=== PATIENT | male | born 1970 | race Caucasian/White ===

== ENCOUNTER 2020-10-14 11:17 | Emergency (ER) | payer OTHER, SELFPAY ==
[2020-10-14] VITALS (16 sets, daily range): BP systolic 148–230; BP diastolic 91–131; PULSE 76–99; RESP 12–18; TEMP 36.6; O2SAT 94–99; BMI 32.8
--- NOTE | ~2020-10-14 | CT_ITS ---
EXAMINATION: CT CERVICAL SPINE WITHOUT CONTRAST CLINICAL INFORMATION: Fall with intracranial bleed COMPARISON: None TECHNIQUE: CT cervical spine without intrathecal contrast This CT examination was performed using dose optimization techniques as appropriate, variously including the following: *Automated exposure control *Adjustment of mA and/or kV according to patient size (this includes techniques or standardized protocols for targeted exams where dose is matched to indication/reason for exam; i.e. extremities or head) *Use of iterative reconstruction technique DLP: 793 mGy-cm FINDINGS: No abnormal prevertebral soft tissue swelling is seen. Paraspinal muscle planes are maintained. No acute cervical spine fractures identified. There is some narrowing of the C5-C6 and C6-C7 disc spaces with some marginal spurring. No significant neural foramina bony encroachment is seen. Pterygoid plates intact. Temporomandibular joints appear unremarkable. CT/CT cervical spine wo con IMPRESSION: Mild cervical spondylosis without evidence of acute fracture.
--- NOTE | ~2020-10-14 | XR_ITS ---
EXAMINATION: XR CHEST CLINICAL INFORMATION: Stroke COMPARISON: None TECHNIQUE: Frontal view of the chest was obtained. FINDINGS: The cardiac silhouette is enlarged. Hilar and mediastinal contours are unremarkable. The lungs are clear. There is no pleural effusion or pneumothorax. Bony structures are unremarkable. XR/XR chest 1V IMPRESSION: Enlarged cardiac silhouette. No evidence for acute disease in the chest.
--- NOTE | ~2020-10-14 | CT_ITS ---
EXAMINATION: CT HEAD WITHOUT CONTRAST (STROKE PROTOCOL) CLINICAL INFORMATION: Stroke protocol. COMPARISON: None TECHNIQUE: Contiguous axial imaging was performed from the skull base to vertex without intravenous administration of contrast. This CT examination was performed using dose optimization techniques as appropriate, variously including the following: *Automated exposure control *Adjustment of mA and/or kV according to patient size (this includes techniques or standardized protocols for targeted exams where dose is matched to indication/reason for exam; i.e. extremities or head) *Use of iterative reconstruction technique DLP: 861 mGy-cm FINDINGS: There is a region of hemorrhage seen within the region of the right basal ganglia and external capsule measuring approximately 4.4 x 2.6 x 4.3 cm in size with some surrounding edema there is mild midline structure shift to the left of approximately 2 mm. No evidence of uncal herniation appreciated. The hemorrhage appears to lie superior to the right middle cerebral artery with no definite right middle cerebral artery aneurysm appreciated. There is an old infarct seen involving the region of the anterior limb of the right internal capsule extending to the posterior limb. Suprasellar cistern appears unremarkable. The calvarium appears intact. There is no pneumocephalus or orbital emphysema. There is mucosal thickening seen within the ethmoid air cells bilaterally. Large amount of cerumen is seen within the left external auditory canal. There are no air-fluid levels. CT/CT head for stroke IMPRESSION: Right basal ganglia hemorrhage with mild midline structure shift to the left. No evidence of uncal herniation. This critical result was discussed with Dr. Morales at 1135 hours on October 14, 2020. It was ascertained that the content and urgency of the report was understood at the time of direct communication.
--- NOTE | 2020-10-14 11:21 | ECG_ITS ---
Test Reason : STROKE Blood Pressure : / mmHG Vent. Rate : 094 BPM Atrial Rate : 094 BPM P-R Int : 182 ms QRS Dur : 098 ms QT Int : 370 ms P-R-T Axes : 033 023 -07 degrees QTc Int : 462 ms Normal sinus rhythm Normal ECG No previous ECGs available Referred By: Anival Morales Electronically Signed By:HUMBERTO DELACRUZ
[2020-10-14 11:23] LABS: Glucose, Whole Blood 140 mg/dL (60-115)
[2020-10-14] MEDS: Labetalol HCL 100 MG/20 ML VIAL 20 MG IVPUSH (11:35)
[2020-10-14 11:38] LABS: Basophils Percent Auto 0.5 % (0-2); Eosinophils Absolute Auto 0.2 X10*3/uL (0.0-0.4); Eosinophils Percent Auto 3.1 % (0-4); Hematocrit 45.2 % (42-52); Imm Gran Abs Auto 0.04 X10*3/uL (0.00-0.03); Imm Gran Pct Auto 0.7 % (0.0-0.4); Lymphocytes Absolute Auto 1.8 X10*3/uL (1.2-4.9); Lymphocytes Percent Auto 29.9 % (20-40); MANUAL DIFF FLAG NO; Mean Corpuscular HGB Conc 35.4 g/dl (31.0-36.0); Mean Corpuscular Hemoglobin 30.2 pg (27.0-33.0); Mean Corpuscular Volume 85.3 fL (80-98); Mean Platelet Volume 9.8 fL (9.4-12.4); Monocytes Absolute Auto 0.3 X10*3/uL (0.1-1.2); Monocytes Percent Auto 5.5 % (2-11); Neutrophils Absolute Auto 3.5 X10*3/uL (2.0-8.3); Neutrophils Percent Auto 60.3 % (45-73); Platelet Count 208 X10*3/uL (160-400); Red Cell Distribution Width 11.9 % (11.0-16.0); White Blood Count 5.9 X10*3/uL (4.8-10.8)
[2020-10-14 11:41] LABS: Prothrombin Time Whole Bld POC 12.3 sec (11.1-13.5)
[2020-10-14 11:43] LABS: Prothrombin Time 11.4 SEC (9.9-13.0)
[2020-10-14] MEDS: niCARdipine HCL 25 MG in 0.9 % Sodium Chloride 250 ML 52 MG IVCONT (11:44)
--- NOTE | 2020-10-14 11:59 | ED.NEUROSD ---
HPI - Neuro Symptoms/Deficit General Chief Complaint: Stroke Stated Complaint: stroke alert Time Seen by Provider: 10/14/20 11:20 Source: patient, family ( Spouse) and EMS Mode of arrival: EMS Limitations: no limitations History of Present Illness HPI Narrative: 51-year-old male came in for evaluation of stroke. This is a 51-year-old male with history of hypertension came in by ambulance after was found by his son on the floor in the bathroom, patient has right visual gaze, left hemiparesis and garbled speech, patient last was normal but 1 hour before arrival, patient is still able to give partial history stated that he went to the bathroom felt sick then he fell down and lost consciousness. Son called 911 and patient was transported to the hospital, there is a on arrival patient with right visual gaze on left hemipareses able to give history, GCS of 15. Related Data Previous Rx's Medication Instructions Recorded lisinopril 40 mg tablet 40 mg PO DAILY #30 tab 04/12/20 sertraline 50 mg tablet 50 mg PO DAILY #30 tab 06/03/20 Allergies Allergy/AdvReac Type Severity Reaction Status Date / Time No Known Allergies Allergy Verified 10/14/20 11:21 Review of Systems Review of Systems: Yes all other systems are reviewed and are negative [facility] Past Medical History Medical History Anxiety HTN (hypertension) Social History Social History Alcohol intake: never Patient Tobacco Use Status: Never used Tobacco Advance Directives: No Advance Directives Information Provided: No Physical Exam Vital Signs: Vital Signs: Last Vital Signs Temp 98 F 10/14/20 11:28 Pulse 87 10/14/20 13:17 Resp 17 10/14/20 13:17 BP 148/91 H 10/14/20 13:17 Pulse Ox 95 10/14/20 13:17 Body Mass Index 32.8 vital signs have been reviewed as appeared to be correct. Blood pressure severely elevated. Heart rate normal. Respiration rate normal. Temperature normal. Oxygen saturation normal. Appearance: Alert. Oriented X3. No acute distress, GCS of 15 Head: Normal external exam. Normocephalic. Atraumatic. No [place] signs noted. No raccoon eyes noted Eyes: PERRLA. EOMI. Conjunctiva and sclera normal. Eyelids normal. ENT: TM's Normal. Pharynx normal. Uvula midline. Moist mucous membranes. No trismus noted. No drooling noted. No muffled voice noted. Neck: Normal inspection. Neck supple. FROM. No adenopathy. Thyroid Normal. No meningeal signs. No neck mass noted. CVS: Normal heart rate and rhythm. Heart sound normal. No murmurs noted. Pulses normal throughout. Respiratory: No respiratory distress. Painless inspiration. Breath sounds normal. No wheezes/rales/rhonchi noted. Chest nontender. No accessory muscle usage noted or decreased air movement noted. Abdomen: Soft and nontender. Bowel sounds normal in all 4 quadrants. No distention noted. No organomegaly noted. No visible injury noted. Back: No CVA tenderness. Full range of motion noted. Skin: Skin warm and dry. Normal skin color. Normal skin turgor. No rashes/lesions/lacerations noted. Extremities: No lower extremity edema. Extremities exhibit normal range of motion. Extremities nontender. Neuro: Oriented X 3. please refer to NIH stroke scale Course Course Course Narrative: assessment and plan. 51-year-old male with history of high blood pressure came in with left hemiparesis and right visual gaze, patient found to have right thalamic/basal ganglia bleed more than likely to be hypertensive bleed. 1. Case discussed with Dr. Gan who recommended to transfer the patient to [facility]. 2. high blood pressure patient was given labetalol 1 time IV and patient was put on nicardipine IV drip, current blood pressure is 166/102 goal is to bring systolic blood pressure 150. 3. the case was discussed with Dr. Aayla from Neurology at [facility] who is reviewing the images. patient to be admitted to ICU. 4. patient was GCS of 15 with good mentation, no sign of herniation on the CT at this point would not consider intubation but will keep monitoring the patient. Reevaluation(s) Reevaluation #1: patient still GCS of 15, positive gag reflex, CT showing no herniation, blood pressure under better control, await for the final call from [facility] to transfer. Time: 12:35 Reevaluation #2: unchanged neurological exam, able to protect his airway, talking to his family, case discussed with from ICU at [facility] who accepted the patient. Keep the head of the bed elevated 30 degree. Still await for the transfer. Time: 13:30 MDM - Neuro Symptoms/Deficit Lab Data Attestation: I reviewed the patient's lab results. Result diagrams: 10/14/20 11:31 10/14/20 11:31 Labs: Lab Results 10/14/20 10/14/20 10/14/20 Range/Units 11:19 11:30 11:31 WBC 5.9 (4.8-10.8) X10*3/uL RBC 5.30 (4.60-5.80) X10*6/uL Hgb 16.0 (14.0-18.0) g/dl Hct 45.2 (42-52) % MCV 85.3 (80-98) fL MCH 30.2 (27.0-33.0) pg MCHC 35.4 (31.0-36.0) g/dl RDW 11.9 (11.0-16.0) % Plt Count 208 (160-400) X10*3/uL MPV 9.8 (9.4-12.4) fL Immature Gran % (Auto) 0.7 H (0.0-0.4) % Neut % (Auto) 60.3 (45-73) % Lymph % (Auto) 29.9 (20-40) % Cavalier % (Auto) 5.5 (2-11) % Eos % (Auto) 3.1 (0-4) % Baso % (Auto) 0.5 (0-2) % Lymph # (Auto) 1.8 (1.2-4.9) X10*3/uL Cavalier # (Auto) 0.3 (0.1-1.2) X10*3/uL Eos # (Auto) 0.2 (0.0-0.4) X10*3/uL Baso # (Auto) 0.0 (0.0-0.2) X10*3/uL Abs Immat Gran (auto) 0.04 H (0.00-0.03) X10*3/uL Absolute Neuts (auto) 3.5 (2.0-8.3) X10*3/uL Absolute Nucleated RBC 0.000 (0.0-0.012) X10*3/uL Nucleated RBC % (auto) 0.0 (0.0-0.2) /100WBC PT (9.9-13.0) SEC Whole Blood PT 12.3 (11.1-13.5) sec INR (0.9-1.1) Whole Blood INR 1.0 (0.9-1.1) APTT (24.1-38.0) SEC Sodium (135-145) mmol/L Potassium (3.3-5.1) mmol/L Chloride (96-108) mmol/L Carbon Dioxide (22-29) mmol/L Anion Gap (12-20) BUN (9-16) mg/dL Creatinine (0.5-1.4) mg/dL Estim Creat Clear Calc Estimated GFR POC Glucose 140 H (60-115) mg/dL Random Glucose (60-115) mg/dL Calcium (8.4-10.2) mg/dL Total Creatine Kinase (38-174) U/L Troponin I High Sens (<3.5-35.0) ng/L 10/14/20 10/14/20 10/14/20 Range/Units 11:31 11:31 11:31 WBC (4.8-10.8) X10*3/uL RBC (4.60-5.80) X10*6/uL Hgb (14.0-18.0) g/dl Hct (42-52) % MCV (80-98) fL MCH (27.0-33.0) pg MCHC (31.0-36.0) g/dl RDW (11.0-16.0) % Plt Count (160-400) X10*3/uL MPV (9.4-12.4) fL Immature Gran % (Auto) (0.0-0.4) % Neut % (Auto) (45-73) % Lymph % (Auto) (20-40) % Cavalier % (Auto) (2-11) % Eos % (Auto) (0-4) % Baso % (Auto) (0-2) % Lymph # (Auto) (1.2-4.9) X10*3/uL Cavalier # (Auto) (0.1-1.2) X10*3/uL Eos # (Auto) (0.0-0.4) X10*3/uL Baso # (Auto) (0.0-0.2) X10*3/uL Abs Immat Gran (auto) (0.00-0.03) X10*3/uL Absolute Neuts (auto) (2.0-8.3) X10*3/uL Absolute Nucleated RBC (0.0-0.012) X10*3/uL Nucleated RBC % (auto) (0.0-0.2) /100WBC PT 11.4 (9.9-13.0) SEC Whole Blood PT (11.1-13.5) sec INR 1.0 (0.9-1.1) Whole Blood INR (0.9-1.1) APTT 34.0 (24.1-38.0) SEC Sodium 140 (135-145) mmol/L Potassium 3.8 (3.3-5.1) mmol/L Chloride 103 (96-108) mmol/L Carbon Dioxide 28 (22-29) mmol/L Anion Gap 13 (12-20) BUN 16 (9-16) mg/dL Creatinine 1.38 (0.5-1.4) mg/dL Estim Creat Clear Calc 77.3 Estimated GFR 55 POC Glucose (60-115) mg/dL Random Glucose 143 H (60-115) mg/dL Calcium 9.6 (8.4-10.2) mg/dL Total Creatine Kinase 111 (38-174) U/L Troponin I High Sens < 3.5 (<3.5-35.0) ng/L Imaging Data CT scan - head: Radiologist's impression: Right basal ganglia hemorrhage with mild midline structure shift to the left. No evidence of uncal herniation. Cervical spine CT: Radiologist's impression: no acute fracture. ECG Data Interpretation: Normal sinus rhythm at 95 beats per minutes, normal axis deviation, normal intervals, no ST-T changes. NIH Stroke Scale Level of Consciousness: Alert Level of Consciousness Questions: Answers both questions correctly Level of Consciousness Commands: Performs both tasks correctly Best Gaze: Forced deviation Visual: No visual loss Facial Palsy: Normal Motor Arm (Right): No drift Motor Arm (Left): No effort against gravity Motor Leg (Right): No drift Motor Leg (Left): No effort against gravity Limb Ataxia: Absent Sensory: Mild to moderate sensory loss Best Language: No aphasia Dysarthia: Normal Extinction and Inattention: No abnormality Score: 9 Critical Care Time Critical Care Time Critical Care Time: Yes Total Critical Care Time: 60 Attestation: I spent 60 minutes providing critical care service to the patient, this including time spent at the bedside to evaluate the patient, reassess the patient, monitoring vital signs, review labs, and radiographic studies, counseling the patient/family, discussing the case with consultants, disposition the patient. Discharge Plan Discharge Clinical Impression: Hemorrhagic stroke Cerebrovascular accident Qualifiers: CVA mechanism: unspecified Qualified Code(s): I63.9 - Cerebral infarction, unspecified Patient Disposition: [facility] Transfer Details: [facility] intermediate care Prescriptions: No Action lisinopril 40 mg tablet 40 mg PO DAILY Qty: 30 RF: 0 sertraline 50 mg tablet 50 mg PO DAILY Qty: 30 RF: 0
[2020-10-14 12:04] LABS: Anion Gap 13 (12-20); Blood Urea Nitrogen 16 mg/dL (9-16); Calcium 9.6 mg/dL (8.4-10.2); Carbon Dioxide 28 mmol/L (22-29); Chloride 103 mmol/L (96-108); Creatinine Clr Calc Pharmacy 77.3; Estimated Glomerular Filt Rate 55; Glucose Random 143 mg/dL (60-115); Potassium 3.8 mmol/L (3.3-5.1); Sodium 140 mmol/L (135-145)
[2020-10-14 12:09] LABS: Troponin-I High Sensitivity < 3.5 ng/L (<3.5-35.0)
--- NOTE | 2020-10-14 12:12 | PC.NURSE ---
Patient is lying in bed resting quietly. Pt says no when asked if he is hurting and shakes head no. pt occasionally moves right arm.
--- NOTE | 2020-10-14 12:43 | PC.NURSE ---
Doctor at bedside. Pt awaked with name being called and opened eyes. Patient asked by doctor how he is feeling. Pt answered feel better but patient studdarded and took several attempts to say the word better. Pt asked to hold right arm up and show two fingers. Pt is able to do as instructed without hesitation or difficulty. Doctor then asked pt to identify who is at bedside. Pt is able to state her name. Pt then asked to name his son, who is no present. Pt named son without difficulty.
[2020-10-14 12:54] LABS: Stroke Lab Use COMPLETE
--- NOTE | 2020-10-14 12:55 | PC.NURSE ---
Patient recognizes father who is at bedside. Doctor at bedside and removed c-collar.
--- NOTE | 2020-10-14 13:34 | PC.NURSE ---
Report called to the nurse at [facility] ICU
--- NOTE | 2020-10-14 13:39 | PC.NURSE ---
[facility] ems here to transport patient to [facility] 4B room 19. Pt is awake and in no acute distress
--- NOTE | 2020-10-14 13:49 | MHC.STROKE ---
1115 on 10/14/20, EMS PRE-NOTIFIED STROKE ALERT , LEFT HEMIPARESIS, RIGHT GAZE, GARBLED SPEECH, NIHSS = 9, ONSET 1015, FOUND BY HIS SON. STAT CTH + ICH, BP 230/131. I MET WITH THE SON AND , HE IS LEONORA ANXIOUS PERSON, SHE SAID HE WILL NOT LET HER TAKE HIS BP. I REVIEWED THE PLAN OF CARE WITH THEM, DR NEIL COORDINATED TRANSFER TO [facility]. EMS AT BEDSIDE AT 1339.
[2020-10-14 13:51] LABS: COVID-19 Test Negative (Negative)
== END 2020-10-14 13:46 | disposition short-term general hospital (02) ==
PROVIDERS: Emergency Provider Emergency Medicine; PCP Family Medicine
DX: I61.8 Other nontraumatic intracerebral hemorrhage (principal); G81.94 Hemiplegia, unspecified affecting left nondominant side; H53.8 Other visual disturbances; R29.709 NIHSS score 9; I10 Essential (primary) hypertension; Z20.822 Contact with and (suspected) exposure to COVID-19
CPT/HCPCS: 36415; 70450; 71045; 72125; 80048; 82550; 82947; 84484; 85025; 85610; 85730; 87635; 93005; 96365; 96366; 96368; 99285; 99291

== ENCOUNTER 2021-02-20 01:10 | Emergency (ER) | payer OTHER, SELFPAY ==
--- NOTE | ~2021-02-20 | CT_ITS ---
EXAMINATION: CT ABDOMEN AND PELVIS WITHOUT CONTRAST CLINICAL INFORMATION: Flank pain COMPARISON: None TECHNIQUE: Multidetector volumetric imaging was performed from the superior aspect of the liver through the pubic symphysis. Sagittal and coronal reformatted images were obtained on the technologist's workstation. This CT examination was performed using dose optimization techniques as appropriate, variously including the following: *Automated exposure control *Adjustment of mA and/or kV according to patient size (this includes techniques or standardized protocols for targeted exams where dose is matched to indication/reason for exam; i.e. extremities or head) *Use of iterative reconstruction technique DLP: 596 mGy-cm FINDINGS: LUNG BASES: Bibasilar atelectasis. The visualized cardiac structures are unremarkable. LIVER, GALLBLADDER, AND BILIARY TREE: The liver is normal in size, shape, and attenuation. No focal hepatic lesion or biliary ductal dilatation is present. The gallbladder is unremarkable with no evidence of radiopaque gallstones, gallbladder wall thickening, or obvious pericholecystic inflammatory changes. PANCREAS: Unremarkable. SPLEEN: Unremarkable. ADRENAL GLANDS: Unremarkable. KIDNEYS AND URETERS: The kidneys are normal in size, shape, and attenuation. No hydronephrosis or hydroureter. 0.2 cm right upper pole calculus is 9 cm from the posterior axillary line. Exophytic simple cyst at the midpole of the left kidney. No follow-up imaging recommended. BLADDER: Decompressed with Mitchell catheter in place. GASTROINTESTINAL TRACT: The stomach is unremarkable. Normal caliber of the small bowel. There is no obstruction. Normal appendix. No colonic wall thickening or inflammatory change. No free air or free fluid. ABDOMINAL WALL: No significant hernia is appreciated. LYMPH NODES: Normal. VASCULAR: Unremarkable. PELVIC VISCERA: Unremarkable. OSSEOUS STRUCTURES: No acute or suspicious osseous abnormality. Mild degenerative change of the spine and hips. CT/CT abdomen pelvis wo con IMPRESSION: No acute finding. No hydronephrosis. Nonobstructing right renal calculus.
[2021-02-20 01:23] VITALS: BP 113/82; BP 118/89; PULSE 80; PULSE 86; RESP 18; TEMP 37.2; O2SAT 95; O2SAT 96; BMI 24.0
--- NOTE | 2021-02-20 02:13 | ED.GENADULT ---
HPI - General Adult General Chief complaint: General Medical Stated complaint: FLANK PAIN Time Seen by Provider: 02/20/21 01:35 Source: family () Mode of arrival: EMS History of Present Illness HPI narrative: 51-year-old male with history of CVA and residual left-sided hemiparesis as well as right-sided mouth droop and indwelling Mitchell catheter presents via EMS for significant flank pain that was 10/10 earlier in the evening and would not resolve. This was not associated with fever, chills, nausea, but patient had an episode of vomiting that states is consistent with his prior response to pain. On arrival patient's pain has reduced to 2/10. Related Data Previous Rx's Medication Instructions Recorded hydrocolloid dressing 2 X 4 #20 ea 01/13/21 amlodipine 10 mg tablet 10 mg PO DAILY #30 tab 01/20/21 dronabinol 2.5 mg capsule 2.5 mg PO BID #60 cap 01/20/21 mirtazapine 15 mg tablet 15 mg PO BEDTIME #30 tab 01/20/21 tamsulosin 0.4 mg capsule (Flomax) 0.4 mg PO DAILY #30 cap 01/20/21 baclofen 5 mg tablet 5 mg PO TID 30 Days #90 tab 02/03/21 labetalol 200 mg tablet 400 mg PO BID 30 Days #120 tab 02/03/21 lisinopril 40 mg tablet 40 mg PO DAILY #30 tab 02/03/21 sertraline 50 mg tablet 50 mg PO DAILY #30 tab 02/03/21 cefixime 400 mg capsule 400 mg PO DAILY 7 Days #7 cap 02/20/21 Allergies Allergy/AdvReac Type Severity Reaction Status Date / Time No Known Allergies Allergy Verified 02/03/21 14:30 Review of Systems Review of Systems: Pertinent positives and negatives as stated in HPI 10 point review of systems is otherwise negative. [facility] Past Medical History Source: nursing notes reviewed Medical History Anxiety HTN (hypertension) Social History Social History Alcohol intake: never Patient Tobacco Use Status: Never used Tobacco Advance Directives: No Advance Directives Information Provided: No Current occupational status: disabled Physical Exam Vital Signs: Vital Signs: Last Vital Signs Temp 99.0 F 02/20/21 01:23 Pulse 80 02/20/21 01:23 Resp 18 02/20/21 01:23 BP 118/89 02/20/21 01:23 Pulse Ox 96 02/20/21 01:23 Body Mass Index 24.0 VITAL SIGNS: Reviewed. GENERAL: Well developed, well nourished, in no acute distress. HEAD: Normocephalic/atraumatic EYES: PERRLA, EOMI OROPHARYNX: no oral lesions noted, posterior pharynx clear NECK: Supple, no adenopathy LUNGS: Normal breath sounds. No adventitious sounds or accessory muscle use. SpO2<96> CARDIOVASCULAR: Regular rate and rhythm without noted murmurs ABDOMEN: Soft, non-tender, non-distended with bowel sounds. : Mitchell catheter in place SKIN: Inspection of the skin reveals no rashes NEUROLOGIC: Alert and oriented x 4. Course Course Course Narrative: 51-year-old male with history and clinical presentation suggestive of possible spasm versus renal colic, UTI. Review of all investigations consistent with UTI/pyelonephritis and on reassessment after patient received pain medication is had complete resolution of his symptoms. He received initial antibiotics here in the emergency room and will be discharged with remaining course. Medical Decision Making Lab Data Labs: Lab Results 02/20/21 Range/Units 02:34 Urine Color YELLOW Urine Appearance HAZY Urine pH 6.0 (5.0-8.0) Ur Specific Cisco >= 1.030 H (1.005-1.025) Urine Protein 2+ H (NEG-TRACE) MG/DL Urine Glucose (UA) NEG (NEG) MG/DL Urine Ketones NEG (NEG) MG/DL Urine Blood 2+ H (NEG) Urine Nitrite POS H (NEG) Ur Leukocyte Esterase 3+ H (NEG) Urine RBC 10-14 H (0) /HPF Urine WBC 50-75 H (0-4) /HPF Ur Squamous Epith Cells 1+ /LPF Urine Bacteria 4+ /LPF Urine Mucus 1+ /LPF Discharge Plan Discharge Clinical Impression: Pyelonephritis Patient Disposition: Home, Self-Care Instructions: Kidney Infection (ED), Catheter-associated Urinary Tract Infection (ED) Additional Instructions: 1. Resume all home medications as prescribed. 2. Recommend [id number] Tylenol/ibuprofen as needed for additional pain relief. 3. Complete the entire course of antibiotics. 4. Follow-up with your primary care provider on Sunday morning to arrange for an appointment for re-evaluation. Return to the ER for acute worsening of symptoms. Prescriptions: New cefixime 400 mg capsule 400 mg PO DAILY 7 Days Qty: 7 RF: 0 No Action (DME) hydrocolloid dressing 2 X 4 bandage See Rx Instructions .Route Qty: 20 RF: 1 lisinopril 40 mg tablet 40 mg PO DAILY Qty: 30 RF: 0 sertraline 50 mg tablet 50 mg PO DAILY Qty: 30 RF: 0 labetalol 200 mg tablet 400 mg PO BID 30 Days Qty: 120 RF: 2 baclofen 5 mg tablet 5 mg PO TID 30 Days Qty: 90 RF: 0
[2021-02-20] MEDS: oxyCODONE HCl Immed Release 5 MG TABLET PO (02:31)
[2021-02-20 02:41] LABS: Appearance Urine HAZY; Color Urine YELLOW; Glucose Urine UA NEG (NEG); Leukocyte Esterase Urine 3+ (NEG); Nitrite Urine POS (NEG); Specific Gravity - Urine >= 1.030 (1.005-1.025); UACC Culture Trigger YES; Urine Blood 2+ (NEG); Urine Ketones NEG (NEG); Urine Protein 2+ MG/DL (NEG-TRACE)
[2021-02-20 02:51] LABS: Bacteria Urine 4+ /LPF; Mucus Urine 1+ /LPF; Squamous Epithelial Cell Urine 1+ /LPF; WBC Urine 50-75 /HPF (0-4)
[2021-02-20] MEDS: cefTRIAXone sodium 1 GM in 0.9 % Sodium Chloride 50 ML IV (03:50)
== END 2021-02-20 04:18 | disposition home or self-care (01) ==
PROVIDERS: Emergency Provider Student in an Organized Health Care Education/Training Program
DX: N12 Tubulo-interstitial nephritis, not specified as acute or chronic (principal); I10 Essential (primary) hypertension; I69.354 Hemiplegia and hemiparesis following cerebral infarction affecting left non-dominant side; Z96.0 Presence of urogenital implants
CPT/HCPCS: 74176; 81001; 87086; 87088; 87186; 96365; 99284; J0696

== ENCOUNTER 2021-03-01 18:46 | Inpatient (IN) | payer OTHER, SELFPAY ==
--- NOTE | ~2021-03-01 | CT_ITS ---
EXAMINATION: CT HEAD WITHOUT CONTRAST CLINICAL INFORMATION: Reported seizure activity. COMPARISON: CT head dated from 10/14/2020. TECHNIQUE: Contiguous axial imaging was performed from the skull base to vertex without intravenous administration of contrast. This CT examination was performed using dose optimization techniques as appropriate, variously including the following: *Automated exposure control *Adjustment of mA and/or kV according to patient size (this includes techniques or standardized protocols for targeted exams where dose is matched to indication/reason for exam; i.e. extremities or head) *Use of iterative reconstruction technique DLP: 855 mGy-cm FINDINGS: Examination is limited by motion. There is encephalomalacia/gliosis within the area of the previously visualized intraparenchymal hemorrhage within the right basal ganglia. There are some residual hyperattenuating blood products on image 20 of series 3. There is no evidence of acute edematous territorial infarction. A few foci of hypoattenuation in the periventricular and deep white matter are consistent with mild microangiopathy. There are chronic bilateral lacunar infarcts. Proportional prominence of the ventricles and sulcal spaces. No evidence for obstructive hydrocephalus. No abnormal mass effect or midline shift. No extra-axial fluid collections. No acute soft tissue or osseous abnormalities. The mastoid air cells and paranasal sinuses are clear. CT/CT head/brain wo con IMPRESSION: Evaluation is markedly limited by motion. There are hyperattenuating blood products adjacent to an area of encephalomalacia/gliosis from a prior intraparenchymal hemorrhage within the right insular region. No acute edematous territorial infarction. This critical result was discussed with Dr. Palomino at 03/01/2021 8:14 PM and it was ascertained that the content and urgency of the report was understood at the time of direct communication.
--- NOTE | ~2021-03-01 | CT_ITS ---
EXAMINATION: CT ABDOMEN AND PELVIS WITHOUT CONTRAST CLINICAL INFORMATION: New onset renal failure. COMPARISON: CT abdomen/pelvis dated from 02/20/2021. TECHNIQUE: Multidetector volumetric imaging was performed from the superior aspect of the liver through the pubic symphysis. Sagittal and coronal reformatted images were obtained on the technologist's workstation. This CT examination was performed using dose optimization techniques as appropriate, variously including the following: *Automated exposure control *Adjustment of mA and/or kV according to patient size (this includes techniques or standardized protocols for targeted exams where dose is matched to indication/reason for exam; i.e. extremities or head) *Use of iterative reconstruction technique DLP: 814 mGy-cm FINDINGS: LUNG BASES: Bibasilar dependent opacities. No pleural effusion. Small amount of pericardial fluid. LIVER, GALLBLADDER, AND BILIARY TREE: The noncontrast liver is normal in size, shape, and attenuation. No focal hepatic lesion or biliary ductal dilatation is present. The gallbladder is unremarkable with no evidence of radiopaque gallstones, gallbladder wall thickening, or obvious pericholecystic inflammatory changes. PANCREAS: Unremarkable. SPLEEN: Unremarkable. ADRENAL GLANDS: Unremarkable. KIDNEYS AND URETERS: The kidneys are normal in size, shape, and attenuation. No hydronephrosis, hydroureter, or calculi seen. No perinephric stranding. BLADDER: Underdistended with a Mitchell and balloon in place. There are hyperattenuating debris posteriorly within the lumen of the bladder, possibly representing intraluminal calculi and unchanged. GASTROINTESTINAL TRACT: The stomach is moderately distended. The small bowel is nondilated. The appendix is unremarkable. There are no pericolic inflammatory changes. Sigmoid diverticuli. No bowel obstruction. ABDOMINAL WALL: Small fat-containing umbilical hernia and left-sided inguinal hernia. LYMPH NODES: No lymphadenopathy by size criteria. VASCULAR: Scattered atherosclerotic disease. The infrarenal abdominal aorta measures up to 2.3 cm, unchanged. PELVIC VISCERA: Unremarkable. OSSEOUS STRUCTURES: No acute or suspicious osseous abnormalities. CT/CT abdomen pelvis wo con IMPRESSION: Evaluation is limited by motion. Accounting for these limitations, there are no acute intra-abdominal or pelvic abnormalities to explain the patient's symptoms. A previously described punctate calculus in the upper pole of the right kidney is not well identified in this study. Moderate distention of the stomach uncertain significance and possibly related with patient's postprandial state. However, gastroparesis could be considered in the appropriate clinical context. Intraluminal urinary bladder calculi without significant perivesical fat stranding. The prostate gland is not significantly enlarged There are dependent opacities in the lung bases, likely subsegmental atelectasis. Although, early infiltrates are difficult to exclude. Correlate clinically for pneumonia.
--- NOTE | ~2021-03-01 | XR_ITS ---
EXAMINATION: XR CHEST CLINICAL INFORMATION: Seizure like activity COMPARISON: 10/14/2020 TECHNIQUE: Frontal view of the chest was obtained. FINDINGS: Normal cardiomediastinal silhouette. Adequate expansion of the lungs. No focal consolidation. No pleural effusion or pneumothorax. No acute osseous abnormality. XR/XR chest 1V IMPRESSION: No acute disease within the chest.
[2021-03-01 18:59] VITALS: BP 107/80; BP 137/85; PULSE 96; RESP 16; TEMP 35.4; O2SAT 95; O2SAT 98; BMI 23.6
--- NOTE | 2021-03-01 19:05 | ECG_ITS ---
Test Reason : SEIZURE Blood Pressure : / mmHG Vent. Rate : 121 BPM Atrial Rate : 121 BPM P-R Int : 154 ms QRS Dur : 080 ms QT Int : 312 ms P-R-T Axes : -12 031 -24 degrees QTc Int : 443 ms Sinus tachycardia Nonspecific T wave abnormality Inferior leads Abnormal ECG When compared with ECG of 14-OCT-2020 11:33, Inverted T waves have replaced nonspecific T wave abnormality in Inferior leads Heart rate has increased Referred By: Stacey Palomino Electronically Signed By:JOSE G WAER MD
--- NOTE | 2021-03-01 19:25 | PHA.MEDREC ---
Pharmacy Consult ? Medication Reconciliation Pharmacy has completed the medication reconciliation.
--- NOTE | 2021-03-01 19:30 | ED.SEIZURE ---
HPI - Seizure General Chief Complaint: Seizure Stated Complaint: altered mental Time Seen by Provider: 03/01/21 19:04 Source: patient and EMS Mode of arrival: EMS Limitations: no limitations History of Present Illness MD complaint: seizure Onset (ago): minute(s) Description of Episode: loss of consciousness and tonic-clonic movement Duration of episode: 2 -: minutes(s) Witnessed: Yes - by Bystander Trauma: No Seizure History: No Place: Home Possible Precipitating Event: other (has UTI/pyelo on levofloxacin since 02/25) Associated symptoms: denies other symptoms Treatments prior to arrival: none Related Data Home Medications Medication Instructions Recorded Confirmed oxybutynin chloride 10 mg 1 tab PO DAILY 03/01/21 03/01/21 tablet,extended release 24 hr Previous Rx's Medication Instructions Recorded hydrocolloid dressing 2 X 4 #20 ea 01/13/21 baclofen 5 mg tablet 5 mg PO TID 30 Days #90 tab 02/03/21 labetalol 200 mg tablet 400 mg PO BID 30 Days #120 tab 02/03/21 sertraline 50 mg tablet 50 mg PO DAILY #30 tab 02/03/21 cefixime 400 mg capsule 400 mg PO DAILY 7 Days #7 cap 02/20/21 levofloxacin 750 mg tablet 750 mg PO DAILY 7 Days #7 tab 02/25/21 lisinopril 40 mg tablet 40 mg PO DAILY #30 tab 02/27/21 Allergies Allergy/AdvReac Type Severity Reaction Status Date / Time No Known Allergies Allergy Verified 02/03/21 14:30 Review of Systems Review of Systems: Constitutional : No Weight loss, No Fever, No Chills, No Fatigue, No Malaise ENT/Mouth : No sore throat, No Rhinorrhea Eyes: No Eye Pain, No Swelling, No Redness Cardiovascular : No Chest Pain, No SOB, No Dyspnea on Exertion, No Orthopnea, No Edema, No Palpitations Respiratory : No Cough, No Sputum, No Wheezing Gastrointestinal : No Nausea, No Vomiting, No Diarrhea, No Constipation, No abdominal Pain, No Hematochezia, No Melena Genitourinary : No Dysuria, No Urinary Frequency, No Hematuria, Musculoskeletal : No joint pain, No Myalgias, No Joint Swelling Skin : No Skin Lesions, No rash Neuro : No Weakness, No Numbness, No Dizziness, No Headache, pos seizure Psych : No Anxiety/Panic, No Depression Heme/Lymph: No Bruising, No Bleeding,No Lymphadenopathy Endocrine : No Polyuria, No Polydipsia All other systems reviewed and are negative [facility] Past Medical History Attestation statement: The following information was validated with the patient. Medical History (Updated 03/01/21 @ 21:02 by Stacey Palomino DO) Anxiety Hemorrhagic stroke HTN (hypertension) Social History Social History Alcohol intake: never Patient Tobacco Use Status: Never used Tobacco Advance Directives: No Advance Directives Information Provided: No Current occupational status: disabled Physical Exam Vital Signs: Vital Signs: Last Vital Signs Temp 98.9 F 03/01/21 20:25 Pulse 95 03/01/21 20:52 Resp 14 03/01/21 20:52 BP 84/56 L 03/01/21 20:52 Pulse Ox 99 03/01/21 20:52 Body Mass Index 23.6 Appearance: Alert. Oriented X3. No acute distress. Anxious states he felt fine earlier today Eyes: Pupils equal, round and reactive to light. ENT: Pharynx normal. Neck: Normal inspection. Neck supple. CVS: Normal heart rate and rhythm. Pulses normal. Respiratory: No respiratory distress. Breath sounds normal. Abdomen: Soft and nontender. Skin: Skin warm and dry. pale skin color. Normal skin turgor. Extremities: No lower extremity edema. Neuro: Oriented X 3. R sided hemiparesis Course Course Course Narrative: GTC seizure 30 seconds IV ativan and IV keppra ordered, requesting stat head CT repeat IV ativan for 30 sec GCT seizure - IV keppra infusing after second dose of ativan no further seizure noted 758pm call from Radiology 816pm - subtle linear area of blood products acute bleed [facility] October near area of prior bleed has deep cavity and encepholomalacia - CTA would be of no benefit no mass effect no hydrocephalus no fever, 113/85 message sent to Neurology 832pm given recent infection - empiric cefepime ordered patient is very somnolent from ativan at this time lactic acidosis from seizure activity 3L of IVF signed out to Dr. Stover pending further workup, repeat call to Neurology pending - Dr. Gan aware of hyperattenuating area - load with keppra nothing to do at this time will consult MDM - Seizure MDM Narrative Medical decision making narrative: 51 yo male with hx of HTN, hemorrhagic stroke L sided weakness and indwelling catheter, MARIZA, pyelonephritis - recently tx on 02/20 with levofloxacin (02/25) initially was on cefixime which grew out pseudomonas and citrobacter S to Cefepime / Levofloxacin and Meropenem - at this time he had reported GCT seizure at home on arrival to ED he is at baseline, will need labs, cultures, UA, CT head for ICH, CXR dispo per results and findings. Lab Data Result diagrams: 03/01/21 20:22 03/01/21 20:22 Labs: Lab Results 03/01/21 03/01/21 03/01/21 Range/Units 19:56 20:22 20:22 WBC 6.3 (4.8-10.8) X10*3/uL RBC 4.44 L (4.60-5.80) X10*6/uL Hgb 12.7 L (14.0-18.0) g/dl Hct 39.0 L (42.0-52.0) % MCV 87.8 (80.0-98.0) fL MCH 28.6 (27.0-33.0) pg MCHC 32.6 (31.0-36.0) g/dl RDW 12.9 (11.0-16.0) % Plt Count 215 (160-400) X10*3/uL MPV 10.6 (9.4-12.4) fL Immature Gran % (Auto) 1.0 H (0.0-0.4) % Neut % (Auto) 76.6 H (45-73) % Lymph % (Auto) 12.8 L (20-40) % [place] % (Auto) 5.1 (2-11) % Eos % (Auto) 4.2 H (0-4) % Baso % (Auto) 0.3 (0-2) % Lymph # (Auto) 0.8 L (1.2-4.9) X10*3/uL [place] # (Auto) 0.3 (0.1-1.2) X10*3/uL Eos # (Auto) 0.3 (0.0-0.4) X10*3/uL Baso # (Auto) 0.0 (0.0-0.2) X10*3/uL Abs Immat Gran (auto) 0.06 H (0.00-0.03) X10*3/uL Absolute Neuts (auto) 4.8 (2.0-8.3) x10*3/uL Absolute Nucleated RBC 0.000 (0.0-0.012) X10*3/uL Nucleated RBC % (auto) 0.0 (0.0-0.2) /100WBC VBG pH (7.32-7.43) VBG pCO2 mmHg VBG pO2 mmHg VBG HCO3 (22-26) mmol/L VBG O2 Saturation % VBG Base Excess mmol/L Sodium 142 (135-145) mmol/L Potassium 4.5 (3.3-5.1) mmol/L Chloride 101 (96-108) mmol/L Carbon Dioxide 20 L (22-29) mmol/L Anion Gap 26 H (12-20) BUN 43 H D (9-16) mg/dL Creatinine 3.52 H (0.5-1.4) mg/dL Estim Creat Clear Calc 25.6 Estimated GFR 18 POC Glucose 136 H (60-115) mg/dL Random Glucose 129 H (60-115) mg/dL Lactic Acid (0.5-2.0) mmol/L Calcium 10.1 (8.4-10.2) mg/dL Magnesium 2.2 (1.6-2.6) mg/dL Total Bilirubin 0.3 (0.0-1.0) mg/dL Direct Bilirubin 0.2 (0.0-0.5) mg/dL AST 16 (5-37) U/L ALT 12 (0-40) U/L Alkaline Phosphatase 59 (39-117) U/L Ammonia (13-55) umol/L Troponin I High Sens (<3.5-35.0) ng/L Total Protein 7.0 (6.5-8.0) g/dL Albumin 3.9 (3.5-5.0) g/dL Lipase 30 (8-78) U/L 03/01/21 03/01/21 03/01/21 Range/Units 20:22 20:22 20:22 WBC (4.8-10.8) X10*3/uL RBC (4.60-5.80) X10*6/uL Hgb (14.0-18.0) g/dl Hct (42.0-52.0) % MCV (80.0-98.0) fL MCH (27.0-33.0) pg MCHC (31.0-36.0) g/dl RDW (11.0-16.0) % Plt Count (160-400) X10*3/uL MPV (9.4-12.4) fL Immature Gran % (Auto) (0.0-0.4) % Neut % (Auto) (45-73) % Lymph % (Auto) (20-40) % [place] % (Auto) (2-11) % Eos % (Auto) (0-4) % Baso % (Auto) (0-2) % Lymph # (Auto) (1.2-4.9) X10*3/uL [place] # (Auto) (0.1-1.2) X10*3/uL Eos # (Auto) (0.0-0.4) X10*3/uL Baso # (Auto) (0.0-0.2) X10*3/uL Abs Immat Gran (auto) (0.00-0.03) X10*3/uL Absolute Neuts (auto) (2.0-8.3) x10*3/uL Absolute Nucleated RBC (0.0-0.012) X10*3/uL Nucleated RBC % (auto) (0.0-0.2) /100WBC VBG pH (7.32-7.43) VBG pCO2 mmHg VBG pO2 mmHg VBG HCO3 (22-26) mmol/L VBG O2 Saturation % VBG Base Excess mmol/L Sodium (135-145) mmol/L Potassium (3.3-5.1) mmol/L Chloride (96-108) mmol/L Carbon Dioxide (22-29) mmol/L Anion Gap (12-20) BUN (9-16) mg/dL Creatinine (0.5-1.4) mg/dL Estim Creat Clear Calc Estimated GFR POC Glucose (60-115) mg/dL Random Glucose (60-115) mg/dL Lactic Acid 11.2 H* (0.5-2.0) mmol/L Calcium (8.4-10.2) mg/dL Magnesium (1.6-2.6) mg/dL Total Bilirubin (0.0-1.0) mg/dL Direct Bilirubin (0.0-0.5) mg/dL AST (5-37) U/L ALT (0-40) U/L Alkaline Phosphatase (39-117) U/L Ammonia 61 H (13-55) umol/L Troponin I High Sens 6.0 D (<3.5-35.0) ng/L Total Protein (6.5-8.0) g/dL Albumin (3.5-5.0) g/dL Lipase (8-78) U/L // Range/Units 20:26 WBC (4.8-10.8) X10*3/uL RBC (4.60-5.80) X10*6/uL Hgb (14.0-18.0) g/dl Hct (42.0-52.0) % MCV (80.0-98.0) fL MCH (27.0-33.0) pg MCHC (31.0-36.0) g/dl RDW (11.0-16.0) % Plt Count (160-400) X10*3/uL MPV (9.4-12.4) fL Immature Gran % (Auto) (0.0-0.4) % Neut % (Auto) (45-73) % Lymph % (Auto) (20-40) % [place] % (Auto) (2-11) % Eos % (Auto) (0-4) % Baso % (Auto) (0-2) % Lymph # (Auto) (1.2-4.9) X10*3/uL [place] # (Auto) (0.1-1.2) X10*3/uL Eos # (Auto) (0.0-0.4) X10*3/uL Baso # (Auto) (0.0-0.2) X10*3/uL Abs Immat Gran (auto) (0.00-0.03) X10*3/uL Absolute Neuts (auto) (2.0-8.3) x10*3/uL Absolute Nucleated RBC (0.0-0.012) X10*3/uL Nucleated RBC % (auto) (0.0-0.2) /100WBC VBG pH 7.44 H (7.32-7.43) VBG pCO2 27 mmHg VBG pO2 103 mmHg VBG HCO3 19 L (22-26) mmol/L VBG O2 Saturation 98.0 % VBG Base Excess -3.6 mmol/L Sodium (135-145) mmol/L Potassium (3.3-5.1) mmol/L Chloride (96-108) mmol/L Carbon Dioxide (22-29) mmol/L Anion Gap (12-20) BUN (9-16) mg/dL Creatinine (0.5-1.4) mg/dL Estim Creat Clear Calc Estimated GFR POC Glucose (60-115) mg/dL Random Glucose (60-115) mg/dL Lactic Acid (0.5-2.0) mmol/L Calcium (8.4-10.2) mg/dL Magnesium (1.6-2.6) mg/dL Total Bilirubin (0.0-1.0) mg/dL Direct Bilirubin (0.0-0.5) mg/dL AST (5-37) U/L ALT (0-40) U/L Alkaline Phosphatase (39-117) U/L Ammonia (13-55) umol/L Troponin I High Sens (<3.5-35.0) ng/L Total Protein (6.5-8.0) g/dL Albumin (3.5-5.0) g/dL Lipase (8-78) U/L ECG Data Attestation: I personally reviewed and interpreted this ECG as follows: ECG interpretation date: 03/01/21 ECG interpretation time: 20:11 Interpretation: Rate: 121 Rhythm: sinus tachycardia [place]: normal Normal P waves. Normal CAYLA. Normal QRS complex. ST T wave : normal no [place] qTC: normal prior studies: no acute ischemia The study has been interpreted contemporaneously by me. . Discharge Plan Discharge Clinical Impression: New onset seizure, MAVERICK (acute kidney injury), Acidosis, lactic Patient Disposition: Admitted As Inpatient Prescriptions: No Action (DME) hydrocolloid dressing 2 X 4 bandage See Rx Instructions .Route Qty: 20 RF: 1 lisinopril 40 mg tablet 40 mg PO DAILY Qty: 30 RF: 2 oxybutynin chloride 10 mg tablet extended release 24hr 1 tab PO DAILY RF: 0 cefixime 400 mg capsule 400 mg PO DAILY 7 Days Qty: 7 RF: 0 levofloxacin 750 mg tablet 750 mg PO DAILY 7 Days Qty: 7 RF: 0 sertraline 50 mg tablet 50 mg PO DAILY Qty: 30 RF: 0 labetalol 200 mg tablet 400 mg PO BID 30 Days Qty: 120 RF: 2 baclofen 5 mg tablet 5 mg PO TID 30 Days Qty: 90 RF: 0
[2021-03-01] MEDS: LORazepam 2 MG/ML VIAL IVPUSH (19:35)
[2021-03-01] MEDS: levETIRAcetam in NaCl (iso-os) 1,000 MG/100 ML PIGGYBACK 400 MG IV (19:52)
[2021-03-01] MEDS: LORazepam 2 MG/ML VIAL 1 MG IVPUSH (19:53)
[2021-03-01] MEDS: 0.9 % Sodium Chloride 1,000 ML 999 ML IV ×2 (19:54→20:51)
[2021-03-01 19:59] LABS: Glucose, Whole Blood 136 mg/dL (60-115)
[2021-03-01 20:25] VITALS: BP 162/109; PULSE 102; RESP 14; TEMP 37.2; O2SAT 95
[2021-03-01 20:27] VITALS: BP 113/85
[2021-03-01] MEDS: 0.9 % Sodium Chloride 1,000 ML 999 ML IVCONT (20:28)
[2021-03-01 20:29] LABS: MANUAL DIFF FLAG NO
[2021-03-01 20:30] LABS: Basophils Percent Auto 0.3 % (0-2); Eosinophils Absolute Auto 0.3 X10*3/uL (0.0-0.4); Eosinophils Percent Auto 4.2 % (0-4); Hemoglobin 12.7 g/dl (14.0-18.0); Imm Gran Abs Auto 0.06 X10*3/uL (0.00-0.03); Lymphocytes Absolute Auto 0.8 X10*3/uL (1.2-4.9); Lymphocytes Percent Auto 12.8 % (20-40); Mean Corpuscular HGB Conc 32.6 g/dl (31.0-36.0); Mean Corpuscular Hemoglobin 28.6 pg (27.0-33.0); Mean Corpuscular Volume 87.8 fL (80.0-98.0); Mean Platelet Volume 10.6 fL (9.4-12.4); Monocytes Absolute Auto 0.3 X10*3/uL (0.1-1.2); Monocytes Percent Auto 5.1 % (2-11); Neutrophils Absolute Auto 4.8 x10*3/uL (2.0-8.3); Neutrophils Percent Auto 76.6 % (45-73); Platelet Count 215 X10*3/uL (160-400); Red Blood Count 4.44 X10*6/uL (4.60-5.80); Red Cell Distribution Width 12.9 % (11.0-16.0); White Blood Count 6.3 X10*3/uL (4.8-10.8)
[2021-03-01 20:32] LABS: VBG Base Excess -3.6 mmol/L; VBG HCO3 19 mmol/L (22-26); VBG pCO2 27 mmHg; VBG pH 7.44 (7.32-7.43); VBG pO2 103 mmHg
[2021-03-01 20:34] LABS: Venous Blood Gas Refer to POC result
[2021-03-01 20:38] LABS: Ammonia 61 umol/L (13-55)
--- NOTE | 2021-03-01 20:42 | PC.NURSE ---
pt began seizing at approx 1920 - IV ativan ordered, pt placed on his side, moved into a room and connected to a night monitor, SaO2 at 99% pt given supplemental oxygen via nasal cannula. pt second IV started in R hand. pt broguht over to CT to obtain Head Ct as pt has hx of stroke in past. outside of CT pt began seizing again, at bedside ordered Ativan IV and was given per JUN. Keppra given per JUN. New 18G inserted in L upper arm via U/s guidance. pt appears to be asleep at this time. VAA. Rectal temp 98.5. pt with rushing cath in place prior to arrivval at ED. all labs obtained. family at bedside at this time.. Dr. Palomino awaiting call back from neurology
[2021-03-01 20:48] LABS: Lactic Acid 11.2 mmol/L (0.5-2.0)
[2021-03-01 20:49] LABS: Alanine Aminotransferase 12 U/L (0-40); Albumin Level 3.9 g/dL (3.5-5.0); Alkaline Phosphatase 59 U/L (39-117); Anion Gap 26 (12-20); Aspartate Amino Transferase 16 U/L (5-37); Bilirubin Direct 0.2 mg/dL (0.0-0.5); Bilirubin Total 0.3 mg/dL (0.0-1.0); Blood Urea Nitrogen 43 mg/dL (9-16); Calcium 10.1 mg/dL (8.4-10.2); Carbon Dioxide 20 mmol/L (22-29); Chloride 101 mmol/L (96-108); Creatinine Clr Calc Pharmacy 25.6; Estimated Glomerular Filt Rate 18; Glucose Random 129 mg/dL (60-115); Lipase 30 U/L (8-78); Magnesium 2.2 mg/dL (1.6-2.6); Potassium 4.5 mmol/L (3.3-5.1); Sodium 142 mmol/L (135-145)
[2021-03-01 20:52] VITALS: BP 84/56; PULSE 95; RESP 14; O2SAT 99
[2021-03-01] MEDS: cefEPime HCl 2 GM in 0.9 % Sodium Chloride 50 ML IV (21:00)
[2021-03-01 21:07] LABS: TSH reflex Free T4 2.26 uIU/mL (0.32-4.0)
[2021-03-01 21:12] LABS: COVID-19 Test Negative (Negative)
--- NOTE | 2021-03-01 21:59 | PC.NURSE ---
UNABLE TO APPLY ALVAREZ CATH MEETING RESISTANCE ,DONAVON GAMBOA
[2021-03-01 22:08] VITALS: BP 116/78; PULSE 99; RESP 12; O2SAT 100
[2021-03-01 22:14] LABS: Appearance Urine CLEAR; Color Urine YELLOW; Glucose Urine UA NEG (NEG); Leukocyte Esterase Urine NEG (NEG); Nitrite Urine NEG (NEG); UACC Culture Trigger NO; Urine Blood 1+ (NEG); Urine Ketones NEG (NEG); Urine Protein 1+ MG/DL (NEG-TRACE)
[2021-03-01 22:26] LABS: Reflex Lactate? Lactic Acid Added
[2021-03-01 22:26] LABS: Mucus Urine 1+ /LPF; Renal Epithelial Cells Urine 1+ /LPF; Squamous Epithelial Cell Urine TRACE /LPF; WBC Urine 0-2 /HPF (0-4)
[2021-03-01] MEDS: 0.9 % Sodium Chloride 500 ML IV (22:26)
[2021-03-01 22:27] LABS: Granular Casts Urine 0-2 /LPF
[2021-03-01 22:30] LABS: Amphetamine Screen Urine Not Detected (Not Detect); Barbiturates, Urine Not Detected (Not Detect); Benzodiazepines Screen Urine Not Detected (Not Detect); Cannabinoid Screen Urine Not Detected (Not Detect); Cocaine Screen Urine Not Detected (Not Detect); Fentanyl, urine POSITIVE (Not Detect); Opiate Screen Urine Not Detected (Not Detect); Phencyclidine Screen Urine Not Detected (Not Detect)
[2021-03-01 23:33] LABS: ~Lactic Acid-LAB USE ONLY 2.8 mmol/L (0.5-2.0)
[2021-03-01 23:50] VITALS: BP 111/82; PULSE 98; RESP 12; O2SAT 100
--- NOTE | 2021-03-01 23:59 | PC.NURSE ---
Care assumed by this RN after report received from Pamela RAPHAEL. Pt found to be resting with eyes closed in stretcher, vitals stable at this time with spouse at bedside. Md Stover to bedside while this RN present to obtain an update on pt's status and alertness s/p previous seizure and medication administration. RN informed MD that pt has been sleep since arrival, with a question of how many mg of IV ativan were previously given. This RN can confirm that 3mg (1mg and then 2mg) were scanned in at 1900 however a separate dose of 1mg of ativan that is ordered has not be scanned although removed from the pyxis. Per MD Stover, pt should have be alert and awake at this time; assessed pupil response and tone. PT found to have a clenched jaw and MD questioning continued seizures... pt noted to have tremor/spasm to the left lower extremity which is reported to be baseline. 1mg IV ativan given per verbal order, new order to be obtained. Bedside visitor aware to notify staff immediately if the the patient begins to show signs/symptoms of repeated seizure activity
[2021-03-02] VITALS: BP 115/85; PULSE 97; RESP 17
[2021-03-02] MEDS: LORazepam 2 MG/ML VIAL 1 MG IVPUSH ×2 (00:03→17:35)
--- NOTE | 2021-03-02 01:13 | PC.NURSE ---
global upstream marketing manager/clinical coordinator consulted and confirmed that the patient only received a total of 3mg IV Ativan prior to this RN's arrival (1mg and 2mg dose both documented). The remaining 1mg Ativan order was never administered. This RN was not present but charted against the order per reports of discharge rn/clinical coordinator
[2021-03-02 01:19] LABS: Reflex Lactate? 2 Y
[2021-03-02 02:00] VITALS: PULSE 98; RESP 17
[2021-03-02 02:44] LABS: ~Lactic Acid-LAB USE ONLY 1.4 mmol/L (0.5-2.0)
--- NOTE | 2021-03-02 03:30 | P.HPHOSP_ITS ---
History of Present Illness Date of Service: 03/02/21 Chief Complaint: Seizure 51-year-old male with a past medical history of hypertension, history of hemorrhagic CVA, obstructive sleep apnea, anxiety, depression, MARIZA, history of pressure ulcers, insomnia, chronic Mitchell, recent history of UTI growing Pseudomonas and Citrobacter-on Levaquin day 3; presented to the hospital today with a chief complaint of seizure episode. Patient is drowsy and sleeping-> status post postictal state/Atrovent x3/Keppra in the ER. Spoke to the patient's at bedside. As per the patient's patient had episode of seizure at home, chronic in nature, denies any tongue biting or urinary accident; subsequently brought him to the ER by ambulance. Mentioned that patient was recently diagnosed with UTI and antibiotics were switched to Levaquin and received 3 doses; Denies any prior history of seizures. Reports that after hemorrhagic stroke patient is not ambulating; and has chronic Mitchell; but at baseline patient is alert awake, speaks normally, denies any patient have any cough or sputum production prior to the episode. Review of all other systems is limited as the patient is drowsy and sleepy ER ER course: Patient had an episode of a GTC seizure, received Ativan IV x4 and Keppra loading; CT head showed subtle linear area of blood products in the area of encephalomalacia/gliosis from prior intraparenchymal hemorrhage.Er team notified Dr Gan -> No acute intervention, keppra loading. CT abdomen was done which showed findings concerning for aspiration pneumonia. And also given recent UTI/pyelonephritis-patient was given IV cefepime. Patient had severe lactic acidosis in the setting of seizure, which improving with IV fluids. [facility] Medical History (Updated 03/01/21 @ 21:02 by Stacey Palomino DO) Anxiety Hemorrhagic stroke HTN (hypertension) Social History Alcohol intake: never Patient Tobacco Use Status: Never used Tobacco Advance Directives: No Advance Directives Information Provided: No Current occupational status: disabled Meds Allergies Allergy/AdvReac Type Severity Reaction Status Date / Time No Known Allergies Allergy Verified 02/03/21 14:30 Active Medications: Current Medications Acetaminophen (Acetaminophen 325 Mg Tablet) 650 mg PO Q6H PRN PRN Reason: Pain, Mild (Pain Scale 1-3) Baclofen (Baclofen 10 Mg Tablet) 5 mg PO TID [facility] Heparin Sodium (Porcine) (Heparin Sodium,Porcine 5,000 Unit/Ml Vial) 5,000 unit SUBCUT Q8H [facility] Dextrose/Sodium Chloride (D51/2ns) 1,000 mls @ 50 mls/hr IVCONT .Q20H [facility] Levetiracetam (Keppra) 1,000 mg in 100 mls @ 400 mls/hr IV Q12H [facility] Labetalol HCl (Labetalol Hcl 200 Mg Tablet) 400 mg PO BID [facility]; Protocol Lorazepam (Lorazepam 2 Mg/Ml Vial) 1 mg IVPUSH Q2H PRN PRN Reason: seizure Melatonin (Melatonin 3 Mg Tablet) 6 mg PO BEDTIME PRN PRN Reason: Insomnia Oxybutynin Chloride (Oxybutynin Chloride Er 5 Mg Tab.Er.24) 10 mg PO DAILY [facility] Pharmacy Consult (Consult Rx Perform Med Rec) 1 each MISCELLANE ONCE PRN PRN Reason: Consult order Senna (Sennosides 8.6 Mg Tablet) 17.2 mg PO BEDTIME PRN PRN Reason: Constipation Sertraline HCl (Sertraline Hcl 50 Mg Tablet) 50 mg PO DAILY [facility] Sodium Chloride (0.9 % Sodium Chloride Flush 3 Ml Syringe) 3 ml IVFLUSH QSHIFT [facility] Home Medications Medication Instructions Recorded Confirmed Last Taken Type oxybutynin chloride 10 mg 1 tab PO DAILY 03/01/21 03/01/21 Unknown History tablet,extended release 24 hr Physical Exam Vital Signs and Narrative: Vital Signs: Last Vital Signs Temp 98.9 F 03/01/21 20:25 Pulse 98 03/02/21 02:00 Resp 17 03/02/21 02:00 BP 115/85 03/02/21 00:00 Pulse Ox 100 03/01/21 23:50 Body Mass Index 23.6 Gen: Appears be in no acute distress HEENT: NCAT, Moist mucosa. Pulmonary: Vesicular breath sounds, fair air entry CVS: Normal S1-S2 Abdomen: BS+, Soft, Nontender Extremities: Warm well perfused Neuro: Drowsy, lethargic, protecting airways, on supplemental oxygen Results Labs CBC and Chem 7: 03/02/21 05:33 03/02/21 05:33 Labs: Laboratory Results - last 24 hr 03/01/21 03/01/21 03/01/21 19:56 20:06 20:20 MCV MCH MCHC RDW Plt Count MPV Immature Gran % (Auto) Neut % (Auto) Lymph % (Auto) [place] % (Auto) Eos % (Auto) Baso % (Auto) Lymph # (Auto) [place] # (Auto) Eos # (Auto) Baso # (Auto) Abs Immat Gran (auto) Absolute Neuts (auto) Absolute Nucleated RBC Nucleated RBC % (auto) VBG pH VBG pCO2 VBG pO2 VBG HCO3 VBG O2 Saturation VBG Base Excess Anion Gap Estim Creat Clear Calc Estimated GFR POC Glucose 136 H Random Glucose Lactic Acid Lactic Acid Fup @ 2Hr Lactic Acid Fup @ 4Hr Calcium Magnesium Total Bilirubin Direct Bilirubin AST ALT Alkaline Phosphatase Ammonia Total Creatine Kinase Troponin I High Sens Total Protein Albumin Lipase Procalcitonin 0.10 TSH Urine Color Urine Appearance Urine pH Ur Specific [place] Urine Protein Urine Glucose (UA) Urine Ketones Urine Blood Urine Nitrite Ur Leukocyte Esterase Urine RBC Urine WBC Ur Squamous Epith Cells Ur Renal Epithelial Cell Urine Bacteria Hyaline Casts Granular Casts Urine Mucus Urine Opiates Screen Urine Fentanyl Screen Ur Barbiturates Screen Ur Phencyclidine Scrn Ur Amphetamines Screen U Benzodiazepines Scrn Urine Cocaine Screen U Marijuana (THC) Screen COVID-19 (MARCIO) Negative COVID-19 Clin Com See Note 03/01/21 03/01/21 03/01/21 20:22 20:22 20:22 MCV 87.8 MCH 28.6 MCHC 32.6 RDW 12.9 Plt Count 215 MPV 10.6 Immature Gran % (Auto) 1.0 H Neut % (Auto) 76.6 H Lymph % (Auto) 12.8 L [place] % (Auto) 5.1 Eos % (Auto) 4.2 H Baso % (Auto) 0.3 Lymph # (Auto) 0.8 L [place] # (Auto) 0.3 Eos # (Auto) 0.3 Baso # (Auto) 0.0 Abs Immat Gran (auto) 0.06 H Absolute Neuts (auto) 4.8 Absolute Nucleated RBC 0.000 Nucleated RBC % (auto) 0.0 VBG pH VBG pCO2 VBG pO2 VBG HCO3 VBG O2 Saturation VBG Base Excess Anion Gap 26 H Estim Creat Clear Calc 25.6 Estimated GFR 18 POC Glucose Random Glucose 129 H Lactic Acid 11.2 H* Lactic Acid Fup @ 2Hr Lactic Acid Fup @ 4Hr Calcium 10.1 Magnesium 2.2 Total Bilirubin 0.3 Direct Bilirubin 0.2 AST 16 ALT 12 Alkaline Phosphatase 59 Ammonia Total Creatine Kinase Troponin I High Sens Total Protein 7.0 Albumin 3.9 Lipase 30 Procalcitonin TSH Urine Color Urine Appearance Urine pH Ur Specific [place] Urine Protein Urine Glucose (UA) Urine Ketones Urine Blood Urine Nitrite Ur Leukocyte Esterase Urine RBC Urine WBC Ur Squamous Epith Cells Ur Renal Epithelial Cell Urine Bacteria Hyaline Casts Granular Casts Urine Mucus Urine Opiates Screen Urine Fentanyl Screen Ur Barbiturates Screen Ur Phencyclidine Scrn Ur Amphetamines Screen U Benzodiazepines Scrn Urine Cocaine Screen U Marijuana (THC) Screen COVID-19 (MARCIO) [email or web address] 03/01/21 03/01/21 03/01/21 20:22 20:22 20:22 MCV MCH MCHC RDW Plt Count MPV Immature Gran % (Auto) Neut % (Auto) Lymph % (Auto) [place] % (Auto) Eos % (Auto) Baso % (Auto) Lymph # (Auto) [place] # (Auto) Eos # (Auto) Baso # (Auto) Abs Immat Gran (auto) Absolute Neuts (auto) Absolute Nucleated RBC Nucleated RBC % (auto) VBG pH VBG pCO2 VBG pO2 VBG HCO3 VBG O2 Saturation VBG Base Excess Anion Gap Estim Creat Clear Calc Estimated GFR POC Glucose Random Glucose Lactic Acid Lactic Acid Fup @ 2Hr Lactic Acid Fup @ 4Hr Calcium Magnesium Total Bilirubin Direct Bilirubin AST ALT Alkaline Phosphatase Ammonia 61 H Total Creatine Kinase 65 D Troponin I High Sens 6.0 D Total Protein Albumin Lipase Procalcitonin TSH 2.26 Urine Color Urine Appearance Urine pH Ur Specific [place] Urine Protein Urine Glucose (UA) Urine Ketones Urine Blood Urine Nitrite Ur Leukocyte Esterase Urine RBC Urine WBC Ur Squamous Epith Cells Ur Renal Epithelial Cell Urine Bacteria Hyaline Casts Granular Casts Urine Mucus Urine Opiates Screen Urine Fentanyl Screen Ur Barbiturates Screen Ur Phencyclidine Scrn Ur Amphetamines Screen U Benzodiazepines Scrn Urine Cocaine Screen U Marijuana (THC) Screen COVID-19 (MARCIO) COVID-19 [email or web address] Com 03/01/21 03/01/21 03/01/21 20:26 22:07 22:07 MCV MCH MCHC RDW Plt Count MPV Immature Gran % (Auto) Neut % (Auto) Lymph % (Auto) [place] % (Auto) Eos % (Auto) Baso % (Auto) Lymph # (Auto) [place] # (Auto) Eos # (Auto) Baso # (Auto) Abs Immat Gran (auto) Absolute Neuts (auto) Absolute Nucleated RBC Nucleated RBC % (auto) VBG pH 7.44 H VBG pCO2 27 VBG pO2 103 VBG HCO3 19 L VBG O2 Saturation 98.0 VBG Base Excess -3.6 Anion Gap Estim Creat Clear Calc Estimated GFR POC Glucose Random Glucose Lactic Acid Lactic Acid Fup @ 2Hr Lactic Acid Fup @ 4Hr Calcium Magnesium Total Bilirubin Direct Bilirubin AST ALT Alkaline Phosphatase Ammonia Total Creatine Kinase Troponin I High Sens Total Protein Albumin Lipase Procalcitonin TSH Urine Color YELLOW Urine Appearance CLEAR Urine pH 6.0 Ur Specific [place] 1.020 Urine Protein 1+ H Urine Glucose (UA) NEG Urine Ketones NEG Urine Blood 1+ H Urine Nitrite NEG Ur Leukocyte Esterase NEG Urine RBC 5-9 H Urine WBC 0-2 Ur Squamous Epith Cells TRACE Ur Renal Epithelial Cell 1+ Urine Bacteria NONE Hyaline Casts 1-4 Granular Casts 0-2 Urine Mucus 1+ Urine Opiates Screen Not Detected Urine Fentanyl Screen POSITIVE H Ur Barbiturates Screen Not Detected Ur Phencyclidine Scrn Not Detected Ur Amphetamines Screen Not Detected U Benzodiazepines Scrn Not Detected Urine Cocaine Screen Not Detected U Marijuana (THC) Screen Not Detected COVID-19 (MARCIO) COVID-19 Clin Com 03/01/21 03/02/21 23:16 02:28 MCV MCH MCHC RDW Plt Count MPV Immature Gran % (Auto) Neut % (Auto) Lymph % (Auto) [place] % (Auto) Eos % (Auto) Baso % (Auto) Lymph # (Auto) [place] # (Auto) Eos # (Auto) Baso # (Auto) Abs Immat Gran (auto) Absolute Neuts (auto) Absolute Nucleated RBC Nucleated RBC % (auto) VBG pH VBG pCO2 VBG pO2 VBG HCO3 VBG O2 Saturation VBG Base Excess Anion Gap Estim Creat Clear Calc Estimated GFR POC Glucose Random Glucose Lactic Acid Lactic Acid Fup @ 2Hr 2.8 H* Lactic Acid Fup @ 4Hr 1.4 Calcium Magnesium Total Bilirubin Direct Bilirubin AST ALT Alkaline Phosphatase Ammonia Total Creatine Kinase Troponin I High Sens Total Protein Albumin Lipase Procalcitonin TSH Urine Color Urine Appearance Urine pH Ur Specific [place] Urine Protein Urine Glucose (UA) Urine Ketones Urine Blood Urine Nitrite Ur Leukocyte Esterase Urine RBC Urine WBC Ur Squamous Epith Cells Ur Renal Epithelial Cell Urine Bacteria Hyaline Casts Granular Casts Urine Mucus Urine Opiates Screen Urine Fentanyl Screen Ur Barbiturates Screen Ur Phencyclidine Scrn Ur Amphetamines Screen U Benzodiazepines Scrn Urine Cocaine Screen U Marijuana (THC) Screen COVID-19 (MARCIO) COVID-19 Clin Com Imaging Radiologist's Impressions: Impressions Head CT 03/01/21 19:05 IMPRESSION: Evaluation is markedly limited by motion. There are hyperattenuating blood products adjacent to an area of encephalomalacia/gliosis from a prior intraparenchymal hemorrhage within the right insular region. No acute edematous territorial infarction. This critical result was discussed with Dr. Palomino at 03/01/2021 8:14 PM and it was ascertained that the content and urgency of the report was understood at the time of direct communication. Chest X-Ray 03/01/21 19:06 IMPRESSION: No acute disease within the chest. Abdomen/Pelvis CT 03/01/21 20:52 IMPRESSION: Evaluation is limited by motion. Accounting for these limitations, there are no acute intra-abdominal or pelvic abnormalities to explain the patient's symptoms. A previously described punctate calculus in the upper pole of the right kidney is not well identified in this study. Moderate distention of the stomach uncertain significance and possibly related with patient's postprandial state. However, gastroparesis could be considered in the appropriate clinical context. Intraluminal urinary bladder calculi without significant perivesical fat stranding. The prostate gland is not significantly enlarged There are dependent opacities in the lung bases, likely subsegmental atelectasis. Although, early infiltrates are difficult to exclude. Correlate clinically for pneumonia. Assessment and Plan (1) MAVERICK (acute kidney injury): Status: Acute (2) New onset seizure: Status: Acute (3) Acidosis, lactic: Status: Acute (4) Pyelonephritis: Status: Acute 51-year-old male with a past medical history of hypertension, history of hemorrhagic CVA, obstructive sleep apnea, anxiety, depression, MARIZA, history of pressure ulcers, insomnia, chronic Mitchell, recent history of UTI growing Pseudomonas and Citrobacter-on Levaquin day 3; presented to the hospital today with a chief complaint of seizure episode. Seizure: Generalized tonic clonic. Status post Ativan IV x4 and Keppra loading in the ER. Continue Keppra [address] head showed hyperattenuating blood products in the hold hemorrhagic stroke area. Neurology was notified, no intervention recommended except for continuing Keppra. Seizure precautions Ativan p.r.n. Aspiration precautions Patient is still drowsy/lethargic secondary to postictal state/Ativan. Monitor on telemetry. Continuous pulse oximetry. Supplemental oxygen. Currently protecting airways. Acute kidney injury: Likely prerenal. On IV fluids. CPK levels pending. Lactic acidosis: Improved with IV fluids. Pneumonia: Concern for aspiration. Continue IV cefepime. Recent UTI/pyelonephritis: Patient on Levaquin prior to coming to the hospital. Currently on cefepime. ID consult for further recommendations. ? Gastroparesis: As noted on CT abdomen. To be re-evaluated clinically once patient is more alert and awake. Nephrolithiasis: CT scan showed calculi in the bladder. Urology consult. hx Hemorrhagic CVA: CT head showed hypertension eating blood products in the old hemorrhagic stroke it diarrhea. Spoke to the radiologist spine surgeon who mentioned no new hemorrhage noted on current CT. History of decubitus ulcers: Pressure ulcer care per RN For all other chronic conditions, home medications will be continued once patient is more alert and awake. DVT prophylaxis: HEMAL ralph Full code: spoke to pt's at bedside. Off Note: Things to follow up by day hospitalist once Care taken over at 7AM on 03/02/21: -Neurology consult inputs ID consult Inputs Renal Function Swallow eval Quality Stroke Does the patient have a stroke diagnosis?: No VTE Prior VTE?: No VTE Risk Level:: Medical - moderate - high VTE Device Contraindication: Treatment Not Indicated VTE Drug Contraindication: N/A - Med Ordered
[2021-03-02] MEDS: Dextrose 5 % and 0.45 % NaCl 1,000 ML 50 ML IVCONT (03:58)
[2021-03-02] MEDS: Heparin Sodium,Porcine 5,000 UNIT/ML VIAL 5000 UNIT SUBCUT (03:58)
--- NOTE | 2021-03-02 04:00 | PC.NURSE ---
RN to bedside for medication administration per orders. Pt's spouse at bedside given a recliner for comfort as she remains at bedside with the patient. Spouse inquired as to when the patient would be transferred to the floor and education provided on room availability and boarding needs
[2021-03-02 06:03] LABS: MANUAL DIFF FLAG NO
[2021-03-02 06:20] LABS: Basophils Percent Auto 0.4 % (0-2); Eosinophils Absolute Auto 0.1 X10*3/uL (0.0-0.4); Hematocrit 33.8 % (42.0-52.0); Hemoglobin 10.9 g/dl (14.0-18.0); Imm Gran Abs Auto 0.01 X10*3/uL (0.00-0.03); Imm Gran Pct Auto 0.2 % (0.0-0.4); Lymphocytes Absolute Auto 0.9 X10*3/uL (1.2-4.9); Lymphocytes Percent Auto 18.6 % (20-40); Mean Corpuscular HGB Conc 32.2 g/dl (31.0-36.0); Mean Corpuscular Hemoglobin 28.2 pg (27.0-33.0); Mean Corpuscular Volume 87.3 fL (80.0-98.0); Mean Platelet Volume 11.2 fL (9.4-12.4); Monocytes Absolute Auto 0.4 X10*3/uL (0.1-1.2); Monocytes Percent Auto 8.3 % (2-11); Neutrophils Absolute Auto 3.3 x10*3/uL (2.0-8.3); Neutrophils Percent Auto 69.5 % (45-73); Platelet Count 157 X10*3/uL (160-400); Red Blood Count 3.87 X10*6/uL (4.60-5.80); Red Cell Distribution Width 13.1 % (11.0-16.0); White Blood Count 4.7 X10*3/uL (4.8-10.8)
[2021-03-02 06:26] VITALS: BP 110/83; PULSE 81; RESP 12; TEMP 36.9; O2SAT 100
[2021-03-02 06:27] LABS: Anion Gap 13 (12-20); Blood Urea Nitrogen 36 mg/dL (9-16); Calcium 8.7 mg/dL (8.4-10.2); Carbon Dioxide 24 mmol/L (22-29); Chloride 109 mmol/L (96-108); Creatinine Clr Calc Pharmacy 33.1; Estimated Glomerular Filt Rate 25; Glucose Random 101 mg/dL (60-115); Potassium 3.9 mmol/L (3.3-5.1); Sodium 142 mmol/L (135-145)
--- NOTE | 2021-03-02 08:42 | PC.NURSE ---
Patietnt alert and oriented x 3. left sided flaccid, does not walk at baseline due to hemorrhagic CVA. Patient denies any pain. left sided upper buttock stage 1 placed on bed taken off stretcher. tele: sinus rythym Patient takes medications with water. Will continue to monitor. Patient awaiting bed placement.
--- NOTE | 2021-03-02 08:59 | PC.NURSE ---
Patient npo tigered Dr. Zepeda patient has po meds due at 9am. asked if should hold PO meds or give after swallow evaluation. MD wants to hold po meds till after cleared. will continue to monitor.
[2021-03-02] MEDS: levETIRAcetam in NaCl (iso-os) 1,000 MG/100 ML PIGGYBACK 400 MG IV ×2 (09:08→22:22)
[2021-03-02] MEDS: 0.9 % Sodium Chloride Flush 3 ML SYRINGE IVFLUSH ×3 (09:09→22:24)
--- NOTE | 2021-03-02 12:04 | MHC.SL.SWA ---
Speech Pathologist Impression: Risk of Aspiration Oral Phase Dysphagia Risk of Aspiration Due to: Lethargy Neurological Condition Poor PO Intake Dysphasia Diet Status: UPGRADE from NPO to NDD1 PUREED solids with THIN liquids via cup sips (NO STRAWS) Liquid Consistency and Strategies for Safe Swallow: Liquid Intake Recommendation: Thin Liquid Intake Strategies: Small Sips No Straws Solid Food Consistency: Dietary Recommendations: Pureed (NDD1) Additional Modifications to Solid Foods: Oral Medication Intake: Whole with Puree Compensatory Strategies and Precautions to be Taken for Safe Swallow: Sitting Upright (90 deg) No Straw Liquids from Cup Small Bites and Sips Alternate Liquids/Solids Oral Check Supervision While Eating and Drinking for Safe Swallow: Total Assistance Swallowing Recommended Treatments: Compens. Strategy Educat. Recommendation for Speech: Inpatient Speech Therapy Comment: Pt required max verbal cues to remain alert in order to safely participate in a bedside swallow evaluation. He demonstrated a left facial droop and slow, mildly dysarthric speech. ? if pt's speech was slow due to lethargy or consistent with that of his baseline s/p CVA, as pt's reported that pt was previously discharged from due to WFL speech/language/cognitive/swallow functions. Pt demonstrated a slow but functional oral phase with intake of pureed solids. WFL oral clearance without overt s/s aspiration was noted. Pt demonstrated a mildly delayed onset of a pharyngeal swallow trigger across consistencies. Mild left sided labial loss of thin liquids was noted during intake via tsp and cup sip. Despite max encouragement for PO intake, pt accepted very limited quantities of PO intake. Updated with RD and RN. Recommend UPGRADE from NPO to NDD1 PUREED solids, THIN liquids, medications in puree, aspiration precautions, and 1:1 assist with all PO intake. INTERACTIVE MEDIA SPECIALIST will continue to follow pt throughout his stay to determine the safest and least restrictive diet consistency. Pt would also benefit from a speech, language, and cognitive assessment when more alert. Frequency/Duration: 1/x day M-F during pt's hospitalization Brusher Operator Clinican/Clinical Fellow: No Supervisory Statement: I have reviewed and agree with the student/clinical fellow's documentation: N/A Speech Language Pathologist: Sammi Arriaga M.A., CCC-INTERACTIVE MEDIA SPECIALIST
--- NOTE | 2021-03-02 14:52 | MHC.CM.PN ---
CM MET WITH PTS WHO WAS AT BEDSIDE PT LIVES AT HOME WITH WHO ASSISTS WITH HIS CARE SHE REPORTS HE HAS A WALKER AT HOME BUT HE HAS ONLY BEEN ABLE TO STAND SO FAR AND IS USUALLY USING A WHEEL CHAIR. HE ALSO HAS A CPAP. REPORTS PT IS ACTIVE WITH [facility] FOR SN, PT AND OT. PT IS VACCINATED, COPY OF CARD SENT TO [facility] CURRENT DC PLAN IS HOME WITH RESUMPTION OF [facility]. TO TRANSPORT
--- NOTE | 2021-03-02 16:16 | P.CNUR_ITS ---
History of Present Illness Consult details Consult date: 03/02/21 Narrative: Tonio is a 51-year-old male Seen in the emergency department accompanied by his Primary issue was recurring urinary tract infection Creatinine does show elevation at 2.7, WBC 4.7 According to the had a stroke back in October. Since then has had indwelling Mitchell catheter. Has recently had a series of UTIs with admission to [facility] for treatment. Bladder is currently managed with indwelling Mitchell catheter and leg bag Had previously had urinary retention with impaired renal function wall stone r ehabilitation Discussed different management options including clean intermittent catheterization. His does not think he has the dexterity to perform CIC and she is uncertain that she would be able to. A 2nd option would be to use a catheter cap on the current indwelling Mitchell and cycle to bladder. Typically this would reduce the risk of infection and bladder spasm. Another option would be suprapubic tube placement. Given he has had a Mitchell catheter for close to 6 months and it is uncertain how much recovery he will have the this would be a adequate option. Current Mitchell catheter was changed last night Has been seeing [facility] for urologic management since date of stroke Review of Systems Constitutional: Constitutional: Denies chills and Denies fever(s) Cardiovascular: Cardiovascular: Reports no additional cardiovascular complaints and Denies syncope Respiratory: Respiratory: Denies cough Gastrointestinal: Gastrointestinal: Denies abdominal pain and Denies heartburn Genitourinary: Genitourinary: Reports as per HPI and Denies change in libido Neurologic: Denies syncope Psychiatric: Psychiatric: Denies change in libido Endocrine: Endocrine: Denies change in libido [facility] Past Medical History Medical History (Updated 03/02/21 @ 16:19 by Justo Gaspar MD) Anxiety Hemorrhagic stroke HTN (hypertension) Social History Social History Alcohol intake: never Patient Tobacco Use Status: Former Tobacco user Use of substances other than those prescribed or required for medical reasons: No Advance Directives: No Advance Directives Information Provided: No service: No Current occupational status: disabled Meds Allergies Allergy/AdvReac Type Severity Reaction Status Date / Time No Known Allergies Allergy Verified 02/03/21 14:30 Active Medications: Current Medications Acetaminophen (Acetaminophen 325 Mg Tablet) 650 mg PO Q6H PRN PRN Reason: Pain, Mild (Pain Scale 1-3) Baclofen (Baclofen 10 Mg Tablet) 5 mg PO TID [facility] Last Admin: 03/02/21 09:09 Dose: Not Given Documented by: Dextrose/Sodium Chloride (D51/2ns) 1,000 mls @ 100 mls/hr IVCONT .Q10H [facility] Last Admin: 03/02/21 03:58 Dose: 50 mls/hr Documented by: Levetiracetam (Keppra) 1,000 mg in 100 mls @ 400 mls/hr IV Q12H [facility] Last Admin: 03/02/21 09:08 Dose: 400 mls/hr Documented by: Labetalol HCl (Labetalol Hcl 200 Mg Tablet) 400 mg PO BID [facility]; Protocol Last Admin: 03/02/21 09:09 Dose: Not Given Documented by: Lorazepam (Lorazepam 2 Mg/Ml Vial) 1 mg IVPUSH Q2H PRN PRN Reason: seizure Melatonin (Melatonin 3 Mg Tablet) 6 mg PO BEDTIME PRN PRN Reason: Insomnia Oxybutynin Chloride (Oxybutynin Chloride Er 5 Mg Tab.Er.24) 10 mg PO DAILY [facility] Last Admin: 03/02/21 09:09 Dose: Not Given Documented by: Pharmacy Consult (Consult Rx Perform Med Rec) 1 each MISCELLANE ONCE PRN PRN Reason: Consult order Senna (Sennosides 8.6 Mg Tablet) 17.2 mg PO BEDTIME PRN PRN Reason: Constipation Sertraline HCl (Sertraline Hcl 50 Mg Tablet) 50 mg PO DAILY [facility] Last Admin: 03/02/21 09:10 Dose: Not Given Documented by: Sodium Chloride (0.9 % Sodium Chloride Flush 3 Ml Syringe) 3 ml IVFLUSH QSHIFT [facility] Last Admin: 03/02/21 09:09 Dose: 3 ml Documented by: Home Medications Medication Instructions Recorded Confirmed Last Taken Type oxybutynin chloride 10 mg 1 tab PO DAILY 03/01/21 03/01/21 Unknown History tablet,extended release 24 hr Physical Exam Vital Signs: Vital Signs: Last Vital Signs Temp 98.4 F 03/02/21 06:26 Pulse 81 03/02/21 06:26 Resp 12 03/02/21 06:26 BP 110/83 03/02/21 06:26 Pulse Ox 100 03/02/21 06:26 Body Mass Index 23.6 Const: General: cooperative, healthy appearing, comfortable and no acute distress Orientation/consciousness: patient oriented x3 HENMT: Face and sinus: Yes normal facial exam Mouth: moist mucous membranes Neck: Neck: Yes normal visual inspection, Yes full ROM and Yes trachea midline Chest: Chest palpation & inspection: normal inspection of the chest Resp: Effort & Inspection: normal respiratory effort, able to speak in co mplete sentences and no respiratory distress GI: Inspection: Yes normal to inspection Back/Spine/Pelvis: Cervical Spine: normal cervical lordosis Thoracic/Lumbar Spine: thoracic and lumbar spine normal to inspection Skin: General skin exam: no rashes or lesions noted Neuro: General: patient oriented x3, tone normal and moves all extremities Extrem: General: Yes normal to inspection and Yes capillary refill normal Results Labs Result diagrams: 03/02/21 05:33 03/02/21 05:33 Labs: Abnormal lab results 03/01/21 03/01/21 03/01/21 Range/Units 19:56 20:22 20:22 WBC (4.8-10.8) X10*3/uL RBC 4.44 L (4.60-5.80) X10*6/uL Hgb 12.7 L (14.0-18.0) g/dl Hct 39.0 L (42.0-52.0) % Plt Count (160-400) X10*3/uL Immature Gran % (Auto) 1.0 H (0.0-0.4) % Neut % (Auto) 76.6 H (45-73) % Lymph % (Auto) 12.8 L (20-40) % Eos % (Auto) 4.2 H (0-4) % Lymph # (Auto) 0.8 L (1.2-4.9) X10*3/uL Abs Immat Gran (auto) 0.06 H (0.00-0.03) X10*3/uL VBG pH (7.32-7.43) VBG HCO3 (22-26) mmol/L Chloride (96-108) mmol/L Carbon Dioxide 20 L (22-29) mmol/L Anion Gap 26 H (12-20) BUN 43 H D (9-16) mg/dL Creatinine 3.52 H (0.5-1.4) mg/dL POC Glucose 136 H (60-115) mg/dL Random Glucose 129 H (60-115) mg/dL Lactic Acid (0.5-2.0) mmol/L Lactic Acid Fup @ 2Hr (0.5-2.0) mmol/L Ammonia (13-55) umol/L Urine Protein (NEG-TRACE) MG/DL Urine Blood (NEG) Urine RBC (0) /HPF Urine Fentanyl Screen (Not Detect) 03/01/21 03/01/21 03/01/21 Range/Units 20:22 20:22 20:26 WBC (4.8-10.8) X10*3/uL RBC (4.60-5.80) X10*6/uL Hgb (14.0-18.0) g/dl Hct (42.0-52.0) % Plt Count (160-400) X10*3/uL Immature Gran % (Auto) (0.0-0.4) % Neut % (Auto) (45-73) % Lymph % (Auto) (20-40) % Eos % (Auto) (0-4) % Lymph # (Auto) (1.2-4.9) X10*3/uL Abs Immat Gran (auto) (0.00-0.03) X10*3/uL VBG pH 7.44 H (7.32-7.43) VBG HCO3 19 L (22-26) mmol/L Chloride (96-108) mmol/L Carbon Dioxide (22-29) mmol/L Anion Gap (12-20) BUN (9-16) mg/dL Creatinine (0.5-1.4) mg/dL POC Glucose (60-115) mg/dL Random Glucose (60-115) mg/dL Lactic Acid 11.2 H* (0.5-2.0) mmol/L Lactic Acid Fup @ 2Hr (0.5-2.0) mmol/L Ammonia 61 H (13-55) umol/L Urine Protein (NEG-TRACE) MG/DL Urine Blood (NEG) Urine RBC (0) /HPF Urine Fentanyl Screen (Not Detect) 03/01/21 03/01/21 03/01/21 Range/Units 22:07 22:07 23:16 WBC (4.8-10.8) X10*3/uL RBC (4.60-5.80) X10*6/uL Hgb (14.0-18.0) g/dl Hct (42.0-52.0) % Plt Count (160-400) X10*3/uL Immature Gran % (Auto) (0.0-0.4) % Neut % (Auto) (45-73) % Lymph % (Auto) (20-40) % Eos % (Auto) (0-4) % Lymph # (Auto) (1.2-4.9) X10*3/uL Abs Immat Gran (auto) (0.00-0.03) X10*3/uL VBG pH (7.32-7.43) VBG HCO3 (22-26) mmol/L Chloride (96-108) mmol/L Carbon Dioxide (22-29) mmol/L Anion Gap (12-20) BUN (9-16) mg/dL Creatinine (0.5-1.4) mg/dL POC Glucose (60-115) mg/dL Random Glucose (60-115) mg/dL Lactic Acid (0.5-2.0) mmol/L Lactic Acid Fup @ 2Hr 2.8 H* (0.5-2.0) mmol/L Ammonia (13-55) umol/L Urine Protein 1+ H (NEG-TRACE) MG/DL Urine Blood 1+ H (NEG) Urine RBC 5-9 H (0) /HPF Urine Fentanyl Screen POSITIVE H (Not Detect) 03/02/21 03/02/21 Range/Units 05:33 05:33 WBC 4.7 L (4.8-10.8) X10*3/uL RBC 3.87 L (4.60-5.80) X10*6/uL Hgb 10.9 L (14.0-18.0) g/dl Hct 33.8 L (42.0-52.0) % Plt Count 157 L D (160-400) X10*3/uL Immature Gran % (Auto) (0.0-0.4) % Neut % (Auto) (45-73) % Lymph % (Auto) 18.6 L (20-40) % Eos % (Auto) (0-4) % Lymph # (Auto) 0.9 L (1.2-4.9) X10*3/uL Abs Immat Gran (auto) (0.00-0.03) X10*3/uL VBG pH (7.32-7.43) VBG HCO3 (22-26) mmol/L Chloride 109 H (96-108) mmol/L Carbon Dioxide (22-29) mmol/L Anion Gap (12-20) BUN 36 H (9-16) mg/dL Creatinine 2.72 H (0.5-1.4) mg/dL POC Glucose (60-115) mg/dL Random Glucose (60-115) mg/dL Lactic Acid (0.5-2.0) mmol/L Lactic Acid Fup @ 2Hr (0.5-2.0) mmol/L Ammonia (13-55) umol/L Urine Protein (NEG-TRACE) MG/DL Urine Blood (NEG) Urine RBC (0) /HPF Urine Fentanyl Screen (Not Detect) Short CBC 03/01/21 03/02/21 Range/Units 20:22 05:33 WBC 6.3 4.7 L (4.8-10.8) X10*3/uL Hgb 12.7 L 10.9 L (14.0-18.0) g/dl Hct 39.0 L 33.8 L (42.0-52.0) % Plt Count 215 157 L D (160-400) X10*3/uL BMP 03/01/21 03/02/21 20:22 05:33 Sodium 142 142 Potassium 4.5 3.9 Chloride 101 109 H Carbon Dioxide 20 L 24 BUN 43 H D 36 H Creatinine 3.52 H 2.72 H Calcium 10.1 8.7 D Cardiac Enzymes 03/01/21 03/02/21 Range/Units 20:22 05:33 Total Creatine Kinase 65 D 83 (38-174) U/L Liver Function 03/01/21 Range/Units 20:22 Total Bilirubin 0.3 (0.0-1.0) mg/dL Direct Bilirubin 0.2 (0.0-0.5) mg/dL AST 16 (5-37) U/L ALT 12 (0-40) U/L Alkaline Phosphatase 59 (39-117) U/L Albumin 3.9 (3.5-5.0) g/dL Urine 03/01/21 Range/Units 22:07 Urine Color YELLOW Urine Appearance CLEAR Urine pH 6.0 (5.0-8.0) Ur Specific [place] 1.020 (1.005-1.025) Urine Protein 1+ H (NEG-TRACE) MG/DL Urine Glucose (UA) NEG (NEG) MG/DL All other labs normal. Assessment and Plan (1) Hypotonic neurogenic bladder: Status: Acute Recommend use of catheter cap and bladder emptying every 3-4 hours rather than continuous drainage to bag No acute urologic issue Procedures Date of Service Date of Service: 03/02/21
[2021-03-02] MEDS: Baclofen 10 MG TABLET 5 MG PO ×2 (17:30→22:23)
[2021-03-02 19:10] VITALS: BP 115/82; PULSE 84; RESP 15; O2SAT 100
--- NOTE | 2021-03-02 19:13 | PC.NURSE ---
Pt asleep on HB in NAD, breathing with ease on 2L NC, VSS. Pt lethargic but arousable, returns to sleep quickly. Pt IVF infusing appropriately. Bed in low locked position, rails raised, call jerez within reach.
--- NOTE | 2021-03-02 21:06 | PC.NURSE ---
This RN notes that pt's D5 0.45NaCl infusing at 50mL/hr despite order for 100ml/hr. This RN contacted pharmacy to verify the proper rate. Correct rate is for 100 ml/hr. This RN to increase dose as ordered.
--- NOTE | 2021-03-02 22:02 | W.PM.IDCN ---
History of Present Illness Data of Consult Service Date: 03/02/21 Requesting physician: Mike Zepeda Primary Care Provider: Alphonso Marcum MD [facility] Reason for consult: seizure He presents after focal tonic seizure reported He has had elevated lactic acid and increased rhabdomyolysis. He has no fever or chills. He has prior encephalomalacia and basal ganglion bleed Review of Systems Review of Systems: Yes all other systems are reviewed and are negative PMF Past Medical History Medical History Anxiety Hemorrhagic stroke HTN (hypertension) Social History Social History Alcohol intake: never Patient Tobacco Use Status: Former Tobacco user service: No Current occupational status: [employer] Allergies Allergy/AdvReac Type Severity Reaction Status Date / Time No Known Allergies Allergy Verified 02/03/21 14:30 Active Medications: Current Medications Acetaminophen (Acetaminophen 325 Mg Tablet) 650 mg PO Q6H PRN PRN Reason: Pain, Mild (Pain Scale 1-3) Baclofen (Baclofen 10 Mg Tablet) 5 mg PO TID [facility] Last Admin: 03/02/21 17:30 Dose: 5 mg Documented by: Dextrose/Sodium Chloride (D51/2ns) 1,000 mls @ 100 mls/hr IVCONT .Q10H [facility] Last Infusion: 03/02/21 21:08 Dose: 100 mls/hr Documented by: Levetiracetam (Keppra) 1,000 mg in 100 mls @ 400 mls/hr IV Q12H [facility] Last Infusion: 03/02/21 21:04 Dose: Infused Documented by: Cefepime HCl 1 gm/ Sodium (Chloride) 50 mls @ 100 mls/hr IV Q8H [facility] Labetalol HCl (Labetalol Hcl 200 Mg Tablet) 400 mg PO BID [facility]; Protocol Last Admin: 03/02/21 09:09 Dose: Not Given Documented by: Lorazepam (Lorazepam 2 Mg/Ml Vial) 1 mg IVPUSH Q2H PRN PRN Reason: seizure Last Admin: 03/02/21 17:35 Dose: 1 mg Documented by: Melatonin (Melatonin 3 Mg Tablet) 6 mg PO BEDTIME PRN PRN Reason: Insomnia Oxybutynin Chloride (Oxybutynin Chloride Er 5 Mg Tab.Er.24) 10 mg PO DAILY [facility] Last Admin: 03/02/21 09:09 Dose: Not Given Documented by: Pharmacy Consult (Consult Rx Perform Med Rec) 1 each MISCELLANE ONCE PRN PRN Reason: Consult order Senna (Sennosides 8.6 Mg Tablet) 17.2 mg PO BEDTIME PRN PRN Reason: Constipation Sertraline HCl (Sertraline Hcl 50 Mg Tablet) 50 mg PO DAILY [facility] Last Admin: 03/02/21 09:10 Dose: Not Given Documented by: Sodium Chloride (0.9 % Sodium Chloride Flush 3 Ml Syringe) 3 ml IVFLUSH QSHIFT [facility] Last Admin: 03/02/21 17:30 Dose: 3 ml Documented by: Home Medications Medication Instructions Recorded Confirmed Last Taken Type oxybutynin chloride 10 mg 1 tab PO DAILY 03/01/21 03/01/21 Unknown History tablet,extended release 24 hr Physical Exam Vital Signs: Vital Signs: Last Vital Signs Temp 98.4 F 03/02/21 06:26 Pulse 84 03/02/21 19:10 Resp 15 03/02/21 19:10 BP 115/82 03/02/21 19:10 Pulse Ox 100 03/02/21 19:10 Body Mass Index 23.6 Const: General: cooperative Orientation/consciousness: patient oriented x3 Eyes: General: appearance normal, both eyes and all related structures Resp: Effort & Inspection: normal respiratory effort Cardio: Rate: regular rate Rhythm: regular rhythm GI: Palpation (GI): Soft to palpation and nontender Skin: General skin exam: no rashes or lesions noted Neuro: General: patient oriented x3 and CN's II-XI intact bilaterally Extrem: General: Yes normal to inspection Results Labs CBC & Chem 7: 03/02/21 05:33 03/02/21 05:33 Labs: Short CBC 03/02/21 Range/Units 05:33 WBC 4.7 L (4.8-10.8) X10*3/uL Hgb 10.9 L (14.0-18.0) g/dl Hct 33.8 L (42.0-52.0) % Plt Count 157 L D (160-400) X10*3/uL BMP 03/02/21 05:33 Sodium 142 Potassium 3.9 Chloride 109 H Carbon Dioxide 24 BUN 36 H Creatinine 2.72 H Calcium 8.7 D Cardiac Enzymes 03/02/21 Range/Units 05:33 Total Creatine Kinase 83 (38-174) U/L Urine 03/01/21 Range/Units 22:07 Urine Color YELLOW Urine Appearance CLEAR Urine pH 6.0 (5.0-8.0) Ur Specific [place] 1.020 (1.005-1.025) Urine Protein 1+ H (NEG-TRACE) MG/DL Urine Glucose (UA) NEG (NEG) MG/DL Assessment and Plan (1) New onset seizure: Status: Acute CT was unremarkable for acute illness There doesnt seem to be herpes simplex encephalitis There is focus seizure possibly from focus from prior encephalomalacia (2) MAVERICK (acute kidney injury): Status: Acute (3) Acidosis, lactic: Status: Acute Would evaluate Neurology seizures Would stop Cefepime as doesnt seem like aspiration at this time with atelectasis only and no fever or WBC elevation at this time and antibiotics will not prevent bacterial aspiration pneumonia
--- NOTE | 2021-03-02 22:05 | HE.PHANOTE ---
RE CEFEPIME Dose Contacted provider over Cefepime order in a patient with history of seizures, who presented to ED with seizures. Cefepime lowers seizure threshold. Recommended change to levofloxacin IV, but provider wanted a lower cefepime dose. For urinary infections, normal dosing is 1-2G IV Q12H...in the setting of CrCl of 33 ml/min, dose decreases to 1 g q12-q24. I recommended lowest dose 1G Q24H pending ID consult Thanks Chad Maddox D
[2021-03-02 22:11] VITALS: BMI 25.7
[2021-03-02 22:22] VITALS: BP 136/97; PULSE 85
[2021-03-02] MEDS: Labetalol HCL 200 MG TABLET 400 MG PO (22:22)
[2021-03-02] MEDS: Dextrose 5 % and 0.45 % NaCl 1,000 ML 100 ML IVCONT (22:22)
[2021-03-02 23:15] VITALS: BP 134/84; PULSE 87; RESP 18; TEMP 36.7; O2SAT 96
[2021-03-03] VITALS (10 sets, daily range): BP systolic 112–160; BP diastolic 71–98; PULSE 68–83; RESP 18–20; TEMP 36.1–37.1; O2SAT 95–100
--- NOTE | 2021-03-03 01:16 | CONS_ITS ---
DATE OF SERVICE: REASON FOR CONSULTATION: Consult requested by the medical team to evaluate and help in management of patient with acute kidney injury. HISTORY OF PRESENT ILLNESS: The patient is a 51-year-old male who is not able to give a good history and most of the history was obtained from the patient's medical record and at the bedside, past medical history of hypertension, history of hemorrhagic CVA, obstructive sleep apnea, baseline chronic kidney disease, stage III, who presented to the hospital with a seizure. He did receive Keppra in the ER and was postictal. He has had chronic seizures. There was no tongue biting or urinary accident. He was recently diagnosed to have UTI and antibiotics were given. There is no prior history of seizures. He had a history of a hemorrhagic stroke. The patient is presently bed-bound with a chronic Mitchell. At baseline, he is awake, alert, and speaks normally . In the ER, patient was given Ativan and Keppra, and CT head was done. He was seen by Neurology. CT of the abdomen did not show any hydronephrosis. He had lactic acidosis in the setting of seizure and improved with IV fluids. His creatinine on admission was 3.52, which is improved to 2.72 and hence renal consultation has been requested. PAST MEDICAL HISTORY: History of hemorrhagic stroke, hypertension, anxiety, obstructive sleep apnea, depression, history of pressure ulcers, insomnia, chronic Mitchell, recurrent UTI. PERSONAL AND SOCIAL HISTORY: Patient never used tobacco. Does not drink alcohol. Is disabled. ALLERGIES: PATIENT HAS NO KNOWN DRUG ALLERGIES. HOME MEDICATIONS: Include oxybutynin. PHYSICAL EXAMINATION: GENERAL: Patient is resting in the bed, lethargy, but arousable. VITAL SIGNS: Blood pressure was 115/85, pulse 98, afebrile. HEENT: Shows pupils equal bilaterally to light. No jugular venous distention noted. NECK: Supple. CARDIOVASCULAR SYSTEM: S1, S2 without rub or murmur. RESPIRATORY SYSTEM: Air entry decreased in the bases. No crepitation or rhonchi is noted. ABDOMEN: Obese, soft, nontender. Bowel sounds normal. EXTREMITIES: Showed no significant edema. There is no peripheral cyanosis or clubbing. LABS: Done today, Sodium 142, potassium 3.9, chloride 109, CO2 24, BUN 36, creatinine 2.72. Estimated GFR was 25. Lactic acid 2.8, which is improved to 1.4, calcium 8.7. Hemoglobin was 10.9, hematocrit 33.8, WBC is 4.7, platelets 157. Urinalysis shows yellow urine, clear. Specific gravity 1.020, protein 1+, rbc's 5-9, wbc's 0-2. CPK level of 83. IMPRESSION: 1. A 51-year-old male with acute kidney injury. Acute kidney injury in this patient is likely secondary to prerenal azotemia. He is clinically dehydrated, and his creatinine level has improved with IV fluids. The patient's also mentioned to me that he has not been taking adequate amount of p.o. fluid and has had some episodes of diarrhea. 2. Question of chronic kidney disease at baseline and I do not have the exact baseline creatinine, but his creatinine in October of 2020, was 1.38, which placed him a stage III chronic kidney disease. 3. Seizures, generalized tonic-clonic. 4. Lactic acidosis in the setting of seizure and renal failure. 5. Concern of aspiration pneumonia. 6. Hemorrhagic cerebrovascular accident. RECOMMENDATION: At this juncture, I recommend checking spot urine for electrolytes, protein and creatinine. I agree with intravenous hydration with normal saline. He is presently on Keppra as per Neurology. The patient did have an imaging study, i.e., CAT scan of the abdomen and pelvis without contrast and he did not have any obstructive uropathy. I would avoid using NSAIDs/VELEZ-2 inhibitors in this patient. I recommend checking his renal function again in a.m. Given normal CPK, I do not think the patient has rhabdo as a reason for elevated creatinine level. Thank you for allowing me to participate in medical management of the patient . MD WILMER Pretty/DARLENE / [phone]
[2021-03-03] MEDS: ondansetron HCL 4 MG/2 ML VIAL IVPUSH (02:52)
[2021-03-03 08:37] LABS: Hematocrit 35.6 % (42.0-52.0); Hemoglobin 11.5 g/dl (14.0-18.0); Mean Corpuscular HGB Conc 32.3 g/dl (31.0-36.0); Mean Corpuscular Volume 86.8 fL (80.0-98.0); Mean Platelet Volume 11.2 fL (9.4-12.4); Platelet Count 155 X10*3/uL (160-400); Red Cell Distribution Width 12.8 % (11.0-16.0); White Blood Count 4.1 X10*3/uL (4.8-10.8)
[2021-03-03 08:53] LABS: Anion Gap 11 (12-20); Blood Urea Nitrogen 23 mg/dL (9-16); Calcium 8.7 mg/dL (8.4-10.2); Carbon Dioxide 25 mmol/L (22-29); Chloride 108 mmol/L (96-108); Creatinine Clr Calc Pharmacy 42.5; Estimated Glomerular Filt Rate 33; Glucose Random 96 mg/dL (60-115); Potassium 3.4 mmol/L (3.3-5.1); Sodium 141 mmol/L (135-145)
[2021-03-03] MEDS: Dextrose 5 % and 0.45 % NaCl 1,000 ML 100 ML IVCONT ×2 (09:25→18:31)
[2021-03-03] MEDS: Labetalol HCL 200 MG TABLET 400 MG PO ×2 (09:26→20:40)
[2021-03-03] MEDS: levETIRAcetam in NaCl (iso-os) 1,000 MG/100 ML PIGGYBACK 400 MG IV ×2 (09:27→20:41)
[2021-03-03] MEDS: Baclofen 10 MG TABLET 5 MG PO ×3 (09:27→20:39)
[2021-03-03] MEDS: Sertraline HCL 50 MG TABLET PO (09:27)
--- NOTE | 2021-03-03 10:17 | PC.NURSE ---
When attempting to assist patient with taking medications this morning, patient coughing after swallowing water. This RN could hear the patient swallowing appropriately, throat appeared appropriate when swallowing as well. This RN asked the patient if he was coughing because it felt like the water was going down the wrong tube . Patient said yes. Swallow eval ordered. Spoke to RN quality assurance supervisor trim who reports there is no one hospice nurse practitioner for speech. Will avoid patient swallowing liquids until swallow eval. Previously on aspiration precautions.
--- NOTE | 2021-03-03 11:50 | P.PNIM_ITS ---
Subjective Subjective Date of Service: 03/03/21 Interval History: the patient was seen and evaluated this morning Laying in bed, feels confused about the reason he ended up in the hospital No reported seizures overnight Denies any fever, chills or shortness of breath No reported other overnight events. Systemic review: No fever, chills or weakness No chest pain, palpitation No shortness of breath or coughing No abdominal pain, nausea or vomiting No urinary symptoms No any rash or wounds Physical Exam Vital Signs: Vital Signs: Last Vital Signs Temp 97.8 F 03/03/21 07:57 Pulse 83 03/03/21 09:26 Resp 18 03/03/21 07:57 BP 118/85 03/03/21 09:26 Pulse Ox 97 03/03/21 07:57 Body Mass Index 25.7 Const: Other: Constitutional : Alert, oriented, not in distress Neck : Normal inspection, Supple Cardiovascular : RRR, S1 S2, no lower extremity edema Respiratory : Good bilateral air entry, no crackles, wheezes or rhonchi Gastrointestinal: soft, lax, Normal bowel sounds, Non tender Skin : Warm, Dry, decubitus ulcers covered with dressing Urology, Mitchell in place Neurological : Alert & oriented x3, left-sided hemiparesis Objective Data Active Medications Acetaminophen (Acetaminophen 325 Mg Tablet) 650 mg PO Q6H PRN PRN Reason: Pain, Mild (Pain Scale 1-3) Baclofen (Baclofen 10 Mg Tablet) 5 mg PO TID [facility] Last Admin: 03/03/21 09:27 Dose: 5 mg Documented by: AUTUMN Dextrose/Sodium Chloride (D51/2ns) 1,000 mls @ 100 mls/hr IVCONT .Q10H [facility] Last Admin: 03/03/21 09:25 Dose: 100 mls/hr Documented by: AUTUMN Levetiracetam (Keppra) 1,000 mg in 100 mls @ 400 mls/hr IV Q12H [facility] Last Infusion: 03/03/21 10:00 Dose: 0 mls/hr Documented by: AUTUMN Labetalol HCl (Labetalol Hcl 200 Mg Tablet) 400 mg PO BID [facility]; Protocol Last Admin: 03/03/21 09:26 Dose: 400 mg Documented by: AUTUMN Lorazepam (Lorazepam 2 Mg/Ml Vial) 1 mg IVPUSH Q2H PRN PRN Reason: seizure Last Admin: 03/02/21 17:35 Dose: 1 mg Documented by: ERVIN Melatonin (Melatonin 3 Mg Tablet) 6 mg PO BEDTIME PRN PRN Reason: Insomnia Oxybutynin Chloride (Oxybutynin Chloride Er 5 Mg Tab.Er.24) 10 mg PO DAILY [facility] Last Admin: 03/03/21 09:26 Dose: 10 mg Documented by: AUTUMN Pharmacy Consult (Consult Rx Perform Med Rec) 1 each MISCELLANE ONCE PRN PRN Reason: Consult order Senna (Sennosides 8.6 Mg Tablet) 17.2 mg PO BEDTIME PRN PRN Reason: Constipation Sertraline HCl (Sertraline Hcl 50 Mg Tablet) 50 mg PO DAILY [facility] Last Admin: 03/03/21 09:27 Dose: 50 mg Documented by: AUTUMN Sodium Chloride (0.9 % Sodium Chloride Flush 3 Ml Syringe) 3 ml IVFLUSH QSHIFT [facility] Last Admin: 03/03/21 07:23 Dose: Not Given Documented by: AUTUMN Non-Admin Reason: IV Running Labs CBC & Chem 7: 03/03/21 08:12 03/03/21 08:12 Labs: Laboratory Results - last 24 hr 03/03/21 03/03/21 08:12 08:12 MCV 86.8 MCH 28.0 MCHC 32.3 RDW 12.8 Plt Count 155 L MPV 11.2 Absolute Nucleated RBC 0.000 Nucleated RBC % (auto) 0.0 Anion Gap 11 L Estim Creat Clear Calc 42.5 Estimated GFR 33 Random Glucose 96 Calcium 8.7 Microbiology Microbiology Results: Microbiology 03/01/21 20:22 Blood Culture - Preliminary Blood - Venous No growth after 24 hours. 03/01/21 20:22 Blood Culture - Preliminary Blood - Venous No growth after 24 hours. Assessment and Plan (1) Hypotonic neurogenic bladder: Status: Acute (2) New onset seizure: Status: Acute (3) MAVERICK (acute kidney injury): Status: Acute Assessment and Plan: 51-year-old male with a past medical history of hypertension, history of hemorrhagic CVA, obstructive sleep apnea, anxiety, depression, MARIZA, history of pressure ulcers, insomnia, chronic Mitchell, recent history of UTI growing Pseudomonas and Citrobacter-on Levaquin day 3/7; presented to the hospital today with a chief complaint of seizure episode. Seizure, Generalized tonic clonic Likely related to old brain injury and to use age of Levaquin Continue Keppra [address] head showed hyperattenuating blood products in the hold hemorrhagic stroke area. Neurology was notified, advised to continuing Keppra. Seizure precautions Ativan p.r.n. Aspiration precautions Acute kidney injury Likely prerenal Improving slowly, On IV fluids. Lactic acidosis Resolved Concern for aspiration No respiratory symptoms Discontinue IV cefepime. Recent UTI/pyelonephritis Discontinue Levaquin prior to coming to the hospital. Id recommended holding antibiotics Gastroparesis noted on CT abdomen To be re-evaluated clinically once patient is more alert and awake. Nephrolithiasis CT scan showed calculi in the bladder Urology consult appreciated, to use cap on the Mitchell every 3-4 hours hx Hemorrhagic CVA CT head showed blood products in the old hemorrhagic stroke it diarrhea. History of decubitus ulcers Pressure ulcer care per RN DVT prophylaxis: SCD boots Quality Stroke Does the patient have a stroke diagnosis?: No VTE Prior VTE?: No VTE Risk Level:: Medical - moderate - high VTE Device Contraindication: Treatment Not Indicated VTE Drug Contraindication: N/A - Med Ordered
[2021-03-03] MEDS: 0.9 % Sodium Chloride Flush 3 ML SYRINGE IVFLUSH (20:42)
--- NOTE | 2021-03-03 21:32 | PM.PNNEP ---
Subjective Subjective Date of Service: 03/03/21 Interval history: the patient was seen and evaluated this morning Laying in bed, feels confused No reported seizures overnight Denies any fever, chills or shortness of breath No reported other overnight events. Systemic review: No fever, chills or weakness No chest pain, palpitation No shortness of breath or coughing No abdominal pain, nausea or vomiting No urinary symptoms No any rash or wounds Physical Exam Vital Signs: Vital Signs: Last Vital Signs Temp 98.7 F 03/03/21 19:58 Pulse 74 03/03/21 20:40 Resp 19 03/03/21 19:58 BP 147/90 H 03/03/21 20:40 Pulse Ox 98 03/03/21 19:58 Const Other:?Constitutional : Alert, oriented, not in distress Neck : Normal inspection, Supple Cardiovascular : RRR, S1 S2, no lower extremity edema Respiratory : Good bilateral air entry,? no crackles, wheezes or rhonchi Gastrointestinal:? soft, lax, Normal bowel sounds, Non tender Skin : Warm, Dry, decubitus ulcers covered with dressing Urology, Mitchell in place Neurological : Alert & oriented x3, left-sided hemiparesis Body Mass Index 25.7 Objective Data Labs CBC & Chem 7: 03/03/21 08:12 03/03/21 08:12 Labs: Laboratory Results - last 24 hr 03/03/21 03/03/21 08:12 08:12 WBC 4.1 L RBC 4.10 L Hgb 11.5 L Hct 35.6 L MCV 86.8 MCH 28.0 MCHC 32.3 RDW 12.8 Plt Count 155 L MPV 11.2 Absolute Nucleated RBC 0.000 Nucleated RBC % (auto) 0.0 Sodium 141 Potassium 3.4 Chloride 108 Carbon Dioxide 25 Anion Gap 11 L BUN 23 H Creatinine 2.12 H Estim Creat Clear Calc 42.5 Estimated GFR 33 Random Glucose 96 Calcium 8.7 Microbiology Microbiology Results: Microbiology 03/01/21 20:22 Blood - Venous Blood Culture - Preliminary No growth after 24 hours. 03/01/21 20:22 Blood - Venous Blood Culture - Preliminary No growth after 24 hours. Procedures Date of Service Date of Service: 03/03/21 Assessment & Plan Assessment and plan (1) MAVERICK (acute kidney injury): Status: Acute Assessment and Plan: 1. A 51-year-old male with acute kidney injury.? Acute kidney injury in this patient is likely secondary to prerenal azotemia.? He is clinically dehydrated, and his creatinine level has improved with IV fluids.? The patient's also mentioned to me that he has not been taking adequate amount of p.o. fluid and has had some episodes of diarrhea. 2. Question of chronic kidney disease at baseline and I do not have the exact baseline creatinine, but his creatinine in October of 2020, was 1.38, which placed him a stage III chronic kidney disease. 3. Seizures, generalized tonic-clonic. 4. Lactic acidosis in the setting of seizure and renal failure. 5. Concern of aspiration pneumonia. 6. Hemorrhagic cerebrovascular accident. ? RECOMMENDATION:? Continue intravenous hydration with normal saline.? He is presently on Keppra as per Neurology.? The patient did have an imaging study, i.e., CAT scan of the abdomen and pelvis without contrast and he did not have any obstructive uropathy.? I would avoid using NSAIDs/VELEZ-2 inhibitors in this patient.? I recommend checking his renal function again in a.m. ? ? Thank you for allowing me to participate in medical management of the patient Time Spent With Patient Time: Total time spent is greater than 50% in coordination of care (as documented) at patient's floor/unit and/or counseling patient: Progress Note: Quality Stroke Does the patient have a stroke diagnosis?: No
[2021-03-04 03:38] VITALS: BP 132/78; PULSE 69; RESP 20; TEMP 37
[2021-03-04] MEDS: Dextrose 5 % and 0.45 % NaCl 1,000 ML 100 ML IVCONT (04:25)
[2021-03-04 05:19] VITALS: PULSE 71; O2SAT 96
[2021-03-04 06:40] LABS: Anion Gap 9 (12-20); Blood Urea Nitrogen 15 mg/dL (9-16); Calcium 8.5 mg/dL (8.4-10.2); Carbon Dioxide 25 mmol/L (22-29); Chloride 109 mmol/L (96-108); Creatinine Clr Calc Pharmacy 52.4; Estimated Glomerular Filt Rate 42; Glucose Random 91 mg/dL (60-115); Sodium 140 mmol/L (135-145)
[2021-03-04 07:59] VITALS: BP 138/92; PULSE 75; RESP 18; TEMP 36.9; O2SAT 96
[2021-03-04 08:21] VITALS: BP 138/92; PULSE 75
[2021-03-04] MEDS: Baclofen 10 MG TABLET 5 MG PO ×2 (08:21→13:59)
[2021-03-04] MEDS: Sertraline HCL 50 MG TABLET PO (08:21)
[2021-03-04] MEDS: levETIRAcetam 500 MG TABLET PO (08:21)
[2021-03-04] MEDS: Labetalol HCL 200 MG TABLET 400 MG PO (08:21)
[2021-03-04] MEDS: 0.9 % Sodium Chloride Flush 3 ML SYRINGE IVFLUSH (08:22)
[2021-03-04] MEDS: Potassium Chloride/H20 10 MEQ/100 ML PIGGYBACK 100 MEQ IV ×2 (08:22→10:10)
--- NOTE | 2021-03-04 09:14 | MHC.SL.DTX ---
Dysphagia Diet modifications: Last documented Solid diet consistencies: Pureed (NDD1) Last documented Liquid consistency: Thin Last documented Medication Administration: whole with thin liquids, very small/large pills in puree as needed Changes made to current diet?: Yes Liquid Consistency and Strategies: Liquid Intake Recommendation: Thin Compensatory Strategies for Safe Swallow: No Straws Compensatory Strategies for Safe Swallow(b): Sitting Upright (90 deg) No Straw Liquids from Cup Small Bites and Sips Alternate Liquids/Solids Solid Food Consistency: Dietary Recommendations: Pureed (NDD1) Additional Modifications to Solids: Oral Medication Intake: Whole with Puree Strategies and Precautions to be Taken for Safe Swallow: Sitting Upright (90 deg) No Straw Liquids from Cup Small Bites and Sips Alternate Liquids/Solids Supervision While Eating and/Drinking: Total Assistance Swallowing Recommended Treatments: Compens. Strategy Educat. Level of Impact on: Daily activities: Moderate Community: Moderate Prognosis for Improvement: Good Recommendation for Speech: Inpatient Speech Therapy Additional Comments: Treatment: Pt was seen for dysphagia treatment with his present. Per RN's note and pt's 's report, pt coughed following medication administration 03/03. Pt's reported that pt always coughs when swallowing one particular, small medication. She denied any further overt s/s aspiration with intake of thin liquids aside from when swallowing that one particular medication. Discussed recommendation for placement of the small pill in puree vs with liquids. Pt declined intake of solids to determine appropriateness of an upgrade from pureed solids. Pt's stated he had just vomited phlegm. Pt tolerated cup sips of thin liquids without overt s/s aspiration. Left sided anterior loss of liquids noted. Reviewed recommendation for continued ST upon pt's return home to determine the safest and least restrictive diet consistency as [employer] unable to determine this date due to pt's declination of solids. Pt's stated pt to be discharged home this date. Court Transcriber Clinican/Clinical Fellow: No Supervisory Statement: I have reviewed and agree with the student/clinical fellow's documentation: N/A Speech Language Pathologist: Sammi Arriaga M.A., CCC-[employer]
[2021-03-04] MEDS: ondansetron HCL 4 MG/2 ML VIAL IVPUSH (09:21)
--- NOTE | 2021-03-04 10:04 | MHC.CDI.CONC ---
CDI Concurrent Query Documentation Clarification: PHYSICIAN'S DOCUMENTATION REQUEST Date of Query: 03/04/21 1004 Patient Name: Tonio Wright Admit Date: 03/02/21 Dear Doctor, A review of the medical record indicates additional documentation may be needed. Please review below and update the documentation accordingly. Risk Factors/Clinical Indicators/Treatments H&P: 03/02 - Assessment/plan: Pyelonephritis, acute. Chronic indwelling rushing catheter, changed. History of UTI's/pyelo on Levofloxin. Bedbound, clinically dehydrated. Based on the above, could you clarify in the Progress Notes the appropriate diagnosis, if significant, that supports the above abnormalities and additional evaluation, monitoring, and/or treatment rendered: Pyelonephritis, Treating, Rule out, POA, Resolved Other (please specify) Unable to determine Use of terms such as suspected, likely, concern for, or probable (associated with a specific diagnosis that is being evaluated, monitored, or treated as if it exists) are acceptable and can be coded in the inpatient setting, when documented at the time of discharge. Thank you, Heavenly Melendez [facility], CDIS Extension: [phone] Please use your independent medical judgment in providing your response. THIS QUERY IS PART OF THE PERMANENT MEDICAL RECORD Provider Response: Other Other Diagnosis: Pyelonephritis ruled out
--- NOTE | 2021-03-04 11:17 | P.DS_ITS ---
DS: Providers Provider Date of Service: 03/04/21 Date of admission: 03/02/21 03:20 Primary care physician: Alphonso Marcum MD Consults: 03/02/21 01:59 Consult to Infectious Diseases Routine Consulting Provider: Jolene Hallman Reason for consultation: UTI; was on levaquin for 3/7 days ; now p/w seizure. Abx coice? 03/02/21 03:20 Consult to Neurology Routine Consulting Provider: Stephanie Gan Reason for consultation: seizure 03/02/21 03:31 Consult to Nephrology Routine Consulting Provider: Demario Brown Reason for consultation: MAVERICK 03/02/21 04:14 Consult to Urology Routine Consulting Provider: Justo Gaspar Reason for consultation: Calculi in bladder; UTI/Pyelonephritis DS: Diagnosis Discharge Diagnosis (1) MAVERICK (acute kidney injury): Status: Acute (2) Hypotonic neurogenic bladder: Status: Acute (3) New onset seizure: Status: Acute (4) Acidosis, lactic: Status: Acute DS: Summary Hospital Course Hospital Course: Admission note HPI 51-year-old male with a past medical history of hypertension,? history of hemorrhagic CVA, obstructive sleep apnea, anxiety, depression, MARIZA, history of pressure ulcers, insomnia, chronic Mitchell, recent history of UTI growing Pseudomonas and Citrobacter-on Levaquin day 3; presented to the hospital today with a chief complaint of seizure episode.? Patient is drowsy and sleeping-> status post postictal state/Atrovent x3/Keppra in the ER. Spoke to the patient's at bedside.? As per the patient's patient had episode of seizure at home, chronic in nature, denies any tongue biting or urinary accident; subsequently brought him to the ER by ambulance. Mentioned that patient was recently diagnosed with UTI and antibiotics were switched to Levaquin and received 3 doses; Denies any prior history of seizures.? Reports that after hemorrhagic stroke patient is not ambulating; and has chronic Mitchell; but at baseline patient is alert awake, speaks normally, denies any patient have any cough or sputum production prior to the episode.? ER ER course: Patient had an episode of a GTC seizure, received Ativan IV x4 and Keppra loading; CT head showed subtle linear area of blood products in the area of encephalomalacia/gliosis from prior intraparenchymal hemorrhage.Er team notified Dr Gan -> No acute intervention, keppra loading. CT abdomen was done which showed findings concerning for aspiration pneumonia.? And also given recent UTI/pyelonephritis-patient was given IV cefepime. Patient had severe lactic acidosis in the setting of seizure, which improving with IV fluids. Hospital course The patient was admitted to the hospital after having seizure episode at home. CT scan was at time of presentation showed hyperattenuating blood products in the hold hemorrhagic stroke area. The patient started on Keppra with fair response as no recurrence of the seizures noted during the hospital stay. Neurology evaluated the patient Was noted to have acute kidney injury likely a result of prerenal dehydration. Evaluated by Nephrology team as the kidney function continue to improve during the hospital stay. Noted to have lactic acidosis which completely resolved. Likely from having seizure. Evaluated by infectious disease specialist who recommended to hold antibiotics for now as no source of infection identified. Repeat urinalysis showed no bacteria. CT scan of the abdomen and pelvis showed calculi in the bladder along with hydronephrosis and hydroureter. Evaluated by urologist who recommended capping the Mitchell catheter for 3-4 hours before emptying it and he sees his urologist as outpatient. Evaluated by speech therapy team who recommended pureed diet with thin liquids. Discontinue antibiotics for now Start Keppra 500 mg b.i.d. To check BMP in 1 week To follow with Urology as outpatient Time Spent with Patient Time attestation: Total time spent providing and/or coordinating discharge services: Discharge coordination time: Greater than 30 minutes Quality: Stroke Does the patient have a stroke diagnosis?: No Physical Exam Vital Signs: Vital Signs: Last Vital Signs Temp 98.4 F 03/04/21 07:59 Pulse 75 03/04/21 08:21 Resp 18 03/04/21 07:59 BP 138/92 H 03/04/21 08:21 Pulse Ox 96 03/04/21 07:59 Body Mass Index 25.7 Const: Other: Constitutional : Alert, oriented, not in distress Neck : Normal inspection, Supple Cardiovascular : RRR, S1 S2, no lower extremity edema Respiratory : Good bilateral air entry, no crackles, wheezes or rhonchi Gastrointestinal: soft, lax, Normal bowel sounds, Non tender Skin : Warm, Dry, decubitus ulcers covered with dressing Urology, Mitchell in place Neurological : Alert & oriented, left-sided hemiparesis DS: Data Data Completed and Pending Labs on day of discharge: Laboratory Results - last 24 hr 03/04/21 05:53 Sodium 140 Potassium 3.0 L Chloride 109 H Carbon Dioxide 25 Anion Gap 9 L BUN 15 Creatinine 1.72 H Estim Creat Clear Calc 52.4 Estimated GFR 42 Random Glucose 91 Calcium 8.5 Preliminary micro results at discharge 03/01/21 20:22 Blood Culture - Preliminary Blood - Venous No growth after 48 hours. 03/01/21 20:22 Blood Culture - Preliminary Blood - Venous No growth after 48 hours. Discharge Plan Discharge Patient Disposition: Home Health Service Discharge Diagnosis: New onset seizures Neurogenic bladder Referrals: Alphonso Marcum MD [Primary Care Provider] - 1 Week Discharge Medications: New levetiracetam 500 mg Tablet 500 mg PO BID Qty: 60 RF: 0 Continued (DME) hydrocolloid dressing 2 X 4 bandage See Rx Instructions .Route Qty: 20 RF: 1 lisinopril 40 mg tablet 40 mg PO DAILY Qty: 30 RF: 2 oxybutynin chloride 10 mg tablet extended release 24hr 1 tab PO DAILY RF: 0 sertraline 50 mg tablet 50 mg PO DAILY Qty: 30 RF: 0 labetalol 200 mg tablet 400 mg PO BID 30 Days Qty: 120 RF: 2 baclofen 5 mg tablet 5 mg PO TID 30 Days Qty: 90 RF: 0 Discontinued cefixime 400 mg capsule 400 mg PO DAILY 7 Days Qty: 7 RF: 0 levofloxacin 750 mg tablet 750 mg PO DAILY 7 Days Qty: 7 RF: 0 Discharge Orders: Discharge Order (Routine); Ordered 03/04/21 Ordered By: Mike Zepeda Diet: advance to usual diet Activity on Discharge: As tolerated Stand Alone Forms: Patient Portal Discharge page Care Plan Goals: Read below Health Concerns: Read below Plan of Treatment: Read below Assessment: You were admitted to the hospital after having an episode of seizure. Images for the brain did not reveal any new abnormalities. You were started on seizure medication with fair response as no recurrence of the seizures notified. You were evaluated by neurologist who recommended to go home with new medications called [facility] for the next 6 months Seen by urologist who recommended the use of catheter cap and bladder emptying every 3-4 hours rather than continuous drainage to bag To follow-up with Neurology as outpatient
[2021-03-04 11:28] VITALS: BP 145/87; PULSE 72; RESP 18; TEMP 36.8; O2SAT 96
--- NOTE | 2021-03-04 12:17 | PM.NEUROCN ---
History of Present Illness Data of Consult Service Date: 03/04/21 Primary Care Provider: Alphonso Marcum MD [facility] Reason for consult: Seizure 51 years old man who had a larger right putaminal hemorrhage in October of this year was doing okay until he was treated with Levaquin. During that time he had a generalized seizure and was brought to emergency room. His was quite concerned about reputation of similar episode. Now he was back to baseline. Review of Systems Review of Systems: No recent cold or flu-like illness. He was being treated for UTI. [facility], [facility] Past Medical History Medical History Anxiety Hemorrhagic stroke HTN (hypertension) Social History Social History Household Members: Spouse and Children Housing: House Do you presently have visiting nurse or other home services: Yes (physical therapy, nursing) Alcohol intake: never Patient Tobacco Use Status: Former Tobacco user e-Cigarette/Vaping Use: Never Used Second Hand Smoke Exposure: No service: No Current occupational status: disabled Meds Allergies Allergy/AdvReac Type Severity Reaction Status Date / Time No Known Allergies Allergy Verified 02/03/21 14:30 Active Medications: Current Medications Acetaminophen (Acetaminophen 325 Mg Tablet) 650 mg PO Q6H PRN PRN Reason: Pain, Mild (Pain Scale 1-3) Baclofen (Baclofen 10 Mg Tablet) 5 mg PO TID [facility] Last Admin: 03/04/21 08:21 Dose: 5 mg Documented by: Labetalol HCl (Labetalol Hcl 200 Mg Tablet) 400 mg PO BID [facility]; Protocol Last Admin: 03/04/21 08:21 Dose: 400 mg Documented by: Levetiracetam (Levetiracetam 500 Mg Tablet) 500 mg PO BID [facility] Last Admin: 03/04/21 08:21 Dose: 500 mg Documented by: Lorazepam (Lorazepam 2 Mg/Ml Vial) 1 mg IVPUSH Q2H PRN PRN Reason: seizure Last Admin: 03/02/21 17:35 Dose: 1 mg Documented by: Melatonin (Melatonin 3 Mg Tablet) 6 mg PO BEDTIME PRN PRN Reason: Insomnia Ondansetron HCl (Ondansetron Hcl 4 Mg/2 Ml Vial) 4 mg IVPUSH Q8H PRN PRN Reason: Nausea Last Admin: 03/04/21 09:21 Dose: 4 mg Documented by: Oxybutynin Chloride (Oxybutynin Chloride Er 5 Mg Tab.Er.24) 10 mg PO DAILY [facility] Last Admin: 03/04/21 08:40 Dose: Not Given Documented by: Pharmacy Consult (Consult Rx Perform Med Rec) 1 each MISCELLANE ONCE PRN PRN Reason: Consult order Senna (Sennosides 8.6 Mg Tablet) 17.2 mg PO BEDTIME PRN PRN Reason: Constipation Sertraline HCl (Sertraline Hcl 50 Mg Tablet) 50 mg PO DAILY [facility] Last Admin: 03/04/21 08:21 Dose: 50 mg Documented by: Sodium Chloride (0.9 % Sodium Chloride Flush 3 Ml Syringe) 3 ml IVFLUSH QSHIFT [facility] Last Admin: 03/04/21 08:22 Dose: 3 ml Documented by: Home Medications Medication Instructions Recorded Confirmed Last Taken Type oxybutynin chloride 10 mg 1 tab PO DAILY 03/01/21 03/01/21 Unknown History tablet,extended release 24 hr Physical Exam Vital Signs: Vital Signs: Last Vital Signs Temp 98.3 F 03/04/21 11:28 Pulse 72 03/04/21 11:28 Resp 18 03/04/21 11:28 BP 145/87 H 03/04/21 11:28 Pulse Ox 96 03/04/21 11:28 Body Mass Index 25.7 Neuro: Other: Alert and awake with normal spontaneity of speech fluency comprehension and flat affect. He has a dense left hemiparesis well face was almost symmetrical. Visual rivas were full. Left plantar was extensor on right was flexor. Results Labs CBC & Chem 7: 03/03/21 08:12 03/04/21 05:53 Labs: BMP 03/04/21 05:53 Sodium 140 Potassium 3.0 L Chloride 109 H Carbon Dioxide 25 BUN 15 Creatinine 1.72 H Calcium 8.5 Right putaminal area encephalomalacia where bleed occurred. Otherwise microvascular ischemic changes were noted. Microbiology Microbiology Results: Microbiology 03/01/21 20:22 Blood - Venous Blood Culture - Preliminary No growth after 48 hours. 03/01/21 20:22 Blood - Venous Blood Culture - Preliminary No growth after 48 hours. Assessment and Plan (1) New onset seizure: Status: Acute 51 years old man with hypertension, microvascular ischemic changes, and a right hemispheric intracerebral hemorrhage in October of this year causing left hemiparesis. He was being treated for an infection with Levaquin when he had a generalized seizure. At this time he was back to baseline. I would suggest continuing giving him levetiracetam 500 mg twice a day for 6 months and then re-evaluate the situation. Procedures Date of Service Date of Service: 03/04/21
--- NOTE | 2021-03-04 12:49 | PC.NURSE ---
Per MD verbal order- Mitchell cath was capped for 3 hours. Patient denied bladder pain/ discomfort. Mitchell was uncapped and connected back to the bag after 3 hrs, is now draining clear yellow urine.
--- NOTE | 2021-03-04 13:00 | MHC.CM.PN ---
Male 51 DX SZ He is discharged today. [facility] will resume services. Pts is providing transportation home.
[2021-03-04 13:34] VITALS: BMI 25.7
--- NOTE | 2021-03-04 13:43 | MHC.CLN ---
NUTRITION CONSULT NUTRITION CONSULT FOR SKIN. NO PRESSURE AREAS NOTED. VISITED PATIENT WITH PRESENT. SIGNIFICANT WEIGHT LOSS SINCE CVA 10/27=-21%. FAIR INTAKE AT HOME. DISCUSSED EATING MORE NUTRIENT DENSE FOODS AND EATING SMALL AMOUNTS MORE FREQUENTLY. WILL TAKE ONE ENSURE PER DAY BUT DOES NOT FINISH. RECOMMENDED TRY CARNATION INSTANT BREAKFAST WITH WHOLE MILK AT HOME. HAD BEEN EATING REGULAR CONSISTENCY FOODS PRIOR TO SEIZURE. PATIENT SCHEDULED FOR DISCHARGE TO HOME TODAY.
--- NOTE | 2021-03-04 21:29 | PM.PNNEP ---
Subjective Subjective Date of Service: 03/04/21 Interval history: the patient was seen and evaluated this morning Laying in bed, feels better Systemic review: No fever, chills or weakness No chest pain, palpitation No shortness of breath or coughing No abdominal pain, nausea or vomiting No urinary symptoms No any rash or wounds Physical Exam Vital Signs: Vital Signs: Last Vital Signs Temp 98.3 F 03/04/21 11:28 Pulse 72 03/04/21 11:28 Resp 18 03/04/21 11:28 BP 145/87 H 03/04/21 11:28 Pulse Ox 96 03/04/21 11:28 Other:?Alert and a wake with normal s pontaneity of spee ch fluency compreh ension and flat af fect.? He has a de nse left hemipares is well face was a lmost symmetrical. ? Visual rivas we re full.? Left kaitlynn ntar was extensor on right was flexo rBody Mass Index 25.7 Objective Data Labs CBC & Chem 7: 03/03/21 08:12 03/04/21 05:53 Labs: Laboratory Results - last 24 hr 03/04/21 05:53 Sodium 140 Potassium 3.0 L Chloride 109 H Carbon Dioxide 25 Anion Gap 9 L BUN 15 Creatinine 1.72 H Estim Creat Clear Calc 52.4 Estimated GFR 42 Random Glucose 91 Calcium 8.5 Microbiology Microbiology Results: Microbiology 03/01/21 20:22 Blood - Venous Blood Culture - Preliminary No growth after 48 hours. 03/01/21 20:22 Blood - Venous Blood Culture - Preliminary No growth after 48 hours. Procedures Date of Service Date of Service: 03/04/21 Assessment & Plan Assessment and plan (1) MAVERICK (acute kidney injury): Status: Acute Assessment and Plan: 1. A 51-year-old male with acute kidney injury.? Acute kidney injury in this patient is likely secondary to prerenal azotemia.? He is clinically dehydrated, and his creatinine level has improved with IV fluids.? The patient's also mentioned to me that he has not been taking adequate amount of p.o. fluid and has had some episodes of diarrhea. 2. Question of chronic kidney disease at baseline and I do not have the exact baseline creatinine, but his creatinine in October of 2020, was 1.38, which placed him a stage III chronic kidney disease. 3. Seizures, generalized tonic-clonic. 4. Lactic acidosis in the setting of seizure and renal failure. 5. Concern of aspiration pneumonia. 6. Hemorrhagic cerebrovascular accident. ? RECOMMENDATION:? Keep pt hydrated Marlene wilde is better ? He is presently on Keppra as per Neurology.? The patient did have an imaging study, i.e., CAT scan of the abdomen and pelvis without contrast and he did not have any obstructive uropathy.? I would avoid using NSAIDs/VELEZ-2 inhibitors in this patient.? For D/c soon ? ? Thank you for allowing me to participate in medical management of the patient Time Spent With Patient Time: Total time spent is greater than 50% in coordination of care (as documented) at patient's floor/unit and/or counseling patient: Progress Note: Quality Stroke Does the patient have a stroke diagnosis?: No
== END 2021-03-04 15:00 | disposition home health service (06) | DRG 101 ==
LOC: HO.ED 21:11 → HO.EDOVER 03-02 04:01 → HO.IMC 03-02 18:42
PROVIDERS: Emergency Medicine; Admitting Provider Hospitalist; Emergency Provider Internal Medicine; PCP Family Medicine; Visit Provider Student in an Organized Health Care Education/Training Program
DX: G40.909 Epilepsy, unspecified, not intractable, without status epilepticus (principal); N17.9 Acute kidney failure, unspecified; E87.2 Acidosis; I69.854 Hemiplegia and hemiparesis following other cerebrovascular disease affecting left non-dominant side; N13.30 Unspecified hydronephrosis; E86.0 Dehydration; N31.9 Neuromuscular dysfunction of bladder, unspecified; K31.84 Gastroparesis; N20.9 Urinary calculus, unspecified; G47.33 Obstructive sleep apnea (adult) (pediatric); Z20.822 Contact with and (suspected) exposure to COVID-19; Z87.891 Personal history of nicotine dependence; Z79.899 Other long term (current) drug therapy
CPT/HCPCS: 36415; 70450; 71045; 74176; 80048; 80076; 80307; 81001; 82140; 82550; 82803; 82947; 83605; 83690; 83735; 84145; 84443; 84484; 85025; 85027; 87040; 87635; 92610; 93005; 94660; 96361; 96374; 96375; 96376; 99285; J0692; J1953; J2060; J2405

== ENCOUNTER 2021-12-02 09:00 | Outpatient (RCR) | payer OTHER, SELFPAY ==
--- NOTE | 2021-07-14 14:50 | MHC.PT.EP ---
[facility] [place] Office [place] Office [place] Office [address] Andree Guy [address] [phone] F: [phone] F: [phone] F: [phone] F: [phone] Physical Therapy Plan of Care Date of Evaluation: Date of Surgery: Diagnosis: 161.9 Non traumatic intracerebral hemmorhage, unspecified signed by Dr. Ramirez date of script 06/29/21 Assessment: Pt is a pleasant, LHD 51 y/o, male referred to PT from PCP following history of history of hemorrhagic stroke in October 2020 with left sided weakness, seizure disorder, renal insufficiency, hypertension, obstructive sleep apnea, and major depression, who presents with impairments of decreased L UE/L LE ROM, strength, motor control, sensation, (+) atrophy, impaired posture, resulting in impaired functional mobility/independence. Pt expressing he finished home PT within the past few weeks, was using nicanor-walker and commode for transfers at Min/MOD A level. He has a manual WC. Continues to require MAX A for lower body dressing and MIN/MOD A for upper body. Has been receiving assistance and total care from his at home. He has ramp access in and out of the home. He currently DOES NOT HAVE ANY ALUMINUM SIDING APPLICATOR SUPPORT and would certainly benefit from obtaining such support for this daily. Pt's Florian present today, has been educated alongside patient in goals of therapy. Pt has had a custom WC ordered for him by previous therapists (awaiting on arrival of cushion and new chair, states insurance just approved this). Pt expressing would like to improve his independence in transfer status to make him safer and more comfortable at home. Pt would BENEFIT FROM EVAL AND TREAT: CONSULT WITH ENVIRONMENTAL HEALTH NURSE FOR AFO OF THE L LE (IF IN AGREEMENT PLEASE WRITE A PRESCRIPTION INDICATING THIS) of his L LE to aide in transfers, (+) difficulty advancing L LE during swing (+) toe drag with attempt of advancement L LE. He exhibits good PROM of the ankle with no pain reported today, mild stretch in calf. He would benefit from instruction in both seated, supine, standing, SL, and hook-lying activities to aide mobility status, strength, ROM, HEP, safety, education, and independence. Pt's expressing she would like to also review car transfers. She reports he is dependent upon her for bathing, hygiene, and other ADLS which is taking a toll on her physical and emotional health as she is currently in therapy for her chronic back pain. Financial barriers have also been addressed with aide of community navigation health worker due to patient's being out of work taking care of him. Pt's states they will be losing insurance in September. Therapist is recommending PT 2x/week x 6-8 weeks to address listed goals above however pt has a $40 copayment for therapy which is a barrier to progress to recovery. THANK YOU FOR THIS REFERRAL. Frequency and Duration: The patient will be seen 2x/week x 4 weeks Short Term Goals: 1. Complete static standing in the parallel bar with use of R UE with 30 sec without L knee hyperextension to aide in functional transfers. (IR: able to stand 2 minutes but with evidence of L knee hyperext). 2. Improve L hip flexion to 3/5 with good eccentric control to aide in stepping for transfers. (IR: Poor motor control L LE, inconsistent). 3. Demonstrate good eccentric control with stand<>sit consistently. (IR: inconsistent). 4. Complete stand pivot toward the left with S level. (IR: MOD A x 1 today with aide of L LE foot placement, set-up). 5. Complete stand pivot toward the right with S level. (IR: MIN<>MOD x 1 today. Nursing Home Goals: 1. Complete AAROM L shoulder flexion to 120 degrees. (IR: PROM to 60 limited by pain). 2. Reduce L shoulder pain by 50% during ADLS/IADLs. (IR: pain at rest proximal L shoulder protracted scapula, rounded slumped shoulder). 3. L knee ext 3/5 strength (IR: 3-/5). 4. L ankle DF 3/5. (IR: PROM DF full, AROM poor motor control). 5. Roll to the R S level with good control L LE. (MOD x1 for aide of LE support, Rolling to L S level with use of rail). 6. Complete transfer with S level with good safety. (IR: Min/MOD A). Treatment Plan: Modalities to reduce pain, spasms and effusion. Manual therapy to restore motion and function. Therapeutic exercise to improve strength and flexibility. Neuromuscular re-education for posture and balance. Therapeutic activities to return to functional activities of daily living. Electronically signed by: Susan Bowden PT, DPT Please sign and return to therapist. Thank you for your referral.
== END 2022-01-10 09:22 | disposition home or self-care (01) ==
LOC: HO.PTWFD 09:00
PROVIDERS: PCP Internal Medicine; Visit Provider Internal Medicine
DX: I61.9 Nontraumatic intracerebral hemorrhage, unspecified (principal)
CPT/HCPCS: 97110; 97116; 97140; 97163; 97530; 97535

== ENCOUNTER 2021-12-28 10:42 | Outpatient (RCR) | payer OTHER, SELFPAY ==
--- NOTE | 2022-03-06 15:26 | MHC.OT.DC ---
[address] [phone] F: [phone] Occupational Therapy Discharge Note Provider: Jomar Ramirez Diagnosis: Hemorrhage stroke Date of Surgery: Date of Evaluation: 12/28/21 Date of Discharge: 03/06/22 Treatments to Date: 1 Cancellations to Date: No Shows to Date: Discharge Status: Patient Elected to Stop Discharge Summary: See eval for details Pt reports comfort in orthosis Electronically Signed By: Heather Molina OT CHT CLT Reviewed/agree with student documentation: N/A Therapist: Please Sign and return to therapist, thank you for your referral.
== END 2022-03-06 15:27 | disposition home or self-care (01) ==
LOC: HO.OT 10:42
PROVIDERS: PCP Internal Medicine; Visit Provider Internal Medicine
DX: I61.9 Nontraumatic intracerebral hemorrhage, unspecified (principal)
CPT/HCPCS: 29125; 97167; 97760

== ENCOUNTER 2023-03-19 13:16 | Outpatient (REF) | payer OTHER, SELFPAY ==
[2023-03-19 13:24] LABS: Appearance Urine Clear; Color Urine Yellow; Glucose Urine UA Negative (Negative); Leukocyte Esterase Urine Small (1+) (Negative); Nitrite Urine Negative (Negative); PH 5.5 (5.0-9.0); Specific Gravity - Urine 1.015 (1.005-1.025); UMIC TRIGGER UACC YES; Urine Blood Moderate (2+) (Negative); Urine Ketones Negative (Negative); Urine Protein Trace mg/dL (Neg-Trace)
[2023-03-19 13:58] LABS: Bacteria Urine None Seen (None Seen); Granular Casts Urine Present; RBC Urine >20 /HPF (0-2); UACC Culture Trigger YES
== END 2023-03-19 13:17 | disposition home or self-care (01) ==
LOC: HO.LNP 13:16
PROVIDERS: Visit Provider Internal Medicine
DX: R30.0 Dysuria (principal)
CPT/HCPCS: 81001; 87086

== ENCOUNTER 2023-05-30 09:41 | Outpatient (AMB) | payer OTHER, SELFPAY ==
--- NOTE | 2023-05-30 09:41 | A.OFFPC_ITS ---
Intake Visit Reasons: Med Follow Up Allergies No Known Allergies Allergy (Verified 05/30/23 09:42) Tobacco use date assessed: 05/30/23 Dental Screening Dental Screen Date: 05/30/23 Did you have a dental visit in the last 12 months?: No Did you have a dental problem in the last 6 months where you did not have access to dental care?: No Was dental information given to patient?: No HPI Med Follow Up HPI Details 53-year-old male with right basal gangli a hemorrhagic stroke with left- sided hemiparesis 2020 obstructive sleep apnea hypertension chronic kidney disease recurrent major depression last seen in May 2022 coming in for Telehealth. Advised to see me next time. Patient does use the CPAP with benefit and is doing good having counseling once a week no nausea no vomiting no chest pains. [facility] Medical History Anxiety Difficulty urinating Hemorrhagic stroke HTN (hypertension) Loss of appetite Family History (Updated 05/30/23 @ 09:43 by Dipti Arnett, [facility]) Mother Breast cancer Father Prostate cancer Skin cancer Social History Household Members: Spouse and Children Housing: House Do you presently have visiting nurse or other home services: Yes (physical therapy, nursing) Alcohol intake: never Patient Tobacco Use Status: Never used Tobacco Tobacco use type: Cigarette e-Cigarette/Vaping Use: Never Used Second Hand Smoke Exposure: No service: No Current occupational status: disabled Cognitive needs: No Hearing needs: No Vision needs: No Questionnaire PHQ-9 Over the last 2 weeks, how often have you been bothered by any of the following problems? 1. Little interest or pleasure in doing things: several days 2. Feeling down, depressed, or hopeless: more than half the days 3. Trouble falling or staying asleep, or sleeping too much: nearly every day (trouble falling) 4. Feeling tired or having little energy: several days 5. Poor appetite or overeating: nearly every day (doesnt have great appetite) 6. Feeling bad about yourself - or that you are a failure or have let yourself or your family down: not at all 7. Trouble concentrating on things, such as reading the newspaper or watching television: not at all 8. Moving or speaking so slowly that other people could have noticed. Or the opposite - being so fidgety or restless that you have been moving around a lot more than usual: not at all 9. Thoughts that you would be better off or of hurting yourself in some way: not at all Total score: 10 Depression Screening Interpretation: Positive Depression Screening Done: Yes Source: Developed by Drs. Tushar Keenan, Mary Fountain, Romain Fry and colleagues, with an educational faustina from [employer]. Thrive Questionnaire Date Thrive assessed: 05/30/23 I am a: Patient What is your living situation today?: I have a steady place to live Within the past 12 months, did the food you bought not last and you didn't have the money to get more?: Never true Within the past 12 months, did you worry whether your food would run out before you got money to buy more?: Never true Do you have trouble paying for medicines?: No Do you have trouble getting transportation to medical appointments?: No Do you have trouble paying your heating and electricity bill?: No Do you have trouble taking care of your child, family member or friend?: No Do you have trouble with day-to-day activities such as bathing, preparing meals, shopping, managing finances, etc.?: No Are you currently unemployed and looking for a job?: No Are you interested in more education?: No Currently or been in a relationship where the following occur: no concerns reported THRIVE Score: 0 AUDIT C Alcohol Use Questionnaire (AUDIT-C) 1. How often do you have a drink containing alcohol?: Monthly or less 2. How many drinks containing alcohol do you have on a typical day when you are drinking?: 1 or 2 3. How often do you have six or more drinks on one occasion?: Never Total Score: 1 PATRICK-7 AMB Questionnaire PATRICK-7 Date PATRICK - 7 assessed: 05/30/23 Feeling nervous, anxious, or on edge: 3 = Nearly every day Not being able to stop or control worryin = Nearly every day Worrying too much about different things: 3 = Nearly every day Trouble relaxin = Nearly every day Being so restless that it is hard to sit still: 3 = Nearly every day Becoming easily annoyed or irritable: 3 = Nearly every day Feeling afraid as if something awful might happen: 3 = Nearly every day Total PATRICK-7 score (0-4 normal; 5-9 mild; 10-14 moderate; 15-21 severe): 21 Source: Developed by Drs. Tushar Keenan, Mary Fountain, Romain Fry and colleagues, with an educational faustina from [employer]. Physical exam (Primary Care) Tobacco/Smoking Status: Tobacco use Status Tobacco use date assessed 05/30/23 05/30/23 09:46 Patient Tobacco Use Status Never used Tobacco 05/30/23 09:41 Tobacco use type Cigarette 05/30/23 09:46 e-Cigarette/Vaping Use Never Used 05/30/23 09:41 PHQ-9: PHQ-9 Score PHQ-9: Total score 10 05/30/23 09:46 Depression Screening Interpretation: Positive Thrive Assessment: Date of Thrive Assessment Date Thrive assessed 05/30/23 05/30/23 09:46 Currently or been in a relationship where the following occur: no concerns reported Telehealth Telehealth Location of provider rendering services: practice address Location of patient: address on file Patient Identification confirmed using: Name, : Yes Telehealth method: voice only Patient verbally consented to treatment: Yes Patient verbally consented to billing insurance company: Yes Patient informed of any privacy concerns related to visit: Yes Minutes spent on Phone/Video with Pt.: 25 Assessment and Plan Assessment & Plan (1) Hemorrhagic stroke: Comment: Right basal ganglia October 2020 - L sided hemiparesis Dr. Gan Code(s): I61.9 - Nontraumatic intracerebral hemorrhage, unspecified Plan: Keep active control blood pressure, Control the cholesterol, weight, blood pressure (2) Hypertension: Code(s): I10 - Essential (primary) hypertension Plan: Continue with blood pressure medication. Decrease salt intake and exercise continue with labetalol 400 mg twice a day. BP at home (3) Obstructive sleep apnea: Comment: 10/21/2020 Code(s): G47.33 - Obstructive sleep apnea (adult) (pediatric) Plan: Discussed about CPAP, use more than 4 hours and benefits from this (4) Chronic kidney disease, stage 3a: Code(s): N18.31 - Chronic kidney disease, stage 3a Plan: Keep well hydrated advised patient to take blood work (5) Generalized anxiety disorder: Comment: [facility] Counseling once a week Code(s): F41.1 - Generalized anxiety disorder Plan: Continue with present medication and counseling Orders: Orders Comprehensive Met. Panel Today I61.9 - Nontraumatic intracerebral hemorrhage, unspecified Vitamin B12 and Folate Today I61.9 - Nontraumatic intracerebral hemorrhage, unspecified Prostate Specific Antigen Scr Today I61.9 - Nontraumatic intracerebral hemorrhage, unspecified Complete Blood Count Auto Diff Today I61.9 - Nontraumatic intracerebral hemorrhage, unspecified Free T4 (Free Thyroxine) Today I61.9 - Nontraumatic intracerebral hemorrhage, unspecified Thyroid Stimulating Hormone Today I61.9 - Nontraumatic intracerebral hemorrhage, unspecified Lipid Panel Today E78.00 - Pure hypercholesterolemia, unspecified, I61.9 - Nontraumatic intracerebral hemorrhage, unspecified Medications: Refilled levetiracetam 500 mg PO BID 180 tabs 0RF 90 days G40.909 - Epilepsy, unspecified, not intractable, without status epilepticus Coding Level of Care Code Tele Est Pt Level 4 (24014) Diagnoses Hemorrhagic stroke I61.9 Hypertension I10 Obstructive sleep apnea G47.33 Chronic kidney disease, stage 3a N18.31 Generalized anxiety disorder F41.1
== END 2023-05-30 14:20 | disposition home or self-care (01) ==
LOC: HO.HMGH 09:41
PROVIDERS: PCP Internal Medicine; Visit Provider Internal Medicine
DX: I61.9 Nontraumatic intracerebral hemorrhage, unspecified (principal); I12.9 Hypertensive chronic kidney disease with stage 1 through stage 4 chronic kidney disease, or unspecified chronic kidney disease; N18.31 Chronic kidney disease, stage 3a; G47.33 Obstructive sleep apnea (adult) (pediatric); F41.1 Generalized anxiety disorder
CPT/HCPCS: 99214

== ENCOUNTER 2023-12-28 15:41 | Outpatient (REF) | payer OTHER, SELFPAY ==
[2023-12-28 15:53] LABS: Appearance Urine Clear; Color Urine Yellow; Glucose Urine UA Negative (Negative); Leukocyte Esterase Urine Negative (Negative); Nitrite Urine Negative (Negative); PH 5.5 (5.0-9.0); Urine Blood Negative (Negative); Urine Ketones Negative (Negative); Urine Protein Negative (Neg-Trace)
== END 2023-12-28 15:42 | disposition home or self-care (01) ==
LOC: HO.LNP 15:41
PROVIDERS: Visit Provider Internal Medicine
DX: R30.0 Dysuria (principal); N18.31 Chronic kidney disease, stage 3a
CPT/HCPCS: 81003

== ENCOUNTER 2024-01-16 12:03 | Outpatient (REF) | payer OTHER, SELFPAY ==
[2024-01-16 12:13] LABS: Appearance Urine Clear; Color Urine Yellow; Glucose Urine UA Negative (Negative); Leukocyte Esterase Urine Trace (Negative); Nitrite Urine Negative (Negative); PH 5.5 (5.0-9.0); Specific Gravity - Urine 1.025 (1.005-1.025); UMIC TRIGGER UACC YES; Urine Blood Negative (Negative); Urine Ketones Trace mg/dL (Negative); Urine Protein 30 (1+) mg/dL (Neg-Trace)
[2024-01-16 12:39] LABS: Bacteria Urine None Seen (None Seen); RBC Urine 0-2 /HPF (0-2); Renal Epithelial Cells Urine Present; WBC Urine 0-5 /HPF (0-5)
== END 2024-01-16 12:04 | disposition home or self-care (01) ==
LOC: HO.LNP 12:03
PROVIDERS: Visit Provider Internal Medicine
DX: R30.0 Dysuria (principal); N18.31 Chronic kidney disease, stage 3a
CPT/HCPCS: 81001

== ENCOUNTER 2024-05-26 11:24 | Outpatient (AMB) | payer OTHER, SELFPAY ==
--- OUTSIDE RECORDS SUMMARY | 2024-05-26 11:27 | XMS_ITS | Clinical Summary ---
Author Organization [facility] Facility Address [address] [address] Care Team Providers Care Grout Worker Name Role Phone Alphonso Marcum MD Primary Care Provider [phone] Allergies No known active allergies Medications Baclofen 5 MG tablet Take 5 mg by mouth 3 times a day Active calcium carbonate (TUMS) 500 MG chewable tablet Chew 1 tablet 1 (one) time each day Active bisacodyl (Dulcolax) 10 MG suppository Insert 10 mg into the rectum 1 (one) time each day Active LORazepam (ATIVAN) 0.5 MG tablet Take 0.5 mg by mouth 2 (two) times a day Active dronabinol (MARINOL) 2.5 MG capsule Take 2.5 mg by mouth 2 (two) times a day before meals Active Melatonin 5 MG tablet Take by mouth Active mirtazapine (REMERON) 15 MG tablet Take 7.5 mg by mouth every night Active Multiple Vitamin (multivitamin) capsule Take 1 capsule by mouth 1 (one) time each day Active amLODIPine (NORVASC) 10 MG tablet Take 10 mg by mouth 1 (one) time each day Active nystatin (MYCOSTATIN) 897924 UNIT/ML suspension Take 500,000 Units by mouth 4 (four) times a day Active ondansetron (ZOFRAN) 4 MG tablet Take 4 mg by mouth every 8 (eight) hours if needed for nausea or vomiting Active pantoprazole (PROTONIX) 40 MG EC tablet Take 40 mg by mouth 1 (one) time each day before breakfast Do not crush, chew, or split. Active Magnesium Oxide (APPIAH PO) Take by mouth Ac tive senna (SENOKOT) 8.6 MG tablet Take 1 tablet by mouth 1 (one) time each day Active sertraline (ZOLOFT) 100 MG tablet Take 100 mg by mouth 1 (one) time each day Active tamsulosin (FLOMAX) 0.4 MG 24 hr capsule Take 0.4 mg by mouth 1 (one) time each day Active acetaminophen (TYLENOL) 325 MG tablet Take by mouth every 6 (six) hours if needed for mild pain Active Active Problems Problem Noted Date Diagnosed Date Acute kidney failure 01/20/2021 Anemia 01/20/2021 Hypernatremia 01/20/2021 Obstructive uropathy 01/20/2021 Family History Medical History Relation Comments Prostate cancer Father Breast cancer Mother Relation Status Comments Father Mother Social History Tobacco Use Types Packs/Day Years Used Date Smoking Tobacco: Former Cigarettes Alcohol Use Standard Drinks/Week Comments Not Currently 0 (1 standard drink = 0.6 oz pur e alcohol) Sex and Gender Information Value Date Recorded Sex Assigned at Not on file Legal Sex Male 9:39 AM EST Gender Identity Not on file Sexual Orientation Not on file Plan of Treatment Health Maintenance Due Date Last Done Comments Hepatitis B Vaccine (1 of 3 - 19+ 3-dose series) 1989 Colorectal Cancer Screening: Annual FOBT 2019 Colorectal Cancer Screening: Colonoscopy 2019 Colorectal Cancer Screening: Sigmoidoscopy 2019 Influenza Vaccine (#1) 2023 Pneumococcal Vaccine: Pediat rics (0 to 5 Years) and At-Risk Patients (6 to 64 Years) Aged Out No longer eligible b ased on patient's age to complete this topic Insurance [employer] [facility] MEDICAID Care Teams Grout Worker Relationship Specialty Start Date End Date Alphonso Marcum MD [address] [facility] [address] [place] [id number] PCP - General Family Medicine 06/21/21
[2024-05-26 11:28] VITALS: BP 162/92; PULSE 105; O2SAT 98; BMI 29.9
--- NOTE | 2024-05-26 11:28 | A.OFFPC_ITS ---
Vital Signs 05/26/24 11:28 Height 5 ft 10 in Weight 208 lb 8.917 oz BMI 29.9 BP 162/92 H Blood Pressure Location Lt brachial Position Sitting Pulse 105 H Pulse Source Pulse Oximeter Pulse Oximetry (%) 98 Oxygen Delivery Method Room Air Intake Visit Reasons: PE - DO NOT MAKE PATIENT AWARE OF VITAL SIGNS Allergies No Known Allergies Allergy (Verified 05/26/24 11:28) Medication List - Last Reconciled 05/26/24 by Jomar Ramirez MD baclofen 5 mg PO BID 90 days [CPAP ] [Custom AFO for Left lower extremity s/p (I61.9) nontraumatic intracerebral hemorrhage As directed] hydrocolloid dressing Applied over the wound after cleansing change every 3-5 days and as needed labetalol 400 mg (2 x 200 mg) PO BID 30 days levetiracetam 500 mg PO BID 90 days omeprazole 20 mg PO DAILY sertraline 50 mg PO DAILY 90 days Tobacco use date assessed: 05/26/24 Dental Screening Dental Screen Date: 05/26/24 Did you have a dental visit in the last 12 months?: No Did you have a dental problem in the last 6 months where you did not have access to dental care?: No Was dental information given to patient?: Patient has dentist HPI PE - DO NOT MAKE PATIENT AWARE OF VITAL SIGNS HPI Details seizure 2020, 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 The patient has a significant medical history of essential hypertension, managed with Libidol, and seizure disorder, managed with Keppra. The patient experienced a cerebrovascular accident in October 2020, specifically affecting the right basal ganglia, resulting in left-sided hemiparesis. This has led to contracted left- sided hand and leg weakness. The patient has been under neurology care and was last seen in May 2023. There is an established history of recurrent major depressive disorder and generalized anxiety disorder, for which the patient is on sertraline. The patient has chronic kidney disease, initially diagnosed in 2020 with a creatinine level of 1.72 mg/dL. The patient also has a history of anemia and hypokalemia identified in previous blood tests in 2020. An echocardiogram performed in October 2020 revealed a hypokinetic apex. There were incidences of positive fentanyl tests and noted bladder calculus noted in 2020. The patient suspects visual issues, possibly a cataract or retinal detachment in one eye, but he has not followed up with an tile picker recently. There are no new diagnoses or surgical interventions since the previous evaluation. - Screening and discussion on the import ance of consistent hydration, particularly for renal protection. - Introduction and counseling on dietary improvements, emphasizing increased water and vegetable intake, reduction of high-risk dietary patterns. - Discussion on blood pressure managemen t, advising regular home monitoring due to a history of hypertension. - Colon cancer screening discussion, agr eed to utilize stool DNA testing ([facility]). - Encouraged further follow-up with an o phthalmologist for evaluation and potential correction of suspected cataract/detached retina. - Confirmed continuation and compliance with CPAP usage for obstructive sleep apnea. - Discussed options and benefits of vacc inations, specifically flu, shingles, pneumonia, and tetanus. - Exploration and encouragement of thera peutic counseling sessions for mental health maintenance. - No history of smoking or current alcoh ol consumption; previously consumed alcohol but has abstained for several years. - The patient utilizes a nicanor walker due to mobility issues stemming from past stroke. - Reports consuming approximately one to two 16-ounce bottles of water daily, which is insufficient for kidney health per guideline; advised to increase intake. - Describes a diet that includes occasio nal unhealthy options such as pizza, with limited intake of green leafy vegetables. - Neurological: Denies recent seizures; reports persistent left-sided weakness. - Ophthalmologic: Reports decreased visi on in the left eye, denies recent evaluations. - Gastrointestinal: Denies nausea, vomit ing, diarrhea, constipation, or blood in stools. - Respiratory: Denies shortness of breat h or cough. - Cardiovascular: Denies chest pain or p alpitations. - Genitourinary: Denies nocturia or urin ayush frequency issues; reports stable bladder function. - Psychological: Reports anxiety, engage d in therapy. - Labs (2020): Anemia with hemoglobin 11 .5 g/dL, Hematocrit 35.1%, Hypokalemia, Creatinine 1.72 mg/dL. - Imaging (2020): Echocardiogram showing hypokinetic apex. [facility] Medical History (Updated 05/26/24 @ 11:53 by Jomar Ramirez MD) Difficulty urinating Loss of appetite Hemorrhagic stroke Anxiety HTN (hypertension) Family History (Updated 05/30/23 @ 09:43 by Dipti Arnett [facility]) Mother Breast cancer Father Prostate cancer Skin cancer Social History Household Members: Spouse and Children Housing: House Do you presently have visiting nurse or other home services: Yes (physical therapy, nursing) Alcohol intake: never Patient Tobacco Use Status: Never used Tobacco Tobacco use type: Cigarette e-Cigarette/Vaping Use: Never Used Second Hand Smoke Exposure: No service: No Current occupational status: disabled Cognitive needs: No Hearing needs: No Vision needs: No Questionnaire PHQ-9 Over the last 2 weeks, how often have you been bothered by any of the following problems? 1. Little interest or pleasure in doing things: not at all 2. Feeling down, depressed, or hopeless: several days 3. Trouble falling or staying asleep, or sleeping too much: not at all 4. Feeling tired or having little energy: several days 5. Poor appetite or overeating: not at all 6. Feeling bad about yourself - or that you are a failure or have let yourself or your family down: not at all 7. Trouble concentrating on things, such as reading the newspaper or watching television: not at all 8. Moving or speaking so slowly that other people could have noticed. Or the opposite - being so fidgety or restless that you have been moving around a lot more than usual: not at all 9. Thoughts that you would be better off or of hurting yourself in some way: not at all Total score: 2 Depression Screening Interpretation: Positive Depression Screening Done: Yes 11062 - PHQ-9 Billing: Yes Source: Developed by Drs. Tushar Keenan, Mary Fountain, Romain Fry and colleagues, with an educational faustina from [employer]. Thrive Questionnaire Date Thrive assessed: 05/26/24 I am a: Patient What is your living situation today?: I have a steady place to live Within the past 12 months, did the food you bought not last and you didn't have the money to get more?: I choose not to answer this question Within the past 12 months, did you worry whether your food would run out before you got money to buy more?: I choose not to answer this question Do you have trouble paying for medicines?: No Do you have trouble getting transportation to medical appointments?: No Do you have trouble paying your heating and electricity bill?: No Do you have trouble taking care of your child, family member or friend?: No Do you have trouble with day-to-day activities such as bathing, preparing meals, shopping, managing finances, etc.?: Yes Are you currently unemployed and looking for a job?: Yes Are you interested in more education?: No Please select the resources that you would like help with: None Currently or been in a relationship where the following occur: No concerns reported THRIVE Score: 0 AUDIT C Alcohol Use Questionnaire (AUDIT-C) 1. How often do you have a drink containing alcohol?: Never Total Score: 0 PATRICK-7 AMB Questionnaire PATRICK-7 Date PATRICK - 7 assessed: 05/26/24 Feeling nervous, anxious, or on edge: 0 = Not at all Not being able to stop or control worryin = Not at all Worrying too much about different things: 0 = Not at all Trouble relaxin = Not at all Being so restless that it is hard to sit still: 0 = Not at all Becoming easily annoyed or irritable: 0 = Not at all Feeling afraid as if something awful might happen: 0 = Not at all Total PATRICK-7 score (0-4 normal; 5-9 mild; 10-14 moderate; 15-21 severe): 0 Source: Developed by Drs. Tushar Keenan, Mary Fountain, Romain Fry and colleagues, with an educational faustina from [employer]. Review of Systems Const Denies poor appetite and Denies weakness Eyes Denies no additional complaints ENT Reports Normal hearing present, Denies dizziness, Denies nasal congestion, Denies tinnitus and Denies sore throat Card Denies chest pain, Denies syncope, Denies rapid heart rate and Denies dyspnea Resp Denies cough and Denies dyspnea GI Denies change in stool character, Reports constipation, Denies diarrhea, Denies nausea and Denies vomiting Denies dysuria and Denies urinary frequency Neuro Reports Normal hearing present, Denies confusion, Denies dizziness, Denies syncope and Denies weakness Psych Denies confusion Physical exam (Primary Care) Vital Signs: Last Vital Signs Pulse 105 H 05/26/24 11:28 BP 162/92 H 05/26/24 11:28 Pulse Ox 98 05/26/24 11:28 Oxygen Delivery Method Room Air 05/26/24 11:28 BMI result Body Mass Index 29.9 Tobacco/Smoking Status: Tobacco use Status Tobacco use date assessed 05/26/24 05/26/24 11:36 Patient Tobacco Use Status Never used Tobacco 05/26/24 11:36 Tobacco use type Cigarette 05/26/24 11:36 e-Cigarette/Vaping Use Never Used 05/26/24 11:36 PHQ-9: PHQ-9 Score PHQ-9: Total score 2 05/26/24 11:36 Depression Screening Interpretation: Positive Thrive Assessment: Date of Thrive Assessment Date Thrive assessed 05/26/24 05/26/24 11:36 Currently or been in a relationship where the following occur: No concerns reported Const Other: Patient on wheelchair with left-sided weakness General: No confusion Orientation/consciousness: No confusion HENMT Other: Bilateral impacted cerumen Head: Yes normocephalic Ears: external ears normal Face and sinus: Yes normal facial exam Mouth: moist mucous membranes Throat: Yes tonsils normal Eyes Other: Left eye with pupils nonreactive and lens white Conjunctivae: conjunctivae normal Neck Neck: No lymphadenopathy Thyroid: Thyroid normal Chest Chest palpation & inspection: normal inspection of the chest Resp Effort & Inspection: normal respiratory effort and no audible wheezes Auscultation: clear to auscultation bilaterally, no crackles, no wheezes and lung sounds not diminished Cardio Rate: regular rate Rhythm: regular rhythm Peripheral pulses: radial pulses present and dorsalis pedis present GI Other: Declined rectal Palpation (GI): no masses Auscultation: normal bowel sounds and normoactive bowel sounds Rectal Exam - Male: Yes deferred Other: Declined exam Skin General skin exam: no rashes or lesions noted Rashes: no rashes Neuro Other: Left arm can not shrug, can not extend fingers can not close into a fist, left lower extremity can not move can I lift up but there is 1/5 muscle movements. General: No confusion Cranial nerves: Yes Normal hearing present Deep tendon reflexes (DTR's): Right brachioradialis reflex intensity grade: 2+ and Right patellar reflex intensity grade: 2+ Extrem Other: No edema bilateral feet with bilateral pulses felt pedal General: No edema Coding Level of Care Code Est Pt Prev Care 40-64y(06625) Diagnoses Annual physical exam Z00.00 Hemorrhagic stroke I61.9 Recurrent major depression F33.9 Hypertension I10 Seizure disorder G40.909 Chronic kidney disease, stage 3a N18.31 Generalized anxiety disorder F41.1 Obstructive sleep apnea G47.33 Colon cancer screening Z12.11 Additional Codes PHQ-9 - 37109 - PHQ-9 Billing: Yes ([id number]) Assessment & Plan Assessment & Plan (1) Annual physical exam: Code(s): Z00.00 - Encounter for general adult medical examination without abnormal findings Category: Medical Plan: Patient is advised to eat healthy, keep well hydrated, keep active and have adequate sleep. (2) Hemorrhagic stroke: Comment: Right basal ganglia October 2020 - L sided hemiparesis Dr. Gan Code(s): I61.9 - Nontraumatic intracerebral hemorrhage, unspecified Category: Medical Plan: Keep blood pressure under control keep cholesterol under control (3) Recurrent major depression: Comment: [facility] counselling Code(s): F33.9 - Major depressive disorder, recurrent, unspecified Category: Medical Plan: Continue with sertraline and advised counseling and therapy (4) Hypertension: Code(s): I10 - Essential (primary) hypertension Category: Medical Plan: Continue with blood pressure medication. Decrease salt intake and exercise on labetalol 400 mg twice a day advised to monitor at home (5) Seizure disorder: Comment: last seizure 2021 Code(s): G40.909 - Epilepsy, unspecified, not intractable, without status epilepticus Category: Medical Plan: Continue with Keppra 500 mg twice a day (6) Chronic kidney disease, stage 3a: Code(s): N18.31 - Chronic kidney disease, stage 3a Category: Medical Plan: Keep well hydrated advised to get blood work done (7) Generalized anxiety disorder: Comment: [facility] Counseling once a week Code(s): F41.1 - Generalized anxiety disorder Category: Medical Plan: Continue with counseling and therapy (8) Obstructive sleep apnea: Comment: 10/21/2020 Code(s): G47.33 - Obstructive sleep apnea (adult) (pediatric) Category: Medical Plan: Continue to use the CPAP more than 4 hours a night and benefits from this. (9) Colon cancer screening: Code(s): Z12.11 - Encounter for screening for malignant neoplasm of colon Category: Medical Plan - Continue Keppra for seizure disorder and monitor for potential dose modification over time. - Maintain current hypertension management with Libidol, encourage home blood pressure monitoring. - Advised continued use of sertraline for depression and anxiety, plan for therapy engagement. - Recommend dietary modifications to ensure adequate hydration and nutrition to support renal health. - Coordinate for stool DNA testing for colon cancer screening. - Encourage ophthalmology consultation to address suspected eye issues. - Review and update vaccination status as per current health guidelines. I discussed the current management and treatment interventions with the patient, particularly the importance of adhering to hypertension control and seizure disorder medication. We reviewed the potential benefits of increasing hydration and adherence to a balanced diet to manage chronic kidney disease risk. Our conversation included the significance of mental health management through therapy and medication. Furthermore, I emphasized the need for regular ophthalmologic evaluations to address potential cataract or retinal issues, which the patient indicated hesitance towards but agreed to plan a visit. We reviewed prevention options, including stool-based colon cancer testing and possible immunizations. The patient agreed to follow-up plans and participated actively in care discussions. - Continue taking all current medications including Libidol, Keppra, and sertraline as prescribed. - Engage in regular blood pressure monitoring at home. - Increase water intake to four 16-ounce bottles per day to support renal health. - Schedule an eye examination with an tile picker for evaluation of suspected cataract. - Adhere to mental health counseling and therapy sessions. - Follow through with stool DNA-based colon cancer screening. - Consider scheduling timely vaccinations, particularly flu and shingles vaccines. - Attend appropriate follow-ups and engage in telehealth consultations as needed. Orders: Referrals Cologuard Test Z12.11 - Encounter for screening for malignant neoplasm of colon, Z12.12 - Encounter for screening for malignant neoplasm of rectum Medications: Changed From sertraline 50 mg PO DAILY 90 days 90 tabs 0RF F33.9 - Major depressive disorder, recurrent, unspecified To sertraline 100 mg PO DAILY 90 days 90 tabs 0RF F33.9 - Major depressive disorder, recurrent, unspecified
== END 2024-05-26 12:09 | disposition home or self-care (01) ==
PROVIDERS: PCP Internal Medicine; Visit Provider Internal Medicine
DX: Z00.00 Encounter for general adult medical examination without abnormal findings (principal); I61.9 Nontraumatic intracerebral hemorrhage, unspecified; F33.9 Major depressive disorder, recurrent, unspecified; I10 Essential (primary) hypertension; G40.909 Epilepsy, unspecified, not intractable, without status epilepticus; N18.31 Chronic kidney disease, stage 3a; F41.1 Generalized anxiety disorder; G47.33 Obstructive sleep apnea (adult) (pediatric); Z12.11 Encounter for screening for malignant neoplasm of colon

== ENCOUNTER → 2024-05-26 11:24 | Outpatient (BNVA) | payer OTHER, SELFPAY | PROVIDERS: PCP Internal Medicine; Visit Provider Internal Medicine | DX: Z00.00 Encounter for general adult medical examination without abnormal findings (principal); I61.9 Nontraumatic intracerebral hemorrhage, unspecified; F33.9 Major depressive disorder, recurrent, unspecified; G40.909 Epilepsy, unspecified, not intractable, without status epilepticus; I12.9 Hypertensive chronic kidney disease with stage 1 through stage 4 chronic kidney disease, or unspecified chronic kidney disease; N18.31 Chronic kidney disease, stage 3a; F41.1 Generalized anxiety disorder; G47.33 Obstructive sleep apnea (adult) (pediatric); Z79.899 Other long term (current) drug therapy | CPT/HCPCS: 96127 ==

== ENCOUNTER 2025-01-07 07:10 | Outpatient (REF) | payer OTHER, SELFPAY ==
[2025-01-07 07:31] LABS: Appearance Urine Clear; Glucose Urine UA Negative (Negative); PH 5.5 (5.0-9.0); Specific Gravity - Urine >= 1.030 (1.005-1.025); UMIC TRIGGER UACC YES
== END 2025-01-07 07:11 | disposition home or self-care (01) ==
LOC: HO.LNP 07:10
PROVIDERS: Visit Provider Internal Medicine
DX: R30.0 Dysuria (principal)
CPT/HCPCS: 81001

== ENCOUNTER 2025-01-11 11:14 | Inpatient (IN) | payer OTHER, SELFPAY ==
[2025-01-11] VITALS (8 sets, daily range): BP systolic 163–191; BP diastolic 100–115; PULSE 76–94; RESP 14–20; TEMP 36.6–36.8; O2SAT 94–98; BMI 29.8; BMI 31.8
--- NOTE | ~2025-01-11 | FL_ITS ---
EXAMINATION: FL GUIDANCE ONLY HISTORY: cysto bilateral stent placements COMPARISON: Correlation is made with an unenhanced CT of the abdomen and pelvis dated 01/11/2025. TECHNIQUE: Fluoroscopy time: 32.3. Cumulative Dose: 9.81 mGy. Images: 7. FINDINGS: Images demonstrate placement of bilateral nephroureteral stents. FL/FL guidance in OR IMPRESSION: Fluoroscopy during procedure. Please see procedure report for additional information. Electronically signed by: Tushar Monroy MD 01/13/2025 07:05 AM EDT
--- NOTE | ~2025-01-11 | CT_ITS ---
CLINICAL HISTORY: rule out stone right side CT abdomen and pelvis without contrast Comparison: None available Findings: Mild right hydroureteronephrosis. There is 4 mm stone at the right ureterovesicular junction and 3 mm stone in the distal right ureter. Right nephrolithiasis is punctate. Moderate left hydroureteronephrosis. There is 7 mm stone in the proximal left ureter, a 3 mm stone in the distal left ureter and a 5 mm stone at the left ureterovesicular junction. Left nephrolithiasis measures 4 mm. No bladder stone. No consolidation at the lung bases. Trace right pleural fluid. Unremarkable gallbladder. Hepatic steatosis. The other solid organs are normal. Small hiatal hernia. No bowel wall thickening or dilation. A normal appendix is identified. There is liquid stool in the colon which may indicate diarrhea. No aneurysm. Mild calcified atherosclerotic disease. No lymphadenopathy. No ascites. No acute fracture. Impression: Mild right and moderate left hydroureteronephrosis with multiple ureteral stones, detailed above. This document has been electronically signed by: Melanie Cary MD on 01/11/2025 15:39:37
--- NOTE | 2025-01-11 11:23 | ED_ITS ---
HPI - General Adult General Chief complaint: Abdominal Pain Stated complaint: kidney stone Time Seen by Provider: 01/11/25 11:52 Source: patient and family Mode of arrival: wheelchair Limitations: no limitations History of Present Illness ED Provider: Antoinette De Anda PA-C HPI narrative: Patient seeks medical attention today for evaluation of right-sided back pain radiating to his abdomen. This started approximately yesterday and has not stopped. He is reporting history of kidney stones several in fact that have usually pass on their own and never required any surgical intervention this feels similar to him last 1 being big enough to bother him 5 years ago and a few past at least 5 months ago. 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 He is able to contribute to his history as much as his . He reports having really poorly controlled anxiety and hearing anything about his medical history causes his blood pressure to go up his kindly request that we try to keep things to a minimum to keep his blood pressure lower. It is normal at home. patient is without any fevers chills he is continually felt nauseous but denies feeling it right now he has not had any diarrhea and reports noticing some blood in his urine it does not hurt. He denies any falls or trauma. Related Data Home Medications ?Medication ?Instructions ?Recorded ?Confirmed CPAP 06/13/21 05/26/24 omeprazole 20 mg capsule,delayed 20 mg PO DAILY@0630 0 06/13/21 01/11/25 release Previous Rx's ?Medication ?Instructions ?Recorded hydrocolloid dressing 2 X 4 #20 ea 01/13/21 Custom AFO for Left lower #1 ea 07/20/21 extremity s/p (I61.9) nontraumatic intracerebral hemorrhage levetiracetam 500 mg tablet 500 mg PO BID 90 days #180 tabs 11/24/24 sertraline 100 mg tablet 100 mg PO DAILY 90 days #90 tabs 01/06/25 baclofen 5 mg tablet 5 mg PO BID 90 days #60 tabs 01/09/25 labetalol 200 mg tablet 400 mg (2 x 200 mg) PO BID 3 0 days 01/09/25 #360 tabs Allergies Allergy/AdvReac Type Severity Reaction Status Date / Time No Known Allergies Allergy Verified 01/11/25 11:19 Review of Systems 2 Review of Systems: Yes all other systems are reviewed and are negative PMFSH Past Medical History Source: old records reviewed, obtained from family and nursing notes reviewed Medical History (Updated 01/11/25 @ 17:53 by KACEY Martinez) Obstructive sleep apnea Seizure disorder Difficulty urinating Loss of appetite Hemorrhagic stroke Anxiety HTN (hypertension) Family History Family History (Updated 05/30/23 @ 09:43 by Dipti Arnett [facility]) Mother Breast cancer Father Prostate cancer Skin cancer Social History Social History Household Members: Spouse Housing: House Do you presently have visiting nurse or other home services: Yes (physical therapy, nursing) Alcohol intake: never Patient Tobacco Use Status: Never used Tobacco Tobacco use type: Cigarette e-Cigarette/Vaping Use: Never Used Second Hand Smoke Exposure: No service: No Current occupational status: disabled Cognitive needs: No Hearing needs: No Vision needs: No Physical Exam ED Exam Exam: General: Appears in mild pain but no distress, appears nourished body habitus is average, Left upper extremity is contracted in a fist like formation with slight flexion at the elbow, appears stated age. No septic or ill-appearing. Vitals reviewed normal, PMH/Social and Surgical hx reviewed including allergies and current medications. - reviewed for prior visits here and read as it pertains to similar CC. Head: Normocephalic, no obvious trauma or skin lesions noted. Eyes: EOMI ENMT: moist oral mucosa Neck: trachea midline no lymphadenopathy Cardiovascular: peripheral perfusion normal, Regular heart rate regular rate Respiratory: no respiratory distress lungs clear Abdomen: protuberant abdomen with right-sided CVA tenderness no bladder tenderness Extremities: warm and moving without difficulty unless otherwise detailed in physical exam above (LUE contracture) Psych: Cooperative, but highly anxious increases any time I mentioned anything about his past medical history or current state being abnormal Neuro: Alert and oriented. Vital Signs: Vital Signs - 24 hr 01/11/25 11:18 01/11/25 12:18 01/11/25 14:36 Temperature 98.0 F 98.0 F Pulse Rate 81 76 89 Respiratory Rate 18 18 18 Blood Pressure 191/109 H 166/100 H 163/106 H Pulse Oximetry 95 95 98 Oxygen Delivery Method Room Air Room Air Room Air 01/11/25 15:29 Temperature Pulse Rate 90 Respiratory Rate 20 Blood Pressure 180/107 H Pulse Oximetry 96 Oxygen Delivery Method Room Air BMI result Body Mass Index 29.8 Course Course Course Narrative: RME; 54 yold male with pmh of kidnye stones and stroke presents to the Right flank pain and nuasea. Patient states he feels like he is having another episode. Abdomen is benign and presently no CVA tenderness. labs ordered. Medications Administered Generic Name Dose Route Start Last Admin Trade Name Freq PRN Reason Stop Dose Admin Baclofen 5 mg 01/11/25 21:00 01/12/25 08:51 Baclofen 10 Mg Tablet PO 5 mg BID VICKIE Administration Lactated Ringer's 1,000 mls @ 125 mls/hr 01/11/25 17:30 01/12/25 09:37 Lr IVCONT 125 mls/hr .Q8H VICKIE Administration Labetalol HCl 400 mg 01/11/25 21:00 01/12/25 08:51 Labetalol Hcl 200 Mg Tablet PO 400 mg BID VICKIE Administration Protocol Levetiracetam 500 mg 01/11/25 21:00 01/12/25 08:51 Levetiracetam 500 Mg Tablet PO 500 mg BID VICKIE Administration Morphine Sulfate 2 mg 01/11/25 16:33 01/11/25 20:09 Morphine Sulfate 2 Mg/Ml Cartridge IVPUSH 2 mg TID PRN Administration severe pain Protocol Omeprazole 20 mg 01/12/25 06:30 01/12/25 06:03 Omeprazole 20 Mg Capsule.Dr PO 20 mg DAILY@0630 VICKIE Administration Sertraline HCl 100 mg 01/12/25 09:00 01/12/25 08:51 Sertraline Hcl 100 Mg Tablet PO 100 mg DAILY VICKIE Administration Sodium Chloride 3 ml 01/12/25 00:00 01/12/25 07:16 0.9 % Sodium Chloride Flush 3 Ml Syringe IVFLUSH Not Given QSHIFT VICKIE Tamsulosin HCl 0.4 mg 01/11/25 18:02 01/11/25 21:06 Tamsulosin Hcl 0.4 Mg Capsule PO 0.4 mg BEDTIME VICKIE Administration Discontinued Medications Generic Name Dose Route Start Last Admin Trade Name Freq PRN Reason Stop Dose Admin Ceftriaxone Sodium 1 gm 01/11/25 14:17 01/11/25 14:34 Ceftriaxone Sodium 1 Gm Vial IVPUSH 01/11/25 14:18 1 gm ONCE ONE Administration Diazepam 2.5 mg 01/11/25 16:33 01/11/25 16:54 Diazepam 10 Mg/2 Ml Cartridge IVPUSH 01/11/25 16:34 2.5 mg STAT STA Administration Sodium Chloride 1,000 mls @ 999 mls/hr 01/11/25 14:17 01/11/25 15:29 Ns IV 01/11/25 15:17 Infused .Q1H1M ONE Infusion Medical Decision Making Medical Decision Making [facility] Narrative: Patient presents to the emergency department today for evaluation of nausea vomiting right-sided flank pain past medical history significant for white coat syndrome , CKD stage 3, CAD, she did disorder, hemorrhagic stroke, MARIZA and hypertension. upon arrival to ED he is afebrile and well-appearing. He has contracture of his left upper extremity but otherwise no abdominal guarding abdomen is protuberant but nontender right-sided flank tenderness noted. BP 166/100. gives history but he also confirms. He is in a wheelchair at baseline. We will screen abdominal labs from the triage process and add on CT abdomen and pelvis with concern of potential kidney stone/pyelonephritis. given nontender abdomen less likely to be cholecystitis or pancreatitis. 1421: MAVERICK present, Patient's last available BUN and creatinine status to comparison 20 and 21 with a BUN of 15 and a creatinine of 1.72. Today his BUN is 30 and creatinine is 3.26 we will administer IV fluids. Urinalysis shows leukocytosis and nitrates we will give ceftriaxone he does not appear to be septic or toxic no leukocytosis. CT scan of the abdomen and pelvis pending for concern of right-sided kidney stone preliminary read I can notice 1 in his right kidney is soft but does not appear obstructive. mild hydronephrosis noted we will await for final read. Patient's pain is well-controlled. IV ceftriaxone ordered, given MAVERICK anticipate admission to medicine however we will await consult to Urology pending CT results 1621: CT demonstrates: Findings: Mild right hydroureteronephrosis. There is 4 mm stone at the right ureterovesicular junction and 3 mm stone in the distal right ureter. Right nephrolithiasis is punctate. Moderate left hydroureteronephrosis. There is 7 mm stone in the proximal left ureter, a 3 mm stone in the distal left ureter and a 5 mm stone at the left ureterovesicular junction. Left nephrolithiasis measures 4 mm. No bladder stone. Consult to urology placed, but plan to admit. patient is highly anxious with his blood pressure going up reported anxiety over hospital services and his diagnosis of a kidney stone that will likely require surgical intervention given its obstruction and hydronephrosis that is causing. We will give anxiolytic as well as p.r.n. pain medicine while awaiting consultation with hospitalist and urologist. 1705: Spoke to Dr. Ortez from urology. Patient to be kept NPO at midnight with urology consult in the morning with plan for potential OR tomorrow. Hospitalist accepted patient to medicine. Patient and spouse agreed with plan. Differential Diagnosis Differential Diagnoses: The differential diagnosis associated with the presentation includes kidney stone UTI hydronephrosis musculoskeletal strain Admission/Observation Consideration of admission/observation: Escalation of care including admission/observation considered Consult Healthcare Provider Management of the patient was discussed with: Hospitalist and Lead Atg Developer Lab Data MDM Lab Attestation statement: I reviewed the patient's lab results. 01/12/25 05:23 01/12/25 05:23 Labs: Lab Results 01/11/25 Range/Units 11:42 WBC 6.8 (4.8-10.8) X10*3/uL RBC 4.90 (4.60-5.80) X10*6/uL Hgb 14.0 D (14.0-18.0) g/dl Hct 39.5 L (42.0-52.0) % MCV 80.6 (80.0-98.0) fL MCH 28.6 (27.0-33.0) pg MCHC 35.4 (31.0-36.0) g/dl RDW 12.6 (11.0-16.0) % Plt Count 172 (160-400) X10*3/uL MPV 9.3 L (9.4-12.4) fL Immature Gran % (Auto) 0.4 (0.0-0.4) % Neut % (Auto) 90.4 H (45-73) % Lymph % (Auto) 4.1 L (20-40) % Wright % (Auto) 3.5 (2-11) % Eos % (Auto) 1.3 (0-4) % Baso % (Auto) 0.3 (0-2) % Lymph # (Auto) 0.3 L (1.2-4.9) X10*3/uL Wright # (Auto) 0.2 (0.1-1.2) X10*3/uL Eos # (Auto) 0.1 (0.0-0.4) X10*3/uL Baso # (Auto) 0.0 (0.0-0.2) X10*3/uL Abs Immat Gran (auto) 0.03 (0.00-0.03) X10*3/uL Absolute Neuts (auto) 6.1 (2.0-8.3) x10*3/uL Absolute Nucleated RBC 0.000 (0.0-0.012) X10*3/uL Nucleated RBC % (auto) 0.0 (0.0-0.2) /100WBC Smear Tech's Comments VERIFIED Sodium 137 (135-145) mmol/L Potassium 4.3 (3.3-5.1) mmol/L Chloride 108 (96-108) mmol/L Carbon Dioxide 18 L (22-29) mmol/L Anion Gap 15 (12-20) BUN 30 H (9-16) mg/dL Creatinine 3.26 H (0.5-1.4) mg/dL Estim Creat Clear Calc 29.8 Estimated GFR 20 Random Glucose 115 (60-115) mg/dL Calcium 9.3 D (8.4-10.2) mg/dL Total Bilirubin 0.7 (0.0-1.0) mg/dL AST 15 (5-37) U/L ALT 9 (0-40) U/L Alkaline Phosphatase 87 (39-117) U/L Total Protein 7.9 (6.5-8.0) g/dL Albumin 4.8 (3.5-5.0) g/dL Lipase 38 (8-78) U/L Urine Color RED Urine Appearance Turbid Urine pH 6.5 (5.0-9.0) Ur Specific [place] 1.020 (1.005-1.025) Urine Protein 300 (3+) H (Neg-Trace) mg/dL Urine Glucose (UA) See Note (Negative) mg/dL Urine Ketones See Note (Negative) mg/dL Urine Blood Large (3+) H (Negative) Urine Nitrite Positive H (Negative) Ur Leukocyte Esterase Small (1+) H (Negative) Urine RBC >20 H (0-2) /HPF Urine WBC 6-10 H (0-5) /HPF Ur Squamous Epith Cells 0-2 (0-2) /HPF Urine Bacteria 1+ (None Seen) Hyaline Casts 0-2 (0-2) /LPF Independent Interpretation I performed an independent interpretation of an: CT Scan Interpretation: stone in right kidney possible b/l lower UPJ stone, hydro right side Radiology Impression Discussion of test interpretation with radiology: I have reviewed the radiologist's reading. Radiologist Impression: Mild right hydroureteronephrosis. There is 4 mm stone at the right ureterovesicular junction and 3 mm stone in the distal right ureter. Right nephrolithiasis is punctate. Moderate left hydroureteronephrosis. There is 7 mm stone in the proximal left ureter, a 3 mm stone in the distal left ureter and a 5 mm stone at the left ureterovesicular junction. Left nephrolithiasis measures 4 mm. No bladder stone. Independent Historian Clinical information obtained from an independent historian. History obtained from or confirmed by: Spouse Chronic Conditions Patient?s care impacted by: Hypertension and Other (stroke, anxiety) Social Determinants Patient?s care significantly limited by Social Determinants of Health including: Other Social Determinant of Health Critical Care Time Critical Care Time Critical Care Time: Yes Total Critical Care Time: 40 Attestation: This patient required critical care. Due to the fact that the patient required a significant amount of one on one physician ? patient contact time, ordering and review of studies, arranging urgent treatment with development of a management plan, evaluation of patient's response to treatment with frequent reassessments, and discussions with other providers this patient required critical care time in excess of 30 minutes. Critical care time was indicated due to the inherent instability and/or potential for instability in this patient. The critical care time that is allocated to this patient is above and beyond any time spent on any other billable procedures performed on this patient. Discharge Plan Discharge Clinical Impression: Bilateral kidney stones, MAVERICK (acute kidney injury), Acute UTI Hypertension Qualifiers: Hypertension type: unspecified Qualified Code(s): I10 - Essential (primary) hypertension Patient Disposition: Admitted As Inpatient Interventions: Admission Worksheet (ED) Last Done: 01/11/25 21:20 Discharge Date/Time: 01/11/25 21:55
[2025-01-11 11:51] LABS: Hematocrit 39.5 % (42.0-52.0); Hemoglobin 14.0 g/dl (14.0-18.0); Imm Gran Abs Auto 0.03 X10*3/uL (0.00-0.03); Imm Gran Pct Auto 0.4 % (0.0-0.4); Lymphocytes Absolute Auto 0.3 X10*3/uL (1.2-4.9); MANUAL DIFF FLAG SCAN; Mean Corpuscular HGB Conc 35.4 g/dl (31.0-36.0); Mean Corpuscular Hemoglobin 28.6 pg (27.0-33.0); Mean Corpuscular Volume 80.6 fL (80.0-98.0); NRBC Abs Auto 0.000 X10*3/uL (0.0-0.012); NRBC Pct Auto 0.0 /100WBC (0.0-0.2); Platelet Count 172 X10*3/uL (160-400); Red Blood Count 4.90 X10*6/uL (4.60-5.80); SCAN SMEAR FLAG 1; White Blood Count 6.8 X10*3/uL (4.8-10.8)
--- OUTSIDE RECORDS SUMMARY | 2025-01-11 11:53 | XMS_ITS | Clinical Summary ---
Author Organization [facility] Facility Address [address] [address] Care Team Providers Care Trucksmith Name Role Phone Alphonso Marcum MD Primary Care Provider [phone] Allergies No known active allergies Medications Baclofen [...] (one) time each day Active nystatin (MYCOSTATIN) 879767 UNIT/ML suspension Take 500,000 Units by mouth [...] (1 of 3 - 19+ 3-dose series) 02/13 Colorectal Cancer Screening: Annual FOBT 2019 Colorectal Cancer Screening: Colonoscopy 2019 Colorectal Cancer Screening: Sigmoidoscopy 2019 Pneumococcal Vaccine: 50+ Years (1 of 1 - PCV) 020 Influenza Vaccine (#1) 2024 Insurance [employer] [facility] Medicaid Care Teams Trucksmith Relationship Specialty Start Date End Date Alphonso Marcum MD [address] [address] PCP - General Family Medicine 06/21/21
[2025-01-11 11:59] LABS: Appearance Urine Turbid; PH 6.5 (5.0-9.0); Specific Gravity - Urine 1.020 (1.005-1.025); UMIC TRIGGER UACC YES
[2025-01-11 12:09] LABS: Alanine Aminotransferase 9 U/L (0-40); Albumin Level 4.8 g/dL (3.5-5.0); Alkaline Phosphatase 87 U/L (39-117); Anion Gap 15 (12-20); Aspartate Amino Transferase 15 U/L (5-37); Blood Urea Nitrogen 30 mg/dL (9-16); Calcium 9.3 mg/dL (8.4-10.2); Carbon Dioxide 18 mmol/L (22-29); Chloride 108 mmol/L (96-108); Creatinine Clr Calc Pharmacy 29.8; Estimated Glomerular Filt Rate 20; Lipase 38 U/L (8-78); Potassium 4.3 mmol/L (3.3-5.1); Sodium 137 mmol/L (135-145); Total Protein 7.9 g/dL (6.5-8.0); UACC Culture Trigger YES
[2025-01-11] MEDS: diazePAM 10 MG/2 ML CARTRIDGE 2.5 MG IVPUSH (16:54)
--- NOTE | 2025-01-11 17:32 | P.HPHOSP_ITS ---
History of Present Illness Date of Service: 01/11/25 Attending physician on admission: Lanie Galvez Chief Complaint: flank pain This is a 54-year-old male with a history of stroke with residual left hemiparesis, hypertension, seizure disorder who presents to the emergency department with right flank pain. Patient states his pain began shortly after waking up this morning. He reports associated nausea but no vomiting. The pain is primarily in his right side radiating around to his back. He reports decreased p.o. intake and decreased urine output. In the emergency department patient had CT scan of the abdomen which showed multiple bilateral stones largest being a 7 mm stone in the proximal left ureter. Also showing mild right and moderate left hydroureteronephrosis. Urinalysis consistent with UTI. Patient was afebrile, lab work with no leukocytosis. He was started on IV ceftriaxone. Lab work also consistent with acute kidney injury with a serum creatinine of 3.26. The case was discussed with the on-call urologist who recommended admitting the patient for hydration, oral Flomax and possible stent placement Review of Systems 2 Review of Systems: Yes all other systems are reviewed and are negative Constitutional: Constitutional: Denies chills and Denies fever(s) Cardiovascular: Cardiovascular: Denies chest pain and Denies dyspnea Respiratory: Respiratory: Denies cough and Denies dyspnea Gastrointestinal: Gastrointestinal: Reports abdominal pain, Reports nausea and Denies vomiting [facility] Medical History (Updated 01/11/25 @ 17:53 by KACEY Martinez) Obstructive sleep apnea Seizure disorder Difficulty urinating Loss of appetite Hemorrhagic stroke Anxiety HTN (hypertension) Family History (Updated 05/30/23 @ 09:43 by Dipti Arnett CMA) Mother Breast cancer Father Prostate cancer Skin cancer Social History (Reviewed 05/24/22 @ 12:23 by Susan Smith [facility]) Household Members: Spouse and Children Housing: House Do you presently have visiting nurse or other home services: Yes (physical therapy, nursing) Alcohol intake: never Patient Tobacco Use Status: Never used Tobacco Tobacco use type: Cigarette Smoked in Last 30 Days: No e-Cigarette/Vaping Use: Never Used Second Hand Smoke Exposure: No Use of substances other than those prescribed or required for medical reasons: No Advance Directives: No Advance Directives Information Provided: Yes Do you have a plan to hurt others: No Plan service: No Current occupational status: disabled Cognitive needs: No Hearing needs: No Vision needs: No Meds Allergies Allergy/AdvReac Type Severity Reaction Status Date / Time No Known Allergies Allergy Verified 01/11/25 11:19 Active Medications: Current Medications Morphine Sulfate (Morphine Sulfate 2 Mg/Ml Cartridge) 2 mg IVPUSH TID PRN; Protocol PRN Reason: severe pain Home Medications ?Medication ?Instructions ?Recorded ?Confirmed ?Last Taken ?Type CPAP 06/13/21 05/26/24 Unknown H istory omeprazole 20 mg capsule,delayed 20 mg PO DAILY@0630 0 06/13/21 01/11/25 01/11/25 History release Physical Exam 2 Vital Signs and Narrative: Vital Signs: Last Vital Signs Temp 98.0 F 01/11/25 14:36 Pulse 94 01/11/25 16:56 Resp 20 01/11/25 16:56 BP 184/115 H 01/11/25 16:56 Pulse Ox 97 01/11/25 16:56 O2 Del Method Room Air 01/11/25 16:56 BMI result Body Mass Index 29.8 Const: Other: anxious appearing General: alert and awake Nutritional Appearance: overweight O rientation/consciousness: patient oriented x3 Resp: Effort & Inspection: normal respiratory effort, able to speak in complete sentences, no respiratory distress and no use of accessory muscles A uscultation: clear to auscultation bilaterally Cardio: Rate: regular rate GI: Inspection: No distended Palpation (GI): Soft to palpation Neuro: Other: chronic left hemiparesis General: patient oriented x3 Extrem: General: No pedal edema Results Labs 01/11/25 11:42 01/11/25 11:42 Labs: Laboratory Results - last 24 hr 01/11/25 11:42 MCV 80.6 MCH 28.6 MCHC 35.4 RDW 12.6 Plt Count 172 MPV 9.3 L Immature Gran % (Auto) 0.4 Neut % (Auto) 90.4 H Lymph % (Auto) 4.1 L Merrick % (Auto) 3.5 Eos % (Auto) 1.3 Baso % (Auto) 0.3 Lymph # (Auto) 0.3 L Merrick # (Auto) 0.2 Eos # (Auto) 0.1 Baso # (Auto) 0.0 Abs Immat Gran (auto) 0.03 Absolute Neuts (auto) 6.1 Absolute Nucleated RBC 0.000 Nucleated RBC % (auto) 0.0 Smear Tech's Comments VERIFIED Anion Gap 15 Estim Creat Clear Calc 29.8 Estimated GFR 20 Random Glucose 115 Calcium 9.3 D Total Bilirubin 0.7 AST 15 ALT 9 Alkaline Phosphatase 87 Total Protein 7.9 Albumin 4.8 Lipase 38 Urine Color RED Urine Appearance Turbid Urine pH 6.5 Ur Specific [place] 1.020 Urine Protein 300 (3+) H Urine Glucose (UA) See Note Urine Ketones See Note Urine Blood Large (3+) H Urine Nitrite Positive H Ur Leukocyte Esterase Small (1+) H Urine RBC >20 H Urine WBC 6-10 H Ur Squamous Epith Cells 0-2 Urine Bacteria 1+ Hyaline Casts 0-2 Assessment and Plan (1) MAVERICK (acute kidney injury): Status: Acute (2) Bilateral kidney stones: Status: Acute (3) Acute UTI: Status: Acute Plan This is a 54-year-old male with a history of stroke with resulting left hemiparesis and seizure disorder, hypertension, severe anxiety, CKD who presents to the emergency department with abdominal pain/flank pain found to have multiple bilateral kidney stones with obstructive uropathy and MAVERICK UTI due to multiple b/l kidney stones with obstructive uropathy resulting in MAVERICK imaging with mild right and moderate left hydroureteronephrosis continue IV ceftriaxone follow urine cultures IVF po flomax npo at midnight for possible stent placement in am urology consultation trend renal function MAVERICK on CKD, unclear stage of CKD unclear baseline renal function as pt has not had labs drawn since 2020 likely maverick given above but may also have some progression of renal dz may need nephrology eval depending on trend of renal function mood continue sertraline has severe anxiety - prn IV valium HTN uncontrolled per family pt has severe white coat HTN and anxiety pain likely also contributing continue labetolol prn hydralazine h/o stroke w/ left hemiparesis does not seem to be on asa or statin continue baclofen seizure disorder continue keppra dvt ppx - mechanical devices Patient will likely require 2 midnight stay in the hospital for management of urinary tract infection caused by multiple bilateral associated obstructive uropathy, hydronephrosis, MAVERICK requiring specialist evaluation, IV antibiotics, close monitoring unlikely procedure Quality Stroke Does the patient have a stroke diagnosis?: No VTE Prior VTE?: No VTE Risk Level:: Medical - moderate - high VTE Device Contraindication: N/A - Device Ordered VTE Drug Contraindication: Treatment Not Indicated
--- NOTE | 2025-01-11 17:45 | PHA.MEDREC ---
Pharmacy Consult ? Medication Reconciliation Pharmacy has completed the medication reconciliation. SPOKE TO PT AND SPOUSE AT BEDSIDE. SPOUSE WAS ABLE TO CONFIRM MEDICATION NAMES AND TIMING OF DOSES. LAST DOSE OF ALL MEDICATIONS TAKEN THIS MORNING AROUND 0900.
[2025-01-11] MEDS: Lactated Ringers 1,000 ML 125 ML IVCONT (18:31)
--- NOTE | 2025-01-11 19:15 | HO.NURTONUR ---
54 y.o M alert oriented x4, able to make needs known, wheelchair bound able to transfer w/ assist of 1, utilizes urinal with assistance cooperative with care PMHx: with residual left hemiparesis, left hand dominant prior to CVA,HTN, seizure d/o, MDD,and anxety. Pt has his who is his primary caregiver at bedside. Pt presented to emergency department w/R flank pain. Pt states his pain began shortly after waking up this morning. Pt reports associated nausea but no vomiting. pt rates pain 4/10 on right side radiating around to his back. Pt endorsed poor p.o. intake and decreased urine output. Pt had CT scan of the abdomen which showed multiple bilateral stones largest being a 7 mm stone in the proximal left ureter. Also showing mild right and moderate left hydroureteronephrosis. Urinalysis consistent with UTI. Patient was afebrile, however hypertensive. Labs obtained in addition to lactic and cultures. 22g IV access obtained in R-hand. Pt rec IV ceftriaxone- NS fluid bolus, and valium IV for acute anxiety attack. Labs consistent with MAVERICK cr: 3.26. Urology was consulted and recommended admitting pt for IV hydration, IV abx, oral Flomax and possible stent placement.
[2025-01-12] VITALS (12 sets, daily range): BP systolic 156–188; BP diastolic 65–102; PULSE 78–88; RESP 16–19; TEMP 36.5–37.1; O2SAT 95–97
[2025-01-12] MEDS: Lactated Ringers 1,000 ML 125 ML IVCONT ×2 (02:30→09:37)
[2025-01-12 05:47] LABS: MANUAL DIFF FLAG NO
[2025-01-12 05:55] LABS: Hematocrit 37.8 % (42.0-52.0); Hemoglobin 12.9 g/dl (14.0-18.0); Imm Gran Abs Auto 0.02 X10*3/uL (0.00-0.03); Imm Gran Pct Auto 0.4 % (0.0-0.4); Lymphocytes Absolute Auto 0.3 X10*3/uL (1.2-4.9); Mean Corpuscular HGB Conc 34.1 g/dl (31.0-36.0); Mean Corpuscular Hemoglobin 28.4 pg (27.0-33.0); Mean Corpuscular Volume 83.1 fL (80.0-98.0); NRBC Abs Auto 0.000 X10*3/uL (0.0-0.012); NRBC Pct Auto 0.0 /100WBC (0.0-0.2); Platelet Count 162 X10*3/uL (160-400); Red Blood Count 4.55 X10*6/uL (4.60-5.80); White Blood Count 5.3 X10*3/uL (4.8-10.8)
[2025-01-12 06:22] LABS: Anion Gap 13 (12-20); Blood Urea Nitrogen 35 mg/dL (9-16); Calcium 8.5 mg/dL (8.4-10.2); Carbon Dioxide 17 mmol/L (22-29); Chloride 112 mmol/L (96-108); Creatinine Clr Calc Pharmacy 18.5; Estimated Glomerular Filt Rate 11; Potassium 4.2 mmol/L (3.3-5.1); Sodium 138 mmol/L (135-145)
--- NOTE | 2025-01-12 07:12 | HO.PM.IMPN ---
Subjective Subjective Date of Service: 01/12/25 Interval History: Patient is to get bilateral ureteral stents today Review of Systems Review of Systems: Yes all other systems are reviewed and are negative Physical Exam Exam: Exam: General: AOx3,b/l hand tremors noted Resp: CTA bilaterally CVS: S1, S2, RRR GI: +BS, NT, no distention Skin: Warm, dry Neuro: Cranial nerves II-XII grossly intact bilaterally. Motor grossly intact bilaterally Extremities: No edema Psych: Appropriate affect Vital Signs: Vital Signs: Last Vital Signs Temp 98.4 F 01/12/25 02:50 Pulse 78 01/12/25 02:50 Resp 18 01/11/25 22:11 BP 162/65 H 01/12/25 02:50 Pulse Ox 96 01/12/25 02:50 O2 Del Method Room Air 01/12/25 02:50 BMI result Body Mass Index 31.8 Objective Data Active Medications Acetaminophen (Acetaminophen 325 Mg Tablet) 650 mg PO Q6H PRN PRN Reason: Pain, Mild 1-3,fever,headache Baclofen (Baclofen 10 Mg Tablet) 5 mg PO BID [facility] Last Admin: 01/11/25 20:51 Dose: 5 mg Documented By: MARCEL Calcium Carbonate (Calcium Carbonate 750 Mg Tab.Chew) 750 mg PO Q4H PRN PRN Reason: Heartburn Ceftriaxone Sodium (Ceftriaxone Sodium 1 Gm Vial) 1 gm IVPUSH Q24H [facility] Diazepam (Diazepam 10 Mg/2 Ml Cartridge) 2.5 mg IVPUSH Q6H PRN PRN Reason: Anxiety Hydralazine HCl (Hydralazine Hcl 20 Mg/Ml Vial) 5 mg IVPUSH Q8H PRN; Protocol PRN Reason: sbp >180 Lactated Ringer's (Lr) 1,000 mls @ 125 mls/hr IVCONT .Q8H [facility] Last Admin: 01/12/25 02:30 Dose: 125 mls/hr Documented By: ANN-MARIE Labetalol HCl (Labetalol Hcl 200 Mg Tablet) 400 mg PO BID [facility]; Protocol Last Admin: 01/11/25 20:50 Dose: 400 mg Documented By: MARCEL Levetiracetam (Levetiracetam 500 Mg Tablet) 500 mg PO BID [facility] Last Admin: 01/11/25 20:51 Dose: 500 mg Documented By: MARCEL Magnesium Hydroxide (Milk Of Magnesia 30 Ml Oral.Susp) 30 ml PO DAILY PRN PRN Reason: Constipation Melatonin (Melatonin 3 Mg Tablet) 6 mg PO BEDTIME PRN PRN Reason: Insomnia Morphine Sulfate (Morphine Sulfate 2 Mg/Ml Cartridge) 2 mg IVPUSH TID PRN; Protocol PRN Reason: severe pain Last Admin: 01/11/25 20:09 Dose: 2 mg Documented By: KALA Omeprazole (Omeprazole 20 Mg Capsule.Dr) 20 mg PO DAILY@0630 [facility] Last Admin: 01/12/25 06:03 Dose: 20 mg Documented By: ANN-MARIE Ondansetron HCl (Ondansetron Hcl 4 Mg/2 Ml Vial) 4 mg IVPUSH Q8H PRN PRN Reason: Nausea and Vomiting Sertraline HCl (Sertraline Hcl 100 Mg Tablet) 100 mg PO DAILY [facility] Sodium Chloride (0.9 % Sodium Chloride Flush 3 Ml Syringe) 3 ml IVFLUSH QSHIFT [facility] Last Admin: 01/11/25 23:40 Dose: Not Given Documented By: ANN-MARIE Non-Admin Reason: IV Running Tamsulosin HCl (Tamsulosin Hcl 0.4 Mg Capsule) 0.4 mg PO BEDTIME [facility] Last Admin: 01/11/25 21:06 Dose: 0.4 mg Documented By: MARCEL Labs 01/12/25 05:23 01/12/25 05:23 Labs: Laboratory Results - last 24 hr 01/11/25 01/12/25 11:42 05:23 MCV 80.6 83.1 MCH 28.6 28.4 MCHC 35.4 34.1 RDW 12.6 12.5 Plt Count 172 162 MPV 9.3 L 10.1 Immature Gran % (Auto) 0.4 0.4 Neut % (Auto) 90.4 H 83.2 H Lymph % (Auto) 4.1 L 6.2 L [place] % (Auto) 3.5 8.1 Eos % (Auto) 1.3 1.7 Baso % (Auto) 0.3 0.4 Lymph # (Auto) 0.3 L 0.3 L [place] # (Auto) 0.2 0.4 Eos # (Auto) 0.1 0.1 Baso # (Auto) 0.0 0.0 Abs Immat Gran (auto) 0.03 0.02 Absolute Neuts (auto) 6.1 4.4 Absolute Nucleated RBC 0.000 0.000 Nucleated RBC % (auto) 0.0 0.0 Smear Tech's Comments VERIFIED Anion Gap 15 13 Estim Creat Clear Calc 29.8 18.5 Estimated GFR 20 11 Random Glucose 115 87 Calcium 9.3 D 8.5 D Total Bilirubin 0.7 AST 15 ALT 9 Alkaline Phosphatase 87 Total Protein 7.9 Albumin 4.8 Lipase 38 Urine Color RED Urine Appearance Turbid Urine pH 6.5 Ur Specific [place] 1.020 Urine Protein 300 (3+) H Urine Glucose (UA) See Note Urine Ketones See Note Urine Blood Large (3+) H Urine Nitrite Positive H Ur Leukocyte Esterase Small (1+) H Urine RBC >20 H Urine WBC 6-10 H Ur Squamous Epith Cells 0-2 Urine Bacteria 1+ Hyaline Casts 0-2 Assessment and Plan (1) Hypotonic neurogenic bladder: Status: Resolved (2) New onset seizure: Status: Resolved (3) MAVERICK (acute kidney injury): Status: Resolved Plan 54-year-old male with a hypertension, history of hemorrhagic CVA, obstructive sleep apnea, anxiety, depression, MARIZA, history of pressure ulcers, insomnia, chronic Mitchell, recent history of UTI presents to the emergency department with right flank pain was noted to have mild right and moderate left hydroureteronephrosis. Urology was consulted, we will undergo bilateral stent placement on 01/12/2025. sepsis secondary to recurrent UTI, nephropathy secondary to bilateral hydro ureteronephrosis Patient to undergo bilateral stent placement by Dr. Gaspar urology on 01/12/2025 Continue ceftriaxone Follow sepsis workup MAVERICK on unclear CKD - prerenal, renal, postrenal patient was noted to have a creatinine of 3.26 on admission, we do not have a baseline, as the patient reports anxiety to getting workup Mitchell placement to address postrenal obstruction, draining clear yellow urine continue Flomax MAVERICK on CKD, unclear stage of CKD unclear baseline renal function as pt has not had labs drawn since 2020 likely maverick given above but may also have some progression of renal dz we will need Nephrology follow-up outpatient if not responding to current management mood continue sertraline has severe anxiety - prn IV valium HTN uncontrolled per family pt has severe white coat HTN and anxiety pain likely also contributing continue labetolol prn hydralazine h/o stroke w/ left hemiparesis does not seem to be on asa or statin - we will defer to outpatient management continue baclofen seizure disorder continue keppra patient is at high-risk of decubitus ulcer given mostly bed-bound status wound care dvt ppx - mechanical devices given procedure Patient will likely require 2 midnight stay in the hospital for management of urinary tract infection caused by multiple bilateral associated obstructive uropathy, hydronephrosis, MAVERICK requiring specialist evaluation, IV antibiotics, close monitoring unlikely procedure This note is constructed using voice recognition software. While every effort has been made to ensure accuracy, inventory control manager errors may have been included. Quality Stroke Does the patient have a stroke diagnosis?: No VTE Prior VTE?: No VTE Risk Level:: Medical - moderate - high VTE Device Contraindication: N/A - Device Ordered VTE Drug Contraindication: Treatment Not Indicated
--- NOTE | 2025-01-12 08:56 | HO.ANESPROP2 ---
Documented by User: Shayna Murillo NP 01/12/25 08:58 HPI - Anesthesia Eval Consult details Narrative: 54 yr old male for bilateral Cystoscopy,Retrograde with Bilateral Stent Placement H/O Hemorrhagic stroke in 2020: right hemispheric intracerebral hemorrhage causing left hemiparesis MARIZA: using CPAP H/O seizures: managed with Keppra PMFSH Active Problems Active Problems: All Active Problems Acute UTI (Acute) MAVERICK (acute kidney injury) (Acute) Bilateral kidney stones (Acute) Proteinuria (Acute) Colon cancer screening (Acute) Annual physical exam (Acute) Dysuria (Acute) Chronic kidney disease, stage 3a (Acute) Generalized anxiety disorder (Acute) Renal insufficiency (Acute) Recurrent major depression (Acute) Hemorrhagic stroke (Acute) MAVERICK (acute kidney injury) (Acute) Insomnia (Acute) Hypertension (Acute) Past Medical History Medical History (Updated 01/11/25 @ 17:53 by KACEY Martinez) Obstructive sleep apnea Seizure disorder Difficulty urinating Loss of appetite Hemorrhagic stroke Anxiety HTN (hypertension) Family History Family History (Updated 05/30/23 @ 09:43 by Dipti Arnett CMA) Mother Breast cancer Father Prostate cancer Skin cancer Social History Social History Household Members: Spouse Housing: House Are you a primary career development facilitator to a significant other at home: No Do you presently have visiting nurse or other home services: No Alcohol intake: never Patient Tobacco Use Status: Never used Tobacco Tobacco use type: Cigarette e-Cigarette/Vaping Use: Never Used Second Hand Smoke Exposure: No service: No Current occupational status: disabled Cognitive needs: No Hearing needs: No Vision needs: No Meds Allergies Allergy/AdvReac Type Severity Reaction Status Date / Time No Known Allergies Allergy Verified 01/12/25 14:10 Active Medications: Current Medications Acetaminophen (Acetaminophen 325 Mg Tablet) 650 mg PO Q6H PRN PRN Reason: Pain, Mild 1-3,fever,headache Baclofen (Baclofen 10 Mg Tablet) 5 mg PO BID [facility] Last Admin: 01/12/25 08:51 Dose: 5 mg Calcium Carbonate (Calcium Carbonate 750 Mg Tab.Chew) 750 mg PO Q4H PRN PRN Reason: Heartburn Ceftriaxone Sodium (Ceftriaxone Sodium 1 Gm Vial) 1 gm IVPUSH Q24H [facility] Diazepam (Diazepam 10 Mg/2 Ml Cartridge) 2.5 mg IVPUSH Q6H PRN PRN Reason: Anxiety Hydralazine HCl (Hydralazine Hcl 20 Mg/Ml Vial) 5 mg IVPUSH Q8H PRN; Protocol PRN Reason: sbp >180 Lactated Ringer's (Lr) 1,000 mls @ 125 mls/hr IVCONT .Q8H [facility] Last Admin: 01/12/25 02:30 Dose: 125 mls/hr Labetalol HCl (Labetalol Hcl 200 Mg Tablet) 400 mg PO BID [facility]; Protocol Last Admin: 01/12/25 08:51 Dose: 400 mg Levetiracetam (Levetiracetam 500 Mg Tablet) 500 mg PO BID [facility] Last Admin: 01/12/25 08:51 Dose: 500 mg Magnesium Hydroxide (Milk Of Magnesia 30 Ml Oral.Susp) 30 ml PO DAILY PRN PRN Reason: Constipation Melatonin (Melatonin 3 Mg Tablet) 6 mg PO BEDTIME PRN PRN Reason: Insomnia Morphine Sulfate (Morphine Sulfate 2 Mg/Ml Cartridge) 2 mg IVPUSH TID PRN; Protocol PRN Reason: severe pain Last Admin: 01/11/25 20:09 Dose: 2 mg Omeprazole (Omeprazole 20 Mg Capsule.) 20 mg PO DAILY@629 [facility] Last Admin: 01/12/25 06:03 Dose: 20 mg Ondansetron HCl (Ondansetron Hcl 4 Mg/2 Ml Vial) 4 mg IVPUSH Q8H PRN PRN Reason: Nausea and Vomiting Sertraline HCl (Sertraline Hcl 100 Mg Tablet) 100 mg PO DAILY [facility] Last Admin: 01/12/25 08:51 Dose: 100 mg Sodium Chloride (0.9 % Sodium Chloride Flush 3 Ml Syringe) [facility] Last Admin: 01/12/25 07:16 Dose: Not Given Tamsulosin HCl (Tamsulosin Hcl 0.4 Mg Capsule) 0.4 mg PO BEDTIME [facility] Last Admin: 01/11/25 21:06 Dose: 0.4 mg Home Medications ?Medication ?Instructions ?Recorded ?Confirmed ?Last Taken ?Type CPAP 06/13/21 05/26/24 Unknown History omeprazole 20 mg capsule,delayed 20 mg PO DAILY@0630 06/13/21 01/11/25 01/11/25 History release Exam Height,Weight and Vital Signs: Height 5 ft 10 in Weight 100.4 kg Last Vital Signs Temp 98.7 F 01/12/25 08:00 Pulse 84 01/12/25 08:51 Resp 18 01/12/25 08:00 BP 178/78 H 01/12/25 08:51 Pulse Ox 97 01/12/25 08:00 O2 Del Method Room Air 01/12/25 08:00 Pertinent Lab Results Pertinent Lab Results: Laboratory Tests 01/11/25 01/12/25 11:42 05:23 WBC 6.8 5.3 RBC 4.90 4.55 L Hgb 14.0 D 12.9 L Hct 39.5 L 37.8 L MCV 80.6 83.1 MCH 28.6 28.4 MCHC 35.4 34.1 RDW 12.6 12.5 Plt Count 172 162 MPV 9.3 L 10.1 Immature Gran % (Auto) 0.4 0.4 Neut % (Auto) 90.4 H 83.2 H Lymph % (Auto) 4.1 L 6.2 L [place] % (Auto) 3.5 8.1 Eos % (Auto) 1.3 1.7 Baso % (Auto) 0.3 0.4 Lymph # (Auto) 0.3 L 0.3 L [place] # (Auto) 0.2 0.4 Eos # (Auto) 0.1 0.1 Baso # (Auto) 0.0 0.0 Abs Immat Gran (auto) 0.03 0.02 Absolute Neuts (auto) 6.1 4.4 Absolute Nucleated RBC 0.000 0.000 Nucleated RBC % (auto) 0.0 0.0 Smear Tech's Comments VERIFIED Sodium 137 138 Potassium 4.3 4.2 Chloride 108 112 H Carbon Dioxide 18 L 17 L Anion Gap 15 13 BUN 30 H 35 H Creatinine 3.26 H 5.42 H* Estim Creat Clear Calc 29.8 18.5 Estimated GFR 20 11 Random Glucose 115 87 Calcium 9.3 D 8.5 D Total Bilirubin 0.7 AST 15 ALT 9 Alkaline Phosphatase 87 Total Protein 7.9 Albumin 4.8 Lipase 38 Urine Color RED Urine Appearance Turbid Urine pH 6.5 Ur Specific [place] 1.020 Urine Protein 300 (3+) H Urine Glucose (UA) See Note Urine Ketones See Note Urine Blood Large (3+) H Urine Nitrite Positive H Ur Leukocyte Esterase Small (1+) H Urine RBC >20 H Urine WBC 6-10 H Ur Squamous Epith Cells 0-2 Urine Bacteria 1+ Hyaline Casts 0-2 Documented by User: Mariam Larsen MD 01/12/25 14:28 [facility] Past Medical History Medical History (Updated 01/11/25 @ 17:53 by KACEY Martinez) Obstructive sleep apnea Seizure disorder Difficulty urinating Loss of appetite Hemorrhagic stroke Anxiety HTN (hypertension) Family History Family History (Updated 05/30/23 @ 09:43 by Dipti Arnett CMA) Mother Breast cancer Father Prostate cancer Skin cancer Family history of problems with anesthesia: No Surgical History History of Problems with Anesthesia: No Social History Social History Household Members: Spouse Housing: House Are you a primary career development facilitator to a significant other at home: No Do you presently have visiting nurse or other home services: No Alcohol intake: never Patient Tobacco Use Status: Never used Tobacco Tobacco use type: Cigarette e-Cigarette/Vaping Use: Never Used Second Hand Smoke Exposure: No service: No Current occupational status: disabled Cognitive needs: No Hearing needs: No Vision needs: No Meds Allergies Allergy/AdvReac Type Severity Reaction Status Date / Time No Known Allergies Allergy Verified 01/12/25 14:10 Home Medications ?Medication ?Instructions ?Recorded ?Confirmed ?Last Taken ?Type CPAP 06/13/21 05/26/24 Unknown History omeprazole 20 mg capsule,delayed 20 mg PO DAILY@0630 06/13/21 01/11/25 01/11/25 History release Exam Airway Mallampati Class: II TM Dist: >3cm Neck ROM: Full Heart: rrr Lungs: cta Assessment and Plan Assessment Anesthesia Assessment: Anesthesia Plan Discussed and Chart Reviewed Final Anesthetic Review Family History of Problems with Anesthesia: No History of Problems with Anesthesia: No NPO: Yes ASA Class: III Final Preanesthetic Review: No Changes in Pt Med Stat, Meds/Allgs Chart Reviewed and Consent Obtained/Reviewed Patient Risk: Intermediate Procedure Risk: Low Anesthetic Plan Anesthetic Plan: GA Disposition: Standard PACU
--- NOTE | 2025-01-12 08:59 | P.CNUR_ITS ---
History of Present Illness Consult details Consult date: 01/12/25 Narrative: CC: MAVERICK in setting of bilateral upper tract obstruction 54-year-old male Past history of stroke with residual left hemiparesis and hypotension with a seizure disorder Presents through emergency room with short onset right side radiating pain. Decreased p.o. intake. Associated nausea but no vomiting. No reported hematuria. Initial urinalysis showed positive nitrites consistent with UTI. Creatinine 3.26 rising to 5.[address] scan - Mild right hydroureteronephrosis. There is 4 mm stone at the right ureterovesicular junction and 3 mm stone in the distal right ureter. Right nephrolithiasis is punctate. Moderate left hydroureteronephrosis. There is 7 mm stone in the proximal left ureter, a 3 mm stone in the distal left ureter and a 5 mm stone at the left ureterovesicular junction Initial plan for IV antibiotics, cystoscopy with bilateral retrograde and bilateral stent placement Review of Systems 2 Constitutional: Constitutional: Reports as per HPI and Reports no additional constitutional complaints Cardiovascular: Cardiovascular: Reports as per HPI and Reports no additional cardiovascular complaints Respiratory: Respiratory: Reports as per HPI and Reports no additional respiratory complaints Gastrointestinal: Gastrointestinal: Reports as per HPI and Reports no additional gastrointestinal complaints Genitourinary: Genitourinary: Reports as per HPI Musculoskeletal: Musculoskeletal: Reports no additional musculoskeletal complaints and Reports as per HPI Neurologic: Reports system reviewed and no additional complaints, except as documented and Reports as per HPI [facility] Past Medical History Medical History (Updated 01/11/25 @ 17:53 by KACEY Martinez) Obstructive sleep apnea Seizure disorder Difficulty urinating Loss of appetite Hemorrhagic stroke Anxiety HTN (hypertension) Family History Family History (Updated 05/30/23 @ 09:43 by Dipti Arnett CMA) Mother Breast cancer Father Prostate cancer Skin cancer Social History Social History Household Members: Spouse Housing: House Do you presently have visiting nurse or other home services: Yes (physical therapy, nursing) Alcohol intake: never Patient Tobacco Use Status: Never used Tobacco Tobacco use type: Cigarette e-Cigarette/Vaping Use: Never Used Second Hand Smoke Exposure: No service: No Current occupational status: disabled Cognitive needs: No Hearing needs: No Vision needs: No Meds Allergies Allergy/AdvReac Type Severity Reaction Status Date / Time No Known Allergies Allergy Verified 01/11/25 11:19 Active Medications: Current Medications Acetaminophen (Acetaminophen 325 Mg Tablet) 650 mg PO Q6H PRN PRN Reason: Pain, Mild 1-3,fever,headache Baclofen (Baclofen 10 Mg Tablet) 5 mg PO BID [facility] Last Admin: 01/12/25 08:51 Dose: 5 mg Calcium Carbonate (Calcium Carbonate 750 Mg Tab.Chew) 750 mg PO Q4H PRN PRN Reason: Heartburn Ceftriaxone Sodium (Ceftriaxone Sodium 1 Gm Vial) 1 gm IVPUSH Q24H [facility] Diazepam (Diazepam 10 Mg/2 Ml Cartridge) 2.5 mg IVPUSH Q6H PRN PRN Reason: Anxiety Hydralazine HCl (Hydralazine Hcl 20 Mg/Ml Vial) 5 mg IVPUSH Q8H PRN; Protocol PRN Reason: sbp >180 Lactated Ringer's (Lr) 1,000 mls @ 125 mls/hr IVCONT .Q8H [facility] Last Admin: 01/12/25 02:30 Dose: 125 mls/hr Labetalol HCl (Labetalol Hcl 200 Mg Tablet) 400 mg PO BID [facility]; Protocol Last Admin: 01/12/25 08:51 Dose: 400 mg Levetiracetam (Levetiracetam 500 Mg Tablet) 500 mg PO BID [facility] Last Admin: 01/12/25 08:51 Dose: 500 mg Magnesium Hydroxide (Milk Of Magnesia 30 Ml Oral.Susp) 30 ml PO DAILY PRN PRN Reason: Constipation Melatonin (Melatonin 3 Mg Tablet) 6 mg PO BEDTIME PRN PRN Reason: Insomnia Morphine Sulfate (Morphine Sulfate 2 Mg/Ml Cartridge) 2 mg IVPUSH TID PRN; Protocol PRN Reason: severe pain Last Admin: 01/11/25 20:09 Dose: 2 mg Omeprazole (Omeprazole 20 Mg Capsule.Dr) 20 mg PO DAILY@0630 [facility] Last Admin: 01/12/25 06:03 Dose: 20 mg Ondansetron HCl (Ondansetron Hcl 4 Mg/2 Ml Vial) 4 mg IVPUSH Q8H PRN PRN Reason: Nausea and Vomiting Sertraline HCl (Sertraline Hcl 100 Mg Tablet) 100 mg PO DAILY [facility] Last Admin: 01/12/25 08:51 Dose: 100 mg Sodium Chloride (0.9 % Sodium Chloride Flush 3 Ml Syringe) 3 ml IVFLUSH QSHIFT [facility] Last Admin: 01/12/25 07:16 Dose: Not Given Tamsulosin HCl (Tamsulosin Hcl 0.4 Mg Capsule) 0.4 mg PO BEDTIME [facility] Last Admin: 01/11/25 21:06 Dose: 0.4 mg Home Medications ?Medication ?Instructions ?Recorded ?Confirmed ?Last Taken ?Type CPAP 06/13/21 05/26/24 Unknown H istory omeprazole 20 mg capsule,delayed 20 mg PO DAILY@0630 0 06/13/21 01/11/25 01/11/25 History release Physical Exam 2 Vital Signs: Vital Signs: Last Vital Signs Temp 98.7 F 01/12/25 08:00 Pulse 84 01/12/25 08:51 Resp 18 01/12/25 08:00 BP 178/78 H 01/12/25 08:51 Pulse Ox 97 01/12/25 08:00 O2 Del Method Room Air 01/12/25 08:00 BMI result Body Mass Index 31.8 Const: General: cooperative, healthy appearing, comfortable and no acute distress Orientation/consciousness: patient oriented x3 HEENT: Face and sinus: Yes normal facial exam Mouth: moist mucous membranes Neck: Neck: Yes normal visual inspection, Yes full ROM and Yes trachea midline Chest: Chest palpation & inspection: normal inspection of the chest Resp: Effort & Inspection: normal respiratory effort, able to speak in complete sentences and no respiratory distress GI: Inspection: Yes normal to inspection Back/Spine/Pelvis: Cervical Spine: normal cervical lordosis Thoracic/Lumbar Spine: thoracic and lumbar spine normal to inspection Skin: General skin exam: no rashes or lesions noted Neuro: General: patient oriented x3, tone normal and moves all extremities Extrem: General: Yes normal to inspection and Yes capillary refill normal Results Labs 01/12/25 05:23 01/12/25 05:23 Labs: Abnormal lab results 01/11/25 01/12/25 Range/Units 11:42 05:23 RBC 4.55 L (4.60-5.80) X10*6/uL Hgb 12.9 L (14.0-18.0) g/dl Hct 39.5 L 37.8 L (42.0-52.0) % MPV 9.3 L (9.4-12.4) fL Neut % (Auto) 90.4 H 83.2 H (45-73) % Lymph % (Auto) 4.1 L 6.2 L (20-40) % Lymph # (Auto) 0.3 L 0.3 L (1.2-4.9) X10*3/uL Chloride 112 H (96-108) mmol/L Carbon Dioxide 18 L 17 L (22-29) mmol/L BUN 30 H 35 H (9-16) mg/dL Creatinine 3.26 H 5.42 H* (0.5-1.4) mg/dL Urine Protein 300 (3+) H (Neg-Trace) mg/dL Urine Blood Large (3+) H (Negative) Urine Nitrite Positive H (Negative) Ur Leukocyte Esterase Small (1+) H (Negative) Urine RBC >20 H (0-2) /HPF Urine WBC 6-10 H (0-5) /HPF Short CBC 01/11/25 01/12/25 Range/Units 11:42 05:23 WBC 6.8 5.3 (4.8-10.8) X10*3/uL Hgb 14.0 D 12.9 L (14.0-18.0) g/dl Hct 39.5 L 37.8 L (42.0-52.0) % Plt Count 172 162 (160-400) X10*3/uL BMP 01/11/25 01/12/25 11:42 05:23 Sodium 137 138 Potassium 4.3 4.2 Chloride 108 112 H Carbon Dioxide 18 L 17 L BUN 30 H 35 H Creatinine 3.26 H 5.42 H* Calcium 9.3 D 8.5 D Liver Function 01/11/25 Range/Units 11:42 Total Bilirubin 0.7 (0.0-1.0) mg/dL AST 15 (5-37) U/L ALT 9 (0-40) U/L Alkaline Phosphatase 87 (39-117) U/L Albumin 4.8 (3.5-5.0) g/dL Urine 01/11/25 Range/Units 11:42 Urine Color RED Urine Appearance Turbid Urine pH 6.5 (5.0-9.0) Ur Specific [place] 1.020 (1.005-1.025) Urine Protein 300 (3+) H (Neg-Trace) mg/dL Urine Glucose (UA) See Note (Negative) mg/dL All other labs normal. Assessment and Plan (1) MAVERICK (acute kidney injury): Status: Acute (2) Acute UTI: Status: Acute (3) Bilateral kidney stones: Status: Acute Plan Risks, benefits and alternatives to therapy were discussed. These include but are not limited to infection, bleeding, damage to local organs and tissues, need for further interventions. Anesthetic risks regarding cardiac arrhythmia, blood clots, and potential mortality were discussed. The patient understands the typical recovery time and the outpatient nature of the procedure. After consideration of these risks the patient gives full informed consent and they wish to move ahead with the procedure. - cystoscopy bilateral retrograde bilateral stent placed Procedures Date of Service Date of Service: 01/12/25
--- NOTE | 2025-01-12 09:53 | MHC.CM.PN ---
PT LIVES WITH HE HAD NO SERVICES PT HAS TRANSPORT HOME WHEN DCD
[2025-01-12] MEDS: Lactated Ringers 1,000 ML 80 ML IVCONT ×2 (14:17→22:01)
--- NOTE | 2025-01-12 17:05 | MHC.SHP ---
Pre-Procedural Eval Section A - 24 Hr Update-Section A only Date of Service: 01/12/25 The patient is an INPATIENT: Yes Changes since office visit: No Cold of Flu in the past 2 weeks, No New Medical Problems, No Changes in Medication and No Patient answered all questions The patient has been examined within 24 hours of the surgical procedure. The History & Physical has been completed within 30 days and I have reviewed it.: Yes Section B - Complete if H&P > 30 days Chief Complaint: Acute kidney injury Details of Present Illness: Cystoscopy, bilateral retrograde, bilateral stent placement Allergies: Allergies Allergy/AdvReac Type Severity Reaction Status Date / Time No Known Allergies Allergy Verified 01/12/25 14:10 Plan I have reviewed the history and physical and performed a pertinent physical examination on my patient. No changes have occurred unless specified. Time Spent With Patient Time: Total time managing care of this patient today ____ minutes.
--- NOTE | 2025-01-12 18:16 | W.PM.OPN ---
Operative Note Operative Note Date of Service: 01/12/25 Narrative: PreOperative Diagnosis: Bilateral obstructing ureteric stones Post Operative Diagnosis: Bilateral obstructing ureteric stones with acute kidney injury Procedure: - right retrograde and right stent placement - left retrograde - left ureteroscopy diagnostic - left stent placement Surgeon: Dr Justo Gaspar Anesthesia: Sedation Indications for procedure: Creatinine 5.4, imaging bilateral ureteric stones Procedure: After informed consent was verified the patient was brought to the operating room and placed in a supine position. Anesthesia was administered per protocol. The patient was placed in modified dorsal lithotomy position and prepped and draped in a sterile fashion. A safety pause time-out was performed. Laterality of procedure and antibiotics were confirmed, appropriate imaging was available A 22 [place] cystoscope was introduced per urethra. No abnormality was noted of urethra or bladder. Both ureteric orifices were seen in a normal position. He has a very high riding bladder neck. The right ureter was cannulated with an open ended catheter and a retrograde examination was performed. J hooking prominent with proximal obstructing stone. . A Sensor guidewire was placed under fluoroscopy and a good coil was seen within the renal pelvis. A 6 [place] by 28 cm double J stent was advanced over the wire and up to the level of the renal pelvis under fluoroscopic and direct visualization. The stent was seen with appropriate coil within the renal pelvis and in the bladder after deployment. The left ureter was cannulated with an open ended catheter and a retrograde examination was performed. J hooking prominent with distal obstructing stone. Attempt was made to place a sensor guidewire. It was not able to navigate the significant J hook. Attempt was made using the angled Glidewire. It too was not able to navigate the J-hook. The deflector bridge was used. We were unable to introduce the sensor guidewire. The cystoscope was switched for rigid ureteral scope. The ureteral scope was introduced into the ureteric orifice. There was submucosal tunneling from the prior attempt at wire placement. We were able to get into the rosebud ureter at the 6 o'clock position. We navigated past the lifted and mucosal flap and was able to introduce a sensor guidewire. Both obstructing stones were seen. The rigid ureteral scope was removed. The cystoscope was backloaded over the wire. A 6 [place] by 28 cm double-J stent was placed up the renal pelvis with good coil seen within the bladder and the renal pelvis. The bladder was emptied. The patient tolerated the procedure well and was transferred in a stable condition to the recovery area. Pathology: Drains: Stents as above
[2025-01-13] VITALS (8 sets, daily range): BP systolic 137–182; BP diastolic 73–98; PULSE 73–89; RESP 12–18; TEMP 36.2–36.5; O2SAT 92–98
--- NOTE | 2025-01-13 08:29 | HO.PM.IMPN ---
Subjective Subjective Date of Service: 01/13/25 Interval History: Underwent bilateral ureter stenting yesterday without complications No acute events overnight Pt reports feels well without abdominal or back pain No nausea, vomiting, or abdominal pain Has been tolerating diet Review of Systems Review of Systems: Yes all other systems are reviewed and are negative Physical Exam Exam: Exam: General: AOx3, no acute distress Resp: CTA bilaterally CVS: S1, S2, RRR GI: +BS, NT, no distention Skin: Warm, dry : Mitchell in place draining dark-yellow urine Neuro: Chronic left hemiparesis Extremities: No edema Psych: Appropriate affect Vital Signs: Vital Signs: Last Vital Signs Temp 97.5 F 01/13/25 03:03 Pulse 80 01/13/25 03:03 Resp 16 01/13/25 03:03 BP 144/73 H 01/13/25 03:03 Pulse Ox 92 01/13/25 03:03 O2 Del Method Room Air 01/13/25 03:03 BMI result Body Mass Index 31.8 Objective Data Active Medications Acetaminophen (Acetaminophen 325 Mg Tablet) 650 mg PO Q6H PRN PRN Reason: Pain, Mild 1-3,fever,headache Calcium Carbonate (Calcium Carbonate 750 Mg Tab.Chew) 750 mg PO Q4H PRN PRN Reason: Heartburn Ceftriaxone Sodium (Ceftriaxone Sodium 1 Gm Vial) 1 gm IVPUSH Q24H [facility] Last Admin: 01/12/25 13:21 Dose: 1 gm Documented By: VI Diazepam (Diazepam 10 Mg/2 Ml Cartridge) 2.5 mg IVPUSH Q6H PRN PRN Reason: Anxiety Hydralazine HCl (Hydralazine Hcl 20 Mg/Ml Vial) 5 mg IVPUSH Q8H PRN; Protocol PRN Reason: sbp >180 Lactated Ringer's (Lr) 1,000 mls @ 125 mls/hr IVCONT .Q8H [facility] Last Admin: 01/13/25 02:13 Dose: Not Given Documented By: ANN-MARIE Non-Admin Reason: IV Running Lactated Ringer's (Lr) 1,000 mls @ 80 mls/hr IVCONT .[id number] [facility] Last Admin: 01/12/25 22:01 Dose: 80 mls/hr Documented By: ANN-MARIE Labetalol HCl (Labetalol Hcl 200 Mg Tablet) 400 mg PO BID [facility]; Protocol Last Admin: 01/12/25 21:52 Dose: 400 mg Documented By: ANN-MARIE Levetiracetam (Levetiracetam 500 Mg Tablet) 500 mg PO BID [facility] Last Admin: 01/12/25 21:52 Dose: 500 mg Documented By: ANN-MARIE Magnesium Hydroxide (Milk Of Magnesia 30 Ml Oral.Susp) 30 ml PO DAILY PRN PRN Reason: Constipation Melatonin (Melatonin 3 Mg Tablet) 6 mg PO BEDTIME PRN PRN Reason: Insomnia Morphine Sulfate (Morphine Sulfate 2 Mg/Ml Cartridge) 2 mg IVPUSH TID PRN; Protocol PRN Reason: severe pain Last Admin: 01/12/25 19:57 Dose: 2 mg Documented By: ANN-MARIE Naloxone HCl (Naloxone Hcl 0.4 Mg/Ml Vial) 0.04 mg IVPUSH Q5M PRN PRN Reason: Excessive sedation or RR < 8 Omeprazole (Omeprazole 20 Mg Capsule.) 20 mg PO DAILY@0630 [facility] Last Admin: 01/13/25 06:04 Dose: 20 mg Documented By: ANN-MARIE Ondansetron HCl (Ondansetron Hcl 4 Mg/2 Ml Vial) 4 mg IVPUSH Q8H PRN PRN Reason: Nausea and Vomiting Sertraline HCl (Sertraline Hcl 100 Mg Tablet) 100 mg PO DAILY [facility] Last Admin: 01/12/25 08:51 Dose: 100 mg Documented By: VI Sodium Chloride (0.9 % Sodium Chloride Flush 3 Ml Syringe) 3 ml IVFLUSH QSHIFT [facility] Last Admin: 01/13/25 07:00 Dose: Not Given Documented By: VI Non-Admin Reason: IV Running Tamsulosin HCl (Tamsulosin Hcl 0.4 Mg Capsule) 0.4 mg PO BEDTIME [facility] Last Admin: 01/12/25 21:52 Dose: 0.4 mg Documented By: ANN-MARIE Labs 01/12/25 05:23 01/13/25 08:57 Microbiology Microbiology Results: Microbiology 01/11/25 Unknown Urine Culture - Final Urine clean catch - Clean Catch Midstream Assessment and Plan (1) MAVERICK (acute kidney injury): Status: Acute (2) Acute bilateral obstructive uropathy: Status: Acute Plan 54-year-old male with a hypertension, history of hemorrhagic CVA, obstructive sleep apnea, anxiety, depression, MARIZA, history of pressure ulcers, insomnia, chronic Mitchell, recent history of UTI presents to the emergency department with right flank pain was noted to have mild right and moderate left hydroureteronephrosis. Urology was consulted, we will undergo bilateral stent placement on 01/12/2025. MAVERICK on unclear CKD in the setting of bilateral obstructive uropathy Creatinine 3.26 at time of presentation, increased to 5.42 prior to stenting Underwent bilateral stenting by Dr. Gaspar in urology on 01/12/2025 UA appears grossly positive, urine culture negative; will continue empiric ceftriaxone, day 3 No sepsis Mitchell in place, continue Continue Flomax Consider nephrology consult if creatinine still elevated tomorrow Follow creatinine HTN uncontrolled per family pt has severe white coat HTN and anxiety pain likely also contributing continue labetolol prn hydralazine h/o stroke w/ left hemiparesis does not seem to be on asa or statin - we will defer to outpatient management continue baclofen PT consult as pt does not have home services and will be hospitalized for multiple days seizure disorder continue keppra patient is at high-risk of decubitus ulcer given mostly bed-bound status wound care mood continue sertraline has severe anxiety - prn IV valium dvt ppx - mechanical devices given procedure Patient will likely require 2 midnight stay in the hospital for management of urinary tract infection caused by multiple bilateral associated obstructive uropathy, hydronephrosis, MAVERICK requiring specialist evaluation, IV antibiotics, close monitoring unlikely procedure Quality Stroke Does the patient have a stroke diagnosis?: No VTE Prior VTE?: No VTE Risk Level:: Medical - moderate - high VTE Device Contraindication: N/A - Device Ordered VTE Drug Contraindication: Treatment Not Indicated
[2025-01-13] MEDS: Lactated Ringers 1,000 ML 80 ML IVCONT ×2 (08:45→21:05)
--- NOTE | 2025-01-13 09:19 | HO.POSTANES ---
Post Anesthesia Evaluation Post Anesthesia Evaluation Date of Service: 01/13/25 Vital Signs: Vital Signs Temp Pulse Resp BP Pulse Ox O2 Del Method 01/13/25 08:48 78 168/98 H 01/13/25 08:38 97.2 F 78 12 168/98 H 94 Room Air 01/13/25 03:03 97.5 F 80 16 144/73 H 92 Room Air Anesthesia: Monitored Mental Status: Awake Pain Control: Satisfactory Nausea/Vomiting: None Hydration: Adequate Anesthesia-Related Issues: No Anes. Related Issues
[2025-01-13 10:29] LABS: Anion Gap 17 (12-20); Blood Urea Nitrogen 42 mg/dL (9-16); Calcium 8.9 mg/dL (8.4-10.2); Carbon Dioxide 20 mmol/L (22-29); Chloride 110 mmol/L (96-108); Creatinine Clr Calc Pharmacy 21.4; Estimated Glomerular Filt Rate 13; Potassium 3.9 mmol/L (3.3-5.1); Sodium 143 mmol/L (135-145)
--- NOTE | 2025-01-13 12:01 | HO.WOUND ---
Wound Consult: Initial 54yr old?male admitted to [facility] on 01/11/25 - See progress notes and H&P for detailed history.? Wound consult placed for unclear reasons decubitus Ulcer listed on consult. Direct care team unaware of skin concerns.? Patient agreeable to assessment and photo documentation.? Patient and his report he has had pressure injuries to the buttock saral area in the past but currently healed agreeable to assessment. They shared concerns for his left heel. The patient reports he has no feeling and is unable to move his left leg. The left heel was assessed for intact blanchable redness, there is however a well defined area of blanchable redness. Educated the patient and his family how to properly off load pressure with pillows and float his heels. Skin prep applied - recommend foam dressing to heel to be applied for prevention - direct care team aware. Sacrum Etiology: ?Intact pink red tissue noted to gluteal fold - WNL - intact and blanchable. Wound Bed: no open tissue noted - some hyperpigmentation noted at theright central area his reports this was prior pressure injury that has since healed. The left sacrum / buttock area is noted for linear scar tissue with redness remains blanchable at this time - loose epidermal tissue but healed. His reported this is prior pressure injury and healed this way. Foam dressing applied to protect from friction and aid in pressure redistribution. Drainage / Odor: None Zena wound: ?intact - No Induration, Fluctuance or Warmth noted Pain: denies Goals of Treatment: ? Off load pressure and foam for protection and prevention Recommendations: 1. Turn and Reposition every 2 hours and as needed for patient comfort.? Use pillows or wedges to support off loading positions. 2. Off Load all bony prominences with use of pillows and heel boots if needed.? Apply Preventative foams where needed. ? 3. Monitor for incontinence and moisture control, use barrier creams when needed for prevention and treatment. 4. Provide adequate and supplemental nutrition.? 5. Order low air loss mattress. 6. When applicable maintain blood glucose levels per Providers order. Sacrum - Off Load Pressure with Q2 hr turns and use of pillows - Routine cleansing.? Apply skin prep allow to dry.? Cover with foam dressing to aid in off loading and protection from friction. Change every 3 days and PRN. Bilateral Heels - Elevate heels off of bed surface with pillows.? Float heels off of pillows.? Apply skin prep allow to dry.? Apply heel foam dressings, peel back and assess Q shift and change every 5-7 days and PRN. Re-consult wound care Nurse for wound deterioration or wound changes.
--- NOTE | 2025-01-13 13:05 | P.CONNP_ITS ---
History of Present Illness Reason for Consult Consult date: 01/13/25 Chief Complaint Chief complaint: Acute kidney injury History of Present Illness Narrative: 54-year-old male with Past history of stroke with residual left hemiparesis and hypotension with a seizure disorder Presented through emergency room with right side radiating pain. Decreased p.o. intake. Associated nausea but no vomiting. No reported hematuria. Initial urinalysis showed positive nitrites consistent with UTI. Creatinine 3.26 rising to 5.[address] scan - Mild right hydroureteronephrosis. There is 4 mm stone at the right ureterovesicular junction and 3 mm stone in the distal right ureter. Right nephrolithiasis is punctate. Moderate left hydroureteronephrosis. There is 7 mm stone in the proximal left ureter, a 3 mm stone in the distal left ureter and a 5 mm stone at the left ureterovesicular junction Underwent bilateral ureter stenting yesterday without complications [facility] Past Medical History Medical History (Updated 01/13/25 @ 12:50 by KACEY nAg) Obstructive sleep apnea Seizure disorder Difficulty urinating Loss of appetite Hemorrhagic stroke Anxiety HTN (hypertension) Family History Family History (Updated 05/30/23 @ 09:43 by Dipti Arnett [facility]) Mother Breast cancer Father Prostate cancer Skin cancer Social History Social History Household Members: Spouse Housing: House Are you a primary home child care provider to a significant other at home: No Do you presently have visiting nurse or other home services: No Alcohol intake: never Patient Tobacco Use Status: Never used Tobacco Tobacco use type: Cigarette e-Cigarette/Vaping Use: Never Used Second Hand Smoke Exposure: No service: No Current occupational status: disabled Cognitive needs: No Hearing needs: No Vision needs: No Meds Allergies Allergy/AdvReac Type Severity Reaction Status Date / Time No Known Allergies Allergy Verified 01/12/25 14:10 Active Medications: Current Medications Acetaminophen (Acetaminophen 325 Mg Tablet) 650 mg PO Q6H PRN PRN Reason: Pain, Mild 1-3,fever,headache Calcium Carbonate (Calcium Carbonate 750 Mg Tab.Chew) 750 mg PO Q4H PRN PRN Reason: Heartburn Ceftriaxone Sodium (Ceftriaxone Sodium 1 Gm Vial) 1 gm IVPUSH Q24H [facility] Last Admin: 01/12/25 13:21 Dose: 1 gm Diazepam (Diazepam 10 Mg/2 Ml Cartridge) 2.5 mg IVPUSH Q6H PRN PRN Reason: Anxiety Hydralazine HCl (Hydralazine Hcl 20 Mg/Ml Vial) 5 mg IVPUSH Q8H PRN; Protocol PRN Reason: sbp >180 Lactated Ringer's (Lr) 1,000 mls @ 80 mls/hr IVCONT .[id number] [facility] Last Admin: 01/13/25 08:45 Dose: 80 mls/hr Labetalol HCl (Labetalol Hcl 200 Mg Tablet) 400 mg PO BID [facility]; Protocol Last Admin: 01/13/25 08:48 Dose: 400 mg Levetiracetam (Levetiracetam 500 Mg Tablet) 500 mg PO BID [facility] Last Admin: 01/13/25 08:48 Dose: 500 mg Magnesium Hydroxide (Milk Of Magnesia 30 Ml Oral.Susp) 30 ml PO DAILY PRN PRN Reason: Constipation Melatonin (Melatonin 3 Mg Tablet) 6 mg PO BEDTIME PRN PRN Reason: Insomnia Morphine Sulfate (Morphine Sulfate 2 Mg/Ml Cartridge) 2 mg IVPUSH TID PRN; Protocol PRN Reason: severe pain Last Admin: 01/12/25 19:57 Dose: 2 mg Naloxone HCl (Naloxone Hcl 0.4 Mg/Ml Vial) 0.04 mg IVPUSH Q5M PRN PRN Reason: Excessive sedation or RR < 8 Omeprazole (Omeprazole 20 Mg Capsule.Dr) 20 mg PO DAILY@0630 [facility] Last Admin: 01/13/25 06:04 Dose: 20 mg Ondansetron HCl (Ondansetron Hcl 4 Mg/2 Ml Vial) 4 mg IVPUSH Q8H PRN PRN Reason: Nausea and Vomiting Sertraline HCl (Sertraline Hcl 100 Mg Tablet) 100 mg PO DAILY [facility] Last Admin: 01/13/25 08:48 Dose: 100 mg Sodium Chloride (0.9 % Sodium Chloride Flush 3 Ml Syringe) [facility] Last Admin: 01/13/25 07:00 Dose: Not Given Tamsulosin HCl (Tamsulosin Hcl 0.4 Mg Capsule) 0.4 mg PO BEDTIME [facility] Last Admin: 01/12/25 21:52 Dose: 0.4 mg Home Medications ?Medication ?Instructions ?Recorded ?Confirmed ?Last Taken ?Type CPAP 06/13/21 05/26/24 Unknown H istory omeprazole 20 mg capsule,delayed 20 mg PO DAILY@0630 0 06/13/21 01/11/25 01/11/25 History release Physical Exam Vital Signs: Last Vital Signs Temp 97.2 F 01/13/25 08:38 Pulse 78 01/13/25 08:48 Resp 12 01/13/25 08:38 BP 168/98 H 01/13/25 08:48 Pulse Ox 94 01/13/25 08:38 O2 Del Method Room Air 01/13/25 08:38 BMI result Body Mass Index 31.8 Results Lab Results 01/12/25 05:23 01/13/25 08:57 Lab results: Chemistry 01/11/25 01/12/25 01/13/25 11:42 05:23 08:57 Sodium 137 138 143 Potassium 4.3 4.2 3.9 Carbon Dioxide 18 L 17 L 20 L BUN 30 H 35 H 42 H Creatinine 3.26 H 5.42 H* 4.67 H* Calcium 9.3 D 8.5 D 8.9 Hematology 01/11/25 01/12/25 11:42 05:23 WBC 6.8 5.3 Hgb 14.0 D 12.9 L Plt Count 172 162 Urinalysis 01/11/25 11:42 Urine Color RED Urine Appearance Turbid Urine pH 6.5 Ur Specific [place] 1.020 Urine Protein 300 (3+) H Urine Glucose (UA) See Note Urine Ketones See Note Urine Blood Large (3+) H Urine Nitrite Positive H Ur Leukocyte Esterase Small (1+) H Urine RBC >20 H Urine WBC 6-10 H Ur Squamous Epith Cells 0-2 Hyaline Casts 0-2 Procedures Date of Service Date of Service: 01/13/25
--- NOTE | 2025-01-13 21:43 | PM.CNNEP ---
History of Present Illness Reason for Consult Consult date: 01/13/25 Chief Complaint Chief complaint: Acute kidney injury History of Present Illness Narrative: 54/m with Past history of stroke with residual left hemiparesis and hypotension with a seizure disorder, Presents through emergency room with short onset right side radiating pain- Creatinine 3.26 --> 5.4, with CT scan with b/l ureteral stones and hydro - now on IV antibiotics, s/p cystoscopy with bilateral retrograde and bilateral stent placement now cr decreasing to 4.67 pod 1 h/o decraseed po intake no h/o fever bp not well controlled, apparently pt has anxiety and white coat htn. on home medication labetalol 400mg po bid. bp rangng 160- 180 in hospital [facility] Past Medical History Medical History Obstructive sleep apnea Seizure disorder Difficulty urinating Loss of appetite Hemorrhagic stroke Anxiety HTN (hypertension) Family History Family History (Updated 05/30/23 @ 09:43 by Dipti Arnett [facility]) Mother Breast cancer Father Prostate cancer Skin cancer Social History Social History Household Members: Spouse Housing: House Are you a primary animal care technician to a significant other at home: No Do you presently have visiting nurse or other home services: No Alcohol intake: never Patient Tobacco Use Status: Never used Tobacco Tobacco use type: Cigarette e-Cigarette/Vaping Use: Never Used Second Hand Smoke Exposure: No service: No Current occupational status: disabled Cognitive needs: No Hearing needs: No Vision needs: No Meds Allergies Allergy/AdvReac Type Severity Reaction Status Date / Time No Known Allergies Allergy Verified 01/12/25 14:10 Active Medications: Current Medications Acetaminophen (Acetaminophen 325 Mg Tablet) 650 mg PO Q6H PRN PRN Reason: Pain, Mild 1-3,fever,headache Calcium Carbonate (Calcium Carbonate 750 Mg Tab.Chew) 750 mg PO Q4H PRN PRN Reason: Heartburn Ceftriaxone Sodium (Ceftriaxone Sodium 1 Gm Vial) 1 gm IVPUSH Q24H [facility] Last Admin: 01/13/25 13:14 Dose: 1 gm Diazepam (Diazepam 10 Mg/2 Ml Cartridge) 2.5 mg IVPUSH Q6H PRN PRN Reason: Anxiety Hydralazine HCl (Hydralazine Hcl 20 Mg/Ml Vial) 5 mg IVPUSH Q8H PRN; Protocol PRN Reason: sbp >180 Last Admin: 01/13/25 16:43 Dose: 5 mg Lactated Ringer's (Lr) 1,000 mls @ 80 mls/hr IVCONT .[id number] [facility] Last Admin: 01/13/25 21:05 Dose: 80 mls/hr Labetalol HCl (Labetalol Hcl 200 Mg Tablet) 400 mg PO BID [facility]; Protocol Last Admin: 01/13/25 19:52 Dose: 400 mg Levetiracetam (Levetiracetam 500 Mg Tablet) 500 mg PO BID [facility] Last Admin: 01/13/25 19:52 Dose: 500 mg Magnesium Hydroxide (Milk Of Magnesia 30 Ml Oral.Susp) 30 ml PO DAILY PRN PRN Reason: Constipation Melatonin (Melatonin 3 Mg Tablet) 6 mg PO BEDTIME PRN PRN Reason: Insomnia Morphine Sulfate (Morphine Sulfate 2 Mg/Ml Cartridge) 2 mg IVPUSH TID PRN; Protocol PRN Reason: severe pain Last Admin: 01/12/25 19:57 Dose: 2 mg Naloxone HCl (Naloxone Hcl 0.4 Mg/Ml Vial) 0.04 mg IVPUSH Q5M PRN PRN Reason: Excessive sedation or RR < 8 Omeprazole (Omeprazole 20 Mg Capsule.) 20 mg PO DAILY@629 [facility] Last Admin: 01/13/25 06:04 Dose: 20 mg Ondansetron HCl (Ondansetron Hcl 4 Mg/2 Ml Vial) 4 mg IVPUSH Q8H PRN PRN Reason: Nausea and Vomiting Sertraline HCl (Sertraline Hcl 100 Mg Tablet) 100 mg PO DAILY [facility] Last Admin: 01/13/25 08:48 Dose: 100 mg Sodium Chloride (0.9 % Sodium Chloride Flush 3 Ml Syringe) 3 ml IVFLUSH QSHIFT [facility] Last Admin: 01/13/25 19:53 Dose: Not Given Tamsulosin HCl (Tamsulosin Hcl 0.4 Mg Capsule) 0.4 mg PO BEDTIME [facility] Last Admin: 01/13/25 19:53 Dose: 0.4 mg Home Medications ?Medication ?Instructions ?Recorded ?Confirmed ?Last Taken ?Type CPAP 06/13/21 05/26/24 Unknown History omeprazole 20 mg capsule,delayed 20 mg PO DAILY@0630 06/13/21 01/11/25 01/11/25 History release Physical Exam Exam Exam: [facility]: s1s2 RS; cta Abd; soft Left hemiparesis [place] [facility] Vital Signs: Last Vital Signs Temp 97.7 F 01/13/25 19:51 Pulse 89 01/13/25 19:51 Resp 18 01/13/25 19:51 BP 137/79 01/13/25 19:51 Pulse Ox 93 01/13/25 19:51 O2 Del Method Room Air 01/13/25 19:51 BMI result Body Mass Index 31.8 Results Lab Results 01/12/25 05:23 01/13/25 08:57 Lab results: Chemistry 01/11/25 01/12/25 01/13/25 11:42 05:23 08:57 Sodium 137 138 143 Potassium 4.3 4.2 3.9 Carbon Dioxide 18 L 17 L 20 L BUN 30 H 35 H 42 H Creatinine 3.26 H 5.42 H* 4.67 H* Calcium 9.3 D 8.5 D 8.9 Hematology 01/11/25 01/12/25 11:42 05:23 WBC 6.8 5.3 Hgb 14.0 D 12.9 L Plt Count 172 162 Urinalysis 01/11/25 11:42 Urine Color RED Urine Appearance Turbid Urine pH 6.5 Ur Specific [place] 1.020 Urine Protein 300 (3+) H Urine Glucose (UA) See Note Urine Ketones See Note Urine Blood Large (3+) H Urine Nitrite Positive H Ur Leukocyte Esterase Small (1+) H Urine RBC >20 H Urine WBC 6-10 H Ur Squamous Epith Cells 0-2 Hyaline Casts 0-2 Assessment and Plan (1) MAVERICK (acute kidney injury): Status: Acute Plan Obstructive MAVERICK from bilateral ureteral stones with infection?appropriately decompressed with bilateral ureteral stents; creatinine now trending down (5.4 ? 4.67 on POD1). High risk for post-obstructive diuresis given bilateral obstruction and reported poor PO intake. Plan definitive stone management (e.g., URS/LL or PCNL depending on stone burden) after infection control, typically within 1?3 weeks Hypertension 160?180s in hospital on labetalol 400 mg BID; component of white-coat/anxiety likely, but numbers still require treatment while MAVERICK recovers. Continue labetalol 400 mg BID. Add amlodipine 5?10 mg daily now for smoother control while avoiding RAAS blockade during active MAVERICK. Use IV labetalol PRN for sustained SBP >=80 or symptomatic spikes Given decreased PO intake and new drainage, give cautious isotonic fluids guided by vitals, UOP, and exam; avoid over-resuscitation. Pain control as needed?avoid nephrotoxins. Procedures Date of Service Date of Service: 01/13/25
[2025-01-14] VITALS (8 sets, daily range): BP systolic 133–188; BP diastolic 89–98; PULSE 70–87; RESP 16–18; TEMP 36.1–36.6; O2SAT 94–98
[2025-01-14 06:10] LABS: Anion Gap 15 (12-20); Blood Urea Nitrogen 34 mg/dL (9-16); Calcium 8.8 mg/dL (8.4-10.2); Carbon Dioxide 22 mmol/L (22-29); Chloride 111 mmol/L (96-108); Creatinine Clr Calc Pharmacy 32.7; Estimated Glomerular Filt Rate 21; Potassium 3.7 mmol/L (3.3-5.1); Sodium 144 mmol/L (135-145)
[2025-01-14] MEDS: 0.9 % Sodium Chloride Flush 3 ML SYRINGE IVFLUSH ×3 (07:57→20:13)
--- NOTE | 2025-01-14 15:48 | MHC.CM.PN ---
pper rounds pt expected to dc gm pt does not str referral for vna
--- NOTE | 2025-01-14 16:27 | HO.PM.IMPN ---
Subjective Subjective Date of Service: 01/14/25 Interval History: Creatinine improved to 3.06, baseline still unknown Pt remains hypertensive; will start on amlodipine 5 mg per nephrology recommendation Pt with [place] catheter in place, continues to produce urine Complains of some back discomfort especially when urinating PT recommended STR but pt prefers to go home with services Review of Systems Review of Systems: Yes all other systems are reviewed and are negative Physical Exam Exam: Exam: General: AOx3, no acute distress Resp: CTA bilaterally CVS: S1, S2, RRR GI: +BS, NT, no distention Skin: Warm, dry : Mitchell in place draining straw-colored urine Neuro: Chronic left hemiparesis Extremities: No edema Psych: Appropriate affect Vital Signs: Vital Signs: Last Vital Signs Temp 97.2 F 01/14/25 15:17 Pulse 82 01/14/25 15:17 Resp 18 01/14/25 15:17 BP 161/92 H 01/14/25 16:21 Pulse Ox 96 01/14/25 15:17 O2 Del Method Room Air 01/14/25 15:17 BMI result Body Mass Index 31.8 Objective Data Active Medications Acetaminophen (Acetaminophen 325 Mg Tablet) 650 mg PO Q6H PRN PRN Reason: Pain, Mild 1-3,fever,headache Amlodipine Besylate (Amlodipine Besylate 5 Mg Tablet) 5 mg PO DAILY [facility]; Protocol Last Admin: 01/14/25 07:58 Dose: 5 mg Documented By: SANDY Calcium Carbonate (Calcium Carbonate 750 Mg Tab.Chew) 750 mg PO Q4H PRN PRN Reason: Heartburn Ceftriaxone Sodium (Ceftriaxone Sodium 1 Gm Vial) 1 gm IVPUSH Q24H [facility] Last Admin: 01/14/25 13:54 Dose: 1 gm Documented By: SANDY Diazepam (Diazepam 10 Mg/2 Ml Cartridge) 2.5 mg IVPUSH Q6H PRN PRN Reason: Anxiety Hydralazine HCl (Hydralazine Hcl 20 Mg/Ml Vial) 5 mg IVPUSH Q8H PRN; Protocol PRN Reason: sbp >180 Last Admin: 01/14/25 15:25 Dose: 5 mg Documented By: SANDY Comments: advised to give hydralazine with a sbp of 175 Labetalol HCl (Labetalol Hcl 200 Mg Tablet) 400 mg PO BID [facility]; Protocol Last Admin: 01/14/25 07:58 Dose: 400 mg Documented By: SANDY Levetiracetam (Levetiracetam 500 Mg Tablet) 500 mg PO BID [facility] Last Admin: 01/14/25 07:58 Dose: 500 mg Documented By: SANDY Magnesium Hydroxide (Milk Of Magnesia 30 Ml Oral.Susp) 30 ml PO DAILY PRN PRN Reason: Constipation Melatonin (Melatonin 3 Mg Tablet) 6 mg PO BEDTIME PRN PRN Reason: Insomnia Morphine Sulfate (Morphine Sulfate 2 Mg/Ml Cartridge) 2 mg IVPUSH TID PRN; Protocol PRN Reason: severe pain Last Admin: 01/12/25 19:57 Dose: 2 mg Documented By: ANN-MARIE Naloxone HCl (Naloxone Hcl 0.4 Mg/Ml Vial) 0.04 mg IVPUSH Q5M PRN PRN Reason: Excessive sedation or RR < 8 Omeprazole (Omeprazole 20 Mg Capsule.Dr) 20 mg PO DAILY@0630 [facility] Last Admin: 01/14/25 05:15 Dose: 20 mg Documented By: BONILLA Ondansetron HCl (Ondansetron Hcl 4 Mg/2 Ml Vial) 4 mg IVPUSH Q8H PRN PRN Reason: Nausea and Vomiting Sertraline HCl (Sertraline Hcl 100 Mg Tablet) 100 mg PO DAILY [facility] Last Admin: 01/14/25 07:58 Dose: 100 mg Documented By: SANDY Sodium Chloride (0.9 % Sodium Chloride Flush 3 Ml Syringe) 3 ml IVFLUSH QSHIFT [facility] Last Admin: 01/14/25 15:17 Dose: 3 ml Documented By: SANDY Tamsulosin HCl (Tamsulosin Hcl 0.4 Mg Capsule) 0.4 mg PO BEDTIME [facility] Last Admin: 01/13/25 19:53 Dose: 0.4 mg Documented By: BONILLA Labs 01/12/25 05:23 01/14/25 05:13 Labs: Laboratory Results - last 24 hr 01/14/25 05:13 Hold Purple Top SEE NOTE Anion Gap 15 Estim Creat Clear Calc 32.7 Estimated GFR 21 Random Glucose 93 Calcium 8.8 Assessment and Plan (1) MAVERICK (acute kidney injury): Status: Acute (2) Acute bilateral obstructive uropathy: Status: Acute Plan 54-year-old male with a hypertension, history of hemorrhagic CVA, obstructive sleep apnea, anxiety, depression, MARIZA, history of pressure ulcers, insomnia, chronic Mitchell, recent history of UTI presents to the emergency department with right flank pain was noted to have mild right and moderate left hydroureteronephrosis. Urology was consulted, we will undergo bilateral stent placement on 01/12/2025. MAVERICK on unclear CKD in the setting of bilateral obstructive uropathy Creatinine 3.26 at time of presentation, increased to 5.42 prior to stenting, now 3.06 Underwent bilateral stenting by Dr. Gaspar in urology on 01/12/2025 UA appears grossly positive, urine culture negative; will continue empiric ceftriaxone, day [address], continue Continue Flomax Nephrology consulted, recommend 1 more day of monitoring labs Follow creatinine HTN Poorly controlled per family pt has severe white coat HTN and anxiety continue labetolol will add amlodipine 10 mg daily per nephrology recommendations prn hydralazine h/o stroke w/ left hemiparesis does not seem to be on asa or statin - we will defer to outpatient management continue baclofen PT consulted, recommend STR but pt prefers to go home with services instead seizure disorder continue keppra patient is at high-risk of decubitus ulcer given mostly bed-bound status wound care mood continue sertraline has severe anxiety - prn IV valium dvt ppx - mechanical devices given procedure Pt requires continued hospitalization as MAVERICK on CKD improving, but Nephrology would prefer 1 more day of monitoring to ensure no post obstructive polyuria and creatinine improved back to baseline. Quality Stroke Does the patient have a stroke diagnosis?: No VTE Prior VTE?: No VTE Risk Level:: Medical - moderate - high VTE Device Contraindication: N/A - Device Ordered VTE Drug Contraindication: Treatment Not Indicated
--- NOTE | 2025-01-14 21:58 | P.PNNP_ITS ---
Subjective Subjective Date of Service: 01/14/25 Interval history: no polyuria noted doay Physical Exam 2 Exam: Exam: cvs: s1s2 RS; cta ABd; soft Vital Signs: Vital Signs: Last Vital Signs Temp 97.9 F 01/14/25 19:55 Pulse 87 01/14/25 19:55 Resp 18 01/14/25 19:55 BP 133/94 H 01/14/25 19:55 Pulse Ox 94 01/14/25 19:55 O2 Del Method Room Air 01/14/25 19:55 BMI result Body Mass Index 31.8 Objective Data Labs 01/12/25 05:23 01/14/25 05:13 Labs: Laboratory Results - last 24 hr 01/14/25 05:13 Hold Purple Top SEE NOTE Sodium 144 Potassium 3.7 Chloride 111 H Carbon Dioxide 22 Anion Gap 15 BUN 34 H Creatinine 3.06 H Estim Creat Clear Calc 32.7 Estimated GFR 21 Random Glucose 93 Calcium 8.8 Microbiology Microbiology Results: Microbiology 01/11/25 Unknown Urine clean catch - Clean Catch Midstream Urine Culture - Final Procedures Date of Service Date of Service: 01/14/25 Assessment & Plan Assessment and plan (1) MAVERICK (acute kidney injury): Status: Acute Plan Obstructive MAVERICK from bilateral ureteral stones with infection?appropriately decompressed with bilateral ureteral stents; creatinine now trending down High risk for post-obstructive diuresis given bilateral obstruction and reported poor PO intake. Plan definitive stone management (e.g., URS/LL or PCNL depending on stone burden) after infection control, typically within 1?3 weeks Hypertension 160?180s in hospital on labetalol 400 mg BID; component of white- coat/anxiety likely, but numbers still require treatment while MAVERICK recovers. Continue labetalol 400 mg BID. Add amlodipine 5?10 mg daily now for smoother control while avoiding RAAS blockade during active MAVERICK. Use IV labetalol PRN for sustained SBP >=80 or symptomatic spikes Given decreased PO intake and new drainage, give cautious isotonic fluids guided by vitals, UOP, and exam; avoid over-resuscitation. Pain control as needed?avoid nephrotoxins . Time Spent With Patient Time: Total time managing care of this patient today ____ minutes. Progress Note: Quality Stroke Does the patient have a stroke diagnosis?: No
[2025-01-15 04:00] VITALS: BP 163/87; PULSE 69; RESP 16; TEMP 36.1; O2SAT 96
[2025-01-15 06:28] LABS: Anion Gap 14 (12-20); Blood Urea Nitrogen 28 mg/dL (9-16); Calcium 9.0 mg/dL (8.4-10.2); Carbon Dioxide 24 mmol/L (22-29); Chloride 108 mmol/L (96-108); Creatinine Clr Calc Pharmacy 44.1; Estimated Glomerular Filt Rate 30; Potassium 3.6 mmol/L (3.3-5.1); Sodium 142 mmol/L (135-145)
--- NOTE | 2025-01-15 07:45 | P.DS_ITS ---
DS: Providers Provider Date of Service: 01/15/25 Date of admission: 01/11/25 16:52 Date of discharge: 01/15/25 Primary care physician: Jomar Ramirez MD Consults: 01/11/25 17:27 Consult to Urology Routine Consulting Provider: [facility] Reason for consultation: b/l stones, maverick, hydro Has provider been notified: No 01/12/25 15:07 Consult to Wound Care Routine Reason for consultation: Decubitus ulcers 01/13/25 18:03 Consult to Nephrology Routine Consulting Provider: [facility] Reason for consultation: MAVERICK on CKD 2/2 bilateral obstructive uropathy DS: Diagnosis Discharge Diagnosis (1) MAVERICK (acute kidney injury): Status: Acute DS: Summary Hospital Course Hospital Course: From admission HPI: Date of Service: 01/11/25 Attending physician on admission: Lanie Galvez Chief Complaint: flank pain This is a 54-year-old male with a history of stroke with residual left hemiparesis, hypertension, seizure disorder who presents to the emergency department with right flank pain. Patient states his pain began shortly after waking up this morning. He reports associated nausea but no vomiting. The pain is primarily in his right side radiating around to his back. He reports decreased p.o. intake and decreased urine output. In the emergency department patient had CT scan of the abdomen which showed multiple bilateral stones largest being a 7 mm stone in the proximal left ureter. Also showing mild right and moderate left hydroureteronephrosis. Urinalysis consistent with UTI. Patient was afebrile, lab work with no leukocytosis. He was started on IV ceftriaxone. Lab work also consistent with acute kidney injury with a serum creatinine of 3.26. The case was discussed with the on-call urologist who recommended admitting the patient for hydration, oral Flomax and possible stent placement. Hospital course Pt was admitted to the hospital for MAVERICK on CKD 3 setting of acute urinary retention secondary to bilateral obstructive uropathy. Pt was seen and evaluated Urology and started on tamsulosin 0.4 mg daily and underwent bilateral stenting on 01/[address] Gaspar. Pt was also seen and evaluated by Dr. Mora in Nephrology ruled MAVERICK and poorly controlled HTN. Patient's MAVERICK resolved after stenting and IVF, and is back to baseline at time of discharge. No indication of postobstructive polyuria. Pt was started on amlodipine 10 mg daily for HTN; patient's should continue to take home labetalol 400 mg b.i.d.. Patient's UA appeared grossly infected, but culture was negative. However, given patient's presentation and clinical picture he will be empirically treated with a full 7 day course of antibiotics for UTI and discharged home on cefuroxime 250 mg b.i.d.. Pt was seen and evaluated by PT who recommended STR, but pt instead elected to go home with services. Pt be discharged with new prescriptions for tamsulosin 0.4 mg daily at bedtime, amlodipine 10 mg daily, and cefuroxime 250 mg b.i.d. x3 days. Pt should continue all of her other home medications. Pt should follow up with Dr. Gaspar in Urology 1-2 weeks, Nephrology for CKD management, and PCP in 1 week for routine post hospitalization visit. Time Attestation Discharge Coordination Time (in mins): 35 Quality: Safe Use of Opioids Does Pt have an Active Cancer Diagnosis on the Problem List?: No Quality: Stroke Does the patient have a stroke diagnosis?: No Physical Exam Exam: Exam: General: AOx3, no acute distress Resp: CTA bilaterally CVS: S1, S2, RRR GI: +BS, NT, no distention Skin: Warm, dry Neuro: Chronic left hemiparesis Extremities: No edema Psych: Appropriate affect Vital Signs: Vital Signs: Last Vital Signs Temp 97 F 01/15/25 04:00 Pulse 69 01/15/25 04:00 Resp 16 01/15/25 04:00 BP 163/87 H 01/15/25 04:00 Pulse Ox 96 01/15/25 04:00 O2 Del Method CPAP 01/15/25 04:00 BMI result Body Mass Index 31.8 DS: Data Data Completed and Pending Labs on day of discharge: Laboratory Results - last 24 hr 01/15/25 05:28 Hold Purple Top SEE NOTE Sodium 142 Potassium 3.6 Chloride 108 Carbon Dioxide 24 Anion Gap 14 BUN 28 H Creatinine 2.27 H Estim Creat Clear Calc 44.1 Estimated GFR 30 Random Glucose 101 Calcium 9.0 Discharge Plan Discharge Anticipated Discharge Date/Time: 01/15/25 07:11 Patient Disposition: Home Health Service Discharge Diagnosis: MAVERICK on CKD 3 in the setting of acute urinary retention from bilateral obstructive neuropathy Referrals: Justo Gaspar MD [Physician, Urology] - 1 Week Referral Note: F/U for MAVERICK on CKD3 secondary to acute urinary retention from bilateral obstructing uropathy s/p stenting on 01/13 Reggie Mora MD [Physician, Nephrology] - 1 Week Referral Note: F/U for MAVERICK on CKD 3 in the setting of acute urinary retention from bilateral obstructive uropathy s/p stenting on 01/13 Po,Jomar Connor MD [Primary Care Provider, Internal Medicine] - 1 Week Discharge Medications: New tamsulosin 0.4 mg capsule 0.4 mg PO BEDTIME Qty: 90 0RF Rx Instructions: Take one capsule daily at bedtime amlodipine 10 mg tablet 10 mg PO DAILY Qty: 90 0RF Rx Instructions: Take one tablet daily for hypertension cefuroxime axetil 250 mg tablet 250 mg PO Q12H Qty: 7 0RF Rx Instructions: Take one tablet twice a day with meals for the next three days, starting the evening of 01/15 and ending the evening of 01/18. Continued (DME) hydrocolloid dressing 2 X 4 bandage See Rx Instructions .Route Qty: 20 1RF Rx Instructions: Applied over the wound after cleansing change every 3-5 days and as needed (DME) Custom AFO for Left lower extremity s/p (I61.9) nontraumatic intracerebral hemorrhage See Rx Instructions .Route .MEDSUPPLY Qty: 1 0RF Rx Instructions: As directed levetiracetam 500 mg tablet 500 mg PO BID 90 Days Qty: 180 0RF sertraline 100 mg tablet 100 mg PO DAILY 90 Days Qty: 90 0RF labetalol 200 mg tablet 400 mg PO BID 30 Days Qty: 360 0RF baclofen 5 mg tablet 5 mg PO BID 90 Days Qty: 60 3RF omeprazole 20 mg capsule,delayed release(DR/EC) 20 mg PO DAILY@0630 (DME) CPAP 0 .Route .MEDSUPPLY Discharge Orders: Discharge Order (Routine); Ordered 01/15/25 Ordered By: Joey Jean-Baptiste Activity on Discharge: As tolerated Stand Alone Forms: Patient Portal Discharge page Print Language: Nepalese Care Plan Goals: See below Health Concerns: Acute urinary retention Bilateral obstructive uropathy MAVERICK on CKD 3 Acute urinary tract infection Kidney stones Plan of Treatment: You were admitted to the hospital for MAVERICK on CKD3 in the setting of acute urinary retention secondary to bilateral obstructive uropathy from kidney stones. You were seen and evaluated by Urology and underwent bilateral stenting on 01/[address] Gaspar. You were also seen and evaluated by Dr. Mora in Nephrology for your MAVERICK. You were given fluids and MAVERICK resolved. You were also empirically treated with IV antibiotics for likely UTI. Your urine culture was ultimately negative, but your UA did appear grossly infected and given clinical indication, you will be treated with a full 7 day course of antibiotics for UTI. During hospital stay your blood pressure was noted to be poorly controlled, and he has been started on a new antihypertensive by Nephrology. At time of discharge your MAVERICK has resolved and he has been voiding freely on your own. You were seen and evaluated by PT who recommended short-term rehab, but you elected to instead go home with services -- you have been started on tamsulosin 0.4 mg daily at bedtime for urinary retention and kidney stones -- take cefuroxime 250 mg twice a day with meals for UTI for the next 3 days, starting the evening of 01/15 and ending the evening of 01/18 -- you have been started on amlodipine 10 mg daily for hypertension -- continue labetalol -- follow up with Dr. Gaspar in Urology 1-2 weeks for management of stents -- follow up with Dr. Mora in nephrology for CKD management -- resume all of your other home medications -- follow up with your PCP in 1 week for routine post-hospitalization visit Assessment: See discharge summary
[2025-01-15 08:00] VITALS: BP 212/117; PULSE 80; RESP 16; TEMP 36.2; O2SAT 94
[2025-01-15] MEDS: 0.9 % Sodium Chloride Flush 3 ML SYRINGE IVFLUSH (08:08)
[2025-01-15 09:56] VITALS: BP 159/91
--- NOTE | 2025-01-15 10:26 | W.MHC.F2F ---
Service Date Service Date: 01/15/25 Encounter Date of encounter: 01/15/25 Reasons for Services Signs and symptoms assessed: Acute on chronic weakness and gross deconditioning from chronic stroke and recent prolonged hospital stay. Reason for physical therapy: home safety and mobility and therapeutic exercises Homebound: Leaving the home is medically contraindicated at this time without the asist of a device and/or another person due th the listed conditions above and below. Reason homebound: unsteady gait / fall risk, leg weakness, poor balance / fall risk and weakness related to hospital stay Certification: Based on the above findings, I certify that this patient is confined to the home and needs intermittent intermediate care, physical therapy and/or speech therapy, or continues to need occupational therapy. The patient is under my care, and I have initiated the establishment of the plan of care. The patient will be followed by a physician who will periodically review the plan of care. Time Spent With Patient Time: Total time managing care of this patient today ____ minutes.
--- NOTE | 2025-01-15 10:49 | MHC.CM.PN ---
PT CLEARED TO DC HOME TODAY WITH [facility] S[facility] PT WILL ARRANGE TRANSPORT
== END 2025-01-15 11:43 | disposition home health service (06) | DRG 463 ==
LOC: HO.ED 11:52 → HO.EDOVER 17:05 → HO.S3 21:19
PROVIDERS: Physician Assistant; Urology; Admitting Provider Physician Assistant Medical; Emergency Provider Emergency Medicine; PCP Internal Medicine; Visit Provider Student in an Organized Health Care Education/Training Program
PROC: 0T788DZ Dilation of Bilateral Ureters with Intraluminal Device, Via Natural or Artificial Opening Endoscopic (ICD-10-PCS; principal; 2025-01-12 17:00)
DX: N13.6 Pyonephrosis (principal); I69.354 Hemiplegia and hemiparesis following cerebral infarction affecting left non-dominant side; G40.909 Epilepsy, unspecified, not intractable, without status epilepticus; N17.9 Acute kidney failure, unspecified; I12.9 Hypertensive chronic kidney disease with stage 1 through stage 4 chronic kidney disease, or unspecified chronic kidney disease; N18.30 Chronic kidney disease, stage 3 unspecified; F39 Unspecified mood [affective] disorder; Z74.01 Bed confinement status; Z87.440 Personal history of urinary (tract) infections; Z79.899 Other long term (current) drug therapy
CPT/HCPCS: 36415; 74176; 80048; 80053; 81001; 81003; 83690; 85025; 87086; 94660; 97116; 97162; 99285; C1758; C1769; C2617; J0360; J0696; J1171; J2003; J2250; J2270; J2704; J3010; J3360; J7120; Q9967

== ENCOUNTER → 2025-01-11 11:56 | Outpatient (BNV) | payer OTHER, SELFPAY | PROVIDERS: Emergency Provider Emergency Medicine; PCP Internal Medicine; Visit Provider Radiology Diagnostic Radiology | DX: N13.2 Hydronephrosis with renal and ureteral calculous obstruction (principal) | CPT/HCPCS: 74176 ==

== ENCOUNTER → 2025-01-11 16:52 | Outpatient (BNV) | payer OTHER, SELFPAY | PROVIDERS: Admitting Provider Physician Assistant Medical; Emergency Provider Emergency Medicine; PCP Internal Medicine; Visit Provider Physician Assistant Medical | DX: N17.9 Acute kidney failure, unspecified (principal); N20.0 Calculus of kidney; N39.0 Urinary tract infection, site not specified | CPT/HCPCS: 99223; 99232; 99233 ==

== ENCOUNTER → 2025-01-11 16:52 | Outpatient (BNV) | payer OTHER, SELFPAY | PROVIDERS: Admitting Provider Physician Assistant Medical; Emergency Provider Emergency Medicine; PCP Internal Medicine; Visit Provider Urology | DX: N17.9 Acute kidney failure, unspecified (principal); N39.0 Urinary tract infection, site not specified; N20.0 Calculus of kidney | CPT/HCPCS: 52332; 74420; 99222 ==

== ENCOUNTER 2025-02-04 15:51 | Outpatient (AMB) | payer OTHER, SELFPAY ==
--- OUTSIDE RECORDS SUMMARY | 2025-01-30 09:00 | XMS_ITS | Encounter Summary ---
Author Organization [facility] Address [address] [facility] [address] [place] [phone] Phone Care Team Providers Care Package Dyer Name Role Phone Jomar Ramirez MD Primary Care Provider [phone] Reason for Visit * Reason Comments Weakness * Auth/Cert (Routine) Specialty Diagnoses / Procedures Referred By Contac t Referred To Contact Referral ID Status Reason Start Date Expiration Date Visits Re quested Visits Authorized [id number] 1 1 Encounter Details Date Type Department Care Team (Late st Contact Info) Description 01/30/2025 9:00 AM EDT Home Care Visit [facility] [address] [place] [phone] Amanda Huerta, PT [address] [place] [address] [email or web address] PT HOME VISIT Social History Tobacco Use Types Packs/Day Years Used Date Smoking Tobacco: Never Assessed Home Health Assessment: Transportation Answer Date Recorded Lack of Transportation (Medical) No 01/20/2025 Lack of Transportation (Non-Medical) No 01/20/2025 Patient Unable or Declines to Respond No 01/20/2025 Education Answer Date Recorded Are you interested in more education? Not on ibeth e 01/14/2025 Are you concerned about learning? Not on file 01/14/2025 No 01/14/2025 No 01/14/2025 Digital Access Answer Date Recorded No 01/14/2025 No 01/14/2025 Reliable internet access at home? Not on file 01/14/2025 Device with a working camera? Not on file Sex and Gender Information Value Date Recorded Sex Assigned at Not on file Legal Sex Male 11:26 AM EDT Gender Identity Not on file Sexual Orientation Not on file documented as of this encounter Last Filed Vital Signs Vital Sign Reading Time Taken Comments Blood Pressure 112/82 01/30/2025 9:12 AM EDT Pulse 68 01/30/2025 9:12 AM EDT Temperature 36.6 C (97.8 F) 01/30/2025 9:12 AM EDT Respiratory Rate - - Oxygen Saturation 98% 01/30/2025 9:12 AM EDT Inhaled Oxygen Concentration - - Weight - - Height - - Body Mass Index - - documented in this encounter Plan of Treatment Upcoming Encounters Date Type Department Care Team (Late st Contact Info) Description 02/05/2025 1:30 PM EDT Home Care Visit [facility] [address] [place] [phone] Hunter Johnson, OT [address] [place] [address] [email or web address] 02/06/2025 1:30 PM EDT Home Care Visit [facility] [address] [place] [phone] Hunter Johnson, OT [address] [place] [address] [email or web address] 02/09/2025 1:30 AM EST Home Care Visit [facility] [address] [place] [phone] Hunter Johnson, OT [address] [place] [address] [email or web address] 02/09/2025 9:00 AM EST Home Care Visit [facility] [address] [place] [phone] Amanda Huerta, PT [address] [place] [address] 02/11/2025 Home Care Visit [facility] [address] [place] [phone] Hunter Johnson, OT [address] [place] [address] [email or web address] 02/12/2025 9:00 AM EST Home Care Visit [facility] [address] [place] [phone] Amanda Huerta, PT [address] [place] [address] 02/16/2025 1:30 AM EST Home Care Visit [facility] [address] [place] [phone] Hunter Johnson, OT [address] [place] [address] [email or web address] 02/18/2025 Home Care Visit [facility] [address] [place] [phone] Hunter Johnson, OT [address] [place] [address] [email or web address] documented as of this encounter Visit Diagnoses Not on filedocumented in this encounter Home Health Visit - Care Plan Visit Details Visit Type -PT HOME VISIT Discipline -Physical Therapy Problems Problem Description Start Date Status Goals Interve ntions HH - Medication Management Disciplines: All Active Home Health Disciplines 01/20/2025 Active 1 goal linked to scheduled/document ed intervention 2 goal interventions scheduled/document ed in this visit HH - Focus of Care and Teaching Disciplines: All Active Home Health Disciplines w/RD 01/20/2025 Active 1 goal linked to scheduled/document ed intervention 1 goal intervention scheduled/document ed in this visit HH - Emergency Planning - Knowledge of Disciplines: All Active Home Health Disciplines 01/20/2025 Active 1 goal linked to scheduled/document ed intervention 2 goal interventions scheduled/document ed in this visit HH - Falls - Risk of Disciplines: All Active Home Health Disciplines 01/20/2025 Active 1 goal linked to scheduled/document ed intervention 1 goal intervention scheduled/document ed in this visit HH - Standard of Care Disciplines: All Active Home Health Disciplines 01/20/2025 Active 1 goal linked to scheduled/document ed intervention 3 goal interventions scheduled/document ed in this visit HH - Pain Disciplines: All Active Home Health Disciplines 01/20/2025 Active 1 goal linked to scheduled/document ed intervention 2 goal interventions scheduled/document ed in this visit HH - Mobility and Activity Tolerance - Impaired Disciplines: Physical Therapy 01/20/2025 Active 1 goal linked to scheduled/document ed intervention 3 goal interventions scheduled/document ed in this visit Goals Goal Associated Problem Outcome Goal Met? Visit Notes HH - Safe medication management, avoid unnecessary harm related to medication errors and/or interactions HH - Medication Management No HH - Communication and collaboration to achieve patient goals HH - Focus of Care and Teaching No HH - Knowledge of options for managing care in the event of an emergency related situation. HH - Emergency Planning - Knowledge of No HH - Knowledge and management of fall prevention measures. HH - Falls - Risk of No HH - Achieve care management for a safe to home/community discharge from homecare HH - Standard of Care No HH - Frequency of pain interfering with patient's activity or movement will improve with activity or movement by discharge. Description: Pain will be managed over the course of care. Patient's acceptable level of pain is 1 - pain that doesn't interfere. HH - Pain No HH - Demonstrate maximum mobility and activity level for safe function Description: PT GOALS: 1. Pt to perform sit to stand to and from all surfaces within home without assistance or VCs to maximize home mobility and safety by 02/14/25. 2. Pt to ambulate throughout home with LAD without verbal cues or LOB to maximize safety and independence by 02/14/25. 3. Pt to ambulate outdoors x10 minutes with close S and LAD to allow for return to community mobility by 02/14/25. 4. Pt to perform B LE HEP with >90% accuracy to maximzie strength and stability with all tasks by 02/14/25. 5. Pt to perform up/dwn 2 stairs with LAD and no VCs for safety to allow pt to enter/exit home without assistance by 02/14/25. 6. Pt to improve Tinetti to >19/28 with LAD to improve balance and safety in home and community environment by 02/14/25. 7. Pt to demonstrate improved balance, falls prevention awareness and balance to reduce falls risk and improve safety at home and in community by 02/14/25. HH - Mobility and Activity Tolerance - Impaired Progressing No Interventions Intervention Associated Problem/Goal Status Variance Visit Notes HH - I/E medication management: administration, purpose, dosages, preparation, setup, scheduling, side effects, food/drug interactions, and potential complications as indicated Description: Update patient's copy of medication list as needed. Problem:HH - Medication Management Goal:HH - Safe medication management, avoid unnecessary harm related to medication errors and/or interactions Completed HH - Complete medication review every visit and medication reconciliation as indicated. Pharmacy information: Problem:HH - Medication Management Goal:HH - Safe medication management, avoid unnecessary harm related to medication errors and/or interactions Completed HH - Focus of care, teaching completed and plan for next visit Problem:HH - Focus of Care and Teaching Goal:HH - Communication and collaboration to achieve patient goals Completed Primary Clinical Focus this Visit & Instruction Provided: Pt reports increase in activity yesterday - walked extra laps of house for exercise. Noted without falls or changes in meds. Vitals stable at visit. AFO available and pt assisted in donning - noted to be difficult to get foot in/out of shoe and pt reports that is unable to assist. GAIT - ambulation initially with AFO to L foot with improvement in swing phase/limb advancement with pt continuing to use hip hike vs hip flexion but with less L LE external rotation noted when AFO on. Pt using nicanor walker throughout and stated he feelt more unbalanced using AFO, as he had not used it in quite some time. After approx 20' of ambulation he began to report R calf discomfort due to change in dynamics. Able to ambulate 30' more than took seated rest and requested removal of AFO. After several minutes of seated rest he was able to stand and ambulate with nicanor walker with L LE in external rotation and using hip hike and adduction for limb advancement but without reports of calf discomfort to R LE. TRANSFERS - increased difficulty rising from recliner today due to low seat to floor heaight. Even moreso with AFO in place due to difficulty with attaining foot position on floor. Pt requiring multiple attempts both with and without AFO and needed min A to stand with AFO in place. BALANCE - static standing 2 minutes with increased WB through R LE; sidestepping at counter with R UE support with difficulty with lifting L LE vs dragging but some improvement with tactile and verbal cues STRENGTHENING - seated LE ther ex to work on R LE strength and L LE movement dynamics/alignment; completed B hip flexion, knee extension, hip add with cues for movement through full ROM. Also provided verbal and tactile cues for movement in sagittal plane with L LE with hip flexion and knee extension as well as to decrease hip flexion and isolate quad for knee extension. Instruction Provided to: patient Response to Instruction/Teaching: Is partially able to teach back topics. Plan for Next Visit Specific Focus & Education Needed: balance New Orders: none Updated Discharge Plan: transiiton to self care vs outpatient PT HH - I/E management of care in an urgent or emergency (ER) situation: When to call your Home Care Team/911, ER plans, supplies, evacuation, when to contact local ER officials and how to stay informed Problem:HH - Emergency Planning - Knowledge of Goal:HH - Knowledge of options for managing care in the event of an emergency related situation. Completed HH - Emergency planning assessment: the emergency plan, supplies needed, emergency contact numbers and an evacuation plan were reviewed Description: Patient and Caregiver is/are knowledgeable of emergency plans. Problem:HH - Emergency Planning - Knowledge of Goal:HH - Knowledge of options for managing care in the event of an emergency related situation. Completed HH - I/E fall prevention measures Description: diagnosis/age related changes/prior history of falls: symptoms and side effects of illness/injury/history of falls placing patient at increased risk for falls. may include management of dizziness/orthostasis, environmental hazards: modification of environment to include clear walkways, secure animals, and move frequently used items within reach, use of equipment, impaired functional mobility: supervision for mobility/activity, appropriate footwear and as indicated safe use of assistive device(s) and poly pharmacy: side effects of medications placing a patient at high risk for a fall Problem: - Falls - Risk of Goal:HH - Knowledge and management of fall prevention measures. Completed HH - Assess vital signs, pulse oximetry, pain, and as indicated, orthostatic vital signs Description: use agency-specific parameters Problem: - Standard of Care Goal:HH - Achieve care management for a safe to home/community discharge from homecare Completed HH - Assess skin integrity Problem: - Standard of Care Goal:HH - Achieve care management for a safe to home/community discharge from homecare Completed HH - I/E discharge plan Problem:HH - Standard of Care Goal:HH - Achieve care management for a safe to home/community discharge from homecare Completed HH - Assess pain Problem:HH - Pain Goal:HH - Frequency of pain interfering with patient's activity or movement will improve with activity or movement by discharge. Completed HH - I/E pain management Problem:HH - Pain Goal:HH - Frequency of pain interfering with patient's activity or movement will improve with activity or movement by discharge. Completed HH - Therapeutic interventions, as indicated: Description: balance training, bed mobility training, durable medical equipment training, gait/stair training, home modification, manual therapy/soft tissue mobilization , therapeutic exercise/home exercise program and transfer training, including bathroom transfers Problem:HH - Mobility and Activity Tolerance - Impaired Goal:HH - Demonstrate maximum mobility and activity level for safe function Completed This visit transfers, gait, balance, strengthening HH - I/E therapeutic function/activity: Description: As indicated: activity promotion and management, functional mobility training, therapeutic exercise and home exercise program, device use. Problem:HH - Mobility and Activity Tolerance - Impaired Goal:HH - Demonstrate maximum mobility and activity level for safe function Completed HH - Assess therapeutic function/activity and need for durable medical equipment Problem:HH - Mobility and Activity Tolerance - Impaired Goal:HH - Demonstrate maximum mobility and activity level for safe function Completed documented in this encounter Care Teams Package Dyer Relationship Specialty Start Date End Date Jomar Ramirez MD [address] [place] [address] [address] [place] [phone] PCP - General Internal Medicine 01/14/25 documented as of this encounter Additional Source Comments The information contained in this document represents components of the legal health record. It is not the complete legal health record.[facility]
--- OUTSIDE RECORDS SUMMARY | 2025-01-30 13:30 | XMS_ITS | Encounter Summary ---
Author Organization [facility] Address [address] [facility] [address] [place] [address] Phone Care Team Providers Care Passenger Tire Inspector Name Role Phone Jomar Ramirez MD Primary Care Provider Reason for Visit * Auth/Cert (Routine) Specialty Diagnoses / Procedures Referred By Contac t Referred To Contact Referral ID Status Reason Start Date Expiration Date Visits Re quested Visits Authorized [id number] 1 1 Encounter Details Date Type Department Care Team (Late st Contact Info) Description 01/30/2025 1:30 PM EDT Home Care Visit [facility] [address] [place] [phone] Hunter Johnson, OT [address] [place] [address] [email or web address] HOME VISIT Social History Tobacco Use Types [...] on file documented as of this encounter Plan of Treatment Upcoming Encounters Date Type Department Care Team (Late st Contact Info) Description 02/05/2025 1:30 PM EDT Home Care Visit [facility] [address] [place] [phone] Hunter Johnson, OT [address] [place] [address] [email or web address] 02/06/2025 1:30 PM EDT Home Care Visit [facility] [address] [place] [phone] Hunter Johnson, OT [address] [place] [address] [email or web address] 02/09/2025 1:30 AM EST Home Care Visit [facility] [address] [place] [phone] Hunter Johnson, OT [address] [place] [address] [email or web address] 02/09/2025 9:00 AM EST Home Care Visit [facility] [address] [place] [phone] Amanda Huerta, PT [address] [place] [address] 02/11/2025 Home Care Visit [facility] [address] [place] [phone] Hunter Johnson, OT [address] [place] [address] [email or web address] 02/12/2025 9:00 AM EST Home Care Visit [facility] [address] [place] [phone] Amanda Huerta, PT [address] [place] [address] 02/16/2025 1:30 AM EST [facility] [address] [place], [place] [phone] Adalberto Johnsonew, OT [address] [place] [address] [email or web address] 02/18/2025 Home Care Visit [facility] [address] [place], [place] [phone] Alex Hunter, OT [address] [place] [address] [email or web address] documented as of this encounter Visit Diagnoses Not on filedocumented in this encounter Home Health Visit - Care Plan Visit Details Visit Type -OT HOME VISIT Discipline -Occupational Therapy Problems Problem Description Start Date Status [...] scheduled/document ed in this visit HH - ADL/IADL Impairment and Therapeutic Interventions Disciplines: Occupational Therapy 01/27/2025 Active 1 goal linked to scheduled/document ed intervention 1 goal intervention scheduled/document ed in this visit Goals Goal [...] Planning - Knowledge of No HH - Achieve care management [...] interfere. HH - Pain No HH - Promote higher level of independence with performance of ADLs/IADLs. Description: PT will demo Mod I with HEP neuro clara program for his L UE to increase functional strength and AROM to allow Pt increased independence with transfers and IADLs by 02/21/25 Pt will demo safe management of food transportation and heating management for meal prep by 02/21/25 HH - ADL/IADL Impairment and Therapeutic Interventions Progressing No Interventions Intervention Associated Problem/Goal Status [...] Clinical Focus this Visit & Instruction Provided: Patient was seen today for neural reeducation. Was provided training and education around tenodesis and motor overflow to help with AAROM to his left upper extremity. The patient was provided education on prolonged stretching exercise exercises prior to his range of motion exercises. He was educated that this will help decrease the amount of tension in his muscles and allow him more movement. The patient reported that he had a soft static hand wrist splint. Recommend recommended that they bring this out for him to use at night as this will provide a long opportunity to stretch his left hand and forearm flexors which she reports are typically in a synergistic flexion pattern when he wakes up in the morning. The patient was also found a box which he can use in his recliner to put his elbow on and his hand on the other side of to help stretch his bicep as well as his shoulder adductors. The patient was shown how to use wrist tenodesis to extend his left digits, thereby allowing him inter with his fingers together. Once this was done, the patient was shown rest flexion/extension and ulnar/radial deviation. The patient was instructed to do 10 reps twice a day. Patient was shown how to use his electric toothbrush for vibration stimuli while pronating and supinating his forearm. The patient participated in AAROM bicep and tricep exercises completing 10 reps He also participated in a dynamic shoulder protraction/retracti on exercise using AAROM and traction to his left elbow to keep his shoulder abducted. The patient denied any pain from these exercise exercises, but did report that his arm felt tight initially and reported that it did feel somewhat tired when finished. Instruction Provided to: patient Response to Instruction/Teaching : Is partially able to teach back topics as evidenced by needing more training with . Plan for Next Visit Specific Focus & Education Needed: neuro clara New Orders: n/a Updated Discharge Plan: 02/21/25 HH - I/E management of care in an urgent or emergency (ER) situation: When to call your Home Care Team/911, ER plans, supplies, evacuation, when to contact local ER officials and how to stay informed Problem: - Emergency Planning - Knowledge of Goal:HH - Knowledge of options for managing care in the event of an emergency related situation. Completed - Emergency planning assessment: the emergency plan, supplies needed, emergency contact numbers and an evacuation plan were reviewed Description: Patient and Caregiver is/are knowledgeable of emergency plans. Problem: - Emergency Planning - Knowledge of Goal:HH - Knowledge of options for managing care in the event of an emergency related situation. Completed HH - Assess vital signs, pulse oximetry, pain, and as indicated, orthostatic vital signs Description: use agency-specific parameters Problem: - Standard of Care Goal:HH - Achieve care management for a safe to home/community discharge from homecare Completed HH - Assess skin integrity Problem:HH - Standard of Care Goal:HH - Achieve care management for a safe to home/community discharge from homecare Completed HH - Assess pain Problem:HH - Pain Goal:HH - Frequency of pain interfering with patient's activity or movement will improve with activity or movement by discharge. Completed HH - OT Therapeutic interventions, as indicated: Description: neuromuscular retraining/tone management, and desensitization techniques therapeutic exercise/home exercise program Problem:HH - ADL/IADL Impairment and Therapeutic Interventions Goal:HH - Promote higher level of independence with performance of ADLs/IADLs. Completed documented in this encounter Care Teams Passenger Tire Inspector Relationship Specialty Start Date End Date Jomar Ramirez MD [address] [place] [address] [place] [phone] PCP - General Internal Medicine 01/14/25 documented as of this encounter Additional Source Comments The information contained in this document represents components of the legal health record. It is not the complete legal health record.[facility]
--- OUTSIDE RECORDS SUMMARY | 2025-02-04 09:00 | XMS_ITS | Encounter Summary ---
Author Organization [facility] Address [address] [facility] [address] [place] [phone] Phone Care Team Providers Care Legislative Director Name Role Phone Jomar Ramirez MD Primary Care Provider [phone] Reason for Visit * Auth/Cert (Routine) Specialty Diagnoses / Procedures Referred By Contjavier t Referred To Contact Referral ID Status Reason Start Date Expiration Date Visits Re quested Visits Authorized [id number] 1 1 Encounter Details Date Type Department Care Team (Late st Contact Info) Description 02/04/2025 9:00 AM EDT Home Care Visit [facility] [address] [place] [phone] Amanda Huerta, PT [address] [place] [address] PT HOME VISIT Social History Tobacco Use [...] 1:30 PM EDT Home Care Visit [facility] [address] [place] [phone] Hunter Johnson, OT [address] [place] [address] [email or web address] 02/06/2025 1:30 PM EDT Home Care Visit [facility] [address] [place] [phone] Hunter Johnson, OT [address] [place] [address] [email or web address] 02/09/2025 1:30 AM EST Home Care Visit [facility] [address] [place] [phone] Hunter Johnson, OT [address] [place] [address] [email or web address] 02/09/2025 9:00 AM EST Home Care Visit [facility] [address] [place] [phone] Amanda Huerta, PT [address] [place] [address] 02/11/2025 Home Care Visit [facility] [address] [place] [phone] Hunter Johnson, OT [address] [place] [address] [email or web address] 02/12/2025 9:00 AM EST Home Care Visit [facility] [address] [place] [phone] Amanda Huerta, PT [address] [place] [address] 02/16/2025 1:30 AM EST Home Care Visit [facility] [address], [place] [phone] Hunter Johnson, OT [address] [place] [address] [email or web address] 02/18/2025 Home Care Visit [facility] [address], [place] [phone] Hunter Johnson, OT [address] [place] [address] [email or web address] documented as of this encounter [...] the event of an emergency related situation. - Emergency Planning - Knowledge of No HH - Achieve care management for a safe to home/community discharge from homecare HH - Standard of Care No Interventions Intervention Associated Problem/Goal Status Variance Visit Notes - I/E medication management: administration, purpose, dosages, preparation, setup, scheduling, side effects, food/drug interactions, and potential complications as indicated Description: Update patient's copy of medication list as needed. Problem: - Medication Management Goal:HH - Safe medication management, avoid unnecessary harm related to medication errors and/or interactions Scheduled - Complete medication review every visit and medication reconciliation as indicated. Pharmacy information: Problem: - Medication Management Goal:HH - Safe medication management, avoid unnecessary harm related to medication errors and/or interactions Scheduled - Focus of care, teaching completed and plan for next visit Problem: - Focus of Care and Teaching Goal: - Communication and collaboration to achieve patient goals Scheduled - I/E management of care in an urgent or emergency (ER) situation: When to call your Home Care Team/911, ER plans, supplies, evacuation, when to contact local ER officials and how to stay informed Problem: - Emergency Planning - Knowledge of Goal:HH - Knowledge of options for managing care in the event of an emergency related situation. Scheduled - Emergency planning assessment: the emergency plan, supplies needed, emergency contact numbers and an evacuation plan were reviewed Description: Patient and Caregiver is/are knowledgeable of emergency plans. Problem: - Emergency Planning - Knowledge of Goal:HH - Knowledge of options for managing care in the event of an emergency related situation. Scheduled HH - Assess vital signs, pulse oximetry, pain, and as indicated, orthostatic vital signs Description: use agency-specific parameters Problem: - Standard of Care Goal:HH - Achieve care management for a safe to home/community discharge from homecare Scheduled HH - Assess skin integrity Problem: - Standard of Care Goal:HH - Achieve care management for a safe to home/community discharge from homecare Scheduled documented in this encounter Care Teams Legislative Director Relationship Specialty Start Date End Date Jomar Ramirez MD [address] [place] [address] [address] [place] [address] PCP - General Internal Medicine 01/14/25 documented as of this encounter Additional Source Comments The information contained in this document represents components of the legal health record. It is not the complete legal health record.[facility]
--- NOTE | 2025-02-04 15:51 | MHC.PC.OV ---
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 As directed] hydrocolloid dressing Applied over the wound after cleansing change every 3-5 days and as needed labetalol 400 mg (2 x 200 mg) PO BID 30 days levetiracetam 500 mg PO BID 90 days omeprazole 20 mg PO DAILY@0630 sertraline 100 mg PO DAILY 90 days tamsulosin 0.4 mg PO BEDTIME Tobacco use date assessed: 02/04/25 Dental Screening Dental Screen Date: 02/04/25 Did you have a dental visit in the last 12 months?: No Did you have a dental problem in the last 6 months where you did not have access to dental care?: No Was dental information given to patient?: No HPI BP Follow up HPI Details 114/70 114//77, stent - will be seeing urology next week [facility] Medical History (Updated 02/04/25 @ 16:15 by Jomar Ramirez MD) Obstructive sleep apnea Hypertension Bilateral kidney stones Seizure disorder Difficulty urinating Loss of appetite Hemorrhagic stroke Anxiety HTN (hypertension) Family History Mother Breast cancer Father Prostate cancer Skin cancer Social History Household Members: Spouse Housing: House Are you a primary campground caretaker to a significant other at home: No Do you presently have visiting nurse or other home services: No Alcohol intake: never Patient Tobacco Use Status: Never used Tobacco Tobacco use type: Cigarette e-Cigarette/Vaping Use: Never Used Second Hand Smoke Exposure: No service: No Current occupational status: disabled Cognitive needs: No Hearing needs: No Vision needs: No Questionnaire PHQ-9 Over the last 2 weeks, how often have you been bothered by any of the following problems? 1. Little interest or pleasure in doing things: not at all 2. Feeling down, depressed, or hopeless: several days 3. Trouble falling or staying asleep, or sleeping too much: not at all 4. Feeling tired or having little energy: several days 5. Poor appetite or overeating: not at all 6. Feeling bad about yourself - or that you are a failure or have let yourself or your family down: not at all 7. Trouble concentrating on things, such as reading the newspaper or watching television: not at all 8. Moving or speaking so slowly that other people could have noticed. Or the opposite - being so fidgety or restless that you have been moving around a lot more than usual: not at all 9. Thoughts that you would be better off or of hurting yourself in some way: not at all Total score: 2 Depression Screening Interpretation: Positive Depression Screening Done: Yes Source: Developed by Drs. Tushar Keenan, Mary Fountain, Romain Fry and colleagues, with an educational faustina from [employer]. Thrive Questionnaire Date Thrive assessed: 05/26/24 I am a: Patient What is your living situation today?: I have a steady place to live Within the past 12 months, did the food you bought not last and you didn't have the money to get more?: I choose not to answer this question Within the past 12 months, did you worry whether your food would run out before you got money to buy more?: I choose not to answer this question Do you have trouble paying for medicines?: No Do you have trouble getting transportation to medical appointments?: No Do you have trouble paying your heating and electricity bill?: No Do you have trouble taking care of your child, family member or friend?: No Do you have trouble with day-to-day activities such as bathing, preparing meals, shopping, managing finances, etc.?: Yes Are you currently unemployed and looking for a job?: Yes Are you interested in more education?: No Please select the resources that you would like help with: None Currently or been in a relationship where the following occur: No concerns reported THRIVE Score: 0 AUDIT C Alcohol Use Questionnaire (AUDIT-C) 1. How often do you have a drink containing alcohol?: Never 3. How often do you have six or more drinks on one occasion?: Never Total Score: 0 PATRICK-7 AMB Questionnaire PATRICK-7 Date PATRICK - 7 assessed: 05/26/24 Feeling nervous, anxious, or on edge: 0 = Not at all Not being able to stop or control worryin = Not at all Worrying too much about different things: 0 = Not at all Trouble relaxin = Not at all Being so restless that it is hard to sit still: 0 = Not at all Becoming easily annoyed or irritable: 0 = Not at all Feeling afraid as if something awful might happen: 0 = Not at all Total PATRICK-7 score (0-4 normal; 5-9 mild; 10-14 moderate; 15-21 severe): 0 Source: Developed by Drs. Tushar Keenan, Mary Fountain, Romain Fry and colleagues, with an educational faustina from [employer]. Physical exam (Primary Care) Tobacco/Smoking Status: Tobacco use Status Tobacco use date assessed 02/04/25 02/04/25 15:53 Patient Tobacco Use Status Never used Tobacco 02/04/25 15:53 Tobacco use type Cigarette 02/04/25 15:53 e-Cigarette/Vaping Use Never Used 02/04/25 15:53 PHQ-9: PHQ-9 Score PHQ-9: Total score 2 02/04/25 15:53 Depression Screening Interpretation: Positive Thrive Assessment: Date of Thrive Assessment Date Thrive assessed 05/26/24 02/04/25 15:53 Currently or been in a relationship where the following occur: No concerns reported Telehealth Telehealth Telehealth Platform: Telephone Location of provider rendering services: practice address Location of patient: address on file Patient Identification confirmed using: Name, : Yes Telehealth method: voice only Patient verbally consented to treatment: Yes Patient verbally consented to billing insurance company: Yes Patient informed of any privacy concerns related to visit: Yes Minutes spent on Phone/Video with Pt.: 25 Coding Level of Care Code Tele Est Pt Level 4 (27444) Diagnoses Chronic kidney disease, stage 3a N18.31 MAVERICK (acute kidney injury) N17.9 Hypertension I10 Hypertension type: unspecified Generalized anxiety disorder F41.1 Obstructive sleep apnea G47.33 Assessment & Plan Assessment & Plan (1) Chronic kidney disease, stage 3a: Code(s): N18.31 - Chronic kidney disease, stage 3a Category: Medical Plan: Back to baseline keep well hydrated avoid NSAIDs (2) MAVERICK (acute kidney injury): Code(s): N17.9 - Acute kidney failure, unspecified Category: Medical Plan: Patient follows up with urology with stent placement and on tamsulosin (3) Hypertension: Code(s): I10 - Essential (primary) hypertension Category: Medical Qualifiers: Hypertension type: unspecified Qualified Code(s): I10 - Essential (primary) hypertension Plan: Continue with blood pressure medication. Decrease salt intake and exercise on labetalol at 400 mg twice a day amlodipine 10 mg once a day (4) Generalized anxiety disorder: Comment: [facility] Counseling once a week Code(s): F41.1 - Generalized anxiety disorder Category: Medical Plan: Discussed about continuing with counseling and therapy (5) Obstructive sleep apnea: Comment: 10/21/2020 Code(s): G47.33 - Obstructive sleep apnea (adult) (pediatric) Category: Medical Plan: Discussed about CPAP use and patient has been using it more than 4 hours a night and benefits from this. Plan History of Present Illness The patient is a 54-year-old male with a history of CVA, depression, generalized anxiety disorder, and chronic kidney disease, presenting for a telehealth follow-up visit. He has severe anxiety which prevents him from attending in-office appointments. The patient was last seen in May for a physical exam. The patient was recently hospitalized on January 11 for right flank pain. Imaging revealed multiple bilateral renal calculi, with the largest being 7 mm in the left ureter, causing mild right and moderate left hydroureteronephrosis. He was diagnosed with an acute kidney injury, with an initial serum creatinine of 3.26 which peaked at 5.42, and was treated with IV ceftriaxone, hydration, and tamsulosin (Flomax). He underwent bilateral ureteral stenting on January 13. The patient has a history of poorly controlled hypertension. During his hospitalization, amlodipine 10 mg daily was added to his existing regimen of labetalol 400 mg twice daily. His blood pressure is now well-controlled with recent readings around 114/70-77 mmHg. His chronic kidney disease has a baseline creatinine of 2.27, which has returned to baseline post-hospitalization. He also has chronic anemia with normal platelet and white blood cell counts. For his anxiety and depression, he sees a counselor weekly at [facility] and takes sertraline. He also takes levetiracetam (Keppra), and omeprazole. For obstructive sleep apnea, he reports using his CPAP nightly. Review of Systems - General: Denies acute distress. - Genitourinary: Denies current flank pain. Denies symptoms of a urinary tract infection. - Neurological: Denies migraines or seizures. Plan Patient was informed and verbally consented to the use of an ambient scribe for clinic note documentation during this visit. 1. Nephrolithiasis With Obstructive Uropathy The patient is status post bilateral ureteral stenting for obstructive renal calculi. He will continue taking tamsulosin. A follow-up appointment with urology is scheduled in one week for likely stent removal. The patient was counseled on the importance of staying well-hydrated, aiming for at least 6-8 glasses of water daily, to prevent future stone formation. He was also advised to avoid NSAIDs. 2. Hypertension The patient's blood pressure is well-controlled on his current medication regimen. He will continue labetalol 400 mg twice daily and amlodipine 10 mg once daily. 3. Chronic Kidney Disease His acute kidney injury has resolved and his creatinine has returned to his baseline of 2.27. The patient will obtain follow-up blood work this week to continue monitoring his kidney function. 4. Generalized Anxiety Disorder / Depression The patient will continue with weekly counseling and therapy. He will continue his current medication, including sertraline. 5. Obstructive Sleep Apnea The patient reports adherence to nightly CPAP therapy and was advised to continue. 6. Health Maintenance Discussed immunizations with the patient. He reports having two COVID vaccines but does not receive the flu shot. The shingles vaccine was recommended for prevention, noting it is a two-part series available at the pharmacy. Discussion Notes I spoke with the patient via telehealth to follow up on his recent hospitalization for obstructive kidney stones. We reviewed his management, including the placement of bilateral ureteral stents, and confirmed he has a urology follow-up next week for their removal. I confirmed his acute kidney injury has resolved and his labs have returned to baseline, but stressed the need for follow-up blood work this week to continue monitoring. I emphasized the importance of prevention for his kidney stones, specifically advising him to maintain adequate hydration with at least 6-8 glasses of water daily and to avoid NSAIDs. We discussed his hypertension, which is now well-controlled on labetalol and amlodipine, and he will continue this regimen. We confirmed his adherence with CPAP and his engagement in weekly counseling for his anxiety. I also provided education on the shingles vaccine as a preventative measure, which is available at pharmacies. The patient stated he did not need any prescription refills at this time. Patient Instructions - Please get your blood work done this week to check on your kidney function. - Make sure to attend your urology appointment next week to have your kidney stents removed. - Continue to take all your medications as prescribed, including those for blood pressure (labetalol, amlodipine), anxiety (sertraline), and your other prescriptions (tamsulosin, Keppra, omeprazole). - To prevent future kidney stones, drink at least 6 to 8 glasses of water every day. - Do not take NSAID pain relievers like ibuprofen (Advil, Motrin) or naproxen (Aleve). - Continue using your CPAP machine every night for your sleep apnea. - Continue attending your weekly counseling sessions. - You may want to consider getting the shingles vaccine to prevent shingles. This is a two-shot series available at most pharmacies. - Please let us know if you need any medication refills.
--- OUTSIDE RECORDS SUMMARY | 2025-02-04 19:59 | XMS_ITS | Clinical Summary ---
Author Organization [facility] Address [address] [place] [place] [address] Phone Care Team Providers Care National Investigative Producer Name Role Phone Alphonso Marcum MD Primary Care Provider [phone] Allergies No known active allergies Medications Baclofen [...] (one) time each day Active nystatin (MYCOSTATIN) 840315 UNIT/ML suspension Take 500,000 Units by mouth [...] Orientation Not on file Plan of Treatment Upcoming Encounters Date Type Department Care Team (Late st Contact Info) Description 04/13/2025 3:00 PM EST Office Visit [facility] [address] [place] [address] Festus Ryan MD [address] [facility] [address] [place] [address] Health Maintenance Due Date Last Done Comments Hepatitis B Vaccine (1 of 3 - 19+ 3-dose series) 02/13 Colorectal Cancer Screening: Annual FOBT 2019 Colorectal Cancer Screening: Colonoscopy 2019 Colorectal Cancer Screening: Sigmoidoscopy 2019 Pneumococcal Vaccine: 50+ Years (1 of 1 - PCV) 020 Influenza Vaccine (#1) 2024 Insurance [facility] Medicaid [facility] Care Teams National Investigative Producer Relationship Specialty Start Date End Date Alphonso Marcum MD [address] [facility] [address] [place] [address] PCP - General Family Medicine 06/21/21
--- OUTSIDE RECORDS SUMMARY | 2025-02-04 19:59 | XMS_ITS | Clinical Summary ---
Author Organization [facility] Address [address] [facility] [address] [place] [address] Phone Care Team Providers Care Heel Finisher Name Role Phone Jomar Ramirez MD Primary Care Provider [phone] Allergies No known active allergies Medications amLODIPine (NORVASC) 10 MG tablet Take 10 mg by mouth daily. 5 Active levETIRAcetam (KEPPRA) 500 MG tablet Take 500 mg by mouth 2 (two) times a day. 5 Active sertraline (ZOLOFT) 100 MG tablet Take 100 mg by mouth daily. 5 Active labetaloL (TRANDATE) 200 MG tablet Take 400 mg by mouth 2 (two) times a day. 5 Active baclofen (LIORESAL) 5 mg tablet Take 5 mg by mouth 2 (two) times a day. 5 Active omeprazole (PRILOSEC) 20 MG capsule Take 20 mg by mouth daily. 5 Active tamsulosin (FLOMAX) 0.4 mg Cap Take 0.4 mg by mouth nightly at bedtime. 5 Active dutasteride-tompkins sulosin (TAMMY) 0.5-0.4 mg CM24 Take 1 capsule by mouth nightly at bedtime. 5 01/21/20 25 Discontinu ed(Error) Encounters Date Type Department Care Team Description 02/04/2025 9:00 AM EDT [facility] [address] [place] [address] Amanda Huerta, PT PT HOME VISIT 01/30/2025 1:30 PM EDT Home Care Visit [facility] [address] [place], [place] [phone] Hunter Johnson, OT OT HOME VISIT 01/30/2025 9:00 AM EDT Home Care Visit [facility] [address] [place] [address] Amanda Huerta, PT PT HOME VISIT 01/29/2025 Episode Documentatio n Update [facility] [address] [place] [address] Delores Mccray 01/28/2025 9:00 AM EDT Home Care Visit [facility] [address] [place] [address] Amanda Huerta, PT PT HOME VISIT 01/28/2025 Episode Documentatio n Update [facility] [address] [place] [address] 01/27/2025 1:30 PM EDT Home Care Visit [facility] [address] [place] [address] Hunter Johnson, OT OT EVALUATION 01/22/2025 Home Care Visit [facility] [address] [place] [address] Hunter Johnson, OT TELEPHONE ENCOUNTER 01/21/2025 Home Care Visit [facility] [address] [place], [place] [phone] Amanda Huerta, PT TELEPHONE ENCOUNTER 01/21/2025 Episode Documentatio n Update [facility] [address] [place] [address] 01/20/2025 1:30 PM EDT Home Care Visit [facility] [address] [place] [address] Amanda Huerta, PT PT OASIS START OF CARE (SOC) 01/20/2025 Plan of Care Documentation [facility] [address] [place], [place] [phone] 01/16/2025 Home Care Visit [facility] [address] [place], [place] [phone] Amanda Huerta, PT TELEPHONE ENCOUNTER 01/14/2025 Orders Only [facility] [address] [place], [place] [phone] Homehealth, Interface ProviderMD from Last 3 Months Social History Tobacco Use Types Packs/Day Years [...] on file Sexual Orientation Not on file Last Filed Vital Signs Vital Sign Reading Time Taken Comments Blood Pressure 130/84 02/04/2025 9:09 AM EDT Pulse 68 02/04/2025 9:09 AM EDT Temperature 36.6 C (97.9 F) 02/04/2025 9:09 AM EDT Respiratory Rate 16 01/27/2025 2:18 PM EDT Oxygen Saturation 98% 02/04/2025 9:09 AM EDT Inhaled Oxygen Concentration - - Weight - - Height - - Body Mass Index - - Plan of Treatment Upcoming Encounters Date Type Department Care Team (Late st Contact Info) Description 02/05/2025 1:30 PM EDT Home Care Visit [facility] [address] [place] [phone] Hunter Johnson, OT [address] [place] [address] [email or web address] 02/06/2025 1:30 PM EDT Home Care Visit [facility] [address] [place] [phone] Hunter Johnson, OT [address] [place] [address] [email or web address] 02/09/2025 1:30 AM EST Home Care Visit [facility] [address] [place] [phone] Hunter Johnson, OT [address] [place] [address] [email or web address] 02/09/2025 9:00 AM EST Home Care Visit [facility] [address] [place] [phone] Amanda Huerta, PT [address] [place] [address] 02/11/2025 Home Care Visit [facility] [address] [place] [phone] Hunter Johnson, OT [address] [place] [address] [email or web address] 02/12/2025 9:00 AM EST Home Care Visit [facility] [address] [place] [phone] Amanda Huerta, PT [address] [place] [address] 02/16/2025 1:30 AM EST Home Care Visit [facility] [address] [place] [phone] Hunter Johnson, OT [address] [place] [address] [email or web address] 02/18/2025 Home Care Visit [facility] [address] [place], [place] [phone] Hunter Johnson, OT [address] [place] [address] [email or web address] Medical Devices Not on file [facility] Care Teams Heel Finisher Relationship Specialty Start Date End Date Jomar Ramirez MD [address] [place] [address] Drive [address] [place] [phone] PCP - General Internal Medicine 01/14/25 Additional Source Comments The information contained in this document represents components of the legal health record. It is not the complete legal health record.[facility]
== END 2025-02-04 17:19 | disposition home or self-care (01) ==
LOC: HO.HMCH 15:51
PROVIDERS: PCP Internal Medicine; Visit Provider Internal Medicine
DX: N18.31 Chronic kidney disease, stage 3a (principal); N17.9 Acute kidney failure, unspecified; I10 Essential (primary) hypertension; F41.1 Generalized anxiety disorder; G47.33 Obstructive sleep apnea (adult) (pediatric)

== ENCOUNTER 2025-02-07 08:49 | Outpatient (REF) | payer OTHER, SELFPAY ==
--- OUTSIDE RECORDS SUMMARY | 2025-02-04 09:00 | XMS_ITS | Encounter Summary ---
Author Organization [facility] Address [address] [place] [address] Phone Care Team Providers Care Creative Guru Name Role Phone Jomar Ramirez MD Primary Care Provider [phone] Reason for Visit * Reason Comments Weakness * Auth/Cert (Routine) Specialty Diagnoses / Procedures Referred By Contac t Referred To Contact Referral ID Status Reason Start Date Expiration Date Visits Re quested Visits Authorized [id number] 1 1 Encounter Details Date Type Department Care Team (Late st Contact Info) Description 02/04/2025 9:00 AM EDT Home Care Visit [facility] [address] [place] [phone] Amanda Huerta, PT [address] [place] [address] [email or web address] PT HOME VISIT Social History Tobacco Use [...] Sign Reading Time Taken Comments Blood Pressure 130/84 02/04/2025 9:09 AM EDT Pulse 68 02/04/2025 9:09 AM EDT Temperature 36.6 C (97.9 F) 02/04/2025 9:09 AM EDT Respiratory Rate - - Oxygen Saturation 98% 02/04/2025 9:09 AM EDT Inhaled Oxygen Concentration - - Weight - - Height - - Body Mass Index - - documented in this encounter Plan of Treatment Upcoming Encounters Date Type Department Care Team (Late st Contact Info) Description 02/09/2025 9:00 AM EST Home Care Visit [facility] [address] [place] [phone] Amanda Huerta, PT [address] [place] [address] [email or web address] 02/09/2025 3:00 PM EST Home Care Visit [facility] [address] [place] [phone] Hnuter Johnson, OT [address] [place] [address] [email or web address] 02/12/2025 9:00 AM EST Home Care Visit [facility] [address] [place] [address] Amanda Huerta, PT [address] [place] [address] [email or web address] 02/12/2025 3:00 PM EST Home Care Visit [facility] [address] [place] [phone] Hunter Johnson, OT [address] [place] [address] [email or web address] 02/16/2025 1:30 AM EST Home Care Visit [facility] [address] [place] [address] Hunter Johnson, OT [address] [place] [address] [email or web address] 02/18/2025 Home Care Visit [facility] [address], [place] [phone] Hunter Johnson, OT [address] [place] [address] [email or web address] documented as of this encounter [...] Focus this Visit & Instruction Provided: Pt cancelled Sunday visit due to not feeling well but reports feeling much better today. Has PCP appt later today - encouraged to ask for prescription for L AFO as present AFO is too difficult for he or his to fit into shoe and he also complainted of R calf discomfort when using. Patient reports no falls or changes in status. No medication changes. His has been taking his BP regularly and he reports it has been WFL. Gait training: ambulation with nicanor walker one lap of home, approximately 75 feet with verbal and tactile cues for Increasing left foot clearance and use of left hip flexors versus adductors. Patient with a more narrow XENA today and less hip external rotation noted. Encouraged him to ambulate three laps of home daily as part of his HEP. Transfers: patient tending to utilize only right UE and LE for sit to stand transfers. Had him utilize wheelchair and assisted with foot alignment with left foot placed next to right with tactile and verbal cues for WB through left LE during sit to stand transfers. Patient able to complete five repetitions. Transitioned into recliner and focused again on Alignment of bilateral feet to promote weight-bearing and strengthening of left LE. Patient encouraged to utilize that technique with all transfers. Patient encouraged to complete five sit to stand repetitions from a recliner with proper technique and alignment daily as part of HEP. Balance: completed sidestepping and forward and backward walking at kitchen counter with right UE for support. Focused on upright posture, lifting left LE versus sliding, and keeping hip in neutral position without external rotation. Sidestepping at counter added to HEP. Instruction Provided to: patient Response to Instruction/Teaching: Is partially able to teach back topics. Plan for Next Visit Specific Focus & Education Needed: HEP; TFA New Orders: none Updated Discharge Plan: transition to self care HH - I/E management of care in [...] of an emergency related situation. Completed - I/E fall prevention measures Description: diagnosis/age [...] fall Problem: - Falls - Risk of Goal: - Knowledge and management of fall prevention measures. Completed HH - Assess vital signs, pulse oximetry, pain, and as indicated, orthostatic vital signs Description: use agency-specific parameters Problem: - Standard of Care Goal: - Achieve care management for a safe to home/community discharge from homecare Completed HH - Assess skin integrity Problem: - Standard of Care Goal:HH - Achieve care management for a safe to home/community discharge from homecare Completed - I/E discharge plan Problem: - Standard of Care Goal:HH - Achieve care management for a safe to home/community discharge from homecare Completed HH - Assess pain Problem: - Pain Goal:HH - Frequency of pain interfering with patient's activity or movement will improve with activity or movement by discharge. Completed - I/E pain management Problem: - Pain Goal:HH - Frequency of pain interfering with patient's activity or movement will improve with activity or movement by discharge. Completed HH - Therapeutic interventions, as indicated: Description: balance training, bed mobility training, durable medical equipment training, gait/stair training, home modification, manual therapy/soft tissue mobilization , therapeutic exercise/home exercise program and transfer training, including bathroom transfers Problem: - Mobility and Activity Tolerance - Impaired [...] Completed documented in this encounter Care Teams Creative Guru Relationship Specialty Start Date End Date Jomar Ramirez MD [address] [place] [address] [address] [place] [address] PCP - General Internal Medicine 01/14/25 documented as of this encounter Additional Source Comments The information contained in this document represents components of the legal health record. It is not the complete legal health record.[facility]
--- OUTSIDE RECORDS SUMMARY | 2025-02-05 13:30 | XMS_ITS | Encounter Summary ---
Author Organization [facility] Address [address] [facility] [address] [place] [address] Phone Care Team Providers Care Car Lot Attendant Name Role Phone Jomar Ramirez MD Primary Care Provider [phone] Reason for Visit * Auth/Cert (Routine) Specialty Diagnoses / Procedures Referred By Contac t Referred To Contact Referral ID Status Reason Start Date Expiration Date Visits Re quested Visits Authorized [id number] 1 1 Encounter Details Date Type Department Care Team (Late st Contact Info) Description 02/05/2025 1:30 PM EDT Home Care Visit [facility] [address] [place] [phone] Hunter Johnson, OT [address] [place] [address] [email or web address] OT HOME VISIT Social History [...] Sign Reading Time Taken Comments Blood Pressure 118/82 02/05/2025 1:43 PM EDT Pulse 68 02/05/2025 1:43 PM EDT Temperature 37 C (98.6 F) 02/05/2025 1:43 PM EDT Respiratory Rate 16 02/05/2025 1:43 PM EDT Oxygen Saturation 98% 02/05/2025 1:43 PM EDT Inhaled Oxygen Concentration - - Weight - - Height - - Body Mass Index - - documented in this encounter Plan of Treatment Upcoming Encounters Date Type Department Care Team (Late st Contact Info) Description 02/09/2025 9:00 AM EST Home Care Visit [facility] [address] [place] [phone] Amanda Huerta, PT [address] [place] [address] 02/09/2025 3:00 PM EST Home Care Visit [facility] [address] [place] [phone] Hunter Johnson, OT [address] [place] [address] [email or web address] 02/12/2025 9:00 AM EST Home Care Visit [facility] [address] [place] [phone] Amanda Huerta, PT [address] [place] [address] 02/12/2025 3:00 PM EST Home Care Visit [facility] [address] [place] [phone] Hunter Johnson, OT [address] [place] [address] [email or web address] 02/16/2025 1:30 AM EST Home Care Visit [facility] [address] [place], [place] [phone] Hunter Johnson, OT [address] [place] [address] [email or web address] 02/18/2025 Home Care Visit [facility] [address] [place], [place] [phone] Hunter Johnson, OT [address] [place] [address] [email or web address] documented as of this encounter [...] Problem/Goal Status Variance Visit Notes HH - Complete medication review every visit and medication reconciliation as indicated. Pharmacy information: Problem:HH - Medication Management Goal:HH - Safe medication management, avoid unnecessary harm related to medication errors and/or interactions Completed HH - I/E medication management: administration, purpose, dosages, preparation, setup, scheduling, side effects, food/drug interactions, and potential complications as indicated Description: Update patient's copy of medication list as needed. Problem:HH - Medication Management Goal:HH - Safe medication management, avoid unnecessary harm related to medication errors and/or interactions Scheduled with variance Not Applicable for Visiting Discipline no med change HH - Focus of care, teaching completed and plan for next visit Problem:HH - Focus of Care and Teaching Goal:HH - Communication and collaboration to achieve patient goals Completed Primary Clinical Focus this Visit & Instruction Provided: Patient was seen today for follow up on upper extremity neural reeducation. Reviewed wrist, tenodesis, and forearm pronation supination with electric toothbrush. The patient stated that he thought the toothbrush was helpful and enjoyed that exercise. The patient was assisted in setting up overhead door, police system. This involves adjusting the length of the straps and setting up the elayne over the door in the kitchen as well as his wheelchair. The patient was able to complete the following exercise exercises with a AROM from his right hand with the elayne as well as assistance from this therapist to keep his left elbow straight at times and to help go through some of the movements. Patient completed the following exercise exercises: Bicep curl and extension: 10 reps. Shoulder flexion: assistance to keep his arm straight. 10 reps. Lateral Ab/ADduction: assistance to keep his arm straight. 10 reps. Shoulder protraction/retr action:10 reps Lateral shoulder circles: patient instructed to keep low at waste. 10 clockwise. 10 counterclockwise Patient needed assistance with range of motion throughout these exercises. Recommended a shoulder brace to help keep his elbow straight for a couple of the exercises. Patient stated that his arm felt tired. He tends to require more assistance at the beginning of the reps and then is able to demo slightly more movement towards the end of the reps. Instruction Provided to: patient and caregiver Response to Instruction/Teac nhan: Is partially able to teach back topics as evidenced by needing more training with UE HEP. Plan for Next Visit Specific Focus & Education Needed: UE HEP New Orders: n/a Updated Discharge Plan: 02/21 - Emergency planning assessment: the emergency plan, supplies needed, emergency contact numbers and an evacuation plan were reviewed Description: Patient and Caregiver is/are knowledgeable of emergency plans. Problem: - Emergency Planning - Knowledge of Goal:HH - Knowledge of options for managing care in the event of an emergency related situation. Completed - I/E management of care in an urgent or emergency (ER) situation: When to call your Home Care Team/911, ER plans, supplies, evacuation, when to contact local ER officials and how to stay informed Problem: - Emergency Planning - Knowledge of Goal:HH - Knowledge of options for managing care in the event of an emergency related situation. Scheduled with variance Not Applicable for Visiting Discipline HH - Assess vital signs, pulse oximetry, [...] activity or movement by discharge. Completed - OT Therapeutic interventions, as indicated: Description: neuromuscular retraining/tone management, and desensitization techniques therapeutic exercise/home exercise program Problem:HH - ADL/IADL Impairment and Therapeutic Interventions Goal:HH - Promote higher level of independence with performance of ADLs/IADLs. Completed documented in this encounter Care Teams Car Lot Attendant Relationship Specialty Start Date End Date Jomar Ramirez MD [address] [place] [address] PCP - General Internal Medicine 01/14/25 documented as of this encounter Additional Source Comments The information contained in this document represents components of the legal health record. It is not the complete legal health record.[facility]
--- OUTSIDE RECORDS SUMMARY | 2025-02-06 13:30 | XMS_ITS | Encounter Summary ---
Author Organization [facility] Address [address] [facility] [address] [place] [address] Phone Care Team Providers Care Poem Writer Name Role Phone Jomar Ramirez MD Primary Care Provider [phone] Reason for Visit * Auth/Cert (Routine) Specialty Diagnoses / Procedures Referred By Contac t Referred To Contact Referral ID Status Reason Start Date Expiration Date Visits Re quested Visits Authorized [id number] 1 1 Encounter Details Date Type Department Care Team (Late st Contact Info) Description 02/06/2025 1:30 PM EDT Home Care Visit [facility] [address] [place] [phone] Hunter Johnson, OT [address] [place] [address] [email or web address] OT HOME VISIT Social History [...] 9:00 AM EST Home [facility] Visit [facility] [address] [place] [phone] Amanda Huerta, PT [address] [place] [address] [email or web address] 02/09/2025 3:00 PM EST Home Care Visit [facility] [address] [place] [phone] Hunter Johnson, OT [address] [place] [address] [email or web address] 02/12/2025 9:00 AM EST Home Care Visit [facility] [address] [place] [phone] Amanda Huerta, PT [address] [place] [address] [email or web address] 02/12/2025 3:00 PM EST Home Care Visit [facility] [address] [place] [phone] Hunter Johnson, OT [address] [place] [address] [email or web address] 02/16/2025 1:30 AM EST Home Care Visit [facility] [address] [place], [place] [phone] Adalberto Johnsonew, OT [address] [place] [address] [email or web address] 02/18/2025 Home Care Visit [facility] [address] [place], [place] [phone] Adalberto Johnsonew, OT [address] [place] [address] [email or web address] documented as of this encounter [...] related to medication errors and/or interactions Scheduled HH - Complete medication review every visit and medication reconciliation as indicated. Pharmacy information: Problem:HH - Medication Management Goal:HH - Safe medication management, avoid unnecessary harm related to medication errors and/or interactions Scheduled HH - Focus of care, teaching completed and plan for next visit Problem:HH - Focus of Care and Teaching Goal:HH - Communication and collaboration to achieve patient goals Scheduled - I/E management of care in an urgent or emergency (ER) situation: When to call your Home Care Team/[facility], ER plans, supplies, evacuation, when to contact [...] Scheduled documented in this encounter Care Teams Poem Writer Relationship Specialty Start Date End Date Jomar Ramirez MD [address] [place] [address] [place] [phone] PCP - General Internal Medicine 01/14/25 documented as of this encounter Additional Source Comments The information contained in this document represents components of the legal health record. It is not the complete legal health record.[facility]
--- OUTSIDE RECORDS SUMMARY | 2025-02-07 08:52 | XMS_ITS | Clinical Summary ---
Author Organization [facility] Address [address] [place] [address] Phone Care Team Providers Care Business Banker Name Role Phone Alphonso Marcum MD Primary Care Provider [phone] Allergies No known active allergies Medications Baclofen [...] (one) time each day Active nystatin (MYCOSTATIN) 288025 UNIT/ML suspension Take 500,000 Units by mouth [...] Visit [facility] [address] [place] [phone] Festus Ryan MD [address] [facility] [address] [place] [address] Health Maintenance Due Date Last Done Comments Hepatitis B Vaccine (1 of 3 - 19+ 3-dose series) 02/13 Colorectal Cancer Screening: Annual FOBT 2019 Colorectal Cancer Screening: Colonoscopy 2019 Colorectal Cancer Screening: Sigmoidoscopy 2019 Pneumococcal Vaccine: 50+ Years (1 of 1 - PCV) 020 Influenza Vaccine (#1) 2024 Insurance [facility] Medicaid [facility] Care Teams Business Banker Relationship Specialty Start Date End Date Alphonso Marcum MD [address] [facility] [address] [place] [address] PCP - General Family Medicine 06/21/21
--- OUTSIDE RECORDS SUMMARY | 2025-02-07 08:53 | XMS_ITS | Clinical Summary ---
Author Organization [facility] Address [address] [facility] [address] [place] [phone] Phone Care Team Providers Care Community Case Manager Name Role Phone Jomar Ramirez MD Primary Care Provider Allergies No known active allergies Medications amLODIPine [...] Encounters Date Type Department Care Team Description 02/06/2025 1:30 PM EDT Home Care Visit [facility] [address] [place] [phone] Hunter Johnson, OT OT HOME VISIT 02/05/2025 1:30 PM EDT Home Care Visit [facility] [address] [place], [place] [phone] Hunter Johnson, OT OT HOME VISIT 02/04/2025 9:00 AM EDT Home Care Visit [facility] [address] [place], [place] [phone] Amanda Huerta, PT PT HOME VISIT 01/30/2025 1:30 PM EDT Home Care Visit [facility] [address] [place], [place] [phone] Hunter Johnson, OT OT HOME VISIT 01/30/2025 9:00 AM EDT Home Care Visit [facility] [address] [place] [address] Amanda Huerta, PT PT HOME VISIT 01/29/2025 Episode Documentatio n Update [facility] [address] [place] [address] Delores Mccray 01/28/2025 9:00 AM EDT Home Care Visit [facility] [address] [place] [address] Amanda Huerta, PT PT HOME VISIT 01/28/2025 Episode Documentatio n Update [facility] [address] [place] [address] 01/27/2025 1:30 PM EDT Home Care Visit [facility] [address] [place], [place] [phone] Hunter Johnson, OT OT EVALUATION 01/22/2025 Home Care Visit [facility] [address] [place], [place] [phone] Hunter Johnson, OT TELEPHONE ENCOUNTER 01/21/2025 Home Care Visit [facility] [address] [place], [place] [phone] Amanda Huerta, PT TELEPHONE ENCOUNTER 01/21/2025 Episode Documentatio n Update [facility] [address] [place] [address] 01/20/2025 1:30 PM EDT Home Care Visit [facility] [address] [place] [address] Amanda Huerta, PT PT OASIS START OF CARE (SOC) 01/20/2025 Plan of Care Documentation [facility] [address] [place] [address] 01/16/2025 Home Care Visit [facility] [address] [place] [address] Amanda Huerta, PT TELEPHONE ENCOUNTER 01/14/2025 Orders Only [facility] [address] [place] [address] Homehealth, Interface ProviderMD from Last 3 Months [...] 9:00 AM EST Home Care Visit [facility] [address] [place] [phone] Amanda Huerta, PT [address] [place] [address] [email or web address] 02/09/2025 3:00 PM EST Home Care Visit [facility] [address] [place] [phone] Hunter Johnson, OT [address] [place] [address] [email or web address] 02/12/2025 9:00 AM EST Home Care Visit [facility] [address] [place] [phone] Amanda Huerta, PT [address] [place] [address] [email or web address] 02/12/2025 3:00 PM EST Home Care Visit [facility] [address] [place] [phone] Hunter Johnson, OT [address] [place] [address] [email or web address] 02/16/2025 1:30 AM EST Home Care Visit [facility] [address] [place] [phone] Hunter Johnson, OT [address] [place] [address] [email or web address] 02/18/2025 Home Care Visit [facility] [address] [place], [place] [phone] Adalberto Johnsonew, OT [address] [place] [address] [email or web address] Medical [email or web address] Not on file Insurance [facility] Member Subscriber Plan / Payer (Ef fective 2024-Present) Name:Tonio Wright Relation to Subscriber:Self Name:Tonio Wrihgt Payer ID:Not on file Type:HMO Address: [place] [id number] Care Teams Community Case Manager Relationship Specialty Start Date End Date Jomar Ramirez MD [address] [facility] [address] [place] [address] PCP - General Internal Medicine 01/14/25 Additional Source Comments The information contained in this document represents components of the legal health record. It is not the complete legal health record.[facility]
[2025-02-07 09:12] LABS: MANUAL DIFF FLAG NO
[2025-02-07 09:33] LABS: Hematocrit 41.5 % (42.0-52.0); Hemoglobin 13.9 g/dl (14.0-18.0); Imm Gran Abs Auto 0.02 X10*3/uL (0.00-0.03); Imm Gran Pct Auto 0.5 % (0.0-0.4); Lymphocytes Absolute Auto 0.5 X10*3/uL (1.2-4.9); Mean Corpuscular HGB Conc 33.5 g/dl (31.0-36.0); Mean Corpuscular Hemoglobin 27.7 pg (27.0-33.0); Mean Corpuscular Volume 82.8 fL (80.0-98.0); NRBC Abs Auto 0.000 X10*3/uL (0.0-0.012); NRBC Pct Auto 0.0 /100WBC (0.0-0.2); Platelet Count 129 X10*3/uL (160-400); Red Blood Count 5.01 X10*6/uL (4.60-5.80); White Blood Count 4.3 X10*3/uL (4.8-10.8)
[2025-02-07 10:05] LABS: Alanine Aminotransferase 11 U/L (0-40); Albumin Level 4.7 g/dL (3.5-5.0); Alkaline Phosphatase 89 U/L (39-117); Anion Gap 13 (12-20); Aspartate Amino Transferase 19 U/L (5-37); Blood Urea Nitrogen 19 mg/dL (9-16); Calcium 9.4 mg/dL (8.4-10.2); Carbon Dioxide 23 mmol/L (22-29); Chloride 107 mmol/L (96-108); Cholesterol 187 mg/dL (<200); Estimated Glomerular Filt Rate 40; HDL Cholesterol 33 mg/dL (>40); Potassium 3.8 mmol/L (3.3-5.1); Sodium 139 mmol/L (135-145); Total Protein 7.6 g/dL (6.5-8.0); Triglycerides 184 mg/dL (<150)
[2025-02-07 10:15] LABS: Free T4 (Free Thyroxine) 1.15 ng/dL (0.71-1.85)
[2025-02-07 10:21] LABS: Thyroid Stimulating Hormone 2.58 uIU/mL (0.32-4.0)
[2025-02-07 10:31] LABS: Folate 4.1 ng/mL (> or = 4.0); Vitamin B12 568 pg/mL (200-900)
== END 2025-02-07 08:50 | disposition home or self-care (01) ==
LOC: HO.LAB 08:49
PROVIDERS: Urology; PCP Internal Medicine; Visit Provider Internal Medicine
DX: I61.9 Nontraumatic intracerebral hemorrhage, unspecified (principal); R80.9 Proteinuria, unspecified; E78.00 Pure hypercholesterolemia, unspecified; Z12.5 Encounter for screening for malignant neoplasm of prostate
CPT/HCPCS: 36415; 80053; 80061; 82607; 82746; 84153; 84439; 84443; 85025

== ENCOUNTER 2025-02-11 09:09 | Outpatient (AMB) | payer OTHER, SELFPAY ==
--- OUTSIDE RECORDS SUMMARY | 2025-02-06 12:30 | XMS_ITS | Encounter Summary ---
Author Organization [facility] Address [address] [facility] [address] [place] [address] Phone Care Team Providers Care Laser Engraver Name Role Phone Jomar Ramirez MD Primary Care Provider [phone] Reason for Visit * Auth/Cert (Routine) Specialty Diagnoses / Procedures Referred By Contac t Referred To Contact Referral ID Status Reason Start Date Expiration Date Visits Re quested Visits Authorized [id number] 1 1 Encounter Details Date Type Department Care Team (Late st Contact Info) Description 02/06/2025 1:30 PM EDT Home Care Visit [facility] [address] [place] [phone] Hunter Johnson, OT [address] [place] [address] [email or web address] OT HOME VISIT Social History [...] Sign Reading Time Taken Comments Blood Pressure 130/76 02/06/2025 2:08 PM EDT Pulse 64 02/06/2025 2:08 PM EDT Temperature 36.6 C (97.9 F) 02/06/2025 2:08 PM EDT Respiratory Rate 10 02/06/2025 2:08 PM EDT Oxygen Saturation 98% 02/06/2025 2:08 PM EDT Inhaled Oxygen Concentration - - Weight - - Height - - Body Mass Index - - documented in this encounter Plan of Treatment Upcoming Encounters Date Type Department Care Team (Late st Contact Info) Description 02/12/2025 10:45 AM EST Appointment [facility] [address] [place] [phone] Amanda Huerta, PT [address] [place] [address] 02/12/2025 3:00 PM EST Appointment [facility] [address] [place] [phone] Hunter Johnson, OT [address] [place] [address] [email or web address] 02/16/2025 1:30 AM EST Appointment [facility] [address] [place] [address] Hunter Johnson, OT [address] [place] [address] [email or web address] 02/18/2025 Appointment [facility] [address] [place] [phone] Hunter Johnson, OT [address] [place] [address] [email or web address] documented as of this encounter Visit Diagnoses [...] harm related to medication errors and/or interactions Performed HH - Complete medication review every visit and medication reconciliation as indicated. Pharmacy information: Problem:HH - Medication Management Goal:HH - Safe medication management, avoid unnecessary harm related to medication errors and/or interactions Performed HH - Focus of care, teaching completed and plan for next visit Problem:HH - Focus of Care and Teaching Goal:HH - Communication and collaboration to achieve patient goals Performed Primary Clinical Focus this Visit & Instruction Provided: The Pt was assisted in setting up his elayne exercises: Bicep curl and extension: 10 reps. Shoulder flexion: assistance to keep his arm straight. 10 reps. Lateral Ab/ADduction: assistance to keep his arm straight. 10 reps. Shoulder protraction/retracti on:10 reps Lateral shoulder circles: patient instructed to keep low at waste. 10 clockwise. 10 counterclockwise The Pt denied any pain from the exercises. He did report increased fa tigue in the L UE specifically around the shoulder. The Pt demo's trace movement and appears to demo increased control toward the end of the set. Ed provided to the Pt on tech on donning the grasp assist as he and his spouse were having difficulty gett ing it on his L hand. Instruction Provided to: patient Response to Instruction/Teaching : Is partially able to teach back topics as evidenced by needing training and assistance with exercises. Plan for Next Visit Specific Focus & Education Needed: U E HEP New Orders: n/a Updated Discharge Plan: 02/21 HH - I/E management of care in an urgent or emergency (ER) situation: When to call your Home Care Team/911, ER plans, supplies, evacuation, when to contact local ER officials and how to stay informed Problem: - Emergency Planning - Knowledge of Goal:HH - Knowledge of options for managing care in the event of an emergency related situation. Performed - Emergency planning assessment: the emergency plan, supplies needed, emergency contact numbers and an evacuation plan were reviewed Description: Patient and Caregiver is/are knowledgeable of emergency plans. Problem:HH - Emergency Planning - Knowledge of Goal:HH - Knowledge of options for managing care in the event of an emergency related situation. Performed HH - Assess vital signs, pulse oximetry, pain, and as indicated, orthostatic vital signs Description: use agency-specific parameters Problem:HH - Standard of Care Goal:HH - Achieve care management for a safe to home/community discharge from homecare Performed HH - Assess skin integrity Problem:HH - Standard of Care Goal:HH - Achieve care management for a safe to home/community discharge from homecare Performed HH - Assess pain Problem:HH - Pain Goal:HH - Frequency of pain interfering with patient's activity or movement will improve with activity or movement by discharge. Performed HH - OT Therapeutic interventions, as indicated: Description: neuromuscular retraining/tone management, and desensitization techniques therapeutic exercise/home exercise program Problem:HH - ADL/IADL Impairment and Therapeutic Interventions Goal:HH - Promote higher level of independence with performance of ADLs/IADLs. Performed documented in this encounter Care Teams Laser Engraver Relationship Specialty Start Date End Date Jomar Ramirez MD [address] [place] [address] [place] [phone] PCP - General Internal Medicine 01/14/25 documented as of this encounter Additional Source Comments The information contained in this document represents components of the legal health record. It is not the complete legal health record.[facility]
--- OUTSIDE RECORDS SUMMARY | 2025-02-09 09:00 | XMS_ITS | Encounter Summary ---
Author Organization [facility] Address [address] [facility] [address] [place] [phone] Phone Care Team Providers Care Loading Dock Hand Name Role Phone Jomar Ramirez MD Primary Care Provider Reason for Visit * Reason Comments Weakness * Auth/Cert (Routine) Specialty Diagnoses / Procedures Referred By Contac t Referred To Contact Referral ID Status Reason Start Date Expiration Date Visits Re quested Visits Authorized [id number] 1 1 Encounter Details Date Type Department Care Team (Late st Contact Info) Description 02/09/2025 9:00 AM EST Home Care Visit [facility] [address] [place] [phone] Amanda Huerta, PT [address] [place] [address] PT HOME VISIT Social History Tobacco Use [...] Sign Reading Time Taken Comments Blood Pressure 104/68 02/09/2025 9:19 AM EST Pulse 70 02/09/2025 9:19 AM EST Temperature 36.7 C (98 F) 02/09/2025 9:19 AM EST Respiratory Rate 16 02/09/2025 9:19 AM EST Oxygen Saturation 96% 02/09/2025 9:19 AM EST Inhaled Oxygen Concentration - - Weight - - Height - - Body Mass Index - - documented in this encounter Plan of Treatment Upcoming Encounters Date Type Department Care Team (Late st Contact Info) Description 02/12/2025 10:45 AM EST Appointment [facility] [address] [place] [phone] Amanda Huerta, PT [address] [place] [address] [email or web address] 02/12/2025 3:00 PM EST Appointment [facility] [address] [place] [phone] Hunter Johnson, OT [address] [place] [address] [email or web address] 02/16/2025 1:30 AM EST Appointment [facility] [address] [place] [phone] Hunter Johnson, OT [address] [place] [address] [email or web address] 02/18/2025 Appointment [facility] [address] [place] [phone] Hunter Johnson, OT [address] [place] [address] [email or web address] documented as of this encounter Visit Diagnoses [...] strength and stability with all tasks by 5. 5. Pt to perform up/dwn 2 stairs with LAD and no VCs for safety to allow pt to enter/exit home without assistance by 02/14/25. 6. Pt to improve Tinetti to >19/28 with LAD to improve balance and safety in home and community environment by 02/14. 7. Pt to demonstrate improved balance, falls [...] Focus this Visit & Instruction Provided: Patient in living room chair at time of PT arrival. Had PCP appointment last week with no changes made to meds. Went out with 's assistance for bloodwork on Sunday where he reports he ambu lated from house to car with nicanor walker. He reports he has been completing HEP as prescribed. No falls reported. Vitals stable. Gait training: ambulation with nicanor walker with tactile facilitation for alignment and dynamics to promote left hip flexio n versus abduction and hip hike for limb advancement. Ambulated 50 feet with improving dynamics with time/distance. Educated on alignment to be mindful for when ambulating throughout the day. Will assess carryover at next visit. Transfers: worked on sit to stand from recliner and wheelchair focusing on left LE alignment and utilizing left leg for pushing up to stand and controlling balance when transitioning to sitting. Also worked on stepping back fully with both LE when transitioning to sitting f rom walking. Patient with good carryover from last visit. Balance: forward and backward walking with right UE supported on counter. when walking forward, focused on step length and conner. When walking backwards focused on posture as well as left glu teal and hamstring use. Also completed sidestepping focusing on lifting left LE versus dragging or sliding. Patient with some difficulty with sidestepping dynamics with some improvement when tactile and verbal cues are provided. Strengthening: initiat ed partial squats focusing on left LE weight-bearing and power production. tactile facilitation provided throughout. Patient completing six repetitions before fatigue. Instruction Provided to: patient Response to Instruction/Teaching: Is partially ab le to teach back topics. Plan for Next Visit Specific Focus & Education Needed: reassessment New Orders: none Updated Discharge Plan: transition [...] an emergency related situation. Performed HH - Emergency planning assessment: the emergency plan, supplies needed, emergency contact numbers and an evacuation plan were reviewed Description: Patient and Caregiver is/are knowledgeable of emergency plans. Problem:HH - Emergency Planning - Knowledge of Goal:HH - Knowledge of options for managing care in the event of an emergency related situation. Performed HH - I/E fall prevention measures Description: diagnosis/age related changes/prior history of falls: symptoms and side effects of illness/injury/history of falls placing patient at increased risk for falls. may include management of dizziness/orthostasis, environmental hazards: modification of enviro nment to include clear walkways, secure animals, and move frequently used items within reach, use of equipment, impaired functional mobility: supervision for mobility/activity, appropriate footwear and as indicated safe use of assistive device(s) and see y pharmacy: side effects of medications placing a patient at high risk for a fall Problem:HH - Falls - Risk of Goal:HH - Knowledge and management of fall prevention measures. Performed HH - Assess vital signs, pulse [...] home/community discharge from homecare Performed HH - I/E discharge plan Problem:HH - Standard of Care Goal:HH - Achieve care management for a safe to home/community discharge from homecare Performed HH - Assess pain Problem:HH - Pain Goal:HH - Frequency of pain interfering with patient's activity or movement will improve with activity or movement by discharge. Performed HH - I/E pain management Problem:HH - Pain Goal:HH - Frequency of pain interfering with patient's activity or movement will improve with activity or movement by discharge. Performed HH - Therapeutic interventions, as indicated: Description: balance training, bed mobility training, durable medical equipment training, gait/stair training, home modification, manual therapy/soft tissue mobilization , therapeutic exercise/home exercise program and transfer training, including bathroom transfers Problem:HH - Mobility and Activity Tolerance - Impaired Goal:HH - Demonstrate maximum mobility and activity level for safe function Performed This visit transfers, gait, balance, strengthening HH - I/E therapeutic function/activity: Description: As indicated: activity promotion and management, functional mobility training, therapeutic exercise and home exercise program, device use. Problem:HH - Mobility and Activity Tolerance - Impaired Goal:HH - Demonstrate maximum mobility and activity level for safe function Performed HH - Assess therapeutic function/activity and need for durable medical equipment Problem:HH - Mobility and Activity Tolerance - Impaired Goal:HH - Demonstrate maximum mobility and activity level for safe function Performed documented in this encounter Care Teams Loading Dock Hand Relationship Specialty Start Date End Date Jomar Ramirez MD [address] [place] [address] Drive [address] [place] [phone] PCP - General Internal Medicine 01/14/25 documented as of this encounter Additional Source Comments The information contained in this document represents components of the legal health record. It is not the complete legal health record.[facility]
--- OUTSIDE RECORDS SUMMARY | 2025-02-09 15:00 | XMS_ITS | Encounter Summary ---
Author Organization [facility] Address [address] [facility] [address] [place] [address] Phone Care Team Providers Care Social Service Coordinator Name Role Phone Jomar Ramirez MD Primary Care Provider [phone] Reason for Visit * Auth/Cert (Routine) Specialty Diagnoses / Procedures Referred By Contac t Referred To Contact Referral ID Status Reason Start Date Expiration Date Visits Re quested Visits Authorized [id number] 1 1 Encounter Details Date Type Department Care Team (Late st Contact Info) Description 02/09/2025 3:00 PM EST Home Care Visit [facility] [address] [place] [phone] Hunter Johnson, OT [address] [place] [address] [email or web address] HOME VISIT Social History Tobacco Use [...] Description 02/12/2025 10:45 AM EST Appointment [facility] [address] [place] [phone] Amanda Huerta, PT [address] [place] [address] 02/12/2025 3:00 PM EST Appointment [facility] [address] [place] [phone] Hunter Johnson, OT [address] [place] [address] [email or web address] 02/16/2025 1:30 AM EST Appointment [facility] [address] [place] [phone] Hunter Johnson, OT [address] [place] [address] [email or web address] 02/18/2025 Appointment [facility] [address] [place] [phone] Hunter Johnson, OT [address] [place] [address] [email or web address] documented as of this encounter Visit Diagnoses [...] medication errors and/or interactions Performed HH - I/E medication management: administration, purpose, [...] Focus this Visit & Instruction Provided: Pt declined VS as they had been taken earlier today. The Pt was assisted in setting up his elayne exercises: Ed provided to the Pt on how to don the grasp assist using tenodesis and starting with his 5 digit and moving backwards. Bicep curl and extension: 10 reps. slight fasiculations in bicep. more stength noted at end range of motion Shoulder flexion: assistance to keep his arm straight. 10 reps. Lateral Ab/ADduction: assistance to ke ep his arm straight. 10 reps. Shoulder protraction/retrac tion:10 reps Lateral shoulder circles: patient instructed to keep low at waste. 10 clockwise. 10 counterclockwise The Pt denied any pain from the exercises. He did report increased fatigue in the L UE specifically around the shoulder. The Pt demo's trace movement and appears to demo increased control toward the end of the set. Used the Pt's toothbrush to elicit signaling from specific target muscle. Instruction Provided to: patient Response to Instruction/Teachi ng: Is partially able to teach back topics as evidenced by needing more training with UE HEP. Plan for Next Visit Specific Focus & Education Needed: UE HEP New Orders: n/a Updated Discharge Plan: 02/21/25 [...] Performed documented in this encounter Care Teams Social Service Coordinator Relationship Specialty Start Date End Date Jomar Ramirez MD [address] [facility] [address] [place] [phone] PCP - General Internal Medicine 01/14/25 documented as of this encounter Additional Source Comments The information contained in this document represents components of the legal health record. It is not the complete legal health record.[facility]
--- NOTE | 2025-02-11 09:13 | A.OFFVIS_ITS ---
Intake Visit Reasons: 1m/lab/discuss treatment Intake Note: Patient is present for ER Follow Up Urology Med: Tamsulosin Antibiotic Allergy: None Blood Thinner: None Gas Operations Superintendent Required: No Management Coordinator: Management Coordinator Present Accompanied by: Spouse Allergies No Known Allergies Allergy (Verified 02/11/25 09:19) HPI Comments Details: Tonio is a pleasant male. He is a patient of Dr. Morrison. He seen for the following urologic conditions - bilateral nephrolithiasis - acute renal injury Baseline strike with residual left hemiparesis Prior urinary retention Recent admission to hospital with right-sided radiating pain CT scan - Mild right hydroureteronephrosis. There is 4 mm stone at the right ureterovesicular junction and 3 mm stone in the distal right ureter. Right nephrolithiasis is punctate. Moderate left hydroureteronephrosis. There is 7 mm stone in the proximal left ureter, a 3 mm stone in the distal left ureter and a 5 mm stone at the left ureterovesicular junction Intervention - cystoscopy with bilateral retrogrades and stent placement. Significant J hooking noted. Plan for repeat procedure with bilateral ureteroscopy to clear stones Repeat creatinine now down to 1.8 which is better than prior baseline [facility] Medical History (Updated 02/11/25 @ 09:40 by Justo Gaspar MD) Bilateral kidney stones Obstructive sleep apnea Hypertension Seizure disorder Difficulty urinating Loss of appetite Hemorrhagic stroke Anxiety HTN (hypertension) Family History Mother Breast cancer Father Prostate cancer Skin cancer Social History Household Members: Spouse Housing: House Are you a primary healthcare business analyst to a significant other at home: No Do you presently have visiting nurse or other home services: No Alcohol intake: never Patient Tobacco Use Status: Never used Tobacco Tobacco use type: Cigarette e-Cigarette/Vaping Use: Never Used Second Hand Smoke Exposure: No service: No Current occupational status: disabled Cognitive needs: No Hearing needs: No Vision needs: No Review of Systems Const Denies chills and Denies fever(s) Card Reports no additional complaints and Denies syncope Resp Denies cough GI Denies abdominal pain and Denies heartburn Reports as per HPI and Denies change in libido Neuro Denies syncope Psych Denies change in libido Endo Denies change in libido Physical Exam Const General: cooperative, healthy appearing, comfortable and no acute distress Orientation/consciousness: patient oriented x3 HEENT Face and sinus: Yes normal facial exam Mouth: moist mucous membranes Neck Neck: Yes normal visual inspection, Yes full ROM and Yes trachea midline Chest Chest palpation & inspection: normal inspection of the chest Resp Effort & Inspection: normal respiratory effort, able to speak in complete sentences and no respiratory distress GI Inspection: Yes normal to inspection Back/Spine/Pelvis Cervical Spine: normal cervical lordosis Thoracic/Lumbar Spine: thoracic and lumbar spine normal to inspection Skin General skin exam: no rashes or lesions noted Neuro General: patient oriented x3, gait normal, tone normal and moves all extremities Extrem General: Yes normal to inspection and Yes capillary refill normal Assessment & Plan Assessment & Plan (1) Bilateral kidney stones: Code(s): N20.0 - Calculus of kidney Category: Medical Plan Ureteroscopy We discussed the nature of the decision and reasonable alternatives for performing ureteroscopy. Options such as medical therapy were discussed. Interventions include chemical dissolution, ESWL, ureteroscopy with laser lithotripsy and stent placement, PCNL. The relative uncertainties and benefits related to each alternate procedure were adequately discussed. General surgical risks including, but not limited to - pain, bleeding, infection, myocardial infarction, pulmonary embolus, deep vein thrombosis and cerebrovascular accident which may result in further hospitalization were discussed. Full disclosure of the procedure as well as all major risks, benefits and complications were discussed including but not limited to damage to the urethra, bladder and kidney infection, damage to the ureter, stent migration or malposition, scarring to the renal pelvis, remnant stone fragments, subsequent stone passage with need for secondary procedures. The overall secondary procedure rate is approximately 10-15%. The overall clearance rate is approximately 90-95%. Success of the procedure in the short-term does not necessarily guarantee that long-term success will be maintained. Suitable follow up will need to be maintained. The patient showed understanding of discussion and wishes to proceed with - cystoscopy, retrograde, ureteroscopy, possible lithotripsy/stone basketing and stent on the bilateral renal Patient Instructions: This note is constructed using voice recognition software. While every effort has been made to ensure accuracy oil pumper errors may have been included. Imaging studies, laboratory and physical exam results were discussed and reviewed in detail. No major barriers to patient understanding were identified. An opportunity to ask questions regarding the treatment plan was provided. All questions were answered. The patient expressed understanding and agreement with the above treatment plan. The patient is aware they should contact our office by phone for worsening of their current condition or the appearance of new urologic symptoms. Compliance is encouraged with any medications and followup testing that is ordered. It is a privilege to participate in the urologic care of your patient. If you have any questions or concerns regarding treatment for the above conditions, or other urologic issues, please do not hesitate to contact me. The office telephone contact is [phone]. Sincerely, Dr Justo Gaspar MD, [facility] [place] - Urology Compassionate Specialist Care for the Genitourinary System Coding Level of Care Code Est Pt Level 4 (30780) Diagnoses Bilateral kidney stones N20.0
--- OUTSIDE RECORDS SUMMARY | 2025-02-11 09:55 | XMS_ITS | Clinical Summary ---
Author Organization [facility] Address [address] [facility] [address] [place] [address] Phone Care Team Providers Care Drafter Heating And Ventilating Name Role Phone Jomar Ramirez MD Primary Care Provider [phone] Allergies No known active allergies Medications amLODIPine [...] Encounters Date Type Department Care Team Description 02/09/2025 3:00 PM EST Home Care Visit [facility] [address] [place] [address] Hunter Johnson, OT OT HOME VISIT 02/09/2025 9:00 AM EST Home Care Visit [facility] [address] [place], [place] [phone] Amanda Huerta, PT PT HOME VISIT 02/06/2025 1:30 PM EDT Home Care Visit [facility] [address] [place] [phone] Hunter Johnson, OT OT HOME VISIT 02/05/2025 1:30 PM EDT Home Care Visit [facility] [address] [place], [place] [phone] Hunter Johnson, OT OT HOME VISIT 02/04/2025 9:00 AM EDT Home Care Visit [facility] [address] [place] [address] Amanda Huerta, PT PT HOME VISIT 01/30/2025 1:30 PM EDT Home Care Visit [facility] [address] [place], [place] [phone] Hunter Johnson, OT OT HOME VISIT 01/30/2025 9:00 AM EDT Home Care Visit [facility] [address] [place] [address] Amanda Huerta, PT PT HOME VISIT 01/29/2025 Episode Documentatio n Update [facility] [address] [place] [address] Delores Mccray 01/28/2025 9:00 AM EDT Home Care Visit [facility] [address] [place], [place] [phone] Amanda Huerta, PT PT HOME VISIT 01/28/2025 Episode Documentatio n Update [facility] [address] [place], [place] [phone] 01/27/2025 1:30 PM EDT Home Care Visit [facility] [address] [place] [phone] Hunter Johnson, OT OT EVALUATION 01/22/2025 Home Care Visit [facility] [address] [place] [phone] Hunter Johnson, OT TELEPHONE ENCOUNTER 01/21/2025 Home Care Visit [facility] [address] [place] [address] Amanda Huerta, PT TELEPHONE ENCOUNTER 01/21/2025 Episode Documentatio n Update [facility] [address] [place] [address] 01/20/2025 1:30 PM EDT Home Care Visit [facility] [address] [place] [address] Amanda Huerta, PT PT OASIS START OF CARE (SOC) 01/20/2025 Plan of Care Documentation [facility] [address] [place] [address] 01/16/2025 Home Care Visit [facility] [address] [place] [address] Amanda Huerta, PT TELEPHONE ENCOUNTER 01/14/2025 Orders Only [facility] [address] [place] [phone] Homehealth, Interface ProviderMD from Last 3 Months [...] Description 02/12/2025 10:45 AM EST Appointment [facility] [address] [place] [phone] Amanda Huerta, PT [address] [place] [address] 02/12/2025 3:00 PM EST Appointment [facility] [address] [place] [phone] Hunter Johnson, OT [address] [place] [address] 02/16/2025 1:30 AM EST Appointment [facility] [address] [place] [phone] Hunter Johnson, OT [address] [place] [address] 02/18/2025 Appointment [facility] [address] [place] [phone] Hunter Johnson, OT [address] [place] [address] Medical Devices Not on file Insurance [facility] HMO [facility]MO [facility] HMO Care Teams Drafter Heating And Ventilating Relationship Specialty Start Date End Date Jomar Ramirez MD [address] [place] [address] [address] [place] [phone] PCP - General Internal Medicine 01/14/25 Additional Source Comments The information contained in this document represents components of the legal health record. It is not the complete legal health record.[facility]
--- OUTSIDE RECORDS SUMMARY | 2025-02-11 09:55 | XMS_ITS | Clinical Summary ---
Author Organization [facility] Address [address] [place] [address] Phone Care Team Providers Care Fabrication Manager Name Role Phone Alphonso Marcum MD Primary Care Provider [phone] Allergies No known active allergies Medications Baclofen [...] (one) time each day Active nystatin (MYCOSTATIN) 454216 UNIT/ML suspension Take 500,000 Units by mouth [...] Visit [facility] [address] [place] [phone] Festus Ryan MD [address] [facility] [address] [place] [address] Health Maintenance Due Date Last Done Comments Hepatitis B Vaccine (1 of 3 - 19+ 3-dose series) 02/13 Colorectal Cancer Screening: Annual FOBT 2019 Colorectal Cancer Screening: Colonoscopy 2019 Colorectal Cancer Screening: Sigmoidoscopy 2019 Pneumococcal Vaccine: 50+ Years (1 of 1 - PCV) 020 Influenza Vaccine (#1) 2024 Insurance [facility] Medicaid [facility] Care Teams Fabrication Manager Relationship Specialty Start Date End Date Alphonso Marcum MD [address] [facility] [address] [place] [address] PCP - General Family Medicine 06/21/21
== END 2025-02-11 09:43 | disposition home or self-care (01) ==
LOC: HO.HUSH 09:10
PROVIDERS: PCP Internal Medicine; Visit Provider Urology
DX: N20.0 Calculus of kidney (principal)
CPT/HCPCS: 99214

== ENCOUNTER 2025-02-11 09:09 | Outpatient (REF) | payer OTHER, SELFPAY ==
[2025-02-11 10:01] LABS: Appearance Urine Clear; Glucose Urine UA Negative (Negative); PH 5.5 (5.0-9.0); Specific Gravity - Urine 1.020 (1.005-1.025); UMIC TRIGGER UACC YES
[2025-02-11 10:06] LABS: UACC Culture Trigger YES
[2025-02-11 10:35] LABS: Microalbum/Creatinine Ratio Ur 170.8 ug/mg cr (<30)
== END 2025-02-11 09:10 | disposition home or self-care (01) ==
LOC: HO.LNP 09:09
PROVIDERS: PCP Internal Medicine; Visit Provider Urology
DX: N20.0 Calculus of kidney (principal); E11.65 Type 2 diabetes mellitus with hyperglycemia; R80.9 Proteinuria, unspecified
CPT/HCPCS: 81001; 81003; 82043; 82570; 87086

== ENCOUNTER 2025-03-30 09:56 | Day surgery (SDC) | payer OTHER, SELFPAY ==
--- OUTSIDE RECORDS SUMMARY | 2025-03-18 09:00 | XMS_ITS | Encounter Summary ---
Author Organization [facility] Address [address] [facility] [address] [place] [address] Phone Care Team Providers Care County Supervisor Name Role Phone Jomar Ramirez MD Primary Care Provider [phone] Reason for Visit * Auth/Cert (Routine) Specialty Diagnoses / Procedures Referred By Contjavier t Referred To Contact Referral ID Status Reason Start Date Expiration Date Visits Re quested Visits Authorized [id number] 1 1 Encounter Details Date Type Department Care Team (Late st Contact Info) Description 03/18/2025 9:00 AM EST Home Care Visit [facility] [address] [place] [phone] Amanda Huerta, PT [address] [place] [address] PT OASIS RECERTIFICATION/FUP Social History Tobacco Use Types Packs/Day Years [...] Sign Reading Time Taken Comments Blood Pressure 118/70 03/18/2025 9:13 AM EST Pulse 64 03/18/2025 9:13 AM EST Temperature 36.6 C (97.9 F) 03/18/2025 9:13 AM EST Respiratory Rate 18 03/18/2025 9:13 AM EST Oxygen Saturation 99% 03/18/2025 9:13 AM EST Inhaled Oxygen Concentration - - Weight - - Height - - Body Mass Index - - documented in this encounter Plan of Treatment Upcoming Encounters Date Type Department Care Team (Late st Contact Info) Description 04/01/2025 9:00 AM EST Appointment [facility] [address] [place] [phone] Hunter Johnson, OT [address] [place] [address] 04/03/2025 9:00 AM EST Appointment [facility] [address] [place] [address] Amanda Huerta, PT [address] [place] [address] 04/06/2025 12:45 AM EST Appointment [facility] [address] [place] [address] Amanda Huerta, PT [address] [place] [address] documented as of this encounter Visit Diagnoses Not on filedocumented in this encounter Home Health Visit - Care Plan Visit Details Visit Type -PT OASIS RECERTI FICATION/FUP Discipline -Physical Therapy Problems Problem Description Start [...] level for safe function Description: PT GOALS: (reassessed 03/11 and to cont through end of certification period) (reassessed 03/18 and to cont through week ending 04/11/25) 1. Pt to perform sit to stand to and from all surfaces within home without assistance or VCs to maximize home mobi lity and safety by 02/14/25. 11/ - working to increased L LE power production and decreased reliance on R UE 03/11 - increased effort from recliner; cues for anterior weight shifting 03/18 - able to complete withot cues for alignment/foot placement >75 % of time 2. Pt to ambulate throughout home with LAD without verbal cues or LOB to maximize safety and independence by 02/14/25. 02/12 - progressing with distance and dynamics 03/11 - working to improve dynamics, conner and postural control with am bulation with nicanor walker 03/18 - continuing to progress with fluid gait and upright posture training 3. Pt to ambulate outdoors x10 minutes with close S and LAD to allow for return to community mobility by 02/14/25. 02/12 - not yet completed 03/11 - ambulated down/up ramp and 5' on sidewalk with nicanor walker; working to improve consistency and independence 03/18 - no change 4. Pt to perform B LE HEP with >90% accuracy to maximzie strength and stability with all tasks by 02/14/25. 02/12 - cont inuing to progress 03/11 - progressing with standing ther ex 03/18 - cont to progress 5. Pt to perform up/dwn 2 stairs with LAD and no VCs for safety to allow pt to enter/exit home without assistance by 02/14/25. 02/12 - not yet completed 03/11 - up /dwn 1 4 step with counter support and min A for support/safety 03/18 - up/dwn 6.5 step with counter support and min A for balance 6. Pt to improve Tinetti to >19/28 with LAD to improve balance and safety in home and community environment by . 02/12 - 03/11 - - pt with increased back pain this date 03/18 - 7. Pt to demonstrate improved balance, falls prevention awareness and balance to reduce falls risk and improve safety at home and in community by 02/14/25. 02/12 - no recent falls; continuing to provide education 03/11 - continuing to provide education 03/18 - cont to provide education HH - Mobility and Activity Tolerance - Impaired No Interventions Intervention Associated Problem/Goal Status Variance [...] Clinical Focus this Visit & Instruction Provided: PT recertification completed with plan to cont services x3 weeks. PT had requested outpatient PT referral from PCP to [facility] per pt preference. Pt reports that PCP sent referral to a different agency. Pt to contact PCP to request referral to his preference. Shearing Machine Tender awaiting paperwork from PCP before able to proceeed with AFO. Instruction Provided to: patient Response to Instruction/Teaching: Is fully able to teach back topics. Plan for Next Visit Specific Focus & Education Needed: steps, balance New Orders: cont PT [id number] and [id number] Updated Discharge Plan: transition to outpatient PT HH - I/E management of [...] safe function Performed This visit transfers, gait, steps, strngthening, balance, home safety, falls prevention, activity progression HH - I/E therapeutic function/activity: Description: As [...] Performed documented in this encounter Care Teams County Supervisor Relationship Specialty Start Date End Date Jomar Ramirez MD [address] [place] [address] Drive [address] [place] [phone] PCP - General Internal Medicine 01/14/25 documented as of this encounter Additional Source Comments The information contained in this document represents components of the legal health record. It is not the complete legal health record.[facility]
--- OUTSIDE RECORDS SUMMARY | 2025-03-23 09:00 | XMS_ITS | Encounter Summary ---
Author Organization [facility] Address [address] [facility] [address] [place] [address] Phone Care Team Providers Care First Coat Operator Name Role Phone Jomar Ramirez MD Primary Care Provider [phone] Reason for Visit * Reason Comments Impaired Balance * Auth/Cert (Routine) Specialty Diagnoses / Procedures Referred By Moriah t Referred To Contact Referral ID Status Reason Start Date Expiration Date Visits Re quested Visits Authorized [id number] 1 1 Encounter Details Date Type Department Care Team (Late st Contact Info) Description 03/23/2025 9:00 AM EST Home Care Visit [facility] [address] [place] [phone] Amanda Huerta, PT [address] [place] [address] [email or web address] PT HOME VISIT Social History Tobacco Use [...] Sign Reading Time Taken Comments Blood Pressure 110/70 03/23/2025 9:14 AM EST Pulse 60 03/23/2025 9:14 AM EST Temperature 36.4 C (97.6 F) 03/23/2025 9:14 AM EST Respiratory Rate 16 03/23/2025 9:14 AM EST Oxygen Saturation 98% 03/23/2025 9:14 AM EST Inhaled Oxygen Concentration - - Weight - - Height - - Body Mass Index - - documented in this encounter Plan of Treatment Upcoming Encounters Date Type Department Care Team (Late st Contact Info) Description 04/01/2025 9:00 AM EST Appointment [facility] [address] [place] [address] Hunter Johnson, OT [address] [place] [address] [email or web address] 04/[email or web address]/2025 9:00 AM EST Appointment [facility] [address] [place] [address] Amanda Huerta, PT [address] [place] [address] [email or web address] 04/06/2025 12:45 AM EST Appointment [facility] [address] [place] [address] Amanda Huerta, PT [address] [place] [address] [email or web address] documented as of this encounter Visit Diagnoses [...] home mobi lity and safety by 02/14/25. 02/12 - working to increased L LE power [...] balance 6. Pt to improve Tinetti to >/ with LAD to improve balance and safety [...] Focus this Visit & Instruction Provided: Pt in recliner with legs elevated. Reports increased activity over the weekend - walking more in home. Completing seated and standing ther ex and activity as prescribed. No falls. No pain. No new meds. Reports he sent portal message to PCP to request PT at [facility]. Per real estate leasing manager, still awaiting paperwork from PCP before AFO can be provided. Sit to stand transfers focusing on pushing anteriorly versus superiorly and with increase d WB through bilateral LE versus right UE. Worked on transfers from wheelchair and recliner. Also completed five reps of stand to sit without UE support to wheelchair focusing on eccentric control and anterior lean. Ambulation with nicanor Walker with cu es to increase conner while controlling posture and maintaining fluid limb advancement. Patient does report that he has been ambulating up to six times per day whereas prior he would ambulate one or two times and limit mobility due to decreased confiden ce and overall weakness and impaired balance. Will trial straight cane at next visit. Up/down 5 inch step using counter for right UE support and focusing on patient coordination and foot placement with left LE when stepping up and down. Min assist nee ded to clear step with left foot when descending 50% of time and patient needing assistance for flat foot placement on ground as he tends to invert and land on lateral foot. AFO should assist with ankle alignment once received. Forward and backward wa lking at counter. Added sides stepping in kitchen using nicanor walker versus counter support with patient to complete daily focusing on lifting left LE versus sliding into abduction and abduction. Once cued he was able to complete utilizing hip hike for fo ot clearance. Instruction Provided to: patient Response to Instruction/Teaching : Is fully able to teach back topics. Plan for Next Visit Specific Focus & Education Needed: stairs, balance New Orders: none Updated Discharge Plan: trasition to out patient PT HH - I/E management of care in an urgent or emergency (ER) situation: When to call your Home Care Team/1, ER plans, supplies, evacuation, when to contact [...] homecare Performed HH - Assess skin integrity Problem: - [...] safe function Performed This visit transfers, gait, stairs, strengthening, balance HH - I/E therapeutic function/activity: Description: As [...] Performed documented in this encounter Care Teams First Coat Operator Relationship Specialty Start Date End Date Jomar Ramirez MD [address] [place] [address] Drive [address] [place] [phone] PCP - General Internal Medicine 01/14/25 documented as of this encounter Additional Source Comments The information contained in this document represents components of the legal health record. It is not the complete legal health record.[facility]
--- OUTSIDE RECORDS SUMMARY | 2025-03-25 09:00 | XMS_ITS | Encounter Summary ---
Author Organization [facility] Address [address] [facility] [address] [place] [address] Phone Care Team Providers Care Cotton Converter Name Role Phone Jomar Ramirez MD Primary Care Provider [phone] Reason for Visit * Reason Comments Weakness * Auth/Cert (Routine) Specialty Diagnoses / Procedures Referred By Contac t Referred To Contact Referral ID Status Reason Start Date Expiration Date Visits Re quested Visits Authorized [id number] 1 1 Encounter Details Date Type Department Care Team (Late st Contact Info) Description 03/25/2025 9:00 AM EST Home Care Visit [facility] [address] [place] [phone] Amanda Huerta, PT [address] [place] [address] PT HOME VISIT Social History Tobacco Use [...] Sign Reading Time Taken Comments Blood Pressure 122/90 03/25/2025 9:14 AM EST Pulse 70 03/25/2025 9:14 AM EST Temperature 36.4 C (97.6 F) 03/25/2025 9:14 AM EST Respiratory Rate 16 03/25/2025 9:14 AM EST Oxygen Saturation 97% 03/25/2025 9:14 AM EST Inhaled Oxygen Concentration - - Weight - - Height - - Body Mass Index - - documented in this encounter Plan of Treatment Upcoming Encounters Date Type Department Care Team (Late st Contact Info) Description 04/01/2025 9:00 AM EST Appointment [facility] [address] [place] [address] Hunter Johnson, OT [address] [place] [address] 04/03/2025 9:00 AM EST Appointment [facility] [address] [place] [address] Amanda Huerta, PT [address] [place] [address] 04/06/2025 12:45 AM EST Appointment [facility] [address] [place] [address] Amanda Huerta, PT [address] [place] [address] documented as of this encounter Visit Diagnoses [...] balance 6. Pt to improve Tinetti to >/28 with LAD to improve balance and safety [...] Focus this Visit & Instruction Provided: Patient reports I'm not having a good day . He reports no pain or illness. BP slightly elevated which patient attributes to being anxious about a stent removal procedure on 03/30. No other statu s changes reported. Worked extensively on gait training with both nicanor Walker and straight cane today. With nicanor walker, focused on posture and increasing conner with more fluid limb advancement. Patient initially using straight cane and feeling unst rene with min assist provided for balance. Cues for cane placement, posture, and sequencing provided. Able to ambulate 30 feet followed by seated rest and then patient completed another 30 feet of ambulation with straight cane. Initially with decreased r ight step length and decreased left SLS. With further distance and cues provided he was able to ambulate with a step through pattern but unable to advance leg fully past opposite leg. Increased left SLS time noted with increased trials as well. Transf ers: completed sit to stand transfers with significant improvement in anterior weight shifting. Able to self correct when noted to be reliant on right UE more than bilateral LE. Completed six sit to stand transfers from wheelchair pushing up with right U E and transitioning to sitting unsupported. Focused on eccentric control and postural alignment. Patient deferred completion of steps and higher level balance during visit today but agreeable at next visit as able. Instruction Provided to: garcía ent Response to Instruction/Teaching: Is fully able to teach back topics. Plan for Next Visit Specific Focus & Education Needed: st cane ambulation, steps New Orders: none Updated Discharge Plan: transition to self care vs outpatient PT when no longe r homebound HH - I/E management of care in [...] safe to home/community discharge from homecare Performed - I/E discharge plan Problem: - Standard of Care Goal:HH - Achieve care management for a safe to home/community discharge from homecare Performed HH - Assess pain Problem: - Pain Goal:HH - Frequency of pain interfering with patient's activity or movement will improve with activity or movement by discharge. Performed - I/E pain management Problem: - Pain [...] function Performed This visit transfers, gait, steps, strengthening - I/E therapeutic function/activity: Description: As indicated: [...] Performed documented in this encounter Care Teams Cotton Converter Relationship Specialty Start Date End Date Jomar Ramirez MD [address] [place] [address] Drive [address] [place] [address] PCP - General Internal Medicine 01/14/25 documented as of this encounter Additional Source Comments The information contained in this document represents components of the legal health record. It is not the complete legal health record.[facility]
--- NOTE | 2025-03-27 11:47 | P.CONAN_ITS ---
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 MARIZA: using CPAP H/O seizures: managed with Keppra PMFSH Active Problems Active Problems: All Active Problems Left arm weakness (Acute) Neurogenic urinary bladder disorder (Acute) Bilateral kidney stones (Acute) Obstructive sleep apnea (Acute) Hypertension (Acute) Proteinuria (Acute) Colon cancer screening (Acute) Annual physical exam (Acute) Dysuria (Acute) Chronic kidney disease, stage 3a (Acute) Generalized anxiety disorder (Acute) Renal insufficiency (Acute) Recurrent major depression (Acute) Hemorrhagic stroke (Acute) Insomnia (Acute) Past Medical History Medical History (Updated 03/13/25 @ 18:23 by Jomar Ramirez MD) Bilateral kidney stones Obstructive sleep apnea Hypertension Seizure disorder Difficulty urinating Loss of appetite Hemorrhagic stroke Anxiety HTN (hypertension) Family History Family History Mother Breast cancer Father Prostate cancer Skin cancer Family history of problems with anesthesia: No Surgical History History of Problems with Anesthesia: No Social History Social History Household Members: Spouse Housing: House Are you a primary director of medicare to a significant other at home: No Do you presently have visiting nurse or other home services: No Alcohol intake: never Patient Tobacco Use Status: Never used Tobacco Tobacco use type: Cigarette e-Cigarette/Vaping Use: Never Used Second Hand Smoke Exposure: No Have you been hit, kicked, punched, or otherwise hurt by someone within the past year? If so, by whom?: No Are you DNR?: No Advance Directives: No Advance Directives Information Provided: Yes service: No Current occupational status: disabled Cognitive needs: No Hearing needs: No Vision needs: No Meds Allergies Allergy/AdvReac Type Severity Reaction Status Date / Time No Known Allergies Allergy Verified 02/11/25 09:19 Home Medications ?Medication ?Instructions ?Recorded ?Confirmed ?Last Taken ?Type CPAP 06/13/21 02/04/25 Unknown H istory omeprazole 20 mg capsule,delayed 20 mg PO DAILY@0630 0 06/13/21 03/30/25 03/30/25 History release Exam Pertinent Lab Results Pertinent Lab Results: Laboratory Tests 02/07/25 09:05 WBC 4.3 L Hgb 13.9 L Hct 41.5 L Plt Count 129 L Sodium 139 Potassium 3.8 Chloride 107 Carbon Dioxide 23 BUN 19 H Creatinine 1.80 H Assessment and Plan Assessment Anesthesia Assessment: Chart Reviewed Final Anesthetic Review Family History of Problems with Anesthesia: No History of Problems with Anesthesia: No Documented by User: Jarrod Narvaez MD 03/30/25 15:06 PMFSH Past Medical History Medical History (Updated 03/13/25 @ 18:23 by Jomar Ramirez MD) Bilateral kidney stones Obstructive sleep apnea Hypertension Seizure disorder Difficulty urinating Loss of appetite Hemorrhagic stroke Anxiety HTN (hypertension) Family History Family History Mother Breast cancer Father Prostate cancer Skin cancer Social History Social History Household Members: Spouse Housing: House Are you a primary director of medicare to a significant other at home: No Do you presently have visiting nurse or other home services: No Alcohol intake: never Patient Tobacco Use Status: Never used Tobacco Tobacco use type: Cigarette e-Cigarette/Vaping Use: Never Used Second Hand Smoke Exposure: No Have you been hit, kicked, punched, or otherwise hurt by someone within the past year? If so, by whom?: No Are you DNR?: No Advance Directives: No Advance Directives Information Provided: Yes service: No Current occupational status: disabled Cognitive needs: No Hearing needs: No Vision needs: No Meds Allergies Allergy/AdvReac Type Severity Reaction Status Date / Time No Known Allergies Allergy Verified 02/11/25 09:19 Home Medications ?Medication ?Instructions ?Recorded ?Confirmed ?Last Taken ?Type CPAP 06/13/21 02/04/25 Unknown H istory omeprazole 20 mg capsule,delayed 20 mg PO DAILY@0630 0 06/13/21 03/30/25 03/30/25 History release Exam Airway TM Dist: >3cm Neck ROM: Full Loose/Missing/Broken Teeth: No Heart: RRR Lungs: CTA Assessment and Plan Final Anesthetic Review NPO: Yes ASA Class: III Final Preanesthetic Review: No Changes in Pt Med Stat, Meds/Allgs Chart Reviewed and Anes Risks/Benef Reviewed Patient Risk: Intermediate Procedure Risk: Low Anesthetic Plan Anesthetic Plan: GA Disposition: Standard PACU
--- OUTSIDE RECORDS SUMMARY | 2025-03-27 13:10 | XMS_ITS | Encounter Summary ---
Author Organization [facility] Address [address] [place] [phone] Phone Care Team Providers Care External Auditor Name Role Phone Jomar Ramirez MD Primary Care Provider [phone] Reason for Visit * Auth/Cert (Routine) Specialty Diagnoses / Procedures Referred By Contjavier t Referred To Contact Referral ID Status Reason Start Date Expiration Date Visits Re quested Visits Authorized [id number] 1 1 Encounter Details Date Type Department Care Team (Late st Contact Info) Description 03/25/2025 Home Care Visit [facility] [address] [place] [address] Hunter Johnson, OT [address] [place] [address] [email or web address] TELEPHONE ENCOUNTER Social History Tobacco Use Types Packs/Day Years [...] Description 04/01/2025 9:00 AM EST Appointment [facility] [address] [place] [phone] Alex Hunter, OT [address] [place] [address] 04/03/2025 9:00 AM EST Appointment [facility] [address] [place] [address] Amanda Huerta, PT [address] [place] [address] 04/06/2025 12:45 AM EST Appointment [facility] [address] [place] [address] Amanda Huerta, PT [address] [place] [address] documented as of this encounter Visit Diagnoses Not on filedocumented in this encounter Care Teams External Auditor Relationship Specialty Start Date End Date Jomar Ramirez MD [address] [place] [phone] PCP - General Internal Medicine 01/14/25 documented as of this encounter Additional Source Comments The information contained in this document represents components of the legal health record. It is not the complete legal health record.[facility]
--- OUTSIDE RECORDS SUMMARY | 2025-03-27 13:10 | XMS_ITS | Clinical Summary ---
Author Organization [facility] Address [address] [place] [address] Phone Care Team Providers Care Mailroom Supervisor Name Role Phone Jomar Ramirez MD Primary Care Provider [phone] Allergies No known active allergies Medications amLODIPine (NORVASC) 10 MG tablet Take 10 mg by mouth daily. 01/15/2025 Active levETIRAcetam (KEPPRA) 500 MG tablet Take 500 mg by mouth 2 (two) times a day. 01/15/2025 Active sertraline (ZOLOFT) 100 MG tablet Take 100 mg by mouth daily. 01/15/2025 Active labetaloL (TRANDATE) 200 MG tablet Take 400 mg by mouth 2 (two) times a day. 01/15/2025 Active baclofen (LIORESAL) 5 mg tablet Take 5 mg by mouth 2 (two) times a day. 01/15/2025 Active omeprazole (PRILOSEC) 20 MG capsule Take 20 mg by mouth daily. 01/15/2025 Active tamsulosin (FLOMAX) 0.4 mg Cap Take 0.4 mg by mouth nightly at bedtime. 01/15/2025 Active Encounters Date Type Department Care Team Description 03/25/2025 9:00 AM EST Home Care Visit [facility] [address] [place] [address] Amanda Huerta, PT PT HOME VISIT 03/25/2025 Home Care Visit [facility] [address] [place] [address] Hunter Johnson, OT TELEPHONE ENCOUNTER 03/23/2025 9:00 AM EST Home Care Visit [facility] [address] [place] [address] Amanda Huerta, PT PT HOME VISIT 03/19/2025 3:00 PM EST Home Care Visit [facility] [address] [place] [address] Hunter Johnson, OT OT TFA VISIT 03/18/2025 1:30 PM EST Home Care Visit [facility] [address] [place] [address] Hunter Johnson, OT OT HOME VISIT 03/18/2025 9:00 AM EST Home Care Visit [facility] [address] [place] [address] Amanda Huerta, PT PT OASIS RECERTIFICATION/FU P 03/18/2025 Plan of Care Documentation [facility] [address] [place] [address] 03/12/2025 1:30 PM EST Home Care Visit [facility] [address] [place] [address] Hunter Johnson, OT OT HOME VISIT 03/11/2025 9:00 AM EST Home Care Visit [facility] [address] [place] [address] Amanda Huerta, PT PT TFA VISIT 03/09/2025 3:00 PM EST Home Care Visit [facility] [address] [place] [address] Hunter Johnson, OT OT HOME VISIT 03/09/2025 9:00 AM EST Home Care Visit [facility] [address] [place] [address] Amanda Huerta, PT PT HOME VISIT 03/06/2025 10:30 AM EST Home Care Visit [facility] [address] [place] [address] Hunter Johnson, OT OT HOME VISIT 03/03/2025 1:15 PM EST Home Care Visit [facility] [address] [place] [address] Amanda Huerta, PT PT HOME VISIT 02/26/2025 9:30 AM EST Home Care Visit [facility] [address] [place] [address] Amanda Huerta, PT PT HOME VISIT 02/24/2025 3:00 PM EST Home Care Visit [facility] [address] [place] [address] Hunter Johnson, OT OT HOME VISIT 02/24/2025 9:00 AM EST Home Care Visit [facility] [address] [place] [address] Amanda Huerta, PT PT HOME VISIT 02/19/2025 9:00 AM EST Home Care Visit [facility] [address] [place] [address] Amanda Huerta, PT PT HOME VISIT 02/18/2025 1:30 PM EST Home Care Visit [facility] [address] [place] [address] Hunter Johnson, OT OT TFA VISIT 02/17/2025 9:00 AM EST Home Care Visit [facility] [address] [place] [address] Amanda Huerta, PT PT HOME VISIT 02/12/2025 3:00 PM EST Home Care Visit [facility] [address] [place] [address] Hunter Jonhson, OT OT HOME VISIT 02/12/2025 10:45 AM EST Home Care Visit [facility] [address] [place] [address] Amanda Huerta, PT PT TFA VISIT 02/09/2025 3:00 PM EST Home Care Visit [facility] [address] [place], [place] [phone] Hunter Johnson, OT OT HOME VISIT 02/09/2025 9:00 AM EST Home Care Visit [facility] [address] [place] [address] Amanda Huerta, PT PT HOME VISIT 02/06/2025 1:30 PM EDT Home Care Visit [facility] [address] [place] [address] Hunter Johnson, OT OT HOME VISIT 02/05/2025 1:30 PM EDT Home Care Visit [facility] [address] [place] [address] Hunter Johnson, OT OT HOME VISIT 02/04/2025 9:00 AM EDT Home Care Visit [facility] [address] [place] [address] Amanda Huerta, PT PT HOME VISIT 01/30/2025 1:30 PM EDT Home Care Visit [facility] [address] [place] [address] Hunter Johnson, OT OT HOME VISIT 01/30/2025 9:00 AM EDT Home Care Visit [facility] [address] [place] [address] Amanda Huerta, PT PT HOME VISIT 01/29/2025 Episode Documentatio n Update [facility] [address] [place] [address] Delores Mccray 01/28/2025 9:00 AM EDT Home Care Visit [facility] [address] [place], [place] [phone] Amanda Huerta, PT PT HOME VISIT 01/28/2025 Episode Documentatio n Update [facility] [address] [place] [address] 01/27/2025 1:30 PM EDT Home Care Visit [facility] [address] [place] [address] Hunter Johnson, OT OT EVALUATION 01/22/2025 Home Care Visit [facility] [address] [place] [address] Hunter Johnson, OT TELEPHONE ENCOUNTER 01/21/2025 Home Care Visit [facility] [address] [place] [address] Amanda Huerta, PT TELEPHONE ENCOUNTER 01/21/2025 Episode Documentatio n Update [facility] [address] [place] [address] 01/20/2025 1:30 PM EDT Home Care Visit [facility] [address] [place] [address] Amanda Huerta, PT PT OASIS START OF CARE (SOC) 01/20/2025 Plan of Care Documentation [facility] [address] [place] [address] 01/16/2025 Home Care Visit [facility] [address] [place] [address] Amanda Huerta, PT TELEPHONE ENCOUNTER 01/14/2025 Orders Only [facility] [address] [place] [address] Homehealth, Interface ProviderMD from Last 3 Months [...] Description 04/01/2025 9:00 AM EST Appointment [facility] [address] [place], [place] [phone] Hunter Johnson, OT [address] [place] [address] 04/03/2025 9:00 AM EST Appointment [facility] [address] [place], [place] [phone] Amanda Huerta, PT [address] [place] [address] 04/06/2025 12:45 AM EST Appointment [facility] [address] [place], [place] [phone] Amanda Huerta, PT [address] [place] [address] Medical Devices Not on file Insurance [facility] Care Teams Mailroom Supervisor Relationship Specialty Start Date End Date Jomar Ramirez MD [address] [place] [phone] PCP - General Internal Medicine 01/14/25 Additional Source Comments The information contained in this document represents components of the legal health record. It is not the complete legal health record.[facility]
--- OUTSIDE RECORDS SUMMARY | 2025-03-27 13:10 | XMS_ITS | Clinical Summary ---
Author Organization [facility] Address [address] [place] [address] Phone Care Team Providers Care Laborer Pipeline Name Role Phone Alphonso Marcum MD Primary Care Provider [phone] Allergies No known active allergies Medications Baclofen [...] (one) time each day Active nystatin (MYCOSTATIN) 343738 UNIT/ML suspension Take 500,000 Units by mouth [...] Visit [facility] [address] [place] [address] Festus Ryan MD [address] [facility] [address] [place] [address] Health Maintenance Due Date Last Done Comments Hepatitis B Vaccine (1 of 3 - 19+ 3-dose series) 02/13 Colorectal Cancer Screening: Annual FOBT 2019 Colorectal Cancer Screening: Colonoscopy 2019 Colorectal Cancer Screening: Sigmoidoscopy 2019 Pneumococcal Vaccine: 50+ Years (1 of 1 - PCV) 020 Influenza Vaccine (#1) 2024 Insurance [facility] Medicaid [facility] Care Teams Laborer Pipeline Relationship Specialty Start Date End Date Alphonso Marcum MD [address] [facility] [address] [place] [phone] PCP - General Family Medicine 06/21/21
[2025-03-30] VITALS (7 sets, daily range): BP systolic 141–156; BP diastolic 80–99; PULSE 74–89; RESP 11–20; TEMP 36.1–36.9; O2SAT 94–97; BMI 30.3; BMI 29.2
--- NOTE | ~2025-03-30 | FL_ITS ---
EXAMINATION: FLUOROSCOPY GUIDANCE FOR NEEDLE PLACEMENT CLINICAL INFORMATION: STONE BILATERAL COMPARISON: Previous retrograde exam January [address] of the abdomen and pelvis January 2025 TECHNIQUE: Intraoperative fluoroscopic guidance provided for retrograde exam and bilateral internal ureteral stent placement. See procedure note for detailed findings. FINDINGS: 4 submitted fluoroscopic images demonstrate bilateral internal ureteral stents in the pelvis. FLUOROSCOPY TIME: 13 seconds DOSE AREA PRODUCT: 2.2 Gy-cm2 FL/FL guidance in OR IMPRESSION: Fluoroscopy guidance for retrograde exam. Electronically signed by: Mali Randall MD 04/06/2025 02:49 PM ZANE
[2025-03-30] MEDS: Lactated Ringers 1,000 ML 100 ML IVCONT (10:30)
--- NOTE | 2025-03-30 14:12 | P.HPSUR_ITS ---
Pre-Procedural Eval Section A - 24 Hr Update-Section A only Date of Service: 03/30/25 The patient is an INPATIENT: No Changes since office visit: No Cold of Flu in the past 2 weeks, No New Medical Problems, No Changes in Medication and No Patient answered all questions The patient has been examined within 24 hours of the surgical procedure. The History & Physical has been completed within 30 days and I have reviewed it.: No Section B - Complete if H&P > 30 days Chief Complaint: Calculus of kidney Details of Present Illness: Bilateral distal ureteric calculi plus proximal left ureteric calculi. Indwelling stents. Plan for cystoscopy, stent removal, ureteroscopy with laser lithotripsy. Relevant Family History (Specify if Yes): No Relevant Social History: None Present Medications: see Short Stay Collaborative assessment Medical History: No relevant PMH History of Previous Operations: Relevant previous surgery/procedure and date(s) Allergies: Allergies Allergy/AdvReac Type Severity Reaction Status Date / Time No Known Allergies Allergy Verified 02/11/25 09:19 Review of Systems Sugical H&P ROS: Negative: Constitution, Cardiovascular, Respiratory, N eurological, Psychiatric, Hem-Onc, Allergic/Immunologic, Gastrointestinal, Genitourinary, Musculoskeletal, Integumentary, Endocrine and Eyes/Ears/Nose/Throat Exam Surgical H&P Exam: Normal: HEENT, Normal: Heart, Normal: Lungs, Normal: Extremities, Normal: Abdomen, Normal: Skin and Normal: Neurological Plan Diagnosis/Plan: Unchanged (Cystoscopy, bilateral stent removal, bilateral ureteroscopy with laser lithotripsy) I have reviewed the history and physical and performed a pertinent physical examination on my patient. No changes have occurred unless specified. Time Spent With Patient Time: Total time managing care of this patient today ____ minutes.
--- NOTE | 2025-03-30 14:27 | PC.NURSE ---
repositioned patient for comfort
--- NOTE | 2025-03-30 16:19 | W.PM.OPN ---
Operative Note Operative Note Date of Service: 03/30/25 Narrative: PreOperative Diagnosis: Bilateral indwelling stents with bilateral renal stones Post Operative Diagnosis: Bilateral indwelling stents with left-sided ureteric and renal stones Procedure: - cystoscopy - placement of sensor wire right side - right retrograde - removal of right stent - right rigid ureteroscopy - placement of sensor wire left side - left retrograde - left rigid ureteroscopy with stone basketing - left flexible ureteroscopy - left ureteric stent placement with laser lithotripsy stone basketing Surgeon: Dr Justo Gaspar Anesthesia: General Indications for procedure: Previously seen with bilateral ureteric stones and left proximal ureteric stone. At that point in time had elevated creatinine. Bilateral stents placed. Here for definitive procedure. Procedure: After informed consent was verified the patient was brought to the operating room and placed in a supine position. Anesthesia was administered per protocol. The patient was placed in a modified dorsal lithotomy position and prepped and draped in a sterile fashion. Safety pause time-out and side of surgery were confirmed. Images were available for review. Antibiotic administration confirmed. A 22 Vietnamese cystoscope was inserted per urethra. The urethra was without abnormality. The bladder was normal in its entirety. Both ureteric orifices were seen in normal position stents emerging from both ureteric orifices. Stents already calcified. The right ureteric orifice was cannulated and a retrograde examination was performed. No definitive filling defects seen. . A Sensor guidewire was placed up to the level of the renal pelvis under fluoroscopy. The indwelling right stent was removed. The semi rigid ureteral scope was placed alongside the Sensor guidewire. No stones encountered along length of ureter. Attention was then directed to the left side. The left ureteric orifice was cannulated and a retrograde examination was performed. Question of small filling defect in distal portion of ureter . A Sensor guidewire was placed up to the level of the renal pelvis under fluoroscopy. The indwelling left stent was removed. The semi rigid ureteral scope was placed alongside the Sensor guidewire. Small stone encountered in distal portion of ureter. Using a ZeroTip basket the stone was removed. Decision made to place flexible ureteral scope over the wire up to the level of the left renal pelvis. When this was performed a stone was encountered in the left renal pelvis proximally 9 mm in size. Decision made to remove the left flexible scope in place a ureteric access sheath. The scope was then placed up into the renal pelvis. Two stones were encountered each proximally 8 mm. Using a 272 micro holmium laser fiber and the [employer] laser with virtual basket technique the stone was broken into small pieces using a combination of hammer and dusting techiques. Stone fragments were removed from the ureter using a ZeroTip basket. The renal pelvis was examined and irrigated. The majority of the stone fragments had been removed. Since he had a prior stent a decision was made not to leave a stent at the conclusion of the procedure. The flexible ureteral scope was removed. The access sheath was removed. The bladder was emptied. The patient tolerated the procedure well and was extubated in the operating room. They were transferred in stable condition to the recovery area. Pathology: stones Drains:
== END 2025-03-30 17:30 | disposition home or self-care (01) ==
PROVIDERS: PCP Internal Medicine; Visit Provider Urology
PROC: (CPT 52356; principal; 2025-03-30 11:40)
DX: N20.2 Calculus of kidney with calculus of ureter (principal); Z96.0 Presence of urogenital implants; R39.198 Other difficulties with micturition; Z87.442 Personal history of urinary calculi; I69.354 Hemiplegia and hemiparesis following cerebral infarction affecting left non-dominant side; I10 Essential (primary) hypertension; G40.909 Epilepsy, unspecified, not intractable, without status epilepticus; F41.9 Anxiety disorder, unspecified; G47.33 Obstructive sleep apnea (adult) (pediatric); Z79.899 Other long term (current) drug therapy
CPT/HCPCS: 52356; 82365; 88300; C1758; C1769; C1894; J0131; J1956; J2003; J2405; J2704; J3010; Q9967

== ENCOUNTER → 2025-03-30 09:56 | Outpatient (BNV) | payer OTHER, SELFPAY | PROVIDERS: PCP Internal Medicine; Visit Provider Urology | DX: N20.0 Calculus of kidney (principal); Z96.0 Presence of urogenital implants | CPT/HCPCS: 52352; 52353; 74420 ==